=== PATIENT | female | born 1995 | race Caucasian/White ===

== ENCOUNTER 2023-05-22 22:28 | Inpatient (IN) | payer OTHER, SELFPAY ==
[2023-05-22 16:13] VITALS: BP 139/98
[2023-05-22] MEDS: DILAUDID 0.5 MG IV ×2 (20:08→21:58)
[2023-05-22] MEDS: NSS 1000 IV (20:08)
[2023-05-22 20:09] LABS: % Basophils 0.5 % (0-2); % Eosinophils 0.7 % (0-6); % Immature Granulocytes 0.2 % (0-0.5); % Lymphocytes 21.2 % (20.5-51.1); % Monocytes 9.7 % (1.7-9.3); % Neutrophils 67.7 % (42.2-75.2); Absolute Lymphocytes 0.9 10^3/uL (1.2-3.4); Absolute Monocytes 0.4 10^3/uL (0.1-0.6); Hematocrit 30.2 % (37.0-47.0); Hemoglobin 10.6 g/dL (12.0-16.0); Mean Corp Hgb Conc. 35.1 g/dL (33.0-37.0); Mean Corpuscular Hgb 31.1 pg (27.0-31.0); Mean Corpuscular Volume 88.6 fL (81.0-99.0); Mean Platelet Volume 12.6 fL (7.4-10.4); Nucleated Red Blood Cells % 0 %; Platelet Count 176 10^3/uL (130-400); Red Blood Cell Count 3.41 10^6/uL (4.20-5.40); Red Cell Dist. Width 13.4 % (11.5-14.5); White Blood Cell Count 4.4 10^3/uL (4.8-10.8)
[2023-05-22] MEDS: ZOFRAN 4 MG IV (20:09)
[2023-05-22 20:18] VITALS: BMI 33.8
[2023-05-22 20:31] LABS: ALT (SGPT) 47 U/L (0-35); AST (SGOT) 41 U/L (14-36); Albumin 3.9 g/dl (3.5-5.0); Alkaline Phosphatase 89 U/L (38-126); Blood Urea Nitrogen 24 mg/dl (7-17); Calcium 9.2 mg/dl (8.4-10.2); Carbon Dioxide 23 mmol/L (22-30); Chloride 103 mmol/L (98-107); Estimated Creatinine Clearance 59 ml/min; Glucose 106 mg/dl (70-99); Potassium 4.8 mmol/L (3.5-5.1); Sodium 135 mmol/L (135-145); Total Bilirubin 0.4 mg/dl (0.2-1.3); Total Protein 6.4 g/dl (6.3-8.2); eGFR 47.78
--- NOTE | 2023-05-22 20:36 | ED.GENMED ---
History of Present Illness
General
Chief Complaint: Abdominal Pain
Source: patient
Time Seen by Provider: 05/22/23 19:28
Travel History
Have you had any contact with someone who has COVID-19?: No
Comment: self
Do you have any symptoms of coronavirus? Fever > 100 degrees, chills, cough, shortness of breath, sore throat, loss of taste or smell, muscle aches, or headache?: Yes
Symptoms:: fever and chills
History of Present Illness
History of Present Illness:
28-year-old female renal transplant patient typically follows at [facility] presents with significant abdominal pain worsening over the past 2 days with associated loose stool. She was recently admitted at hospital
[place] for treatment of COVID. She received remdesivir as well as ceftriaxone. Upon discharge, 2 days ago she developed abdominal pain diarrhea similar to prior bouts of C. difficile. She denies a fever. She is nauseous without vomiting.
She notes significant diffuse abdominal pain. No other complaints at this time
Past History
Past History
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
ED Past Surgical History: Other (Kidney transplant 2015, Hernia repair)
Social History
Tobacco: Non-smoker
Alcohol: None
Drug: None
Personal: Single
Living: with family
Employment: Employed
Family History
Family History: Other (Grandmother with ovarian cancer mother with retinitis pigmentosa, father with high blood pressure)
Phy Exam
Physical Exam
Physical Exam:
General: Uncomfortable appearing female no acute respiratory distress
HEENT: Normocephalic atraumatic mucosa dry neck is supple
Heart: Regular rate and rhythm no murmurs
Lungs: Clear bilaterally no wheezing
Abdomen: Soft diffusely tender no guarding or rebound normal bowel sounds
Course
Orders/Labs/Results
Orders:
Orders
05/22/23 16:27
C difficile Antigen & Toxins Urgent
ITZ Source: Feces/Stool
Specimen Description:
Date Specimen was Collected: 05/22/23
Time Specimen was Collected: 16:25
Stool Culture Urgent
ITZ Source: Feces/Stool
Specimen Description:
Date Specimen was Collected: 05/22/23
Time Specimen was Collected: 16:25
05/22/23 19:35
0.9% Sodium Chloride 1000 ml [Nss] 1,000 ml IV BOLUS
HYDROmorphone [Dilaudid] 0.5 mg IV NOW STA
Ondansetron Injectable [Zofran] 4 mg IV NOW STA
05/22/23 20:03
Complete Blood Count/With Diff Urgent
Comprehensive Metabolic Panel Urgent
Lipase Urgent
05/22/23 20:07
Diphenhydramine [Benadryl] 25 mg IV NOW STA
05/22/23 21:00
Fidaxomicin [Dificid] 200 mg PO BID
Abnormal Lab Results
05/22/23
20:03
WBC 4.4 L 10^3/uL
(4.8-10.8)
RBC 3.41 L 10^6/uL
(4.20-5.40)
Hgb 10.6 L g/dL
(12.0-16.0)
Hct 30.2 L %
(37.0-47.0)
MCH 31.1 H pg
(27.0-31.0)
MPV 12.6 H fL
(7.4-10.4)
Absolute Lymphs (auto) 0.9 L 10^3/uL
(1.2-3.4)
Monocytes % 9.7 H %
(1.7-9.3)
BUN 24 H mg/dl
(7-17)
Creatinine 1.5 H mg/dL
(0.6-1.0)
Glucose 106 H mg/dl
(70-99)
AST 41 H U/L
(14-36)
ALT 47 H U/L
(0-35)
05/22/23 20:03
05/22/23 20:03
Vital Signs
Initial and Last Documented VS:
Initial Vital Signs
Temp Pulse Resp BP Pulse Ox
98.3 F 84 16 139/98 98
05/22/23 16:13 05/22/23 16:13 05/22/23 16:13 05/22/23 16:13 05/22/23 16:13
Last Documented Vital Signs
Temp Pulse Resp BP Pulse Ox
98.3 F 84 16 139/98 98
05/22/23 16:13 05/22/23 16:13 05/22/23 16:13 05/22/23 16:13 05/22/23 16:13
MDM/Problems Addressed
Differential Diagnosis Includes:
Abdominal pain and diarrhea recent hospitalization immunosuppressed patient. Consider recurrent C. difficile. Diffuse tenderness on exam. At this point we will not order any imaging. Stool studies pending but likely will not get C. difficile
until the morning. Check labs hydrate treat symptoms. Discussed with ID
*Critical Care Note
Total Time (30-74mins, 75-104mins- exclusive of procedures): Not Applicable
Update Note
Update Note:
Patient reevaluated multiple times and is moving her bowels frequently with persistent abdominal pain. Suspect possible recurrent C. difficile. Will start on for Doxy mycin 200 mg twice a day admit to hospital for IV hydration pain control and
treatment of likely recurrent C. difficile.
ED Attending Note
-
Portions of this chart may have been created with voice recognition software.� Occasional wrong word or��sound alike� substitutions may have occurred due to the inherent limitations of voice recognition software.
Discharge Plan
Departure
Patient Disposition: Admit
Date of Disposition: 05/22/23
Time of Disposition: 20:37
Admit to: Med/Surg
Presentation/result/management discussed w/ accepting MD/DO: Hospitalist
Discharge Problem:
Abdominal pain
Prescriptions:
No Action
prednisone 5 MG tablet
5 mg PO DAILY
clonidine HCl 0.1 MG tablet
0.2 mg PO TID
alprazolam 1 MG tablet
1 mg PO DAILY PRN (Reason: panic)
Patient Comments:
10/20/2022: last filled 09/27/22, 10 tabs for 30 days from [facility]
azathioprine [Azasan] 100 MG tablet
100 mg PO DAILY
omeprazole 20 MG tablet,delayed release (DR/EC)
20 mg PO DAILY
carvedilol 25 mg Tablet
25 mg PO BID
spironolactone 25 mg tablet
25 mg PO DAILY
lisinopril 10 mg tablet
10 mg PO DAILY
montelukast 10 mg tablet
10 mg PO HS
pravastatin 20 mg tablet
20 mg PO HS
mirtazapine 15 mg tablet
30 mg PO HS
zolpidem 10 mg tablet
10 mg PO HS PRN (Reason: insomnia)
Patient Comments:
10/20/2022: last filled 09/27/22, 15 tabs for 30 days from [facility]
albuterol sulfate 90 mcg/actuation HFA aerosol inhaler
2 puff INHALATION R Q4 PRN (Reason: sob)
ondansetron 4 mg tablet,disintegrating
4 mg PO Q8H PRN (Reason: nausea/vomiting)
buspirone 15 mg tablet
15 mg PO BID
Linzess 145 mcg capsule
145 mcg PO DAILY PRN (Reason: constipation)
Eliquis 2.5 mg tablet
2.5 mg PO BID
acetaminophen 500 mg Powder In Packet
1,000 mg PO Q6H PRN (Reason: mild pain/fever)
Trulicity 0.75 mg/0.5 mL Pen Injector
0.75 mg SC QWEEK
Patient Comments:
THURSDAYS
multivitamin Tablet
1 tab PO DAILY
hyoscyamine sulfate 0.125 mg Tablet
0.125 mg PO Q6H PRN (Reason: IRRITABLE BOWEL, CRAMPING)
belatacept 250 mg Recon Soln
250 mg IV .Q4WK
sulfamethoxazole-trimethoprim [Bactrim DS] 800-160 mg tablet
1 tab PO BID 7 Days Qty: 14 0RF
Referrals:
Leoncio Zheng MD [Family Provider] -
Interventions
Interventions:
*Risk Screen - Suicide Last Done: 05/22/23 16:13
*General Assessment Last Done: 05/22/23 19:55
*Neglect/Abuse Screening Last Done: 05/22/23 16:13
*ED COVID-19 Vaccine History Last Done: 05/22/23 16:13
HS-Jcdhei-Udlqlvvjih Assessment Last Done: 05/22/23 19:55
[2023-05-22 20:41] LABS: Lipase 261 U/L (23-300)
[2023-05-22] MEDS: BENADRYL 25 MG IV (20:59)
--- NOTE | 2023-05-22 21:59 | HPS.HSE ---
Addendum entered and electronically signed by Robby Carr DO 05/22/23 22:19:
A/P:
Anemia of Chronic Disease
- Stable. Hgb is at / near known baseline.
- No noted blood loss / bloody stool / etc.
- Follow for any changes.
Original Note:
Family Physician
-
Family Physician: Leoncio Zheng MD
Chief Complaint
-
Abdominal Pain / Diarrhea
History of Present Illness
Patient is a 28y F with PMH significant for renal transplant and immunocompromised status who presents to ED complaining of abdominal pain and diarrhea x 4 days. Patient states that she started with crampy abdominal pain and loose, watery
stools on evening. Her symptoms have worsened since that time. Today her pain is quite severe and diffuse. She has had > 10 BM per day for the past 2 days. Patient notes that symptoms are similar to CDiff colitis that she had in
March 2023.
Patient is on chronic immunosuppressant medications for her renal transplant.
She was diagnosed with CDiff 04/21/23 and was treated with oral Vancomycin at that time (she apparently tolerates this as long as taken with Benadryl). Her symptoms did completely resolve.
On 05/13/23, patient was seen in this ED with a red, inflamed skin lesion on the posterior neck. She was prescribed Bactrim at that time.
On 05/16/23, patient developed cough and chills. She was seen at [facility] the following morning and found to be COVID-19 positive. She was admitted and treated with 3 doses of Remdesivir. She states that she also received 3 doses of ceftriaxone as she
was complaining of urinary symptoms.
Patient was discharged to home on and her current symptoms of abdominal pain and diarrhea started soon after.
In the ED, patient is in moderate distress due to combination of abdominal discomfort and anxiety.
Medical History
Past Medical History
Past Medical History: Reports Other
Additional Past Medical History:
FSGS s/p Renal Transplant
Major Depression / Bipolar Depression
Factor V Leiden Mutation with Prior DVT and PE
Obesity
Hypertension
Asthma
History of CDiff Colitis
History of CMV Colitis
Past Surgical History: Reports Other
Additional Past Surgical History:
Renal Transplant (2014)
Sinus Surgery
Septoplasty x 2
T&A
Cholecystectomy
Right Hand Surgery
Social History
Tobacco: Non-smoker
Alcohol: None
Drug: None
Family History
Family History: Other (Anxiety / Depression)
Allergies / Home Medications
Allergies reflects when Allergies were last updated in [employer].
Home Medications with original date entered in [employer]
Allergy/Medication List:
Allergies
Allergy/AdvReac Type Severity Reaction Status Date / Time
amoxicillin Allergy Rash Verified 05/22/23 16:21
cephalexin [From Keflex] Allergy Itching; Verified 05/22/23 16:21
tolerated
cepfodoxime
07/28/22
acetaminophen [From Vicodin] AdvReac Nausea / Verified 05/22/23 16:21
Vomiting
hydrocodone [From Vicodin] AdvReac Nausea / Verified 05/22/23 16:21
Vomiting
vancomycin AdvReac vanco Verified 05/22/23 16:21
flushing
syndrome;
tolerates
with
diphenhdyramine
Home Medications
prednisone 5 mg tablet 5 mg PO DAILY inflammation 08/02/16
alprazolam 1 mg tablet 1 mg PO DAILY PRN panic 01/24/21
azathioprine 100 mg tablet (Azasan) 100 mg PO DAILY Transplant 01/24/21
omeprazole 20 mg tablet,delayed release 20 mg PO BID Gastrointestinal Issue 01/24/21
apixaban 2.5 mg tablet (Eliquis) 2.5 mg PO BID Blood Clot Prevention/Tx 10/20/22
buspirone 15 mg tablet 15 mg PO TID Mental Health/Anxiety 10/20/22
carvedilol 25 mg tablet 25 mg PO BID Blood Pressure 10/20/22
lisinopril 10 mg tablet 10 mg PO HS Blood Pressure 10/20/22
montelukast 10 mg tablet 10 mg PO HS Allergies 10/20/22
pravastatin 20 mg tablet 20 mg PO HS High Cholesterol 10/20/22
spironolactone 25 mg tablet 25 mg PO DAILY Blood Pressure 10/20/22
zolpidem 10 mg tablet 10 mg PO HS PRN insomnia 10/20/22
belatacept 250 mg intravenous solution 250 mg IV .Q4WK 01/27/23
clonidine HCl 0.2 mg tablet 0.2 mg PO TID 05/22/23
metoclopramide HCl 10 mg tablet 10 mg PO Q6H PRN N/V 05/22/23
mirtazapine 30 mg tablet 30 mg PO HS 05/22/23
Review of Systems
-
History Source: Patient
A 12 point ROS was completed and negative except as noted: Yes
Constitutional: Reports Fatigue and Chills; Denies Fever
EENT: Denies Sore Throat
Respiratory: Denies Cough or Trouble Breathing
Cardiac: Denies Chest Pain or Palpitations
Abdomen/GI: Reports Abdominal Pain and Diarrhea; Denies Nausea, Vomiting, Bloody Stools or Black Stools
: Reports Dysuria and Frequency; Denies Incontinence or Difficulty Voiding
Musculoskeletal: Denies Joint Pain or Edema
Neurological: Denies Dizzy or Headache
Psych: Reports Depression and Anxiety
Physical Exam
Vital Signs
Vital Signs
Temp Pulse Resp BP Pulse Ox
98.3 F 84 16 139/98 98
05/22/23 16:13 05/22/23 16:13 05/22/23 16:13 05/22/23 16:13 05/22/23 16:13
Physical Exam
General: Other (28y F in moderate distress due to discomfort abd anxiety)
HEENT: Moist mucous membranes, PERRLA and Other (Cushinoid / rounded facies)
Respiratory: Clear; No Wheezes, Rales or Rhonchi
Cardiac: S1/S2 and Regular Rhythm; No Murmur
GI: Soft, Non Distended, Normal Bowel Sounds and Other (Pos diffuse tenderness with voluntary guarding.)
Musculoskeletal: No Clubbing and No Edema
Neuro: AO x 3
Psych: Anxious
Laboratory Results
-
05/22/23 20:03
05/22/23 20:03
Laboratory Results
Total Bilirubin 0.4 mg/dl (0.2-1.3) 05/22/23 20:03
AST 41 U/L (14-36) H 05/22/23 20:03
ALT 47 U/L (0-35) H 05/22/23 20:03
Alkaline Phosphatase 89 U/L (38-126) 05/22/23 20:03
Lipase 261 U/L (23-300) 05/22/23 20:03
Impression/Plan
-
A/P: Patient is a 28y F with PMH significant for renal transplant and immunocompromised state who presents to ED complaining of abdominal pain and diarrhea.
Abdominal Pain / Diarrhea
- Admit for further evaluation and treatment.
- Symptoms seem most c/w colitis with possibilities including CDiff or CMV given immunocompromised state and prior history.
- Treat with PO Vanco for CDiff in March 2023.
- Recent abx use including Bactrim (beginning 05/13) and ceftriaxone (beginning 05/16).
- Follow-up stool studies.
- Dificid for now.
- Supportive care including IVFs / volume replacement / pain control / etc.
- ID evaluation for additional recommendations.
- Follow for clinical improvement.
Renal Transplant Status
CKD III
- Stable. SCr is at / near known baseline.
- Continue current antirejection medications including daily prednisone.
- Follow for changes in renal function.
Anxiety / Major Depression / Bipolar
- Poorly controlled at present.
- Continue usual outpatient medication regimen for now.
- PRN lorazepam for breakthrough anxiety.
- Follow for improvement.
Multidrug Resistant Hypertension
- Stable at present. Continue current outpatient med regimen with holding parameters.
- Adjust regimen as needed for adequate BP control.
GERD
- Would discontinue PPI given CDiff recently and possibly recurrently.
- Begin H2-blockade and monitor for adequate control of reflux symptoms.
Obesity due to excess calories and med effects
- Affects all aspects of care.
- Encourage healthy diet and increased exercise with goal of weight loss.
Thrombophilia / Factor V Leiden Mutation
DVT Prophylaxis
- Continue Eliquis.
Code Status: Full
[2023-05-22 22:06] VITALS: BP 133/88
[2023-05-22] MEDS: DIFICID 200 MG PO (23:08)
[2023-05-23] MEDS: NSS 1000 IV ×3 (01:05→20:11)
[2023-05-23] MEDS: DILAUDID 0.5 MG IV ×7 (01:06→23:01)
[2023-05-23] MEDS: ZESTRIL 10 MG PO ×2 (01:17→23:01)
[2023-05-23] MEDS: SINGULAIR 10 MG PO ×2 (01:18→23:01)
[2023-05-23] MEDS: PRAVACHOL 20 MG PO ×2 (01:21→23:01)
[2023-05-23] MEDS: REMERON 30 MG PO ×2 (01:21→23:01)
[2023-05-23] MEDS: CATAPRES PO (01:27)
[2023-05-23] MEDS: CATAPRES 0.200000000000000011 MG PO ×4 (01:27→23:01)
[2023-05-23] MEDS: TYLENOL 650 MG PO (02:37)
[2023-05-23 02:41] VITALS: BP 186/119
[2023-05-23] MEDS: COREG 25 MG PO ×3 (03:14→20:06)
[2023-05-23] MEDS: ATIVAN 0.5 MG PO ×2 (05:06→11:12)
[2023-05-23 05:30] LABS: Hematocrit 27.2 % (37.0-47.0); Hemoglobin 9.4 g/dL (12.0-16.0); Mean Corp Hgb Conc. 34.6 g/dL (33.0-37.0); Mean Corpuscular Hgb 31.1 pg (27.0-31.0); Mean Corpuscular Volume 90.1 fL (81.0-99.0); Mean Platelet Volume 12.6 fL (7.4-10.4); Platelet Count 146 10^3/uL (130-400); Red Blood Cell Count 3.02 10^6/uL (4.20-5.40); Red Cell Dist. Width 13.4 % (11.5-14.5); White Blood Cell Count 4.2 10^3/uL (4.8-10.8)
[2023-05-23] MEDS: ZOFRAN 4 MG IV ×3 (05:47→23:02)
[2023-05-23 05:59] LABS: Blood Urea Nitrogen 18 mg/dl (7-17); Calcium 8.3 mg/dl (8.4-10.2); Carbon Dioxide 23 mmol/L (22-30); Chloride 106 mmol/L (98-107); Estimated Creatinine Clearance 64 ml/min; Glucose 88 mg/dl (70-99); Magnesium 1.6 mg/dl (1.6-2.3); Phosphorus 4.2 mg/dl (2.5-4.5); Potassium 4.2 mmol/L (3.5-5.1); Sodium 135 mmol/L (135-145)
[2023-05-23 06:00] VITALS: BP 168/119
[2023-05-23 08:00] VITALS: BP 175/120
[2023-05-23] MEDS: ALDACTONE 25 MG PO (08:04)
[2023-05-23] MEDS: ELIQUIS 2.5 MG PO ×2 (08:04→20:06)
[2023-05-23] MEDS: PEPCID 20 MG PO ×2 (08:04→20:06)
[2023-05-23] MEDS: DELTASONE 5 MG PO (09:04)
[2023-05-23] MEDS: IMURAN 100 MG PO (09:05)
[2023-05-23] MEDS: DIFICID 200 MG PO (09:05)
--- NOTE | 2023-05-23 09:09 | W.PN.HOSP.TC ---
Today's Communication/Plan
-
Continue monitoring BMP and CBC -- especially renal function given history of renal transplant
Monitor vital signs
Appreciate ID and GI recommendations
Assessment / Plan
Assessment / Plan
Physical Exam
General: Not in acute distress
HEENT: Moist mucous membranes and Other (Cushinoid / rounded facies)
Respiratory: Clear to Auscultation Bilaterally
Cardiac: S1/S2 and Regular Rhythm
GI: Soft, Non Distended, Normal Bowel Sounds and Other (Pos diffuse tenderness with voluntary guarding.)
Musculoskeletal: No Edema
Neuro: AAO x 3
Psych: Anxious

A/P: Patient is a 28y F with PMH significant for renal transplant and immunocompromised state who presents to ED complaining of abdominal pain and diarrhea.
Abdominal Pain / Diarrhea in the Setting of Immunocompromised Status
Colitis?
Recent C. Diff (03/2023)
History of CMV colitis due to immunosuppression.
- Admit for further evaluation and treatment.
- Symptoms seem most c/w colitis with possibilities including CMV given immunocompromised state and prior history.
- Treated with PO Vanco for CDiff in March 2023.
- Recent abx use including Bactrim (beginning 05/13) and ceftriaxone (beginning 05/16).
- Follow-up stool studies.
- Dificid for now.
- Supportive care including IVFs / volume replacement / pain control / etc.
- ID evaluation for additional recommendations.
- Consulted gastroenterology, recommendations appreciated
Renal Transplant Status
Immunocompromised Status
CKD III
- Stable. SCr is at / near known baseline (creatinine of 1.4 to 1.5 and eGFR of 40)
- Continue current antirejection medications including daily prednisone.
- Follow for changes in renal function.
Recent COVID Hospitalization at [facility] in [place]
- Patient was hospitalized with COVID (with no pulmonary symptoms) recently in [facility] in [place]
- She got Remdesivir and Ceftriaxone at the time
Anemia of Chronic Disease
- Stable. Hgb is at / near known baseline.
- No noted blood loss / bloody stool / etc.
- Follow for any changes.
Anxiety / Major Depression / Bipolar
- Poorly controlled at present.
- Continue usual outpatient medication regimen for now.
- PRN lorazepam for breakthrough anxiety.
- Follow for improvement.
Multidrug Resistant Hypertension
- Stable at present. Continue current outpatient med regimen with holding parameters.
- Adjust regimen as needed for adequate BP control.
GERD
- Would discontinue PPI given CDiff recently and possibly recurrently.
- Begin H2-blockade and monitor for adequate control of reflux symptoms.
Obesity due to excess calories and med effects
- Affects all aspects of care.
- Encourage healthy diet and increased exercise with goal of weight loss.
Thrombophilia / Factor V Leiden Mutation
DVT Prophylaxis
- Continue Eliquis.
Code Status: Full
Anticipated Discharge: 24 - 48 hours
Subjective/Interval History
-
Date of Service: May 23, 2023
Patient was seen and examined. She reported that she has been having diarrhea for the past couple of days. She is doing okay this morning but would like a regular diet.
Objective Data
-
Labs:
Laboratory Results
05/23/23
05:12
WBC 4.2 L
Hgb 9.4 L
Hct 27.2 L
Plt Count 146
Sodium 135
Potassium 4.2
Chloride 106
Carbon Dioxide 23
BUN 18 H
Creatinine 1.4 H
Glucose 88
Calcium 8.3 L
Vital Signs:
Vital Signs
Temp Pulse Resp BP Pulse Ox
98.2 F 70 16 175/120 96
05/23/23 08:00 05/23/23 08:00 05/23/23 08:00 05/23/23 08:00 05/23/23 08:21
I&O
05/22/23 05/23/23 05/24/23
06:59 06:59 06:59
Intake Total 1280 / 1280
Balance 1280 / 1280
--- NOTE | 2023-05-23 11:20 | PHANOTE ---
05/23/2023, [employer], spoke to pt. to obtain their medication history; pt. states that her Trulicity 3 mg/0.5 ml pen that she uses on Saturdays is currently on hold and she has not used it in awhile.
[2023-05-23 15:43] VITALS: BP 168/108
[2023-05-23 15:44] VITALS: BMI 32.9
--- NOTE | 2023-05-23 16:38 | CON.ID ---
Consultation
-
Date/Time Consultation Requested: 05/23/23 00:49
Date/Time Consultation Performed: 05/23/23 16:39
Requesting Provider: Dr Carr
Performing Provider: Dr Lange
Reason for Consultation: Colitis- Suspected CDiff
Chief Complaint / Past History
Chief Complaint
abdominal pain, diarrhea
History of Present Illness
Ms Montero is a 28 year old female with history of FSGS s/p RT 2014 (azathioprine 100 mg PO qday, betalacept, pred 5 mg) and C diff (last 04/16), also CMV colitis who presented here late last night for abdominal pain and diarrhea x4 days; pain began
as crampy, loose, watery stools on and have progressed. Reporting >10 BM/day x2 days. Reports that her c difficile symptoms did fully resolve. Of note with 3 days of ceftriaxone of dysuira 1 week ago and a 3 day course of remdesivir for
covid.
Also has a history of an abdominal wall abscess 10/20/22 s/p I&D.
Since arrival here she has been afebrile, bp hypertensive, wbc 4.2, hgb 9.4, plt 146, a L shift is noted, cr 1.4 which appears to be her baseline, C diff testing has resulted negative, a routine stool culture is in progress,
Past History
Additional Past Medical History:
FSGS s/p Renal Transplant
Major Depression / Bipolar Depression
Factor V Leiden Mutation with Prior DVT and PE
Obesity
Hypertension
Asthma
History of CDiff Colitis
History of CMV Colitis
Additional Past Surgical History:
Renal Transplant (2014)
Sinus Surgery
Septoplasty x 2
T&A
Cholecystectomy
Right Hand Surgery
Allergy History:
amoxicillin Allergy (Verified 05/22/23 16:21)
Rash
cephalexin [From Keflex] Allergy (Verified 05/22/23 16:21)
Itching; tolerated cepfodoxime 07/28/22
acetaminophen [From Vicodin] Adverse Reaction (Verified 05/22/23 16:21)
Nausea / Vomiting
hydrocodone [From Vicodin] Adverse Reaction (Verified 05/22/23 16:21)
Nausea / Vomiting
vancomycin Adverse Reaction (Verified 05/22/23 16:21)
vanco flushing syndrome; tolerates with diphenhdyramine
Medications Reviewed: Yes
Social History
Tobacco: Non-Smoker
Alcohol: None
Drug: None
Family History
Family History: Not Pertinent
Review of Systems
Review of Systems
General: Fever
All systems: All other systems were reviewed and were negative
Vital Signs
Temp Pulse Resp BP Pulse Ox
98.0 F 71 17 168/108 98
05/23/23 15:43 05/23/23 15:43 05/23/23 15:43 05/23/23 15:43 05/23/23 15:43
Physical Exam
Physical Exam
Constitutional: No Acute Distress
Cardiovascular: Regular Rate and S1/S2; Negative Murmur or Rub
Pulmonary: Clear and Symmetric; Negative Wheezes, Rales or Rhonchi
Gastrointestinal: Soft, Non Tender, Non Distended and Normal Bowel Sounds
Skin: Warm and Dry; Negative Rash or Jaundice
Lab / Diagnostic Study Results
05/23/23 05:12
05/23/23 05:12
Abs Immat Gran (auto) 0.0 10^3/uL (0-0.05) 05/22/23 20:03
Absolute Neuts (auto) 3.0 10^3/uL (1.4-6.5) 05/22/23 20:03
Absolute Lymphs (auto) 0.9 10^3/uL (1.2-3.4) L 05/22/23 20:03
Absolute Monos (auto) 0.4 10^3/uL (0.1-0.6) 05/22/23 20:03
Absolute Basos (auto) 0.0 10^3/uL (0-0.2) 05/22/23 20:03
Immature Gran % 0.2 % (0-0.5) 05/22/23 20:03
Neutrophils % 67.7 % (42.2-75.2) 05/22/23 20:03
Lymphocytes % 21.2 % (20.5-51.1) 05/22/23 20:03
Monocytes % 9.7 % (1.7-9.3) H 05/22/23 20:03
Eosinophils % 0.7 % (0-6) 05/22/23 20:03
Basophils % 0.5 % (0-2) 05/22/23 20:03
Microbiology Results
Micro:
05/22/23 16:27 C. difficile GDH Antigen & Toxins - Final
Feces/Stool Negative for toxigenic C.difficile
05/22/23 16:27 Salmonella/Shigella Culture - Pending
Feces/Stool Campylobacter Culture - Pending
Shiga Toxin Test - Pending
Assessment / Plan
Possible antibiotics associated diarrhea, colitis including CMV colitis, diverticulitis (known diverticulosis), giardia/crypto
CKD s/p RT
Immunosuppression
- C diff ag/toxin both negative
- routine culture in progress but relatively low yield
- giardia/crypto ags though less likely - no clear exposure history
- ordered CT a/p without contrast (vomiting, cannot tolerate oral, jolene)
- if not improving with supportive care and no other source found eventual consideration for colonoscopy and assessment for CMV
- stop fidaxomicin- not c diff
- hold antibiotics given recent C diff pending imaging
- oral vancomycin is not absorbed systemically and could likely be tolerated even if patient has red man with systemic vancomcyin
- follow clinically
[2023-05-23 19:00] VITALS: BP 165/107
[2023-05-23] MEDS: PROTONIX 40 MG PO (20:06)
[2023-05-23] MEDS: XANAX 2 MG PO (20:17)
[2023-05-23 23:00] VITALS: BP 140/92
[2023-05-24 05:11] LABS: % Basophils 0.2 % (0-2); % Eosinophils 1.8 % (0-6); % Immature Granulocytes 0.2 % (0-0.5); % Lymphocytes 27.3 % (20.5-51.1); % Monocytes 14.1 % (1.7-9.3); % Neutrophils 56.4 % (42.2-75.2); Absolute Eosinophils 0.1 10^3/uL (0-0.7); Absolute Lymphocytes 1.2 10^3/uL (1.2-3.4); Absolute Monocytes 0.6 10^3/uL (0.1-0.6); Absolute Neutrophils 2.4 10^3/uL (1.4-6.5); Hematocrit 29.2 % (37.0-47.0); Hemoglobin 9.9 g/dL (12.0-16.0); Mean Corp Hgb Conc. 33.9 g/dL (33.0-37.0); Mean Corpuscular Hgb 31.2 pg (27.0-31.0); Mean Corpuscular Volume 92.1 fL (81.0-99.0); Mean Platelet Volume 12.7 fL (7.4-10.4); Nucleated Red Blood Cells % 0 %; Platelet Count 142 10^3/uL (130-400); Red Blood Cell Count 3.17 10^6/uL (4.20-5.40); White Blood Cell Count 4.3 10^3/uL (4.8-10.8)
[2023-05-24 05:38] LABS: ALT (SGPT) 32 U/L (0-35); AST (SGOT) 22 U/L (14-36); Albumin 3.1 g/dl (3.5-5.0); Alkaline Phosphatase 70 U/L (38-126); Blood Urea Nitrogen 15 mg/dl (7-17); Calcium 8.7 mg/dl (8.4-10.2); Carbon Dioxide 24 mmol/L (22-30); Chloride 105 mmol/L (98-107); Estimated Creatinine Clearance 63 ml/min; Glucose 94 mg/dl (70-99); Magnesium 1.6 mg/dl (1.6-2.3); Phosphorus 3.7 mg/dl (2.5-4.5); Sodium 137 mmol/L (135-145); Total Bilirubin 0.6 mg/dl (0.2-1.3); Total Protein 5.5 g/dl (6.3-8.2)
--- NOTE | 2023-05-24 06:56 | CON.GI ---
Addendum entered and electronically signed by Noelle Watts MD 05/24/23 21:01:
I saw and examined the patient.
The WICKER WORKER or PA's note was reviewed and I agree with the note.
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 difficile colitis status post 2
weeks of oral vancomycin presenting with abdominal pain and diarrhea with about 10 bowel movements a day. This is going on for the past 1 month, was admitted at [facility] and had upper endoscopy and flexible sigmoidoscopy which was
after the C. difficile treatment, as per patient upper endoscopy showed gastritis and duodenitis no evidence of CMV noted on colonoscopy. we do not have records to review regarding medication she was started on prior to discharge from [facility]. Subsequently she got COVID and started on remdesivir, she also was given ceftriaxone and post antibiotics diarrhea got worse and she came into the emergency room here.
C. difficile antigen and toxin negative, Cryptosporidium and Giardia negative, stool cultures pending and WBC pending.
-Diarrhea which seems to be chronic at this time, previous history of C. difficile but negative on this admission.
Noncontrast CT scan unremarkable
Will get records from [facility] and also pathology results from the upper endoscopy and colonoscopy.
Await other stool testing.
Low residue lactose low lactose diet for now.
Monitor electrolytes and replete.
Will follow-up on the records from [facility].
Hold off on antibiotics and antidiarrheal's for now.
History of IBS in the past, no improvement with Bentyl.
Will continue to follow
Original Note:
Consultation
-
Date/Time Consultation Requested: 05/23/23 1640
Date/Time Consultation Performed: 05/24/23 0930
Requesting Provider: Alvin Malone MD
Performing Provider: TREV Espinoza, Noelle Watts MD
Reason for Consultation: diarrhea, rectal pain
Medical History
Chief Complaint / HPI
Chief Complaint: diarrhea
History of Present Illness:
Pt is a 28yo with multiple medical issues with prior renal transplant on chronic immunosuppression, depression/bipolar, factor V with prior DVT/PE on Eliquis, , CMV and C-diff colitis (march 2023 with vanco course). she present for abdominal
pain and diarrhea with 10 + BM for several days. She had recent abx course for UTI and remdesivir for covid. She was also noted with rectal pain on admission that is getting better with local therapy. Pt admits to some nausea, diffuse abdominal
pain and continued diarrhea but denies dysphagia, GERD, constipation, black or bloody stools. Pt admits she recently completed EGD and colon at [facility] in March. Did not recall significant findings.
Past Medical History
Past Medical History: Asthma, HTN, Psychiatric (depression/bipolar disorder) and Other (FSGS s/p renal transplant, factor V leiden mutation with prior PE/DVT on chronic Eliquis, obesity, c-diff colitis, CMV colitis, covid, UTI, abdominal wall
abscess)
Past Surgical History: Cholecystectomy and Other (renal transplant, sinus surgery, septoplasty, T+A, hand sugery)
Social History
Tobacco: Non-Smoker
Alcohol: None
Drug: None
Personal:
Living: With Family
Family History
Family History: Reviewed & Not Pertinent
Allergies / Home Medications
Allergy/AdvReac Type Severity Reaction Status Date / Time
amoxicillin Allergy Rash Verified 05/22/23 16:21
cephalexin [From Keflex] Allergy Itching; Verified 05/22/23 16:21
tolerated
cepfodoxime
07/28/22
acetaminophen [From Vicodin] AdvReac Nausea / Verified 05/22/23 16:21
Vomiting
hydrocodone [From Vicodin] AdvReac Nausea / Verified 05/22/23 16:21
Vomiting
vancomycin AdvReac vanco Verified 05/22/23 16:21
flushing
syndrome;
tolerates
with
diphenhdyramine
Medication Instructions Recorded
prednisone 5 mg tablet 5 mg PO DAILY inflammation 08/02/16
alprazolam 1 mg tablet 1 mg PO DAILY PRN mild anxiety 01/24/21
azathioprine 100 mg tablet (Azasan) 100 mg PO DAILY Transplant 01/24/21
apixaban 2.5 mg tablet (Eliquis) 2.5 mg PO Q12H Blood Clot 10/20/22
Prevention/Tx
buspirone 15 mg tablet 15 mg PO TID Mental Health/Anxiety 10/20/22
carvedilol 25 mg tablet 25 mg PO BID Blood Pressure 10/20/22
lisinopril 10 mg tablet 10 mg PO HS Blood Pressure 10/20/22
montelukast 10 mg tablet 10 mg PO HS Allergies 10/20/22
pravastatin 20 mg tablet 20 mg PO HS High Cholesterol 10/20/22
spironolactone 25 mg tablet 25 mg PO DAILY Blood Pressure 10/20/22
zolpidem 10 mg tablet 10 mg PO HS PRN insomnia 10/20/22
mirtazapine 30 mg tablet 30 mg PO HS Mental health/sleep 05/22/23
acetaminophen 500 mg/15 mL oral 1,000 mg PO Q4HPRN PRN mild pain 05/23/23
liquid
alprazolam 1 mg tablet 2 mg PO DAILY PRN severe anxiety 05/23/23
belatacept 250 mg intravenous 250 mg IV Q28D Transplant 05/23/23
solution
clonidine HCl 0.1 mg tablet 0.2 mg PO TID Blood Pressure 05/23/23
lidocaine 4 % topical cream 1 applic topical DIRECTED Pain 05/23/23
linaclotide 145 mcg capsule 145 mcg PO DAILY PRN IBS 05/23/23
(Linzess)
omeprazole 20 mg capsule,delayed 20 mg PO BID Gastrointestinal Issue 05/23/23
release
ondansetron 8 mg disintegrating 8 mg PO Q8H PRN nausea/vomiting 05/23/23
tablet
Review of Systems
-
History Source: Patient
Constitutional: Reports Weight Loss (few lbs )
EENT: Reports No Symptoms
Respiratory: Reports No Symptoms
Cardiac: Reports No Symptoms
Abdomen/GI: Reports Abdominal Pain and Nausea
: Reports Dysuria (mild)
Musculoskeletal: Reports No Symptoms
Skin: Reports No Symptoms
Neurological: Reports Weakness
Endocrine: Reports No Symptoms
Hematologic/Lymphatic: Reports No Symptoms
Vital Signs
Temp Pulse Resp BP Pulse Ox
97.4 F 89 14 140/92 96
05/23/23 23:00 05/23/23 23:00 05/23/23 23:00 05/23/23 23:00 05/23/23 23:00
Physical Exam
Exam
General: Well Developed, Well Nourished and No Apparent Distress
HEENT: Normocephalic and Anicteric
Respiratory: Clear
Cardiac: Regular Rhythm
GI: Soft, Non Distended and Distended
Rectal: Other ( pt consented to rectal exam no redness, no impaction, very minimal tenderness no pain with exam)
Musculoskeletal: No Clubbing and No Cyanosis
Skin: Warm
Neuro: Awake, Alert and AO x 3
Psych: Calm
Results
WBC 4.3 10^3/uL (4.8-10.8) L 05/24/23 04:58
Hgb 9.9 g/dL (12.0-16.0) L 05/24/23 04:58
Hct 29.2 % (37.0-47.0) L 05/24/23 04:58
MCV 92.1 fL (81.0-99.0) 05/24/23 04:58
Plt Count 142 10^3/uL (130-400) 05/24/23 04:58
Absolute Neuts (auto) 2.4 10^3/uL (1.4-6.5) 05/24/23 04:58
Sodium 137 mmol/L (135-145) 05/24/23 04:57
Potassium 4.0 mmol/L (3.5-5.1) 05/24/23 04:57
Chloride 105 mmol/L (98-107) 05/24/23 04:57
Carbon Dioxide 24 mmol/L (22-30) 05/24/23 04:57
BUN 15 mg/dl (7-17) 05/24/23 04:57
Creatinine 1.4 mg/dL (0.6-1.0) H 05/24/23 04:57
Calcium 8.7 mg/dl (8.4-10.2) 05/24/23 04:57
Total Bilirubin 0.6 mg/dl (0.2-1.3) 05/24/23 04:57
AST 22 U/L (14-36) 05/24/23 04:57
ALT 32 U/L (0-35) 05/24/23 04:57
Alkaline Phosphatase 70 U/L (38-126) 05/24/23 04:57
Lipase 261 U/L (23-300) 05/22/23 20:03
Diagnostic Image Results:
10/21/23 CT Abd/pel Without Iv Or Oral
1. � 1.3 cm SUBCUTANEOUS ABSCESS in the anterior pelvic wall located 1.6 cm deep to the skin surface surrounded by SEVERE CELLULITIS.
2. � Right lower quadrant renal transplant in place with mild collecting system dilatation which has increased since 01/24/2021.
3. � Severe bilateral atrophy of the [place] kidneys.
4. � Mild diverticulosis in the sigmoid colon.
5. � Moderate amount of fecal material throughout the proximal colon.
6. � Mild hepatosplenomegaly.
7. � Previous cholecystectomy.
8. � Minimal peritoneal fluid in the pelvis.
Prior GI Procedures:
EGD: recent at [facility] did not recall abnormal findings
Colonoscopy: recent [facility] did not recall any abnormal findings
Assessment / Plan
-
Pt is a 28yo with multiple medical issues with prior renal transplant on chronic immunosuppression, depression/bipolar, factor V with prior DVT/PE on Eliquis, CMV and C-diff (march with vanco course)colitis. she present for abdominal pain and
diarrhea with 10 + BM for several days. She had recent abx course for UTI and remdesivir for covid. Recent EGD and colonoscopy at [address]. Did not recall any abnormal findings.
-diarrhea
-abdominal pain
-rectal pain
-hx c-diff colitis 03/2023
-hx CMV colitis 2016 post transplant
-recent UTI with abx
-recent covid with remdesivir course
-chronic immunosuppression with renal transplant
-factor V/DVT/PE on chronic Eliquis
-depression/bipolar
PLAN:
etiology of abdominal pain with diarrhea related to colitis vs other
repeat c-diff , giardia and crypto neg on admission await further cultures
agree with CT for today with continued abdominal pain
pain control per hospitalist
will hold abd film for now with plan for CT
cont to trend diarrhea-- record all stools
will request recent EGD/colon with bx completed at [address]
appreciate ID recommendations abx held for now
rectal pain likely local process already improved with local care
if not improved consider flex to eval for CMV
remains on Eliquis
currently on PPI and Pepcid BID-- will change pepcid to HS -- consider stopping if improving
-
-
Thank you for consultation and allowing me to participate in the patient's care. Please call the stock preparation operator GI physician during the after hours with any questions or concerns.
[2023-05-24 07:22] VITALS: BP 153/96
[2023-05-24] MEDS: PEPCID 20 MG PO ×2 (07:37→22:17)
[2023-05-24] MEDS: DELTASONE 5 MG PO (07:37)
[2023-05-24] MEDS: PROTONIX 40 MG PO ×2 (07:38→20:16)
[2023-05-24] MEDS: ELIQUIS 2.5 MG PO ×2 (07:38→20:16)
[2023-05-24] MEDS: IMURAN 100 MG PO (07:38)
[2023-05-24] MEDS: CATAPRES 0.200000000000000011 MG PO ×3 (07:39→22:16)
[2023-05-24] MEDS: COREG 25 MG PO ×2 (07:41→20:16)
[2023-05-24] MEDS: ALDACTONE 25 MG PO (07:42)
[2023-05-24] MEDS: DILAUDID 0.5 MG IV ×6 (07:44→23:54)
[2023-05-24] MEDS: NSS 1000 IV (07:44)
[2023-05-24 09:36] LABS: HCG, Urine Qualitative Screen Negative
--- NOTE | 2023-05-24 10:26 | W.PN.ID1 ---
Date of Service
Date of Service: May 24, 2023
Today's Communication
- no need for antibiotics
- oral vancomycin is not absorbed systemically and could likely be tolerated even if patient has red man with systemic vancomycin
- follow clinically
Assessment / Plan
Possible antibiotics associated diarrhea, colitis including CMV colitis, diverticulitis (known diverticulosis), giardia/crypto
CKD s/p RT
Immunosuppression
- C diff ag/toxin both negative - giardia/crypto ags negative
- routine culture in progress but relatively low yield
- CT a/p read - nonrevealing
- if not improving with supportive care and no other source found eventual consideration for colonoscopy and assessment for CMV
- no indication for systemic antibiotics at this time in my opinion, note risk of c diff as well
- oral vancomycin is not absorbed systemically and could likely be tolerated even if patient has red man with systemic vancomycin
- follow clinically
Chief Complaint
-: Other (diarrhea, immunosuppression)
Subjective / Review of Systems
afebrile
bp stable
mild leukopenia ongoing
no L shift
cr stable
giardia/crypto neg
awaiting formal read of CT
05/13/23: 2 abscesses about 1 cm each on the posterior neck - MSSA sensitive to bactrim which she received
recent egd/colon completed at [place]
Vital Signs / Physical Exam
Vital Signs
Vital Signs
Temp Pulse Resp BP Pulse Ox
98.2 F 84 17 153/96 97
05/24/23 07:22 05/24/23 07:42 05/24/23 07:22 05/24/23 07:42 05/24/23 07:22
Physical Exam
Constitutional: No Acute Distress
Cardiovascular: Regular Rate and S1/S2; Negative Murmur or Rub
Pulmonary: Clear and Symmetric; Negative Wheezes or Rales
Gastrointestinal: Soft, Non Tender, Non Distended and Normal Bowel Sounds
Skin: Warm and Dry; Negative Rash or Jaundice
Objective Data
Lab Data
Lab Results
05/24/23 04:58
05/24/23 04:57
Estimated Creat Clear 63 ml/min 05/24/23 04:57
Total Bilirubin 0.6 mg/dl (0.2-1.3) 05/24/23 04:57
AST 22 U/L (14-36) 05/24/23 04:57
ALT 32 U/L (0-35) 05/24/23 04:57
Alkaline Phosphatase 70 U/L (38-126) 05/24/23 04:57
Most recent labs reviewed.
Micro Results:
05/22/23 16:27 Cryptosporidium/Giardia - Final
Feces/Stool Negative for Cryptosporidium and/or Giardia [place]
antigens.
C. difficile GDH Antigen & Toxins - Final
Negative for toxigenic C.difficile
05/22/23 16:27 Salmonella/Shigella Culture - Pending
Feces/Stool Campylobacter Culture - Pending
Shiga Toxin Test - Pending
--- NOTE | 2023-05-24 10:56 | CM ---
CM spoke with pt ext [phone]
Pt resides with [facility] in a 2SH with 2 TANK
Full flight to 2nd floor
Pt is independent with her ADLs
Only DME is nebulizer
Pt has hx with [facility] post transplant- denies SNF hx
PCP- Leoncio Zheng
Rx- [facility] [address]
[facility] is primary contact
Discharge Disposition- home, no needs anticipated
[2023-05-24 15:54] VITALS: BP 162/105
[2023-05-24] MEDS: ZOFRAN 4 MG IV ×2 (16:03→22:09)
--- NOTE | 2023-05-24 17:29 | W.PN.HOSP.TC ---
Today's Communication/Plan
-
Continue to monitor diarrhea
CT A/P was unremarkable
Assessment / Plan
Assessment / Plan
Physical Exam
General: Not in acute distress
HEENT: Moist mucous membranes and Other (Cushinoid / rounded facies)
Respiratory: Clear to Auscultation Bilaterally
Cardiac: S1/S2 and Regular Rhythm
GI: Soft, Non Distended, Normal Bowel Sounds and Other (Pos diffuse tenderness with voluntary guarding.)
Musculoskeletal: No Edema
Neuro: AAO x 3
Psych: Anxious

A/P: Patient is a 28y F with PMH significant for renal transplant and immunocompromised state who presents to ED complaining of abdominal pain and diarrhea.
Abdominal Pain / Diarrhea in the Setting of Immunocompromised Status
Colitis?
Recent C. Diff (03/2023)
History of CMV colitis due to immunosuppression.
- Symptoms seem most c/w colitis with possibilities including CMV given immunocompromised state and prior history.
- Was treated with PO Vanco for CDiff in March 2023.
- Recent abx use including Bactrim (beginning 05/13) and ceftriaxone (beginning 05/16).
- Follow-up stool studies. Negative for C. diff.
- Supportive care including IVFs / volume replacement / pain control / etc.
- CT Abdomen/Pelvis this admission was unremarkable
- ID evaluation for additional recommendations.
- Consulted gastroenterology, recommendations appreciated
- May need sigmoidoscopy/colonoscopy to evaluate for CMV colitis if symptoms do not improved
Renal Transplant Status
Immunocompromised Status
CKD III
- Stable. SCr is at / near known baseline (creatinine of 1.4 to 1.5 and eGFR of 40)
- Continue current antirejection medications including daily prednisone.
- Follow for changes in renal function.
- Patient is supposed to get her infusion on 05/27/23
Recent COVID Hospitalization at [facility] [place]
- Patient was hospitalized with COVID (with no pulmonary symptoms) recently in [facility] [place]
- She got Remdesivir and Ceftriaxone at the time
Anemia of Chronic Disease
- Stable. Hgb is at / near known baseline.
- No noted blood loss / bloody stool / etc.
- Follow for any changes.
Anxiety / Major Depression / Bipolar
- Poorly controlled at present.
- Continue usual outpatient medication regimen for now.
- PRN lorazepam for breakthrough anxiety.
- Follow for improvement.
Multidrug Resistant Hypertension
- Stable at present. Continue current outpatient med regimen with holding parameters.
- Adjust regimen as needed for adequate BP control.
GERD
- Would discontinue PPI given CDiff recently and possibly recurrently.
- Begin H2-blockade and monitor for adequate control of reflux symptoms.
Obesity due to excess calories and med effects
- Affects all aspects of care.
- Encourage healthy diet and increased exercise with goal of weight loss.
Thrombophilia / Factor V Leiden Mutation
DVT Prophylaxis
- Continue Eliquis.
Code Status: Full
Anticipated Discharge: 24 - 48 hours
Subjective/Interval History
-
Date of Service: May 24, 2023
Patient was seen and examined. She denied any significant new symptoms, but is still having abdominal tenderness.
Objective Data
-
Labs:
Laboratory Results
05/24/23
04:57
Sodium 137
Potassium 4.0
Chloride 105
Carbon Dioxide 24
BUN 15
Creatinine 1.4 H
Glucose 94
Calcium 8.7
Total Bilirubin 0.6
AST 22
ALT 32
Alkaline Phosphatase 70
Vital Signs:
Vital Signs
Temp Pulse Resp BP Pulse Ox
98.2 F 80 16 162/105 96
05/24/23 15:54 05/24/23 15:59 05/24/23 15:54 05/24/23 15:59 05/24/23 15:54
I&O
05/23/23 05/24/23 05/25/23
06:59 06:59 06:59
Intake Total 1280 / 1280 440 / 440
Balance 1280 / 1280 440 / 440
[2023-05-24] MEDS: FLUSH (NSS) 2 FLUSH IV ×2 (20:51→23:55)
[2023-05-24] MEDS: ZESTRIL 10 MG PO (22:15)
[2023-05-24] MEDS: SINGULAIR 10 MG PO (22:16)
[2023-05-24] MEDS: PRAVACHOL 20 MG PO (22:16)
[2023-05-24] MEDS: REMERON 30 MG PO (22:16)
[2023-05-24] MEDS: XANAX 2 MG PO (22:21)
[2023-05-24 23:10] VITALS: BP 134/92
[2023-05-25] MEDS: DILAUDID 0.5 MG IV ×3 (05:05→14:13)
[2023-05-25] MEDS: FLUSH (NSS) 2 FLUSH IV (05:05)
[2023-05-25 05:44] LABS: % Basophils 0.2 % (0-2); % Eosinophils 2.1 % (0-6); % Lymphocytes 30.6 % (20.5-51.1); % Monocytes 15.6 % (1.7-9.3); % Neutrophils 51.5 % (42.2-75.2); Absolute Eosinophils 0.1 10^3/uL (0-0.7); Absolute Lymphocytes 1.3 10^3/uL (1.2-3.4); Absolute Monocytes 0.7 10^3/uL (0.1-0.6); Absolute Neutrophils 2.2 10^3/uL (1.4-6.5); Hemoglobin 9.8 g/dL (12.0-16.0); Mean Corp Hgb Conc. 33.8 g/dL (33.0-37.0); Mean Corpuscular Hgb 30.9 pg (27.0-31.0); Mean Corpuscular Volume 91.5 fL (81.0-99.0); Mean Platelet Volume 13.1 fL (7.4-10.4); Nucleated Red Blood Cells % 0 %; Platelet Count 162 10^3/uL (130-400); Red Blood Cell Count 3.17 10^6/uL (4.20-5.40); Red Cell Dist. Width 13.4 % (11.5-14.5); White Blood Cell Count 4.2 10^3/uL (4.8-10.8)
[2023-05-25 06:29] LABS: ALT (SGPT) 27 U/L (0-35); AST (SGOT) 23 U/L (14-36); Albumin 3.4 g/dl (3.5-5.0); Alkaline Phosphatase 66 U/L (38-126); Blood Urea Nitrogen 16 mg/dl (7-17); Carbon Dioxide 26 mmol/L (22-30); Chloride 103 mmol/L (98-107); Estimated Creatinine Clearance 58 ml/min; Glucose 101 mg/dl (70-99); Magnesium 1.7 mg/dl (1.6-2.3); Phosphorus 3.8 mg/dl (2.5-4.5); Potassium 3.7 mmol/L (3.5-5.1); Sodium 137 mmol/L (135-145); Total Bilirubin 0.4 mg/dl (0.2-1.3); Total Protein 5.8 g/dl (6.3-8.2); eGFR 47.78
[2023-05-25 07:00] VITALS: BP 135/78
[2023-05-25] MEDS: COREG 25 MG PO (08:12)
[2023-05-25] MEDS: IMURAN 100 MG PO (08:13)
[2023-05-25] MEDS: ELIQUIS 2.5 MG PO (08:13)
[2023-05-25] MEDS: DELTASONE 5 MG PO (08:13)
[2023-05-25] MEDS: PROTONIX 40 MG PO (08:13)
[2023-05-25] MEDS: CATAPRES 0.200000000000000011 MG PO ×2 (08:13→15:59)
[2023-05-25] MEDS: ALDACTONE 25 MG PO (08:13)
--- NOTE | 2023-05-25 11:38 | W.PN.GI.CBS2 ---
Addendum entered and electronically signed by TREV Castaneda 05/25/23 13:54:
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
Addendum entered and electronically signed by TREV Castaneda 05/25/23 13:10:
I reviewed recent EGD and flex pathology but no report on pt phone with her consent. Note neg SB biopsy, neg H pylori, colonic mucosa no pathologic change with r/o CMV on pathology request. Pt feeling slightly better and concerned for care of son
with disability. She is requesting discharge. I reviewed via tiger text with Dr. Watts and Dr. Malone. Pt states she if followed at [place] with Dr. Zheng advised to call with questions.
Original Note:
Today's Communication / Plan
-
etiology of abdominal pain with diarrhea related to colitis vs other
repeat c-diff , Giardia and crypto neg on admission further cx pending
about 7 stools since yesterday-- reviewed with nursing some forms to stool not all water cont to trend
CT completed but no oral contrast with vomiting so limited but neg for acute findings
pain control per hospitalist
will request again recent EGD/colon with bx completed at [place]
rectal pain likely local process no abnormality of rectal exam 05/24
if not improved consider flex to eval for CMV but will check if recently completed at [place]
remains on Eliquis will need to hold if flex needed
currently on PPI and Pepcid HS-
updated nursing
Assessment / Plan
-
Pt is a 28yo with multiple medical issues with prior renal transplant on chronic immunosuppression, depression/bipolar, factor V with prior DVT/PE on Eliquis, CMV and C-diff (March with vanco course)colitis. she present for abdominal pain and
diarrhea with 10 + BM for several days. She had recent abx course for UTI and remdesivir for covid. Recent EGD and colonoscopy at [place]. Did not recall any abnormal findings.
05/24/23 CT A/p non contrast
No acute pathology
Normal-appearing transplant kidney in the right pelvis
Severe cortical atrophy of the [place] kidneys bilaterally
-diarrhea
-abdominal pain
-rectal pain
-hx c-diff colitis 03/2023
-hx CMV colitis 2016 post transplant
-recent UTI with abx
-recent covid with remdesivir course
-chronic immunosuppression with renal transplant with mild creat increased
-factor V/DVT/PE on chronic Eliquis
-depression/bipolar
PLAN:
etiology of abdominal pain with diarrhea related to colitis vs other
repeat c-diff , Giardia and crypto neg on admission further cx pending
about 7 stools since yesterday-- reviewed with nursing some forms to stool not all water cont to trend
CT completed but no oral contrast with vomiting so limited but neg for acute findings
pain control per hospitalist
will request again recent EGD/colon with bx completed at [place]
rectal pain likely local process no abnormality of rectal exam 05/24
if not improved consider flex to eval for CMV but will check if recently completed at [place]
remains on Eliquis will need to hold if flex needed
currently on PPI and Pepcid HS-
updated nursing
Subjective
Subjective
Date of Service: May 25, 2023
still with diarrhea and abdominal pain per staff not eating well
Objective
Data Reviewed
Laboratory Data:
Laboratory Results
05/25/23 05:01
05/25/23 05:01
Laboratory Results
Phosphorus 3.8 mg/dl (2.5-4.5) 05/25/23 05:01
Magnesium 1.7 mg/dl (1.6-2.3) 05/25/23 05:01
Total Bilirubin 0.4 mg/dl (0.2-1.3) 05/25/23 05:01
AST 23 U/L (14-36) 05/25/23 05:01
ALT 27 U/L (0-35) 05/25/23 05:01
Alkaline Phosphatase 66 U/L (38-126) 05/25/23 05:01
Lipase 261 U/L (23-300) 05/22/23 20:03
Vital Signs and I&O:
Vital Signs
Temp Pulse Resp BP Pulse Ox
97.8 F 78 17 135/78 96
05/25/23 07:00 05/25/23 08:13 05/25/23 07:00 05/25/23 08:13 05/25/23 07:00
I&O
05/24/23 05/25/23 05/26/23
06:59 06:59 06:59
Intake Total 440 / 440 1660 / 1660
Balance 440 / 440 1660 / 1660
Physical Exam
Physical Exam
HEENT: Anicteric and Moist mucous membranes
Cardiology: Normal Sinus Rhythm
Pulmonary: Clear
GI: Soft, Non Distended and Tender (diffuse )
Extremities: No Edema
Neuro: Non Focal
--- NOTE | 2023-05-25 13:11 | W.PN.HOSP.TC ---
Today's Communication/Plan
-
Discharge today
Assessment / Plan
Assessment / Plan
Physical Exam
General: Not in acute distress
HEENT: Moist mucous membranes and Other (Cushinoid / rounded facies)
Respiratory: Clear to Auscultation Bilaterally
Cardiac: S1/S2 and Regular Rhythm
GI: Soft, Non Distended, Normal Bowel Sounds and Other (diffuse tenderness)
Musculoskeletal: No Edema
Neuro: AAO x 3
Psych: Anxious

A/P: Patient is a 28y F with PMH significant for renal transplant and immunocompromised state who presents to ED complaining of abdominal pain and diarrhea.
Abdominal Pain / Diarrhea in the Setting of Immunocompromised Status
Abdominal Pain
Rectal Pain
Recent C. Diff (03/2023)
History of Cytomegalovisu colitis due to immunosuppression.
- Symptoms seem most c/w colitis with possibilities including CMV given immunocompromised state and prior history.
- Was treated with PO Vanco for CDiff in March 2023.
- Recent abx use including Bactrim (beginning 05/13) and ceftriaxone (beginning 05/16).
- Follow-up stool studies. Negative for C. diff, Giardia and Crypto
- CT Abdomen/Pelvis this admission was unremarkable
- ID evaluation for additional recommendations.
- Consulted gastroenterology, recommendations appreciated
- May need sigmoidoscopy/colonoscopy to evaluate for CMV colitis if symptoms do not improved
- Follow-up with gastroenterology at [facility]
- Recheck CBC, BMP and Magnesium by the end of this week (latest by 05/27/23)
Renal Transplant Status
Immunocompromised Status
Chronic Kidney Disease Stage III
- Stable. SCr is at / near known baseline (creatinine of 1.4 to 1.5 and eGFR of 40)
- Continue current antirejection medications including daily prednisone.
- Follow for changes in renal function.
- Patient is supposed to get her infusion on 05/27/23
Recent COVID Hospitalization at [facility] in [place]
Recent Urinary Tract Infection
- Patient was hospitalized with COVID (with no pulmonary symptoms) recently in [facility] in [place]
- She got Remdesivir and Ceftriaxone at the time
Anemia of Chronic Disease
- Stable. Hgb is at / near known baseline.
- No noted blood loss / bloody stool / etc.
- Follow for any changes.
Anxiety / Major Depression / Bipolar
- Poorly controlled at present.
- Continue usual outpatient medication regimen for now.
- PRN lorazepam for breakthrough anxiety.
- Follow for improvement.
Multidrug Resistant Hypertension
- Stable at present. Continue current outpatient med regimen with holding parameters.
- Adjust regimen as needed for adequate BP control.
Gastroesophageal Reflux Disease
- Would discontinue PPI given CDiff recently and possibly recurrently.
- Begin H2-blockade and monitor for adequate control of reflux symptoms.
Obesity due to excess calories and med effects
- Affects all aspects of care.
- Encourage healthy diet and increased exercise with goal of weight loss.
Thrombophilia / Factor V Leiden Mutation
DVT Prophylaxis
- Continue Eliquis.
Code Status: Full
More than 30 minutes spent in discharge including
Final examination of the patient
Summarizing hospital stay
Instructions for continuing care to all relevant caregivers
Preparation of discharge records, prescriptions, and referral forms
Total time spent (in minutes): 41
Anticipated Discharge: Today
Subjective/Interval History
-
Date of Service: May 25, 2023
Patient was seen and examined. Earlier in the morning she stated that she still has abdominal tenderness and diarrhea, but later in the day she mentioned she felt better, she was concerned for care of her son with disability, and requested to be
discharged.
Objective Data
-
Labs:
Laboratory Results
05/25/23
05:01
WBC 4.2 L
Hgb 9.8 L
Hct 29.0 L
Plt Count 162
Sodium 137
Potassium 3.7
Chloride 103
Carbon Dioxide 26
BUN 16
Creatinine 1.5 H
Glucose 101 H
Calcium 9.0
Total Bilirubin 0.4
AST 23
ALT 27
Alkaline Phosphatase 66
Vital Signs:
Vital Signs
Temp Pulse Resp BP Pulse Ox
97.8 F 78 17 135/78 96
05/25/23 07:00 05/25/23 08:13 05/25/23 07:00 05/25/23 08:13 05/25/23 07:00
I&O
05/24/23 05/25/23 05/26/23
06:59 06:59 06:59
Intake Total 440 / 440 1660 / 1660
Balance 440 / 440 1660 / 1660
--- NOTE | 2023-05-25 13:48 | W.PN.ID1 ---
Date of Service
Date of Service: May 25, 2023
Today's Communication
- follow up with patients GI at [facility] is planned, no need for ID follow up
Assessment / Plan
Possible antibiotics associated diarrhea, colitis including CMV colitis, diverticulitis (known diverticulosis), giardia/crypto
CKD s/p RT
Immunosuppression
- no infectious etiology of diarrhea ID'd and requesting dc
- note report of colonoscopy 05/06/23 at [facility] without pathological changes
- if symptoms not resolving then would reconsider repeat colonoscopy
- follow up with patients GI at [facility] is planned, no need for ID follow up
Chief Complaint
-: Other (diarrhea, immunosuppression)
Subjective / Review of Systems
afebrile
bp stable
mild leukopenia no L shift
cr stable
GI reviewed negative flex sign from 05/06/23 - negative
abd still quite tender
Vital Signs / Physical Exam
Vital Signs
Vital Signs
Temp Pulse Resp BP Pulse Ox
97.8 F 78 17 135/78 96
05/25/23 07:00 05/25/23 08:13 05/25/23 07:00 05/25/23 08:13 05/25/23 07:00
Physical Exam
Constitutional: No Acute Distress
Cardiovascular: Regular Rate and S1/S2; Negative Murmur or Rub
Pulmonary: Clear and Symmetric; Negative Wheezes or Rales
Gastrointestinal: Soft, Tender, Non Distended and Normal Bowel Sounds
Skin: Warm and Dry; Negative Rash or Jaundice
Objective Data
Lab Data
Lab Results
05/25/23 05:01
05/25/23 05:01
Estimated Creat Clear 58 ml/min 05/25/23 05:01
Total Bilirubin 0.4 mg/dl (0.2-1.3) 05/25/23 05:01
AST 23 U/L (14-36) 05/25/23 05:01
ALT 27 U/L (0-35) 05/25/23 05:01
Alkaline Phosphatase 66 U/L (38-126) 05/25/23 05:01
Most recent labs reviewed.
Micro Results:
05/22/23 16:27 Salmonella/Shigella Culture - Final
Feces/Stool No Salmonella, Shigella, Aeromonas or Plesiomonas species
isolated.
Campylobacter Culture - Final
No Campylobacter species isolated.
Shiga Toxin Test - Pending
05/22/23 16:27 Cryptosporidium/Giardia - Final
Feces/Stool Negative for Cryptosporidium and/or Giardia Lamblia
antigens.
C. difficile GDH Antigen & Toxins - Final
Negative for toxigenic C.difficile
Care Review
Plan reviewed with: Physician (Dr Malone - giovannyo)
[2023-05-25 15:00] VITALS: BP 152/96
--- NOTE | 2023-05-25 15:43 | W.DS.TRANS ---
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
-
Discharge Instructions:
Discharge Diagnosis/Procedures Abdominal Pain / Diarrhea in the Setting of
Immunocompromised Status
Abdominal Pain
Rectal Pain
Recent C. Diff (03/2023)
History of Cytomegalovirus colitis due to
immunosuppression
Renal Transplant Status
Immunocompromised Status
Chronic Kidney Disease Stage III
Recent COVID Hospitalization at [facility] in
[place]
Recent Urinary Tract Infection
Anemia of Chronic Disease
Anxiety / Major Depression / Bipolar
Multidrug Resistant Hypertension
Gastroesophageal Reflux Disease
Obesity due to excess calories and med effects
Thrombophilia / Factor V Leiden Mutation
Diet As tolerated,BRAT
Activity As tolerated
Driving Restrictions Not until seen by your Dr
Specialty Instructions Weigh Daily
Instructions:
Stand-Alone Forms:
Changes to Home Medications: Yes
Discharge Medications:
DC Medications w/original date entered in [employer]
prednisone 5 mg tablet 5 mg PO DAILY inflammation 08/02/16
alprazolam 1 mg tablet 1 mg PO DAILY PRN mild anxiety 01/24/21
azathioprine 100 mg tablet (Azasan) 100 mg PO DAILY Transplant 01/24/21
apixaban 2.5 mg tablet (Eliquis) 2.5 mg PO Q12H Blood Clot Prevention/Tx 10/20/22
buspirone 15 mg tablet 15 mg PO TID Mental Health/Anxiety 10/20/22
carvedilol 25 mg tablet 25 mg PO BID Blood Pressure 10/20/22
lisinopril 10 mg tablet 10 mg PO HS Blood Pressure 10/20/22
montelukast 10 mg tablet 10 mg PO HS Allergies 10/20/22
pravastatin 20 mg tablet 20 mg PO HS High Cholesterol 10/20/22
spironolactone 25 mg tablet 25 mg PO DAILY Blood Pressure 10/20/22
zolpidem 10 mg tablet 10 mg PO HS PRN insomnia 10/20/22
mirtazapine 30 mg tablet 30 mg PO HS Mental health/sleep 05/22/23
alprazolam 1 mg tablet 2 mg PO DAILY PRN severe anxiety 05/23/23
belatacept 250 mg intravenous solution 250 mg IV Q28D Transplant 05/23/23
clonidine HCl 0.1 mg tablet 0.2 mg PO TID Blood Pressure 05/23/23
lidocaine 4 % topical cream 1 applic topical DIRECTED Pain 05/23/23
linaclotide 145 mcg capsule (Linzess) 145 mcg PO DAILY PRN IBS 05/23/23
omeprazole 20 mg capsule,delayed release 20 mg PO BID Gastrointestinal Issue 05/23/23
acetaminophen 500 mg/15 mL oral liquid 1,000 mg (30 mL) PO Q6HPRN PRN mild pain #0 mL 05/25/23
ondansetron 8 mg disintegrating tablet 8 mg PO DAILYPRN PRN nausea/vomiting #0 tabs 05/25/23
Home Medication Changes
Tylenol and Zofran doses reduced in frequency
Pending Results: No
Total time spent discharging patient (in min): 41
[2023-05-25] MEDS: ZOFRAN 4 MG IV (16:00)
--- NOTE | 2023-05-25 16:00 | CM ---
Chart reviewed
CM will follow for d/c needs
Anticipate home- no needs
--- NOTE | 2023-05-28 08:20 | W.DCSUMMARY ---
Discharge Summary
Discharge Data
Date of Admission: 05/22/23
Date of Discharge: 05/25/23
Total time spent discharging patient (in min): 41
-
Pending Results: No
Hospital Course
28 y/o female with past medical history significant for recent COVID hospitalization at [facility] in [facility], renal transplant and immunocompromised status, and C. diff, who presented to the [facility] emergency department
complaining of abdominal pain and diarrhea x 4 days. Gastroenterology and Infectious Disease were consulted. C. diff testing came back negative. CT Abdomen pelvis (with no oral contrast given nausea and vomiting) was unremarkable (but see official
CT Abdomen Pelvis official radiology report for details). Giardia and Cryptococcus studies were negative. Patient had persistent abdominal pain and episodes of loose bowel movements/diarrhea, patient reported she was feeling better and requested
discharge home, and that she would follow-up closely with her outpatient frame fixer. She was also due for her infusion for her renal transplant on 05/27/23.
Discharge Plan
-
Patient Disposition: Home (Routine Discharge)
Discharge Diagnosis/Procedures: Abdominal Pain / Diarrhea in the Setting of Immunocompromised Status
Abdominal Pain
Rectal Pain
Recent C. Diff (03/2023)
History of Cytomegalovirus colitis due to immunosuppression
Renal Transplant Status
Immunocompromised Status
Chronic Kidney Disease Stage III
Recent COVID Hospitalization at [facility] in [place]
Recent Urinary Tract Infection
Anemia of Chronic Disease
Anxiety / Major Depression / Bipolar
Multidrug Resistant Hypertension
Gastroesophageal Reflux Disease
Obesity due to excess calories and med effects
Thrombophilia / Factor V Leiden Mutation
Condition: Fair
Diet: As tolerated and BRAT
Activity: As tolerated
Driving Restrictions: Not until seen by your Dr
Specialty Instructions: Weigh Daily- Call MD for wt gain/loss 3 lbs overnight/5 lbs in 1 week
Referrals:
Leoncio Zheng MD [Family Provider] - in less than 1 week
Prescriptions:
Continued
prednisone 5 MG tablet
5 mg PO DAILY
alprazolam 1 MG tablet
1 mg PO DAILY PRN (Reason: mild anxiety)
Patient Comments:
05/23/2023, pt. filled this med. on 04/21/2023 for 30 tablets according to PDM.
azathioprine [Azasan] 100 MG tablet
100 mg PO DAILY
carvedilol 25 mg Tablet
25 mg PO BID
spironolactone 25 mg tablet
25 mg PO DAILY
lisinopril 10 mg tablet
10 mg PO HS
montelukast 10 mg tablet
10 mg PO HS
pravastatin 20 mg tablet
20 mg PO HS
zolpidem 10 mg tablet
10 mg PO HS PRN (Reason: insomnia)
Patient Comments:
05/23/2023, pt. filled this med. on 04/21/2023 for 24 tablets according to PDM.
buspirone 15 mg tablet
15 mg PO TID
Eliquis 2.5 mg tablet
2.5 mg PO Q12H
mirtazapine 30 mg Tablet
30 mg PO HS
clonidine HCl 0.1 mg Tablet
0.2 mg PO TID
alprazolam 1 mg Tablet
2 mg PO DAILY PRN (Reason: severe anxiety)
Patient Comments:
05/23/2023, pt. filled this med. on 04/21/2023 for 30 tablets according to PDM.
lidocaine 4 % Cream
1 applic TOPICAL DIRECTED
Patient Comments:
05/23/2023, pt. uses this med. whenever her port needs to be accessed which she states is roughly once a month.
omeprazole 20 mg Capsule,Delayed Release(Dr/Ec)
20 mg PO BID
belatacept 250 mg Recon Soln
250 mg IV Q28D
Linzess 145 mcg Capsule
145 mcg PO DAILY PRN (Reason: IBS)
Changed
ondansetron 8 mg Tablet,Disintegrating
8 mg PO DAILYPRN PRN (Reason: nausea/vomiting) Qty: 0 0RF
acetaminophen 500 mg/15 mL Liquid
1,000 mg PO Q6HPRN PRN (Reason: mild pain) Qty: 0 0RF
Discharge Orders:
Discharge Patient (As Directed); Ordered 05/25/23
Ordered By: Alvin Malone
Discharge Date and Time
Discharge Date/Time: 05/25/23 16:48
== END 2023-05-25 16:48 | disposition home or self-care (01) | DRG 394 ==
LOC: 3 WEST ACU 22:28
PROVIDERS: Physician Assistant; ADMITTING PHYSICIAN Hospitalist; ATTENDING PHYSICIAN Hospitalist; EMERGENCY PHYSICIAN Emergency Medicine; FAMILY PHYSICIAN Internal Medicine; OTHER PHYSICIAN Internal Medicine Gastroenterology; OTHER PHYSICIAN Student in an Organized Health Care Education/Training Program
DX: K52.1 Toxic gastroenteritis and colitis (principal); D68.51 Activated protein C resistance; D84.821 Immunodeficiency due to drugs; F31.30 Bipolar disorder, current episode depressed, mild or moderate severity, unspecified; Z94.0 Kidney transplant status; D63.8 Anemia in other chronic diseases classified elsewhere; N18.30 Chronic kidney disease, stage 3 unspecified; I12.9 Hypertensive chronic kidney disease with stage 1 through stage 4 chronic kidney disease, or unspecified chronic kidney disease; F41.9 Anxiety disorder, unspecified; I1A.0 Resistant hypertension; K21.9 Gastro-esophageal reflux disease without esophagitis; E66.09 Other obesity due to excess calories; Z79.01 Long term (current) use of anticoagulants; Z68.32 Body mass index [BMI] 32.0-32.9, adult
CPT/HCPCS: 74176; 80048; 80053; 81025; 83690; 83735; 84100; 85025; 85027; 87045; 87046; 87324; 87328; 87329; 87427; 87449; 96361; 96374; 96375; 99285; J7500

== ENCOUNTER 2023-08-06 18:33 | Emergency (ER) | payer OTHER, SELFPAY ==
[2023-08-06 18:39] VITALS: BP 115/83
--- NOTE | 2023-08-06 19:13 | ED.GENMED ---
History of Present Illness
<Lluvia Heller GAUGE OPERATOR - Last Filed: 08/07/23 20:44>
General
Chief Complaint: Medication Reaction
Source: patient
Exam Limitations: none
Time Seen by Provider: 08/06/23 19:04
Nursing documentation reviewed up to this point in time: agreed with
Travel History
Have you had any contact with someone who has COVID-19?: No
Do you have any symptoms of coronavirus? Fever > 100 degrees, chills, cough, shortness of breath, sore throat, loss of taste or smell, muscle aches, or headache?: No
History of Present Illness
History of Present Illness:
28-year-old female w significant multiple PMHX Dx including of FSGS (Focal Segmented glomeruli sclerosis) and hx kidney transplant 2014, receives chemotherapy q 28 days as antirejection medication, states she was discharged from [facility] yesterday
after being admitted last week for gastroparesis, states she was C. difficile positive but toxin negative. During that admission she was put on a new medication olanzapine 2.5 mg to take 'up to 3 times a day.' for anxiety. She had 2.5 mg TID 3 and
2 days ago and had 2.5 mg twice yesterday. Due to her symptoms, she stopped it and had none today
She is here for pain in both legs and tingling and weakness in her arms. She is able to ambulate but with pain.
She had Serotonin syndrome in the past and is concerned for that and also concerned for Guillain Valders
Past History
<Lluvia Heller, GAUGE OPERATOR - Last Filed: 08/07/23 20:44>
Past History
ED Past Medical History: Asthma, GERD, HTN, Renal failure (Kidney transplant 2014 because of FSGS), Psychiatric (Anxiety) and Other (Sinusitis, allergic rhinitis)
ED Past Surgical History: Other (Kidney transplant 2015, Hernia repair)
Social History
Tobacco: Non-smoker
Alcohol: None
Drug: None
Personal: Single
Living: with family
Employment: Employed
Family History
Family History: Other (Grandmother with ovarian cancer mother with retinitis pigmentosa, father with high blood pressure)
Review of Systems
<Lluvia Heller GAUGE OPERATOR - Last Filed: 08/07/23 20:44>
Review of Systems
Allergies reviewed?: Yes
All Other Systems: ROS reviewed and negative except as documented in HPI and ROS
Constitutional: Denies fever
EENT: Denies sore throat
Respiratory: Denies trouble breathing
Cardiac: Denies chest pain
ABD/GI: Denies abdominal pain, nausea, vomiting or diarrhea
: Denies dysuria, frequency or difficulty voiding
Musculoskeletal: Reports other (pain in legs); Denies muscle stiffness or neck pain
Skin: Reports no symptoms
Neurological: Reports other (arms feel tingly and weak)
Phy Exam
<Lluvia Heller, GAUGE OPERATOR - Last Filed: 08/07/23 20:44>
Physical Exam
Physical Exam:
GENERAL: No acute distress. A&Ox3.
CONSTITUTIONAL: Afebrile.
EYES: PERRL, conjunctivae normal
Neck: Supple
ENMT: moist mucus membranes, Pharynx nl
RESPIRATORY: Regular respirations, nonlabored, lungs clear.
CARDIOVASCULAR: Regular rate and rhythm, no murmurs, no rubs.
GI: Soft, nontender, normal BS
MUSCULOSKELETAL: Moves her arms all around, full ROM, as she describes weakness and tingling in her arms. Legs tender to palpation of all areas. No swelling or rigidity. Well perfused.
SKIN: Warm, dry, pale
PSYCH: Depressed mood and affect. Well kept, interactive and appropriate
NEUROLOGIC: Awake, alert and oriented. No focal neurological deficits. Strength equal throughout, normal brachial reflexes, hyper reflexive patellar reflexes.
Course
<Lluvia Heller, GAUGE OPERATOR - Last Filed: 08/07/23 20:44>
Orders/Labs/Results
Orders:
Orders
08/06/23 20:19
Lorazepam [Ativan] 1 mg IV NOW STA
08/06/23 20:26
CPK Isoenzyme Urgent
Complete Blood Count/With Diff Urgent
Comprehensive Metabolic Panel Urgent
08/06/23 21:35
HYDROmorphone [Dilaudid] 1 mg IV NOW STA
08/06/23 21:38
Heparin Pf [Heparin Lock Flush] 500 unit .ROUTE .STK-MED ONE
08/06/23 21:43
Heparin Pf [Heparin Lock Flush] 500 unit IV NOW ONE
Abnormal Lab Results
08/06/23
20:26
RBC 3.36 L 10^6/uL
(4.20-5.40)
Hgb 10.4 L g/dL
(12.0-16.0)
Hct 30.4 L %
(37.0-47.0)
MPV 12.7 H fL
(7.4-10.4)
Creatinine 2.0 H mg/dL
(0.6-1.0)
Glucose 107 H mg/dl
(70-99)
Total Protein 6.2 L g/dl
(6.3-8.2)
08/06/23 20:26
08/06/23 20:26
Vital Signs
Initial and Last Documented VS:
Initial Vital Signs
Temp Pulse Resp Pulse Ox
97.9 F 104 18 98
08/06/23 18:35 08/06/23 18:35 08/06/23 18:35 08/06/23 18:35
Last Documented Vital Signs
Temp Pulse Resp BP Pulse Ox
97.9 F 104 18 115/83 98
08/06/23 18:35 08/06/23 18:35 08/06/23 18:35 08/06/23 18:39 08/06/23 18:35
<George Meyers, DO - Last Filed: 08/06/23 21:55>
Orders/Labs/Results
Orders:
Orders
08/06/23 20:19
Lorazepam [Ativan] 1 mg IV NOW STA
08/06/23 20:26
CPK Isoenzyme Urgent
Complete Blood Count/With Diff Urgent
Comprehensive Metabolic Panel Urgent
08/06/23 21:35
HYDROmorphone [Dilaudid] 1 mg IV NOW STA
08/06/23 21:38
Heparin Pf [Heparin Lock Flush] 500 unit .ROUTE .STK-MED ONE
08/06/23 21:43
Heparin Pf [Heparin Lock Flush] 500 unit IV NOW ONE
Abnormal Lab Results
08/06/23
20:26
RBC 3.36 L 10^6/uL
(4.20-5.40)
Hgb 10.4 L g/dL
(12.0-16.0)
Hct 30.4 L %
(37.0-47.0)
MPV 12.7 H fL
(7.4-10.4)
Creatinine 2.0 H mg/dL
(0.6-1.0)
Glucose 107 H mg/dl
(70-99)
Total Protein 6.2 L g/dl
(6.3-8.2)
08/06/23 20:26
08/06/23 20:26
Vital Signs
Initial and Last Documented VS:
Initial Vital Signs
Temp Pulse Resp Pulse Ox
97.9 F 104 18 98
08/06/23 18:35 08/06/23 18:35 08/06/23 18:35 08/06/23 18:35
Last Documented Vital Signs
Temp Pulse Resp BP Pulse Ox
97.9 F 104 18 115/83 98
08/06/23 18:35 08/06/23 18:35 08/06/23 18:35 08/06/23 18:39 08/06/23 18:35
<Lluvia Heller GAUGE OPERATOR - Last Filed: 08/07/23 20:44>
MDM/Problems Addressed
Differential Diagnosis Includes:
Serotonin syndrome, medication side effect
MDM/Problems Addressed:
28-year-old female w significant multiple PMHX Dx including of FSGS (Focal Segmented glomeruli sclerosis) and hx kidney transplant 2014, receives chemotherapy q 28 days as antirejection medication, states she was discharged from [facility] yesterday
after being admitted last week for gastroparesis, states she was C. difficile positive but toxin negative. During that admission she was put on a new medication olanzapine 2.5 mg to take 'up to 3 times a day.' for anxiety. She had 2.5 mg TID 3 and
2 days ago and had 2.5 mg twice yesterday. Last night, an hour after she took the Zyprexa 'my head felt like I was on a drug trip,' 'My arms and legs felt like they were floating' My arms were tingling' Due to her symptoms, she stopped it and had
none today
She is here for pain in both legs and tingling and weakness in her arms. She is able to ambulate but with pain.
She had Serotonin syndrome in the past and is concerned for that and also concerned for Guillain Valders
Pt is asking for Ativan, wants her port accessed as she does not want it po. She is also asking for Dilaudid IV and Tylenol as that 'is what they gave me at [place].'
Pt's is moving arms well, no rigidity
Sitting up in bed with both knees flexed, no edema, normal color, no rigidity, no redness, swelling, pain with mild palpation all areas of both legs, no sign of DVT
No sign of serotonin syndrome
With Olanzapine side effect includes limb pain (5-6%), muscle rigidity (adolescents 2%) at age 28, very low risk, and pt has only been on it for 3 days, she has stopped it so symptoms should resolve if this is the offending medication
CBC no clinically significant abnormality
CMP: Creatinine 2.0, patient states it was 1.9 on discharge from the hospital yesterday
Consulted Dr. Meyers who examined patient, agrees with assessment and recommends one dose of Dilaudid and f/u with PCP Tuesday.
Prior to getting the Dilaudid, this examiner witnessed pt get OOB and ambulate independently slowly but steadily and expressing pain in the legs
Her boyfriend will pick her up.
She is stable for discharge
She will contact her PCP Tuesday a.m.
She will follow up with her Pit Laborer as scheduled.
<Lluvia Heller GAUGE OPERATOR - Last Filed: 08/07/23 20:44>
*Critical Care Note
Total Time (30-74mins, 75-104mins- exclusive of procedures): Not Applicable
ED Attending Note
<Lluvia Heller, GAUGE OPERATOR - Last Filed: 08/07/23 20:44>
-
Portions of this chart may have been created with voice recognition software.� Occasional wrong word or��sound alike� substitutions may have occurred due to the inherent limitations of voice recognition software.
<George Meyers, DO - Last Filed: 08/06/23 21:55>
ED Attending Note
Patient seen and examined by attending physician: Yes
I performed the substantive portion of visit, reviewed & personally made and approve the management plan that is documented in note by myself or ALLYN.: Yes
ED Attending Note:
I have seen and evaluated the patient with a [id number] encounter. I have spoken to the advance practicer provider and involved in the medical history, the physical exam, medical decision making.
Evaluation and management service: agree unless noted differently below.
Results interpretation: agree unless noted differently below.
Focused HPI: 28-year-old female presenting with multiple complaints. She complains of nausea, generalized muscle stiffness, generalized weakness, generalized numbness. Patient has a history of kidney transplant and was recently discharged from
[facility] yesterday. They started her on olanzapine for anxiety. Patient stopped the medicine yesterday because she is now thinking that it could be a medication reaction
Physical exam: Sitting in bed comfortably. No muscle rigidity noted. Patient communicating with no acute distress. She is using her hands and arms with emphasis that she speaks
Medical Decision Making: Patellar reflexes +2. No muscle rigidity. We discussed low risk for serotonin syndrome. There is no clinical evidence of Guillain-Duncan�. We discussed cessation of medicine as this could be an adverse side effect and
discussed talking to her doctors about alternative treatments
Discharge Plan
Departure
Patient Disposition: Home (Routine Discharge)
Date of Disposition: 08/06/23
Time of Disposition: 21:55
Patient with high blood pressure during this ER visit?: No
Condition: Fair
Discharge Problem:
Acute leg pain, Adverse drug effect
Instructions: Side effects from medicines, Adverse Drug Reactions, Adult ED, Musculoskeletal Pain
Prescriptions:
No Action
prednisone 5 MG tablet
5 mg PO DAILY
alprazolam 1 MG tablet
1 mg PO DAILY PRN (Reason: mild anxiety)
Patient Comments:
05/23/2023, pt. filled this med. on 04/21/2023 for 30 tablets according to PDMP.
azathioprine [Azasan] 100 MG tablet
100 mg PO DAILY
carvedilol 25 mg Tablet
25 mg PO BID
spironolactone 25 mg tablet
25 mg PO DAILY
lisinopril 10 mg tablet
10 mg PO HS
montelukast 10 mg tablet
10 mg PO HS
pravastatin 20 mg tablet
20 mg PO HS
zolpidem 10 mg tablet
10 mg PO HS PRN (Reason: insomnia)
Patient Comments:
05/23/2023, pt. filled this med. on 04/21/2023 for 24 tablets according to PDMP.
buspirone 15 mg tablet
15 mg PO TID
Eliquis 2.5 mg tablet
2.5 mg PO Q12H
mirtazapine 30 mg Tablet
30 mg PO HS
clonidine HCl 0.1 mg Tablet
0.2 mg PO TID
alprazolam 1 mg Tablet
2 mg PO DAILY PRN (Reason: severe anxiety)
Patient Comments:
05/23/2023, pt. filled this med. on 04/21/2023 for 30 tablets according to PDMP.
lidocaine 4 % Cream
1 applic TOPICAL DIRECTED
Patient Comments:
05/23/2023, pt. uses this med. whenever her port needs to be accessed which she states is roughly once a month.
omeprazole 20 mg Capsule,Delayed Release(Dr/Ec)
20 mg PO BID
belatacept 250 mg Recon Soln
250 mg IV Q28D
Linzess 145 mcg Capsule
145 mcg PO DAILY PRN (Reason: IBS)
ondansetron 8 mg Tablet,Disintegrating
8 mg PO DAILYPRN PRN (Reason: nausea/vomiting) Qty: 0 0RF
acetaminophen 500 mg/15 mL Liquid
1,000 mg PO Q6HPRN PRN (Reason: mild pain) Qty: 0 0RF
Referrals:
Leoncio Zheng MD [Family Provider] - Follow up in 2-3 days
Activity Restrictions/Additional Instructions:
As we discussed, this MAY be a side effect from the Zyprexa, do not take again unless you first discuss it with your doctor.
When you see your doctor please discuss pain management
Interventions
Interventions:
*Risk Screen - Suicide Last Done: 08/06/23 19:46
*General Assessment Last Done: 08/06/23 19:45
*Neglect/Abuse Screening Last Done: 08/06/23 19:46
ED- Fall Risk Assessment Last Done: 08/06/23 19:45
*ED COVID-19 Vaccine History Last Done: 08/06/23 18:40
*Nursing Disposition Last Done: 08/06/23 22:33
ED-Skin Assessment Last Done: 08/06/23 19:48
ED- Pulmonary Assessment Last Done: 08/06/23 19:48
ED-EENT Assessment Last Done: 08/06/23 19:50
Discharge Date and Time
Discharge Date/Time: 08/06/23 22:34
Print Language: SAO TOMEAN
[2023-08-06 19:44] VITALS: BMI 33.5
[2023-08-06] MEDS: ATIVAN 1 MG IV (20:36)
[2023-08-06 20:38] LABS: % Basophils 0.5 % (0-2); % Eosinophils 1.8 % (0-6); % Immature Granulocytes 0.4 % (0-0.5); % Lymphocytes 33.9 % (20.5-51.1); % Monocytes 8.6 % (1.7-9.3); % Neutrophils 54.8 % (42.2-75.2); Absolute Eosinophils 0.1 10^3/uL (0-0.7); Absolute Lymphocytes 1.9 10^3/uL (1.2-3.4); Absolute Monocytes 0.5 10^3/uL (0.1-0.6); Absolute Neutrophils 3.1 10^3/uL (1.4-6.5); Hematocrit 30.4 % (37.0-47.0); Hemoglobin 10.4 g/dL (12.0-16.0); Mean Corp Hgb Conc. 34.2 g/dL (33.0-37.0); Mean Corpuscular Volume 90.5 fL (81.0-99.0); Mean Platelet Volume 12.7 fL (7.4-10.4); Nucleated Red Blood Cells % 0 %; Platelet Count 175 10^3/uL (130-400); Red Blood Cell Count 3.36 10^6/uL (4.20-5.40); Red Cell Dist. Width 14.3 % (11.5-14.5); White Blood Cell Count 5.7 10^3/uL (4.8-10.8)
[2023-08-06 21:01] LABS: ALT (SGPT) 11 U/L (0-35); AST (SGOT) 16 U/L (14-36); Albumin 3.8 g/dl (3.5-5.0); Alkaline Phosphatase 64 U/L (38-126); Blood Urea Nitrogen 13 mg/dl (7-17); Calcium 9.1 mg/dl (8.4-10.2); Carbon Dioxide 26 mmol/L (22-30); Chloride 104 mmol/L (98-107); Estimated Creatinine Clearance 44 ml/min; Glucose 107 mg/dl (70-99); Potassium 3.8 mmol/L (3.5-5.1); Sodium 135 mmol/L (135-145); Total Bilirubin 0.2 mg/dl (0.2-1.3); Total CK 36 U/L (30-135); Total Protein 6.2 g/dl (6.3-8.2); eGFR 33.83
[2023-08-06] MEDS: DILAUDID 1 MG IV (21:41)
== END 2023-08-06 22:34 | disposition home or self-care (01) ==
LOC: EMR 18:33
PROVIDERS: Registered Nurse; EMERGENCY PHYSICIAN Student in an Organized Health Care Education/Training Program; FAMILY PHYSICIAN Internal Medicine
DX: M79.605 Pain in left leg (principal); M79.604 Pain in right leg; T43.595A Adverse effect of other antipsychotics and neuroleptics, initial encounter; F41.9 Anxiety disorder, unspecified; Z94.0 Kidney transplant status
CPT/HCPCS: 99284; 96374; 96375 ×2; 80053; 82550; 85025

== ENCOUNTER 2023-09-20 18:17 | Emergency (ER) | payer OTHER, SELFPAY ==
[2023-09-20 18:21] VITALS: BP 152/104
[2023-09-20 20:26] VITALS: BP 134/101
[2023-09-20 20:27] VITALS: BMI 33.6
[2023-09-20 20:39] LABS: % Basophils 0.6 % (0-2); % Eosinophils 0.7 % (0-6); % Immature Granulocytes 0.3 % (0-0.5); % Lymphocytes 26.9 % (20.5-51.1); % Monocytes 8.8 % (1.7-9.3); % Neutrophils 62.7 % (42.2-75.2); Absolute Eosinophils 0.1 10^3/uL (0-0.7); Absolute Lymphocytes 1.9 10^3/uL (1.2-3.4); Absolute Monocytes 0.6 10^3/uL (0.1-0.6); Absolute Neutrophils 4.5 10^3/uL (1.4-6.5); Hematocrit 30.5 % (37.0-47.0); Hemoglobin 10.8 g/dL (12.0-16.0); Mean Corp Hgb Conc. 35.4 g/dL (33.0-37.0); Mean Corpuscular Hgb 30.9 pg (27.0-31.0); Mean Corpuscular Volume 87.4 fL (81.0-99.0); Mean Platelet Volume 12.8 fL (7.4-10.4); Nucleated Red Blood Cells % 0 %; Platelet Count 203 10^3/uL (130-400); Red Blood Cell Count 3.49 10^6/uL (4.20-5.40); Red Cell Dist. Width 13.9 % (11.5-14.5); White Blood Cell Count 7.2 10^3/uL (4.8-10.8)
[2023-09-20 20:42] LABS: Urine Albumin Negative (Neg - Trace); Urine Bilirubin Negative (Negative); Urine Character Clear (Clear); Urine Color Yellow; Urine Glucose Negative (Negative); Urine Ketone Negative (Negative); Urine Leukocyte Trace (Negative); Urine Nitrite Negative (Negative); Urine Occult Blood Negative (Negative); Urine Urobilinogen Negative (Neg - 1+); Urine pH 6.5 (5.0-9.0)
[2023-09-20 20:54] LABS: Urine Squamous Cell 16-20 /LPF (Few)
[2023-09-20 20:55] LABS: ALT (SGPT) 15 U/L (0-35); AST (SGOT) 23 U/L (14-36); Albumin 4.5 g/dl (3.5-5.0); Alkaline Phosphatase 65 U/L (38-126); Blood Urea Nitrogen 25 mg/dl (7-17); Carbon Dioxide 21 mmol/L (22-30); Chloride 104 mmol/L (98-107); Estimated Creatinine Clearance 52 ml/min; Glucose 94 mg/dl (70-99); Potassium 4.3 mmol/L (3.5-5.1); Sodium 136 mmol/L (135-145); Total Bilirubin 0.5 mg/dl (0.2-1.3); Total Protein 7.2 g/dl (6.3-8.2); Urine Bacteria Few (Negative); Urine Red Blood Cell 0-2 /HPF (0-2); eGFR 41.12
[2023-09-20 21:00] VITALS: BP 131/104
[2023-09-20 22:00] VITALS: BP 140/89
--- NOTE | 2023-09-20 22:18 | ED.GENMED ---
History of Present Illness
<NARCISO Carr - Last Filed: 09/21/23 06:13>
General
Chief Complaint: Abdominal Pain
Source: patient
Exam Limitations: none
Time Seen by Provider: 09/20/23 22:02
Travel History
Have you had any contact with someone who has COVID-19?: No
Do you have any symptoms of coronavirus? Fever > 100 degrees, chills, cough, shortness of breath, sore throat, loss of taste or smell, muscle aches, or headache?: No
History of Present Illness
History of Present Illness:
This is a 28 YO F with a PMH of asthma, PE, DVT, kidney transplant 2014 on Nulojix, C section, IBS, cholecystectomy, and Factor V Leiden here for abdominal pain x 2 days. Pt complains of constant abdominal pain, which started in the LUQ, migrated to
the epigastric area and RUQ, and now RLQ. She reports nausea. She also complains of decreased food intake. She reports some chest discomfort as well, possibly due to anxiety. Pt also complains of urinary discomfort. Pt states she has had abdominal
pain before due to her IBS, but not as severe as it is now. Pt states she took Tylenol yesterday.
Denies SOB, V, and diarrhea.
Past History
<NARCISO Carr - Last Filed: 09/21/23 06:13>
Past History
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
ED Past Surgical History: Other (Kidney transplant 2015, Hernia repair)
Social History
Tobacco: Non-smoker
Alcohol: None
Drug: None
Personal: Single
Living: with family
Employment: Employed
Family History
Family History: Other (Grandmother with ovarian cancer mother with retinitis pigmentosa, father with high blood pressure)
Review of Systems
<ST BrunoWV - Last Filed: 09/21/23 06:13>
Review of Systems
Constitutional: Reports no symptoms
EENT: Reports no symptoms
Respiratory: Reports no symptoms
Cardiac: Reports no symptoms
ABD/GI: Reports abdominal pain, nausea and pain
: Reports dysuria
Musculoskeletal: Reports no symptoms
Skin: Reports no symptoms
Neurological: Reports no symptoms
Endocrine: Reports no symptoms
Hematologic/Lymphatic: Reports other (Hx of Factor V Leiden on Eliquis)
Psychiatric: Reports anxiety
Phy Exam
<Jailene Sweeney EMRE - Last Filed: 09/21/23 06:13>
Physical Exam
Physical Exam:
+Significant tenderness in the LUQ, epigastric area, and RLQ, diminished bowel sounds in all four quadrants
+CVA tenderness, B/L
Regular S1 and S2, breath sounds are equal B/L
General Physical Exam
General Presentation: mild distress
General age: appears stated age
General Skin: warm and dry
General Habitus: normal
General Mental: alert
Cardiovascular Exam
Cardiovascular Exam: regular rate/rhythm
Pulmonary Exam
Pulmonary Exam: lungs clear and no respiratory distress
Cough: no cough
Gastrointestinal Exam
Gastrointestinal Exam: soft, no pulsatile mass, abnormal bowel sounds (Diminished), guarding and tender
Course
<Jailene Sweeney [facility] - Last Filed: 09/21/23 06:13>
Orders/Labs/Results
Orders:
Orders
09/20/23 18:25
Electrocardiogram (*1) Urgent
Reason for Study: Chest Pain
EKG- Treatment ONCE
09/20/23 20:28
Complete Blood Count/With Diff Urgent
Comprehensive Metabolic Panel Urgent
HCG, Serum Qualitative Screen Urgent
Comment: ADD ON
Urinalysis Reflex To Culture Urgent
Date Specimen was Collected: 09/20/23
Time Specimen was Collected: 18:25
Urine Microscopic Reflex Cult Urgent
09/20/23 22:57
Add On- LAB Urgent
Tests Added?: serum hcg
09/20/23 23:01
Lorazepam [Ativan] 0.5 mg IV NOW STA
09/20/23 23:05
0.9% Sodium Chloride 1000 ml [Nss] 1,000 ml IV BOLUS
09/21/23 00:00
CT Abd/pelvis Wo Iv Cont Urgent
Reason For Exam: Abdominal pain x 48 hours with associated nausea
09/21/23 00:27
Morphine Sulfate 4 mg IV NOW STA
Ondansetron Injectable [Zofran] 4 mg IV NOW STA
09/21/23 00:33
HYDROmorphone [Dilaudid] 0.5 mg IV NOW STA
09/21/23 02:21
Sucralfate Suspension [Carafate Suspension] 1 gm PO NOW STA
Abnormal Lab Results
09/20/23
20:28
RBC 3.49 L 10^6/uL
(4.20-5.40)
Hgb 10.8 L g/dL
(12.0-16.0)
Hct 30.5 L %
(37.0-47.0)
MPV 12.8 H fL
(7.4-10.4)
Carbon Dioxide 21 L mmol/L
(22-30)
BUN 25 H mg/dl
(7-17)
Creatinine 1.7 H mg/dL
(0.6-1.0)
Leukocyte Esterase Rfl Trace A
(Negative)
Urine Bacteria (Reflex) Few A
(Negative)
09/20/23 20:28
09/20/23 20:28
Vital Signs
Initial and Last Documented VS:
Initial Vital Signs
Temp Pulse Resp BP Pulse Ox
98.7 F 88 20 152/104 100
09/20/23 18:21 09/20/23 18:21 09/20/23 18:21 09/20/23 18:21 09/20/23 18:21
Last Documented Vital Signs
Temp Pulse Resp BP Pulse Ox
98.7 F 88 20 137/101 97
09/20/23 18:21 09/20/23 18:21 09/20/23 18:21 09/21/23 03:00 09/21/23 03:15
<Jimi Batista, DO - Last Filed: 09/21/23 02:59>
Orders/Labs/Results
Orders:
Orders
09/20/23 18:25
Electrocardiogram (*1) Urgent
Reason for Study: Chest Pain
EKG- Treatment ONCE
09/20/23 20:28
Complete Blood Count/With Diff Urgent
Comprehensive Metabolic Panel Urgent
HCG, Serum Qualitative Screen Urgent
Comment: ADD ON
Urinalysis Reflex To Culture Urgent
Date Specimen was Collected: 09/20/23
Time Specimen was Collected: 18:25
Urine Microscopic Reflex Cult Urgent
09/20/23 22:57
Add On- LAB Urgent
Tests Added?: serum hcg
09/20/23 23:01
Lorazepam [Ativan] 0.5 mg IV NOW STA
09/20/23 23:05
0.9% Sodium Chloride 1000 ml [Nss] 1,000 ml IV BOLUS
09/21/23 00:00
CT Abd/pelvis Wo Iv Cont Urgent
Reason For Exam: Abdominal pain x 48 hours with associated nausea
09/21/23 00:27
Morphine Sulfate 4 mg IV NOW STA
Ondansetron Injectable [Zofran] 4 mg IV NOW STA
09/21/23 00:33
HYDROmorphone [Dilaudid] 0.5 mg IV NOW STA
09/21/23 02:21
Sucralfate Suspension [Carafate Suspension] 1 gm PO NOW STA
Abnormal Lab Results
09/20/23
20:28
RBC 3.49 L 10^6/uL
(4.20-5.40)
Hgb 10.8 L g/dL
(12.0-16.0)
Hct 30.5 L %
(37.0-47.0)
MPV 12.8 H fL
(7.4-10.4)
Carbon Dioxide 21 L mmol/L
(22-30)
BUN 25 H mg/dl
(7-17)
Creatinine 1.7 H mg/dL
(0.6-1.0)
Leukocyte Esterase Rfl Trace A
(Negative)
Urine Bacteria (Reflex) Few A
(Negative)
09/20/23 20:28
09/20/23 20:28
Vital Signs
Initial and Last Documented VS:
Initial Vital Signs
Temp Pulse Resp BP Pulse Ox
98.7 F 88 20 152/104 100
09/20/23 18:21 09/20/23 18:21 09/20/23 18:21 09/20/23 18:21 09/20/23 18:21
Last Documented Vital Signs
Temp Pulse Resp BP Pulse Ox
98.7 F 88 20 137/101 97
09/20/23 18:21 09/20/23 18:21 09/20/23 18:21 09/21/23 03:00 09/21/23 03:15
Lyndalt;NARCISO Carr - Last Filed: 09/21/23 06:13>
MDM/Problems Addressed
Differential Diagnosis Includes:
Nephrolithiasis, Appendicitis, Diverticulitis, Pancreatitis, SBO, LBO, Volvulus
MDM/Problems Addressed:
Abdominal pain x 48 hours
Chronic conditions affecting care: HTN and Immunosuppressed
<NARCISO Carr - Last Filed: 09/21/23 06:13>
*Critical Care Note
Total Time (30-74mins, 75-104mins- exclusive of procedures): Not Applicable
<NARCISO Carr - Last Filed: 09/21/23 06:13>
Update Note
Update Note:
Dad states that the patient is still complaining of anxiety. He wants to know if we can do anything else.
Reports mild improvement in abdominal pain.
Pt still complains of abdominal pain, 8/10, and would like some more pain medication. She states she has some urinary discomfort. 1:[address] A/P
IMPRESSION:
Noninflamed appendix. No evidence of bowel obstruction.
Right lower quadrant transplanted kidney without hydronephrosis. Negative bilateral atrophic kidneys.
No free air.
Unchanged 2.6 cm amorphous sclerotic lesion in the intertrochanteric region of the right femur; differential considerations include fibrous dysplasia, nonossifying fibroma, and liposclerosing myxofibrous tumor.
Post cholecystectomy.
<Jimi Batista DO - Last Filed: 09/21/23 02:59>
Update Note
Update Note:
Dad states that the patient is still complaining of anxiety. He wants to know if we can do anything else.
Reports mild improvement in abdominal pain.
Pt still complains of abdominal pain, 8/10, and would like some more pain medication. She states she has some urinary discomfort. 1:[address]/P
IMPRESSION:
Noninflamed appendix. No evidence of bowel obstruction.
Right lower quadrant transplanted kidney without hydronephrosis. Negative bilateral atrophic kidneys.
No free air.
Unchanged 2.6 cm amorphous sclerotic lesion in the intertrochanteric region of the right femur; differential considerations include fibrous dysplasia, nonossifying fibroma, and liposclerosing myxofibrous tumor.
Post cholecystectomy.
Patient has follow-up with her major sales associate scheduled for 2 weeks. She will call the office today to see if she can see them sooner. She does have Zofran at home. She will get a dose of Dilaudid and be discharged home with nonspecific
abdominal pain
ED Attending Note
<NARCISO Carr - Last Filed: 09/21/23 06:13>
-
Portions of this chart may have been created with voice recognition software.� Occasional wrong word or��sound alike� substitutions may have occurred due to the inherent limitations of voice recognition software.
<Jimi Batista DO - Last Filed: 09/21/23 02:59>
ED Attending Note
Patient seen and examined by attending physician: Yes
I performed the substantive portion of visit, reviewed & personally made and approve the management plan that is documented in note by myself or ALLYN.: Yes
ED Attending Note:
Pleasant 28-year-old female presents with abdominal pain that has been present for the last 2 days. She states that it is constant and starts in the left upper quadrant radiates to the right upper quadrant and down to the right middle abdomen. She
states that she has some nausea without vomiting. She has not been eating normally. Patient was seen in conjunction with the PA student. I have reviewed and agree with the history and treatment plan presented. On my independent physical exam,
patient is awake, alert, and oriented x3, in the midst of a panic attack. She states that she is out of her Xanax.
Vital signs are stable. Patient not hypoxic
Nursing note reviewed. I agree with nursing documentation up to this point in time.
Home Meds and allergies reviewed.
NUMBER AND COMPLEXITY OF PROBLEMS ADDRESSED AT THE ENCOUNTER
� Chronic conditions affecting care: Neuropathy, colitis, irritable bowel syndrome, gastroparesis, referred
� Acute Exacerbation and/or Progression of Chronic Illness:
� Differential Diagnosis includes: Constipation, gastroparesis, biliary colic, IBS
AMOUNT AND/OR COMPLEXITY OF DATA TO BE REVIEWED AND ANALYZED
I performed an independent evaluation of the following and my interpretation is:
EKG:
CT:
X-rays:
Ultrasound:
Laboratory Studies:
Other:
Review of other/old records:
Clinical information was obtained by an independent historian:
Prescriptions/Medications Considered but not given:
Further testing considered but not performed:
RISK OF COMPLICATIONS AND/OR MORBIDITY OR MORTALITY OF PATIENT MANAGEMENT
Social determinants of health affecting care: Good Social Support
Discussion with other providers:
Escalation of care including admission/observation vs risk of discharge considered:
CRITICAL CARE NOTE:
Total Time (exclusive of procedures):
Update:
Discharge Plan
Departure
Patient Disposition: Home (Routine Discharge)
Date of Disposition: 09/21/23
Time of Disposition: 02:56
Patient with high blood pressure during this ER visit?: Yes
Discharge Problem:
Anxiety, Abdominal pain
Instructions: Abdominal Pain, BLOOD PRESSURE
Prescriptions:
No Action
prednisone 5 MG tablet
5 mg PO DAILY
alprazolam 1 MG tablet
1 mg PO DAILY PRN (Reason: mild anxiety)
Patient Comments:
05/23/2023, pt. filled this med. on 04/21/2023 for 30 tablets according to PDMP.
azathioprine [Azasan] 100 MG tablet
100 mg PO DAILY
carvedilol 25 mg Tablet
25 mg PO BID
spironolactone 25 mg tablet
25 mg PO DAILY
lisinopril 10 mg tablet
10 mg PO HS
montelukast 10 mg tablet
10 mg PO HS
pravastatin 20 mg tablet
20 mg PO HS
zolpidem 10 mg tablet
10 mg PO HS PRN (Reason: insomnia)
Patient Comments:
05/23/2023, pt. filled this med. on 04/21/2023 for 24 tablets according to PDMP.
buspirone 15 mg tablet
15 mg PO TID
Eliquis 2.5 mg tablet
2.5 mg PO Q12H
mirtazapine 30 mg Tablet
30 mg PO HS
clonidine HCl 0.1 mg Tablet
0.2 mg PO TID
alprazolam 1 mg Tablet
2 mg PO DAILY PRN (Reason: severe anxiety)
Patient Comments:
05/23/2023, pt. filled this med. on 04/21/2023 for 30 tablets according to PDMP.
lidocaine 4 % Cream
1 applic TOPICAL DIRECTED
Patient Comments:
05/23/2023, pt. uses this med. whenever her port needs to be accessed which she states is roughly once a month.
omeprazole 20 mg Capsule,Delayed Release(Dr/Ec)
20 mg PO BID
belatacept 250 mg Recon Soln
250 mg IV Q28D
Linzess 145 mcg Capsule
145 mcg PO DAILY PRN (Reason: IBS)
ondansetron 8 mg Tablet,Disintegrating
8 mg PO DAILYPRN PRN (Reason: nausea/vomiting) Qty: 0 0RF
acetaminophen 500 mg/15 mL Liquid
1,000 mg PO Q6HPRN PRN (Reason: mild pain) Qty: 0 0RF
Referrals:
Leoncio Zheng MD [Family Provider] -
Activity Restrictions/Additional Instructions:
Please follow-up with your major sales associate as discussed.
It was a pleasure meeting you and taking part in your care. We hope for your continued healing and wellness.
Please read discharge instructions in their entirety. However, they are for general education and may not describe your exact diagnosis at discharge. Information on your ER visit and medical conditions were discussed with you along with appropriate
follow up information...
If indicated, please take your medications as instructed and indicated on discharge paperwork.
Please schedule a follow up appointment as directed. Call to schedule an appointment
Please return to the emergency department with ANY change in, persisting, or worsening of symptoms. If any of your symptoms do not improve, or persist, or become more severe within 6-12 hours, please return to the emergency department for further
care.
Please return to the emergency department if you develop a headache, neck pain/stiffness, fever greater than 100.4F, chest pain, shortness of breath, persistent nausea, vomiting, slurred speech, difficulty walking, numbness/tingling, weakness, signs
of infection or any other symptoms that are worrisome to you.
If you have any questions or concerns please do not hesitate to call the Hospital at
Interventions
Interventions:
*Risk Screen - Suicide Last Done: 09/20/23 20:27
*General Assessment Last Done: 09/20/23 20:27
*Neglect/Abuse Screening Last Done: 09/20/23 20:27
ED- Fall Risk Assessment Last Done: 09/20/23 20:27
*ED COVID-19 Vaccine History Last Done: 09/20/23 20:27
*Nursing Disposition Last Done: 09/21/23 03:39
IL-Xnhitx-Zpugmedovd Assessment Last Done: 09/20/23 20:27
Discharge Date and Time
Discharge Date/Time: 09/21/23 03:39
Print Language: AUSTRALIAN
--- NOTE | 2023-09-20 22:32 | VATNOTE ---
pt states port dsg. comes off all the time due to lidocream. pt stated 'they just keep changing dsg. until it doesn't come off anymore.'
[2023-09-20 23:00] VITALS: BP 160/120
[2023-09-20] MEDS: NSS 1000 IV (23:15)
[2023-09-20] MEDS: ATIVAN 0.5 MG IV (23:15)
[2023-09-20 23:24] LABS: HCG, Serum Qualitative Screen Negative
[2023-09-21] VITALS: BP 158/104
[2023-09-21] MEDS: DILAUDID 0.5 MG IV ×2 (00:39→03:21)
[2023-09-21 01:00] VITALS: BP 138/107
[2023-09-21 02:00] VITALS: BP 145/117
[2023-09-21] MEDS: CARAFATE SUSPENSION 1 GM PO (02:27)
[2023-09-21 03:00] VITALS: BP 137/101
== END 2023-09-21 03:39 | disposition home or self-care (01) ==
LOC: EMR 18:17
PROVIDERS: Emergency Medicine; EMERGENCY PHYSICIAN Student in an Organized Health Care Education/Training Program; FAMILY PHYSICIAN Internal Medicine
DX: F41.9 Anxiety disorder, unspecified (principal); R10.13 Epigastric pain; J45.909 Unspecified asthma, uncomplicated; D68.51 Activated protein C resistance; D84.81 Immunodeficiency due to conditions classified elsewhere; F41.0 Panic disorder [episodic paroxysmal anxiety]; G62.9 Polyneuropathy, unspecified; I10 Essential (primary) hypertension; K21.9 Gastro-esophageal reflux disease without esophagitis; K31.84 Gastroparesis; K52.9 Noninfective gastroenteritis and colitis, unspecified; Z90.49 Acquired absence of other specified parts of digestive tract; Z94.0 Kidney transplant status
CPT/HCPCS: 99284; 96374; 96375; 96376; 96361; 74176; 80053; 81003; 81015; 84703; 85025; 93005

== ENCOUNTER 2023-11-20 19:12 | Emergency (ER) | payer OTHER, SELFPAY ==
[2023-11-20 19:13] VITALS: BP 134/99; BMI 33.5
--- NOTE | 2023-11-20 21:10 | ED.GENMED ---
History of Present Illness
General
Chief Complaint: Skin Problem
Source: patient
Exam Limitations: none
Time Seen by Provider: 11/20/23 20:25
Nursing documentation reviewed up to this point in time: agreed with
History of Present Illness
History of Present Illness:
Patient is a 28-year-old female past medical history of renal transplant in 2014 factor V Leiden on Eliquis twice daily focal segmental glomerulosclerosis of kidney receives infusion every 20 hours for antirejection presents to the ER for evaluation
of scalp pain. Patient has alopecia from infusion and was wearing awake last night at a wedding and noticed drainage to the area. Today she has area of redness and complains of a lot of burning and pain. She is requesting IV Dilaudid for pain.
She tells me she took 5000 mg of Tylenol prior to arrival and cannot take any oral narcotics because they make her sick. She states that when [facility] normally manages her care and when she goes to the ER she normally gets IV Dilaudid.
Past History
Past History
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
ED Past Surgical History: Other (Kidney transplant 2015, Hernia repair)
Social History
Tobacco: Non-smoker
Alcohol: None
Drug: None
Personal: Single
Living: with family
Employment: Employed
Family History
Family History: Other (Grandmother with ovarian cancer mother with retinitis pigmentosa, father with high blood pressure)
Review of Systems
Review of Systems
Allergies reviewed?: Yes
All Other Systems: ROS reviewed and negative except as documented in HPI and ROS
Constitutional: Reports no symptoms; Denies fever, fatigue or chills
Respiratory: Reports no symptoms
Cardiac: Reports no symptoms
ABD/GI: Reports no symptoms
Musculoskeletal: Reports no symptoms
Skin: Reports other (pain /burning to anterior scalp )
Neurological: Reports no symptoms
Psychiatric: Reports no symptoms
Phy Exam
General Physical Exam
General Presentation: no apparent distress
General age: appears stated age
General Skin: warm and dry
General Habitus: normal
General Mental: alert
General Hydration: appears well hydrated
Neurological Exam
Neurological Exam: alert and oriented x3
Musculoskeletal Exam
Musculoskeletal Exam: full ROM
Skin Exam
Skin Exam: normal color, warm/dry and other (+ erythema to anterior scalp )
Psychiatric Exam
Psychiatric Exam: normal mood/affect
Course
Orders/Labs/Results
Orders:
Orders
11/20/23 21:10
Doxycycline [Vibramycin] 100 mg PO NOW STA
Vital Signs
Initial and Last Documented VS:
Initial Vital Signs
Temp Pulse Resp BP Pulse Ox
98.2 F 83 16 134/99 97
11/20/23 19:13 11/20/23 19:13 11/20/23 19:13 11/20/23 19:13 11/20/23 19:13
Last Documented Vital Signs
Temp Pulse Resp BP Pulse Ox
98.2 F 83 16 134/99 97
11/20/23 19:13 11/20/23 19:13 11/20/23 19:13 11/20/23 19:13 11/20/23 19:13
Napping Machine Operator consulted with Physician
Napping Machine Operator consulted with physician?: Yes
Name of Physician Consulted: DR Saldivar
MDM/Problems Addressed
Differential Diagnosis Includes:
not limited to: contact dermatitis chemical burn
MDM/Problems Addressed:
Patient is a 28-year-old female with above medical history as documented presents to the ER complaining of scalp pain. Patient has obvious local area of redness across the anterior scalp from the adhesive of a week that she wore last night. She
has alopecia from getting infusions for antirejection medication. This looks like a contact dermatitis versus possible chemical burn. Patient requested IV Dilaudid for this. I did review with patient that this is not proper treatment and that IV
narcotics are not first-line.
I have offered patient topical lidocaine she refuses. I did offer patient a dose of oral Toradol she refuses. She is asking for IV Dilaudid and tells me that' the [facility] always gives me IV Dilautid.' I would give patient
doxycycline as this area appears irritated and red though she denies any fever she is immune suppressed we will treat for 7 days to prevent infection of this is likely more of a contact dermatitis or chemical burn. I discussed using cool
compresses. Case d/c w/ ED physician.
*Pulse Oximetry
Patient hypoxic: no
*Critical Care Note
Total Time (30-74mins, 75-104mins- exclusive of procedures): Not Applicable
ED Attending Note
-
Portions of this chart may have been created with voice recognition software.� Occasional wrong word or��sound alike� substitutions may have occurred due to the inherent limitations of voice recognition software.
Discharge Plan
Departure
Patient Disposition: Home (Routine Discharge)
Date of Disposition: 11/20/23
Time of Disposition: 21:47
Patient with high blood pressure during this ER visit?: Yes
Covid-19: Not Applicable
Discharge Problem:
Contact dermatitis
Instructions: Contact dermatitis, BLOOD PRESSURE
Prescriptions:
New
doxycycline hyclate 100 mg capsule
100 mg PO BID Qty: 14 0RF
No Action
prednisone 5 MG tablet
5 mg PO DAILY
alprazolam 1 MG tablet
1 mg PO DAILY PRN (Reason: mild anxiety)
Patient Comments:
05/23/2023, pt. filled this med. on 04/21/2023 for 30 tablets according to PDMP.
azathioprine [Azasan] 100 MG tablet
100 mg PO DAILY
carvedilol 25 mg Tablet
25 mg PO BID
spironolactone 25 mg tablet
25 mg PO DAILY
lisinopril 10 mg tablet
10 mg PO HS
montelukast 10 mg tablet
10 mg PO HS
pravastatin 20 mg tablet
20 mg PO HS
zolpidem 10 mg tablet
10 mg PO HS PRN (Reason: insomnia)
Patient Comments:
05/23/2023, pt. filled this med. on 04/21/2023 for 24 tablets according to PDMP.
buspirone 15 mg tablet
15 mg PO TID
Eliquis 2.5 mg tablet
2.5 mg PO Q12H
mirtazapine 30 mg Tablet
30 mg PO HS
clonidine HCl 0.1 mg Tablet
0.2 mg PO TID
alprazolam 1 mg Tablet
2 mg PO DAILY PRN (Reason: severe anxiety)
Patient Comments:
05/23/2023, pt. filled this med. on 04/21/2023 for 30 tablets according to PDMP.
lidocaine 4 % Cream
1 applic TOPICAL DIRECTED
Patient Comments:
05/23/2023, pt. uses this med. whenever her port needs to be accessed which she states is roughly once a month.
omeprazole 20 mg Capsule,Delayed Release(Dr/Ec)
20 mg PO BID
belatacept 250 mg Recon Soln
250 mg IV Q28D
Linzess 145 mcg Capsule
145 mcg PO DAILY PRN (Reason: IBS)
ondansetron 8 mg Tablet,Disintegrating
8 mg PO DAILYPRN PRN (Reason: nausea/vomiting) Qty: 0 0RF
acetaminophen 500 mg/15 mL Liquid
1,000 mg PO Q6HPRN PRN (Reason: mild pain) Qty: 0 0RF
Referrals:
Leoncio Zheng MD [Family Provider] -
Activity Restrictions/Additional Instructions:
As discussed a prescription for doxycycline 100 mg twice a day for 1 week was sent to your pharmacy. take as directed.
cool compresses to the area .
continue Tylenol every 4-6 hours follow-up with your specialist/family doctor in the next several days please call tomorrow to make an appointment return if any worsening of symptoms.
Interventions
Interventions:
*Risk Screen - Suicide Last Done: 11/20/23 19:13
*General Assessment Last Done: 11/20/23 20:57
*Neglect/Abuse Screening Last Done: 11/20/23 19:13
ED- Fall Risk Assessment Last Done: 11/20/23 20:57
*ED COVID-19 Vaccine History Last Done: 11/20/23 20:57
Discharge Date and Time
Print Language: LITHUANIAN
[2023-11-20] MEDS: VIBRAMYCIN 100 MG PO (21:52)
== END 2023-11-20 22:00 | disposition home or self-care (01) ==
LOC: EMR 19:12
PROVIDERS: EMERGENCY PHYSICIAN Emergency Medicine; FAMILY PHYSICIAN Internal Medicine
DX: L25.9 Unspecified contact dermatitis, unspecified cause (principal); L65.9 Nonscarring hair loss, unspecified; J45.909 Unspecified asthma, uncomplicated; K21.9 Gastro-esophageal reflux disease without esophagitis; I10 Essential (primary) hypertension; F41.9 Anxiety disorder, unspecified; D68.51 Activated protein C resistance; Z79.01 Long term (current) use of anticoagulants; Z94.0 Kidney transplant status
CPT/HCPCS: 99282

== ENCOUNTER 2023-12-05 21:13 | Emergency (ER) | payer OTHER, SELFPAY ==
[2023-12-05 21:23] VITALS: BP 164/116
[2023-12-05 22:21] VITALS: BP 144/100
[2023-12-05 22:30] VITALS: BP 141/101
[2023-12-05 22:41] LABS: % Basophils 0.5 % (0-2); % Eosinophils 1.1 % (0-6); % Immature Granulocytes 0.4 % (0-0.5); % Lymphocytes 22.7 % (20.5-51.1); % Monocytes 8.2 % (1.7-9.3); % Neutrophils 67.1 % (42.2-75.2); Absolute Eosinophils 0.1 10^3/uL (0-0.7); Absolute Lymphocytes 1.8 10^3/uL (1.2-3.4); Absolute Monocytes 0.7 10^3/uL (0.1-0.6); Absolute Neutrophils 5.4 10^3/uL (1.4-6.5); Hematocrit 29.1 % (37.0-47.0); Hemoglobin 10.1 g/dL (12.0-16.0); Mean Corp Hgb Conc. 34.7 g/dL (33.0-37.0); Mean Corpuscular Hgb 30.9 pg (27.0-31.0); Mean Platelet Volume 12.7 fL (7.4-10.4); Nucleated Red Blood Cells % 0 %; Platelet Count 202 10^3/uL (130-400); Red Blood Cell Count 3.27 10^6/uL (4.20-5.40); Red Cell Dist. Width 14.3 % (11.5-14.5); White Blood Cell Count 8.1 10^3/uL (4.8-10.8)
[2023-12-05 22:46] LABS: Urine Albumin Negative (Neg - Trace); Urine Bilirubin Negative (Negative); Urine Character Clear (Clear); Urine Color Yellow; Urine Glucose Negative (Negative); Urine Ketone Negative (Negative); Urine Leukocyte Negative (Negative); Urine Nitrite Negative (Negative); Urine Occult Blood 2+ (Negative); Urine Specific Gravity 1.005 (<1.030); Urine Urobilinogen Negative (Neg - 1+)
[2023-12-05 22:57] LABS: ALT (SGPT) 22 U/L (0-35); AST (SGOT) 28 U/L (14-36); Albumin 2.8 g/dl (3.5-5.0); Alkaline Phosphatase 63 U/L (38-126); Blood Urea Nitrogen 22 mg/dl (7-17); Calcium 9.6 mg/dl (8.4-10.2); Carbon Dioxide 26 mmol/L (22-30); Chloride 101 mmol/L (98-107); Glucose 95 mg/dl (70-99); Sodium 132 mmol/L (135-145); Total Bilirubin 0.2 mg/dl (0.2-1.3); Total Protein 6.5 g/dl (6.3-8.2); eGFR 44.22
[2023-12-05 22:58] LABS: Urine Squamous Cell 16-20 /LPF (Few); Urine White Cell 0-2 /HPF (0-5)
[2023-12-05 23:00] VITALS: BP 130/91
--- NOTE | 2023-12-05 23:03 | ED.GENMED ---
History of Present Illness
<Seferino Sandoval Janna, DO - Last Filed: 12/06/23 01:57>
General
Chief Complaint: Blood Pressure Problem
Time Seen by Provider: 12/05/23 22:17
History of Present Illness
History of Present Illness:
HPI: Patient has history of renal transplant in 2015. The patient presents with low BP 2d ago at 100/70 and PMD switch Clonidine 0.2mg from tid to bid (on Lisinopril, Carvedilol, Spironolactone, and Clonidine) then BP elevated this am. Since
yesterday, BRBPR w/ epigastic pain / bloated and poor po intake. Assoc'd w/ dizzy and tired. Tylenol has not helped headache.
EXAM:
GENERAL: Well appearing in mild/mod distress
HEENT: Moist oral mucosa
CARDIOVASCULAR: No murmurs, normal heart rate, regular rhythm, No chest wall tenderness, port noted to the anterior chest wall
PULMONARY: No respiratory distress, breath sounds are clear and equal
ABDOMEN: Soft with no peritoneal signs, epigastric / R sided abd tenderness
NEUROLOGIC: Excellent strength all extremities, no coordination deficits
PSYCHIATRIC: Appropriate mental status, normal insight and judgement
EXTREMITIES: Nontender, no edema, moves all extremities equally
SKIN: No rash, no lesions
TIME OF INITIAL ENCOUNTER: 11pm
NUMBER AND COMPLEXITY OF PROBLEMS ADDRESSED AT THE ENCOUNTER
� Chronic conditions affecting care: Kidney transplant, has had DVT/PE with history of factor V Leiden on Eliquis, high blood pressure, has had malignant hypertension, CKD
� Acute Exacerbation and/or Progression of Chronic Illness: This is an acute problem but has had abdominal pain in the past
� Differential Diagnosis includes: Transplant rejection, CATHIE, pyelonephritis, intracranial hemorrhage
AMOUNT AND/OR COMPLEXITY OF DATA TO BE REVIEWED AND ANALYZED
� I performed an independent evaluation of and my interpretation is:
EKG:
CT: The CAT scan of the brain shows no acute abnormality. The CAT scan of the abdomen and pelvis noncontrast shows the transplanted kidney in the right lower quadrant and there is some mild hydronephrosis with faint peripelvic
stranding.
X-rays:
Laboratory Studies: White count normal 8.1, hemoglobin 10.1 which is near baseline, creatinine 1.6 which is near baseline, urinalysis shows 2+ blood with no clear evidence of infection
Other:
� Review of other/old records: I reviewed old lab values
� Clinical information was obtained by an independent historian: Spoke to family member at bedside
� Prescriptions/Medications Considered but not given:
� Further testing considered but not performed:
RISK OF COMPLICATIONS AND/OR MORBIDITY OR MORTALITY OF PATIENT MANAGEMENT
� Social determinants of health affecting care: Lives at home
� Discussion with other providers:
� Escalation of care including admission/observation vs risk of discharge considered: The patient appears somewhat uncomfortable and reports rather significant headache along with abdominal pain. Will obtain noncontrast CTs of
the head as well as abdomen and chest. She was given Dilaudid for pain. Although there was some concern for hydronephrosis and faint peripelvic stranding on CT imaging, there is no evidence for urinary tract infection based on urinalysis. Her
white count is normal. On reassessment at 1:50 AM, she reports some improvement but states that the pain does persist. There is no clear evidence for pyelonephritis at this time.
Past History
<Seferino Saldivar, DO - Last Filed: 12/06/23 01:57>
Past History
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
ED Past Surgical History: Other (Kidney transplant 2015, Hernia repair)
Social History
Tobacco: Non-smoker
Alcohol: None
Drug: None
Personal: Single
Living: with family
Employment: Employed
Family History
Family History: Other (Grandmother with ovarian cancer mother with retinitis pigmentosa, father with high blood pressure)
Phy Exam
<Joss Simpson MD, Resident - Last Filed: 12/09/23 22:42>
Physical Exam
Physical Exam:
see HPI
Course
<Seferino Saldivar, DO - Last Filed: 12/06/23 01:57>
Orders/Labs/Results
Orders:
Orders
12/05/23 22:18
Electrocardiogram (*1) Urgent
Reason for Study: Hypertension, Benign
EKG- Treatment ONCE
12/05/23 22:35
Complete Blood Count/With Diff Urgent
Comprehensive Metabolic Panel Urgent
HCG, Serum Qualitative Screen Urgent
Comment: ADDED
Microalbumin, Random Urine Urgent
Date Specimen was Collected: 12/05/23
Time Specimen was Collected: 22:33
Urinalysis Urgent
Date Specimen was Collected: 12/05/23
Time Specimen was Collected: 22:33
Urine Microscopic Urgent
Date Specimen was Collected: 12/05/23
Time Specimen was Collected: 22:33
12/05/23 23:16
HYDROmorphone [Dilaudid] 1 mg IV NOW STA
Ondansetron Injectable [Zofran] 4 mg IV NOW STA
12/05/23 23:18
0.9% Sodium Chloride 500 ml [Nss] 500 ml IV BOLUS
12/05/23 23:21
Add On- LAB Urgent
Tests Added?: hcg
12/06/23 00:15
CT Abd/pel Without Iv Or Oral Urgent
Reason For Exam: severe abd pain; h/o renal transplant
CT Head W/o Iv Contrast Urgent
Reason For Exam: severe BRAN
Abnormal Lab Results
12/05/23
22:35
RBC 3.27 L 10^6/uL
(4.20-5.40)
Hgb 10.1 L g/dL
(12.0-16.0)
Hct 29.1 L %
(37.0-47.0)
MPV 12.7 H fL
(7.4-10.4)
Absolute Monos (auto) 0.7 H 10^3/uL
(0.1-0.6)
Sodium 132 L mmol/L
(135-145)
BUN 22 H mg/dl
(7-17)
Creatinine 1.6 H mg/dL
(0.6-1.0)
Albumin 2.8 L g/dl
(3.5-5.0)
Urine Occult Blood 2+ A
(Negative)
Urine RBC 7-10 A /HPF
(0-2)
Ur Random Microalbumin 2.1 H mg/dl
(0.6-1.7)
12/05/23 22:35
12/05/23 22:35
Vital Signs
Initial and Last Documented VS:
Initial Vital Signs
Temp Pulse Resp BP Pulse Ox
98 F 84 26 164/116 96
12/05/23 21:23 12/05/23 21:23 12/05/23 21:23 12/05/23 21:23 12/05/23 21:23
Last Documented Vital Signs
Temp Pulse Resp BP Pulse Ox
98 F 80 19 131/89 98
12/05/23 21:23 12/06/23 02:37 12/06/23 02:37 12/06/23 02:30 12/06/23 01:30
<Joss Simpson MD, Resident - Last Filed: 12/09/23 22:42>
Orders/Labs/Results
Orders:
Orders
12/05/23 22:18
Electrocardiogram (*1) Urgent
Reason for Study: Hypertension, Benign
EKG- Treatment ONCE
12/05/23 22:35
Complete Blood Count/With Diff Urgent
Comprehensive Metabolic Panel Urgent
HCG, Serum Qualitative Screen Urgent
Comment: ADDED
Microalbumin, Random Urine Urgent
Date Specimen was Collected: 12/05/23
Time Specimen was Collected: 22:33
Urinalysis Urgent
Date Specimen was Collected: 12/05/23
Time Specimen was Collected: 22:33
Urine Microscopic Urgent
Date Specimen was Collected: 12/05/23
Time Specimen was Collected: 22:33
12/05/23 23:16
HYDROmorphone [Dilaudid] 1 mg IV NOW STA
Ondansetron Injectable [Zofran] 4 mg IV NOW STA
12/05/23 23:18
0.9% Sodium Chloride 500 ml [Nss] 500 ml IV BOLUS
12/05/23 23:21
Add On- LAB Urgent
Tests Added?: hcg
12/06/23 00:15
CT Abd/pel Without Iv Or Oral Urgent
Reason For Exam: severe abd pain; h/o renal transplant
CT Head W/o Iv Contrast Urgent
Reason For Exam: severe BRAN
Abnormal Lab Results
12/05/23
22:35
RBC 3.27 L 10^6/uL
(4.20-5.40)
Hgb 10.1 L g/dL
(12.0-16.0)
Hct 29.1 L %
(37.0-47.0)
MPV 12.7 H fL
(7.4-10.4)
Absolute Monos (auto) 0.7 H 10^3/uL
(0.1-0.6)
Sodium 132 L mmol/L
(135-145)
BUN 22 H mg/dl
(7-17)
Creatinine 1.6 H mg/dL
(0.6-1.0)
Albumin 2.8 L g/dl
(3.5-5.0)
Urine Occult Blood 2+ A
(Negative)
Urine RBC 7-10 A /HPF
(0-2)
Ur Random Microalbumin 2.1 H mg/dl
(0.6-1.7)
12/05/23 22:35
12/05/23 22:35
Vital Signs
Initial and Last Documented VS:
Initial Vital Signs
Temp Pulse Resp BP Pulse Ox
98 F 84 26 164/116 96
12/05/23 21:23 12/05/23 21:23 12/05/23 21:23 12/05/23 21:23 12/05/23 21:23
Last Documented Vital Signs
Temp Pulse Resp BP Pulse Ox
98 F 80 19 131/89 98
12/05/23 21:23 12/06/23 02:37 12/06/23 02:37 12/06/23 02:30 12/06/23 01:30
<Joss Simpson MD, Resident - Last Filed: 12/09/23 22:42>
MDM/Problems Addressed
Differential Diagnosis Includes:
Hypertensive emergency versus IBS versus GE
MDM/Problems Addressed:
Patient is hypertensive at presentation 164/116. Symptomatic with headache, nausea and abdominal pain.
Hemoccult negative.
Lab work�anemia, hemoglobin at 10.1, mild hyponatremia sodium at 132, BUN�22, creatinine 1.6
Urinalysis�microalbuminuria�2.1, microscopic hematuria.
Patient started on IV fluids
Symptomatic management with Dilaudid and Zofran.
Plan for CT abdomen/pelvis without contrast
Plan for CT head without contrast.
<Joss Simpson MD, Resident - Last Filed: 12/09/23 22:42>
*Critical Care Note
Total Time (30-74mins, 75-104mins- exclusive of procedures): Not Applicable
ED Attending Note
<Seferino Saldivar, DO - Last Filed: 12/06/23 01:57>
-
Portions of this chart may have been created with voice recognition software.� Occasional wrong word or��sound alike� substitutions may have occurred due to the inherent limitations of voice recognition software.
Discharge Plan
Departure
Patient Disposition: Home (Routine Discharge)
Date of Disposition: 12/06/23
Time of Disposition: 01:57
Patient with high blood pressure during this ER visit?: Yes
Discharge Problem:
Abdominal pain
Instructions: Abdominal Pain
Prescriptions:
No Action
prednisone 5 MG tablet
5 mg PO DAILY
alprazolam 1 MG tablet
1 mg PO DAILY PRN (Reason: mild anxiety)
Patient Comments:
05/23/2023, pt. filled this med. on 04/21/2023 for 30 tablets according to PDMP.
azathioprine [Azasan] 100 MG tablet
100 mg PO DAILY
carvedilol 25 mg Tablet
25 mg PO BID
spironolactone 25 mg tablet
25 mg PO DAILY
lisinopril 10 mg tablet
10 mg PO HS
montelukast 10 mg tablet
10 mg PO HS
pravastatin 20 mg tablet
20 mg PO HS
zolpidem 10 mg tablet
10 mg PO HS PRN (Reason: insomnia)
Patient Comments:
05/23/2023, pt. filled this med. on 04/21/2023 for 24 tablets according to PDMP.
buspirone 15 mg tablet
15 mg PO TID
Eliquis 2.5 mg tablet
2.5 mg PO Q12H
mirtazapine 30 mg Tablet
30 mg PO HS
clonidine HCl 0.1 mg Tablet
0.2 mg PO TID
alprazolam 1 mg Tablet
2 mg PO DAILY PRN (Reason: severe anxiety)
Patient Comments:
05/23/2023, pt. filled this med. on 04/21/2023 for 30 tablets according to PDMP.
lidocaine 4 % Cream
1 applic TOPICAL DIRECTED
Patient Comments:
05/23/2023, pt. uses this med. whenever her port needs to be accessed which she states is roughly once a month.
omeprazole 20 mg Capsule,Delayed Release(Dr/Ec)
20 mg PO BID
belatacept 250 mg Recon Soln
250 mg IV Q28D
Linzess 145 mcg Capsule
145 mcg PO DAILY PRN (Reason: IBS)
ondansetron 8 mg Tablet,Disintegrating
8 mg PO DAILYPRN PRN (Reason: nausea/vomiting) Qty: 0 0RF
acetaminophen 500 mg/15 mL Liquid
1,000 mg PO Q6HPRN PRN (Reason: mild pain) Qty: 0 0RF
doxycycline hyclate 100 mg capsule
100 mg PO BID Qty: 14 0RF
Referrals:
Leoncio Zheng MD [Family Provider] -
Activity Restrictions/Additional Instructions:
The cause of your symptoms is unclear. I recommend you follow-up with your doctors. Your white blood cell count is normal. Your creatinine is near baseline at 1.6. testing is negative. The urinalysis shows 0-2 white cells per
high-power field (normal). The CAT scan of the brain showed no abnormality. The CAT scan of the abdomen pelvis showed the transplanted kidney in the right lower quadrant and there is some mild hydronephrosis with faint peripelvic stranding however
based on urinalysis, there is no clear evidence for kidney infection. There is no obstructing kidney stone.
Interventions
Interventions:
*Risk Screen - Suicide Last Done: 12/05/23 21:23
*General Assessment Last Done: 12/05/23 22:37
*Neglect/Abuse Screening Last Done: 12/05/23 21:23
ED- Fall Risk Assessment Last Done: 12/05/23 22:37
*ED COVID-19 Vaccine History Last Done: 12/05/23 22:37
*Nursing Disposition Last Done: 12/06/23 03:24
QX-Gzqiuc-Iofzanwddc Assessment Last Done: 12/05/23 22:37
ED- Cardiac Assessment Last Done: 12/05/23 22:37
ED- Neurological Assessment Last Done: 12/05/23 22:37
ED- Pulmonary Assessment Last Done: 12/05/23 22:37
Discharge Date and Time
Discharge Date/Time: 12/06/23 03:24
Print Language: [place]
[2023-12-05 23:14] LABS: Microalbumin, Random Urine 2.1 mg/dl (0.6-1.7)
[2023-12-05 23:30] VITALS: BP 131/93
[2023-12-05] MEDS: DILAUDID 1 MG IV (23:47)
[2023-12-05] MEDS: ZOFRAN 4 MG IV (23:47)
[2023-12-05] MEDS: NSS 500 IV (23:48)
[2023-12-06] VITALS: BP 157/110
[2023-12-06 00:07] LABS: HCG, Serum Qualitative Screen Negative
[2023-12-06 00:30] VITALS: BP 149/108
[2023-12-06 01:30] VITALS: BP 142/98
[2023-12-06 02:00] VITALS: BP 139/96
[2023-12-06 02:30] VITALS: BP 131/89
== END 2023-12-06 03:24 | disposition home or self-care (01) ==
LOC: EMR 21:13
PROVIDERS: Student in an Organized Health Care Education/Training Program; EMERGENCY PHYSICIAN Emergency Medicine; FAMILY PHYSICIAN Internal Medicine
DX: R10.9 Unspecified abdominal pain (principal); E87.1 Hypo-osmolality and hyponatremia; D68.51 Activated protein C resistance; I12.9 Hypertensive chronic kidney disease with stage 1 through stage 4 chronic kidney disease, or unspecified chronic kidney disease; N18.9 Chronic kidney disease, unspecified; Z94.0 Kidney transplant status; F41.9 Anxiety disorder, unspecified; I10 Essential (primary) hypertension; J45.909 Unspecified asthma, uncomplicated; K21.9 Gastro-esophageal reflux disease without esophagitis
CPT/HCPCS: 99284; 96374; 96375; 70450; 74176; 80053; 81003; 81015; 82043; 84703; 85025; 93005

== ENCOUNTER 2023-12-25 12:11 | Inpatient (IN) | payer OTHER, SELFPAY ==
[2023-12-25] VITALS (31 sets, daily range): BP systolic 104–215; BP diastolic 74–160; BMI 35.7; BMI 35.4
--- NOTE | 2023-12-25 06:51 | ED.GENMED ---
History of Present Illness
General
Chief Complaint: Abdominal Pain
Time Seen by Provider: 12/25/23 06:51
History of Present Illness
History of Present Illness:
HPI: Last night, she was hypotensive 94/60 as about to take her meds. Called her transplant team who advised her to take Clonidine and drink water - later was normotensive. No pain at that time. Around 2:30am today, she developed abd pain.
Initially felt like IBS, but then lasted much longer and has been worsening. Then had diarrhea then had some dark red blood. Vomited here.
EXAM:
GENERAL: Appears rather uncomfortable
HEENT: Moist oral mucosa
CARDIOVASCULAR: No murmurs, normal heart rate, regular rhythm, No chest wall tenderness
PULMONARY: No respiratory distress, breath sounds are clear and equal
ABDOMEN: Diffuse abdominal tenderness
NEUROLOGIC: Excellent strength all extremities, no coordination deficits
PSYCHIATRIC: Appropriate mental status, normal insight and judgement
EXTREMITIES: Nontender, no edema, moves all extremities equally
SKIN: No rash, no lesions
TIME OF INITIAL ENCOUNTER: 7 AM
NUMBER AND COMPLEXITY OF PROBLEMS ADDRESSED AT THE ENCOUNTER
� Chronic conditions affecting care: Seizure disorder, has had PE/DVT, high blood pressure, IBS, colitis, gastroparesis, CKD no longer on HD, has had kidney transplant
� Acute Exacerbation and/or Progression of Chronic Illness: This is an acute problem
� Differential Diagnosis includes: Exacerbation of IBS, worsening hydroureteronephrosis
AMOUNT AND/OR COMPLEXITY OF DATA TO BE REVIEWED AND ANALYZED
� I performed an independent evaluation of and my interpretation is:
EKG:
CT: CT imaging personally reviewed and I agree with radiologist interpretation.
X-rays:
Laboratory Studies: White count is 14.4 which is much higher than prior, hemoglobin 11.7 which is near baseline
Other:
� Review of other/old records: I reviewed the CT report from earlier this month that showed mild hydroureteronephrosis of transplanted kidney in the right lower quadrant
� Clinical information was obtained by an independent historian: I spoke to father at bedside
� Prescriptions/Medications Considered but not given:
� Further testing considered but not performed:
RISK OF COMPLICATIONS AND/OR MORBIDITY OR MORTALITY OF PATIENT MANAGEMENT
� Social determinants of health affecting care: Lives at home
� Discussion with other providers: Hospitalist, Dr. Osei, for admission at 9:16 AM
� Escalation of care including admission/observation vs risk of discharge considered: The patient has a new leukocytosis. She also was found to have colitis on CT imaging. She has had poor p.o. intake and had been vomiting.
She could not take her blood pressure medication this morning. At 1 point she was markedly hypertensive here with a systolic blood pressure of 215. She is normotensive after 5 mg of IV hydralazine was given. She was given 2 doses of Dilaudid 1 mg
but pain persists. She states she has tolerated Rocephin in the past and it is documented that she tolerated cefpodoxime in the past.
Past History
Past History
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
ED Past Surgical History: Other (Kidney transplant 2015, Hernia repair)
Social History
Tobacco: Non-smoker
Alcohol: None
Drug: None
Personal: Single
Living: with family
Employment: Employed
Family History
Family History: Other (Grandmother with ovarian cancer mother with retinitis pigmentosa, father with high blood pressure)
Phy Exam
Physical Exam
Physical Exam:
See HPI
Course
Orders/Labs/Results
Orders:
Orders
12/25/23 07:02
Test Result ONCE
12/25/23 07:03
Urinalysis Reflex To Culture Urgent
Date Specimen was Collected: 12/25/23
Time Specimen was Collected: 07:24
Urine Microscopic Reflex Cult Urgent
12/25/23 07:05
HYDROmorphone [Dilaudid] 1 mg IV NOW STA
12/25/23 07:06
Ondansetron Injectable [Zofran] 4 mg IV NOW STA
12/25/23 07:15
CT Abd/pel Without Iv Or Oral Urgent
Comment:
Reason For Exam: severe abd pain; has transplanted kidney; can't po
12/25/23 07:16
0.9% Sodium Chloride 500 ml [Nss] 500 ml IV BOLUS
HydrALAZINE [Apresoline] 10 mg IV NOW STA
12/25/23 07:29
Complete Blood Count/With Diff Urgent
Comprehensive Metabolic Panel Urgent
HCG, Serum Qualitative Screen Urgent
Lipase Urgent
12/25/23 08:47
HYDROmorphone [Dilaudid] 1 mg IV NOW STA
12/25/23 09:16
CefTRIAXone [Rocephin] 1,000 mg IV NOW STA
Abnormal Lab Results
12/25/23 12/25/23
07:03 07:29
WBC 14.4 H 10^3/uL
(4.8-10.8)
RBC 3.99 L 10^6/uL
(4.20-5.40)
Hgb 11.7 L g/dL
(12.0-16.0)
Hct 33.9 L %
(37.0-47.0)
MPV 13.5 H fL
(7.4-10.4)
Abs Immat Gran (auto) 0.1 H 10^3/uL
(0-0.05)
Absolute Neuts (auto) 10.7 H 10^3/uL
(1.4-6.5)
Absolute Monos (auto) 1.2 H 10^3/uL
(0.1-0.6)
Lymphocytes % 16.2 L %
(20.5-51.1)
BUN 22 H mg/dl
(7-17)
Creatinine 1.6 H mg/dL
(0.6-1.0)
Leukocyte Esterase Rfl Trace A
(Negative)
12/25/23 07:29
12/25/23 07:29
Vital Signs
Blood pressure: 215/160
Initial and Last Documented VS:
Initial Vital Signs
Temp Pulse Resp BP Pulse Ox
97.7 F 89 18 104/88 100
12/25/23 06:23 12/25/23 06:23 12/25/23 06:23 12/25/23 06:23 12/25/23 06:23
Last Documented Vital Signs
Temp Pulse Resp BP Pulse Ox
97.7 F 89 19 113/76 99
12/25/23 06:23 12/25/23 08:55 12/25/23 08:55 12/25/23 08:08 12/25/23 08:55
*Critical Care Note
Total Time (30-74mins, 75-104mins- exclusive of procedures): Not Applicable
ED Attending Note
-
Portions of this chart may have been created with voice recognition software.� Occasional wrong word or��sound alike� substitutions may have occurred due to the inherent limitations of voice recognition software.
Discharge Plan
Departure
Patient Disposition: Admit
Date of Disposition: 12/25/23
Time of Disposition: 09:16
Presentation/result/management discussed w/ accepting MD/DO: Hospitalist
Discharge Problem:
Colitis
Prescriptions:
No Action
prednisone 5 MG tablet
5 mg PO DAILY
alprazolam 1 MG tablet
1 mg PO DAILY PRN (Reason: mild anxiety)
Patient Comments:
05/23/2023, pt. filled this med. on 04/21/2023 for 30 tablets according to PDMP.
azathioprine [Azasan] 100 MG tablet
100 mg PO DAILY
carvedilol 25 mg Tablet
25 mg PO BID
spironolactone 25 mg tablet
25 mg PO DAILY
lisinopril 10 mg tablet
10 mg PO HS
montelukast 10 mg tablet
10 mg PO HS
pravastatin 20 mg tablet
20 mg PO HS
zolpidem 10 mg tablet
10 mg PO HS PRN (Reason: insomnia)
Patient Comments:
05/23/2023, pt. filled this med. on 04/21/2023 for 24 tablets according to PDMP.
buspirone 15 mg tablet
15 mg PO TID
Eliquis 2.5 mg tablet
2.5 mg PO Q12H
mirtazapine 30 mg Tablet
30 mg PO HS
clonidine HCl 0.1 mg Tablet
0.2 mg PO TID
alprazolam 1 mg Tablet
2 mg PO DAILY PRN (Reason: severe anxiety)
Patient Comments:
05/23/2023, pt. filled this med. on 04/21/2023 for 30 tablets according to PDMP.
lidocaine 4 % Cream
1 applic TOPICAL DIRECTED
Patient Comments:
05/23/2023, pt. uses this med. whenever her port needs to be accessed which she states is roughly once a month.
omeprazole 20 mg Capsule,Delayed Release(Dr/Ec)
20 mg PO BID
belatacept 250 mg Recon Soln
250 mg IV Q28D
Linzess 145 mcg Capsule
145 mcg PO DAILY PRN (Reason: IBS)
ondansetron 8 mg Tablet,Disintegrating
8 mg PO DAILYPRN PRN (Reason: nausea/vomiting) Qty: 0 0RF
acetaminophen 500 mg/15 mL Liquid
1,000 mg PO Q6HPRN PRN (Reason: mild pain) Qty: 0 0RF
doxycycline hyclate 100 mg capsule
100 mg PO BID Qty: 14 0RF
Referrals:
Leoncio Zheng MD [Family Provider] -
Interventions
Interventions:
*Risk Screen - Suicide Last Done: 12/25/23 06:42
*General Assessment Last Done: 12/25/23 06:42
*Neglect/Abuse Screening Last Done: 12/25/23 06:42
ED- Fall Risk Assessment Last Done: 12/25/23 06:42
*ED COVID-19 Vaccine History Last Done: 12/25/23 06:42
II-[place]-Tgnflobpsl Assessment Last Done: 12/25/23 06:42
Discharge Date and Time
Print Language: TURKMEN
[2023-12-25] MEDS: DILAUDID 1 MG IV ×5 (07:33→21:37)
[2023-12-25] MEDS: ZOFRAN 4 MG IV ×2 (07:33→23:14)
[2023-12-25] MEDS: NSS 500 IV ×2 (07:43→09:38)
[2023-12-25] MEDS: APRESOLINE IV (07:44)
[2023-12-25] MEDS: APRESOLINE 5 MG IV (07:53)
[2023-12-25 08:00] LABS: HCG, Serum Qualitative Screen Negative
[2023-12-25 08:09] LABS: ALT (SGPT) 15 U/L (0-35); AST (SGOT) 24 U/L (14-36); Albumin 4.3 g/dl (3.5-5.0); Alkaline Phosphatase 72 U/L (38-126); Blood Urea Nitrogen 22 mg/dl (7-17); Calcium 9.5 mg/dl (8.4-10.2); Carbon Dioxide 23 mmol/L (22-30); Chloride 103 mmol/L (98-107); Estimated Creatinine Clearance 57 ml/min; Glucose 93 mg/dl (70-99); Potassium 3.7 mmol/L (3.5-5.1); Sodium 138 mmol/L (135-145); Total Bilirubin 0.5 mg/dl (0.2-1.3); Total Protein 6.5 g/dl (6.3-8.2); eGFR 44.22
[2023-12-25 08:19] LABS: Lipase 140 U/L (23-300)
[2023-12-25 08:59] LABS: % Basophils 0.3 % (0-2); % Eosinophils 0.8 % (0-6); % Immature Granulocytes 0.5 % (0-0.5); % Lymphocytes 16.2 % (20.5-51.1); % Monocytes 8.2 % (1.7-9.3); Absolute Basophils 0.1 10^3/uL (0-0.2); Absolute Eosinophils 0.1 10^3/uL (0-0.7); Absolute Immature Granulocytes 0.1 10^3/uL (0-0.05); Absolute Lymphocytes 2.3 10^3/uL (1.2-3.4); Absolute Monocytes 1.2 10^3/uL (0.1-0.6); Absolute Neutrophils 10.7 10^3/uL (1.4-6.5); Hematocrit 33.9 % (37.0-47.0); Hemoglobin 11.7 g/dL (12.0-16.0); Mean Corp Hgb Conc. 34.5 g/dL (33.0-37.0); Mean Corpuscular Hgb 29.3 pg (27.0-31.0); Mean Platelet Volume 13.5 fL (7.4-10.4); Nucleated Red Blood Cells % 0 %; Platelet Count 183 10^3/uL (130-400); Red Blood Cell Count 3.99 10^6/uL (4.20-5.40); Red Cell Dist. Width 14.4 % (11.5-14.5); White Blood Cell Count 14.4 10^3/uL (4.8-10.8)
[2023-12-25] MEDS: ROCEPHIN 1000 MG IV (09:19)
[2023-12-25 09:20] LABS: Urine Albumin Negative (Neg - Trace); Urine Bilirubin Negative (Negative); Urine Character Clear (Clear); Urine Color Yellow; Urine Glucose Negative (Negative); Urine Ketone Negative (Negative); Urine Leukocyte Trace (Negative); Urine Nitrite Negative (Negative); Urine Occult Blood Negative (Negative); Urine Urobilinogen Negative (Neg - 1+)
[2023-12-25 10:26] LABS: Urine Amorphous Seen; Urine Squamous Cell >30 /LPF (Few)
[2023-12-25 10:27] LABS: Urine Red Blood Cell 0-2 /HPF (0-2)
--- NOTE | 2023-12-25 10:29 | HPS.HSE ---
Addendum entered and electronically signed by Alvin Malone MD 12/25/23 14:19:
Lisinopril and Spironolactone are also both on hold -- monitor renal function and resume if okay with nephrology.
Original Note:
Family Physician
-
Family Physician: Leoncio Zheng MD
Chief Complaint
-
Severe abdominal pain
History of Present Illness
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
anticoagulation with Eliquis, Asthma, GERD, Hypertension, Anxiety, History of UTI, History of urine retention, History of bilateral retinal detachment and ADHD presented with severe abdominal pain starting around 2 am this morning. Patient then went
to the bathroom and reported that she passed green-colored stools and bloody clots per rectum, during which time her abdominal pain became worse. During this episode of pain and bloody bowel movements, she was also sweating a lot.
Medical History
Past Medical History
Past Medical History: Reports Other (As per HPI above)
Past Surgical History: Reports Cholecystectomy
Additional Past Surgical History:
Hernia Repair. Kidney Transplant.
Social History
Tobacco: Non-smoker
Alcohol: None
Drug: None
Family History
Family History: Not pertinent
Allergies / Home Medications
Allergies reflects when Allergies were last updated in [facility].
Home Medications with original date entered in [facility]
Allergy/Medication List:
Allergies
Allergy/AdvReac Type Severity Reaction Status Date / Time
amoxicillin Allergy Rash Verified 12/25/23 06:23
cephalexin [From Keflex] Allergy Itching; Verified 12/25/23 06:23
tolerated
cepfodoxime
07/28/22
acetaminophen [From Vicodin] AdvReac Nausea / Verified 12/25/23 06:23
Vomiting
hydrocodone [From Vicodin] AdvReac Nausea / Verified 12/25/23 06:23
Vomiting
vancomycin AdvReac vanco Verified 12/25/23 06:23
flushing
syndrome;
tolerates
with
diphenhdyramine
Home Medications
prednisone 5 mg tablet 5 mg PO DAILY inflammation 08/02/16
alprazolam 1 mg tablet 1 mg PO BID 01/24/21
azathioprine 100 mg tablet (Azasan) 100 mg PO DAILY Transplant 01/24/21
apixaban 2.5 mg tablet (Eliquis) 2.5 mg PO Q12H Blood Clot Prevention/Tx 10/20/22
carvedilol 25 mg tablet 25 mg PO BID Blood Pressure 10/20/22
lisinopril 10 mg tablet 10 mg PO HS Blood Pressure 10/20/22
montelukast 10 mg tablet 10 mg PO HS Allergies 10/20/22
pravastatin 20 mg tablet 20 mg PO HS High Cholesterol 10/20/22
spironolactone 25 mg tablet 25 mg PO DAILY Blood Pressure 10/20/22
zolpidem 10 mg tablet 10 mg PO HS PRN insomnia 10/20/22
belatacept 250 mg intravenous solution 250 mg IV Q28D Transplant 05/23/23
clonidine HCl 0.1 mg tablet 0.2 mg PO TID Blood Pressure 05/23/23
lidocaine 4 % topical cream 1 applic topical DIRECTED Pain 05/23/23
linaclotide 145 mcg capsule (Linzess) 145 mcg PO DAILY PRN IBS 05/23/23
omeprazole 20 mg capsule,delayed release 20 mg PO BID Gastrointestinal Issue 05/23/23
acetaminophen 500 mg/15 mL oral liquid 1,000 mg (30 mL) PO Q6HPRN PRN mild pain #0 mL 05/25/23
ondansetron 8 mg disintegrating tablet 8 mg PO DAILYPRN PRN nausea/vomiting #0 tabs 05/25/23
Review of Systems
-
A 12 point ROS was completed and negative except as noted: Yes
Physical Exam
Vital Signs
Vital Signs
Temp Pulse Resp BP Pulse Ox
97.7 F 96 25 122/75 100
12/25/23 06:23 12/25/23 09:30 12/25/23 09:30 12/25/23 09:00 12/25/23 09:30
Physical Exam
General: No Apparent Distress
HEENT: NormoCephalic and Moist mucous membranes
Respiratory: Clear
Cardiac: S1/S2 and Regular Rhythm
GI: Soft, Tender and Other (Positive bowel sounds)
Musculoskeletal: No Cyanosis and No Edema
Skin: Warm and Dry
Neuro: Awake, Alert, AO x 3 and Nonfocal/grossly intact
Psych: Calm and Intact Judgment/Insight
Laboratory Results
-
12/25/23 07:29
12/25/23 07:29
Laboratory Results
Total Bilirubin 0.5 mg/dl (0.2-1.3) 12/25/23 07:29
AST 24 U/L (14-36) 12/25/23 07:29
ALT 15 U/L (0-35) 12/25/23 07:29
Alkaline Phosphatase 72 U/L (38-126) 12/25/23 07:29
Lipase 140 U/L (23-300) 12/25/23 07:29
Impression/Plan
-
CT Abdomen Pelvis without IV or Oral Contrast
'IMPRESSION:
1. MILD ACUTE COLITIS involving the ascending, transverse, and descending colon.
2. Right lower quadrant renal transplant in place without complication.
3. Severe atrophy of the hoopa kidneys.
4. Previous cholecystectomy.'
Assessment/Plan
Severe Abdominal Pain
Green-Colored and Bloody Clots Bowel Movement around 2 am on 12/25/23
Immunocompromised State on Chronic Prednisone, Azathioprine and Belatacept
-CT Abdomen Pelvis results as above with colitis
-Clear liquids diet, along with most PO meds
-Normal Saline IV fluids @ 100 cc/hr
-IV Dilaudid 1 mg Q4H as per patient's request
-Consulted colorectal surgery, appreciate evaluation and recommendations
-Consulted gastroenterology, appreciate evaluation and recommendations
-Consulted ID, appreciate evaluation and recommendations
-Continue antibiotics as per ID
Leukocytosis
Hypotension
Hypertension on multiple medications
Labile Blood Pressure
-In the ER, SBP as high as 215 mmHg in the ER, but as low as 104 mmHg
-Continue to monitor SBP
-Continue PO home meds with parameters
-If patient cannot tolerate PO then may need to consider transdermal Clonidine
Normocytic Anemia
-Continue to monitor CBC
-Patient's transplant physician is Caryn Millan MD at [facility], phone number [phone]
-If patient needs any blood transfusion, will likely need CMV Negative, Irradiated and Leukoreduced PRBCs (but please let on-call hematology and patient's transplant physician know if patient needs PRBCs)
Concern for CKD Stage 3a to 3b
Kidney transplant 2015 at [facility] (due to FSGS)
Immunocompromised State on Chronic Prednisone, Azathioprine and Belatacept
-Consulted nephrology, appreciate evaluation and recommendations
-IV Hydrocortisone in the place of PO Prednisone in case patient cannot tolerate PO
-Continue patient's home PO Azathioprine
-Patient said she last got her Belatacept infusion about 1 to 2 weeks ago
-Patient's transplant physician is Caryn Millan MD at [facility], phone number [phone]
-If patient needs any blood transfusion, will likely need CMV Negative, Irradiated and Leukoreduced PRBCs (but please let on-call hematology and patient's transplant physician know if patient needs PRBCs)
History of CMV colitis
History of rising EBV titers
Recurrent DVT, PE with Factor V Leiden mutation on permanent anticoagulation with Eliquis
-Holding Eliquis for now, due to bleeding per rectum
-Hematology consulted, appreciate evaluation and recommendations
Asthma
GERD
Anxiety
History of UTI
History of urine retention
History of bilateral retinal detachment
ADHD
DVT PPx: SCDs
Diet: CLD
Code Status: Full Code
Labile blood pressure with bloody clots per rectum, along with needing to hold anticoagulation with history of DVT/PE/Factor V Leiden, along with history of kidney transplant, is a high-risk encounter.
--- NOTE | 2023-12-25 11:27 | W.CON.NEPH ---
Consultation
-
Date/Time Consultation Requested: 12/25/2023 1115 a.m.
Date/Time Consultation Performed: 12/25/2023 11:30 AM
Requesting Provider: Dr. Minor
Performing Provider: Dr. Colunga
Reason for Consultation: Renal transplant
Medical History
-
Chief Complaint: Renal transplant/hypertension
History of Present Illness:
The patient is a 28-year-old female with a past medical history of renal transplant at the [facility] in 2014 for FSGS. She is maintained on low-dose prednisone Imuran and monthly IV belatacept for her immunosuppression. Her blood
pressure has been controlled on the combination of clonidine, carvedilol,alactone and lisinopril. She does have a history of chronic kidney disease following her renal transplant but maintains a creatinine of 1.6. She is chronically anticoagulated
with Eliquis for her history of factor V Leiden deficiency with previously associated DVT (on calcineurin inhibitor therapy). She presented to the hospital with sudden onset last evening of epigastric abdominal pain with associated dark blood in
her stools. We were consulted in regards to her hypertension and renal transplant status.
Past Medical History
1. History of hypertension, multiple medications.
2. Living-related kidney transplant 2014 at [facility].(due to FSGS)
3. History of CMV colitis.
4. Recent history of rising EBV titers.
5. Recurrent DVT, PE with Factor V Leiden mutation on permanent
anticoagulation with Eliquis.
6. Asthma.
7. GERD.
8. Hypertension.
9. Anxiety.
10.History of UTI.
11.History of urine retention.
12.History of bilateral retinal detachment.
13.ADHD.
CKD with baseline creatinine of 1.6
Past Surgical History: Cholecystectomy
Social History
No tobacco or alcohol
Family History
No chronic kidney disease
Allergies / Home Medications
Allergy/AdvReac Type Severity Reaction Status Date / Time
amoxicillin Allergy Rash Verified 12/25/23 06:23
cephalexin [From Keflex] Allergy Itching; Verified 12/25/23 06:23
tolerated
cepfodoxime
07/28/22
acetaminophen [From Vicodin] AdvReac Nausea / Verified 12/25/23 06:23
Vomiting
hydrocodone [From Vicodin] AdvReac Nausea / Verified 12/25/23 06:23
Vomiting
vancomycin AdvReac vanco Verified 12/25/23 06:23
flushing
syndrome;
tolerates
with
diphenhdyramine
�Medication �Instructions �Recorded �Confirmed �Type
prednisone 5 mg tablet 5 mg PO DAILY inflammation 08/02/16 12/25/23 History
alprazolam 1 mg tablet 1 mg PO BID 01/24/21 12/25/23 History
azathioprine 100 mg tablet (Azasan) 100 mg PO DAILY Transplant 01/24/21 12/25/23 History
apixaban 2.5 mg tablet (Eliquis) 2.5 mg PO Q12H Blood Clot 10/20/22 12/25/23 History
Prevention/Tx
carvedilol 25 mg tablet 25 mg PO BID Blood Pressure 10/20/22 12/25/23 History
lisinopril 10 mg tablet 10 mg PO HS Blood Pressure 10/20/22 12/25/23 History
montelukast 10 mg tablet 10 mg PO HS Allergies 10/20/22 12/25/23 History
pravastatin 20 mg tablet 20 mg PO HS High Cholesterol 10/20/22 12/25/23 History
spironolactone 25 mg tablet 25 mg PO DAILY Blood Pressure 10/20/22 12/25/23 History
zolpidem 10 mg tablet 10 mg PO HS PRN insomnia 10/20/22 12/25/23 History
belatacept 250 mg intravenous 250 mg IV Q28D Transplant 05/23/23 12/25/23 History
solution
clonidine HCl 0.1 mg tablet 0.2 mg PO TID Blood Pressure 05/23/23 12/25/23 History
lidocaine 4 % topical cream 1 applic topical DIRECTED Pain 05/23/23 12/25/23 History
linaclotide 145 mcg capsule 145 mcg PO DAILY PRN IBS 05/23/23 12/25/23 History
(Linzess)
omeprazole 20 mg capsule,delayed 20 mg PO BID Gastrointestinal Issue 05/23/23 12/25/23 History
release
acetaminophen 500 mg/15 mL oral 1,000 mg (30 mL) PO Q6HPRN PRN 05/25/23 12/25/23 Rx
liquid mild pain #0 mL
ondansetron 8 mg disintegrating 8 mg PO DAILYPRN PRN 05/25/23 12/25/23 Rx
tablet nausea/vomiting #0 tabs
Review of Systems
-
History Source: Patient
All other systems: Negative unless noted
Abdomen/GI: Abdominal Pain and Bloody Stools
Physical Exam
Vital Signs
Vital Signs
Temp Pulse Resp BP Pulse Ox
97.7 F 96 25 122/75 100
12/25/23 06:23 12/25/23 09:30 12/25/23 09:30 12/25/23 09:00 12/25/23 09:30
Lab Results
WBC 14.4 10^3/uL (4.8-10.8) H 12/25/23 07:29
RBC 3.99 10^6/uL (4.20-5.40) L 12/25/23 07:29
Hgb 11.7 g/dL (12.0-16.0) L 12/25/23 07:29
Hct 33.9 % (37.0-47.0) L 12/25/23 07:29
Plt Count 183 10^3/uL (130-400) 12/25/23 07:29
Sodium 138 mmol/L (135-145) 12/25/23 07:29
Potassium 3.7 mmol/L (3.5-5.1) 12/25/23 07:
Chloride 103 mmol/L (98-107) 12/25/23 07:29
Carbon Dioxide 23 mmol/L (22-30) 12/25/23 07:29
BUN 22 mg/dl (7-17) H 12/25/23 07:
Creatinine 1.6 mg/dL (0.6-1.0) H 12/25/23 07:
eGFR 44.22 12/25/23 07:
Glucose 93 mg/dl (70-99) 12/25/23 07:
Calcium 9.5 mg/dl (8.4-10.2) 12/25/23 07:
Albumin 4.3 g/dl (3.5-5.0) 12/25/23 07:29
Physical Exam
General: AOx3, Nontoxic , NAD
HEENT: PERRL, EOMI, Anicteric, Conjunctivae Clear, Ear/Nose Intact, Hearing Normal, Oropharynx Clear/Moist, Dentition Intact, Facial Symmetry, Neck Supple, Neck: Trachea Midline, No JVD and No Thyromegaly, no Bruits
Respiratory: Clear to auscultation bilaterally with normal lung exersion
Cardiac: S1/S2 and Regular Rate/Rhythm
Breast: Deferred by me
Abdomen: Soft, epigastric tenderness with light palpation, Nondistended, Normal Bowel Sounds and No Hepatosplenomegaly
Rectal: Deferred by Provider
Genito-urinary: No Costovertebral Tenderness, right lower kidney graft no bruit or tenderness
Extremities: No Clubbing, No Cyanosis and No Edema
Skin: No Rash or open lesions
Neuro: Nonfocal/Grossly Intact, CN II-XII (Intact) and Strength (Musculoskeletal exam 5 out of 5 both upper and lower extremities)
Hematologic/Lymphatic: No Cervical Lymphadenopathy, No Submandibular Lymphadenopathy and No Supraclavicular Lymphadenopathy
Psych: Mood/afflect pleasant, Insight/judgement good and Appropriate
Vascular: plus 2 pedal and radial pulses
Data Reviewed
-
Labs: Labs Reviewed by me (BMP CBC)
Old Records: Reviewed (Reviewed previous consultation from 10/22/2022 nephrology consult for renal transplant)
Assessment/Plan
-
Impression:
Abdominal pain with possible underlying colitis
Renal transplant 2014 secondary to FSGS: Prednisone azathioprine monthly belatacept
History of multidrug-resistant
History of CMV colitis
Chronic kidney disease stage IIIb with baseline creatinine of 1.6
History of EBV
History of anxiety
History of asthma
Thrombophilia with history of factor V Leiden mutation: on chronic eliquis
Plan:
Renal Transplant:
-Creatinine is at baseline 1.6
-Avoid all nephrotoxins such as IV contrast aminoglycosides and NSAIDs
-provide hydrocortisone 50 mg IV Q8 as patient n.p.o. and is not taking prednisone and Imuran
HTN:
-Would provide clonidine patch 0.1 mg while patient is n.p.o.
-Provide labetalol 5 mg IV every 6 hours for systolic blood pressure greater than 160
Abdominal pain with dark bloody stools
-Eliquis held
-Colorectal consult
-Would provide isotonic IV fluids at 100 cc per
-
[2023-12-25] MEDS: DILAUDID 0.5 MG IV (11:56)
--- NOTE | 2023-12-25 12:32 | CON.ID ---
Consultation
-
Date/Time Consultation Requested: December 25, 2023 1148
Date/Time Consultation Performed: December 25, 2023 1230
Requesting Provider: Dr. Alvin Malone
Performing Provider: Dr. Ellen Garrido
Reason for Consultation: Renal transplant with colitis
Chief Complaint / Past History
Chief Complaint
Bloody stool.
History of Present Illness
28-year-old female with history of renal transplant in 2014 currently on Imuran, low-dose prednisone, monthly belatacept, factor V Leyden mutation on Eliquis, CKD 3, hypertension, who presented to the hospital today due to bloody diarrhea. Patient
reports last night her blood pressure was low. She took clonidine and drink fluid as per instruction by her transplant team. Few hours later she developed acute onset of abdominal pain. She then had diarrhea with small pieces of stool. At first
she thought condition was IBS. The diarrhea turned bloody and dark brown. + emesis. No fevers or chills. Denies eating out. No recent deli meats. No one else sick. No recent abx use. Hx C. diff colonization. Complains of lower abdominal pain.
BP 215/[address] shows ascending, transverse, and descending colitis.
Past History
Additional Past Medical History:
FSGS, History of renal transplant 2014 on Imuran, prednisone, monthly belatacept
hx CMV colitis 2015
DVT/PE, factor V Leiden mutation on Eliquis
Hypertension
Asthma
CKD3
Anxiety
ADHD
Bipolar d/o
IBS
Hemorrhoids
bilateral retinal detachment
Cholecystectomy
Hernia repair
Allergy History:
amoxicillin Allergy (Verified 12/25/23 06:23)
Rash
cephalexin [From Keflex] Allergy (Verified 12/25/23 06:23)
Itching; tolerated cepfodoxime 07/28/22
acetaminophen [From Vicodin] Adverse Reaction (Verified 12/25/23 06:23)
Nausea / Vomiting
hydrocodone [From Vicodin] Adverse Reaction (Verified 12/25/23 06:23)
Nausea / Vomiting
vancomycin Adverse Reaction (Verified 12/25/23 06:23)
vanco flushing syndrome; tolerates with diphenhdyramine
Medications Reviewed: Yes
Current Antibiotics:
Cefepime
Metronidazole
Social History
Tobacco: Non-Smoker
Alcohol: None
Drug: None
Personal: Single
Family History
Family History: Not Pertinent
Review of Systems
Review of Systems
General: Change in Appetite; Negative Fever or Chills
HEENT: Negative Sinus Problems, Headache or Pharyngitis
Cardiovascular: Negative Chest Pain or Dyspnea
Respiratory: Negative Dyspnea or Cough
Gasteroenterology: Nausea and Vomiting
Genital / Urological: Negative Dysuria
Endocrine: Weakness
Skin / Hair / Nails: Negative Rash
All systems: All other systems were reviewed and were negative
Vital Signs
Temp Pulse Resp BP Pulse Ox
97.7 F 83 11 125/78 96
12/25/23 06:23 12/25/23 12:15 12/25/23 12:15 12/25/23 12:00 12/25/23 12:15
Physical Exam
Physical Exam
Constitutional: Other (Crying and scared. )
Eyes: No Conjunctival Hemorrhage and Sclera Anicteric
Cardiovascular: Regular Rate and S1/S2
Pulmonary: Clear; Negative Wheezes
Gastrointestinal: Soft, Tender (diffuse, more so lower abd) and Decreased Bowel Sounds
Genito-Urinary: Negative Montano
Extremities: Negative Edema
Musculoskeletal: Negative Spinal Tenderness
Skin: Negative Rash
Neurological: AO x 3
Lab / Diagnostic Study Results
12/25/23 07:29
12/25/23 07:29
Abs Immat Gran (auto) 0.1 10^3/uL (0-0.05) H 12/25/23 07:29
Absolute Neuts (auto) 10.7 10^3/uL (1.4-6.5) H 12/25/23 07:29
Absolute Lymphs (auto) 2.3 10^3/uL (1.2-3.4) 12/25/23 07:29
Absolute Monos (auto) 1.2 10^3/uL (0.1-0.6) H 12/25/23 07:29
Absolute Basos (auto) 0.1 10^3/uL (0-0.2) 12/25/23 07:29
Immature Gran % 0.5 % (0-0.5) 12/25/23 07:29
Neutrophils % 74.0 % (42.2-75.2) 12/25/23 07:29
Lymphocytes % 16.2 % (20.5-51.1) L 12/25/23 07:29
Monocytes % 8.2 % (1.7-9.3) 12/25/23 07:29
Eosinophils % 0.8 % (0-6) 12/25/23 07:29
Basophils % 0.3 % (0-2) 12/25/23 07:29
Ur Squamous Epith Cells >30 /LPF (Few) 12/25/23 07:03
Microbiology Results
12/25/23 CT a/p: MILD ACUTE COLITIS involving the ascending, transverse, and descending colon. Right lower quadrant renal transplant in place without complication.
Assessment / Plan
# Colitis with bloody diarrhea
# Acute leukocytosis
- Check stool for wbc, C. diff, cx.
-Unlikely CMV colitis; renal txp was nine yrs ago.
- Start empiric po Vancomycin pending stool C. diff. Per pt, she is colonized with C. diff.
- Empiric cefepime 1g IV q8h.
-DC metronidazole.
- Follow stool output.
-Trend wbc.
# Factor V Leiden mutation
- Anticoagulation held
# Immunosuppressed host.
hx renal txp 2014 on Imuran, prednisone, Belatacept.
# Conditions [employer]
FSGS, History of renal transplant 2014 on Imuran, prednisone, monthly belatacept
hx CMV colitis 2016
DVT/PE, factor V Leiden mutation on Eliquis
Hypertension
Asthma
CKD3
Anxiety
ADHD
Bipolar d/o
IBS
Hemorrhoids
bilateral retinal detachment
Cholecystectomy
Hernia repair
Care Review
Plan reviewed with: Physician (Dr. Guerra)
[2023-12-25] MEDS: SOLU-CORTEF 50 MG IV ×3 (13:11→23:05)
[2023-12-25] MEDS: STERILE WATER FOR INJECTION 10 ML IV ×2 (13:12→21:38)
[2023-12-25] MEDS: COREG 25 MG PO (13:12)
[2023-12-25] MEDS: XANAX 1 MG PO ×2 (13:12→19:35)
[2023-12-25] MEDS: PROTONIX 40 MG PO (13:12)
[2023-12-25] MEDS: MAXIPIME 2000 MG IV (13:12)
--- NOTE | 2023-12-25 13:26 | CON.GS ---
Consultation
-
Requesting Provider: crystal
Performing Provider: marlo
Reason for Consultation: colitis
Medical History
-
Chief Complaint: abd pain, bloody stools
History of Present Illness:
28F with acute onset abd pain and bloody stools that began last night. Earlier she recorded a BP at home with SBP in the 90s, which is lower than normal for her. (She has remained normotensive here). Diffuse abd pain began overnight and was
progressive and severe. This am she noted dark blood in her stool which was loose and came in for evaluation. She denies f/c/n/v. She has a hx of renal tranplant, DVT/PE and factor V
Past Medical History
Past Medical History: Other (Asthma, GERD, HTN, Renal failure (Kidney transplant 2014 because of FSGS), Psychiatric (Anxiety) and Other (Sinusitis, allergic rhinitis))
Past Surgical History: Other (Kidney transplant 2015 @ [facility], Hernia repair)
Social History
Tobacco: Non-Smoker
Alcohol: None
Drug: None
Personal: Single
Living: With Family
Employment: Employed
Family History
Family History: Reviewed & Noncontributory
Allergies / Home Medications
Allergy/AdvReac Type Severity Reaction Status Date / Time
amoxicillin Allergy Rash Verified 12/25/23 06:23
cephalexin [From Keflex] Allergy Itching; Verified 12/25/23 06:23
tolerated
cepfodoxime
07/28/22
acetaminophen [From Vicodin] AdvReac Nausea / Verified 12/25/23 06:23
Vomiting
hydrocodone [From Vicodin] AdvReac Nausea / Verified 12/25/23 06:23
Vomiting
vancomycin AdvReac vanco Verified 12/25/23 06:23
flushing
syndrome;
tolerates
with
diphenhdyramine
�Medication �Instructions �Recorded �Confirmed �Type
prednisone 5 mg tablet 5 mg PO DAILY inflammation 08/02/16 12/25/23 History
alprazolam 1 mg tablet 1 mg PO BID 01/24/21 12/25/23 History
azathioprine 100 mg tablet (Azasan) 100 mg PO DAILY Transplant 01/24/21 12/25/23 History
apixaban 2.5 mg tablet (Eliquis) 2.5 mg PO Q12H Blood Clot 10/20/22 12/25/23 History
Prevention/Tx
carvedilol 25 mg tablet 25 mg PO BID Blood Pressure 10/20/22 12/25/23 History
lisinopril 10 mg tablet 10 mg PO HS Blood Pressure 10/20/22 12/25/23 History
montelukast 10 mg tablet 10 mg PO HS Allergies 10/20/22 12/25/23 History
pravastatin 20 mg tablet 20 mg PO HS High Cholesterol 10/20/22 12/25/23 History
spironolactone 25 mg tablet 25 mg PO DAILY Blood Pressure 10/20/22 12/25/23 History
zolpidem 10 mg tablet 10 mg PO HS PRN insomnia 10/20/22 12/25/23 History
belatacept 250 mg intravenous 250 mg IV Q28D Transplant 05/23/23 12/25/23 History
solution
clonidine HCl 0.1 mg tablet 0.2 mg PO TID Blood Pressure 05/23/23 12/25/23 History
lidocaine 4 % topical cream 1 applic topical DIRECTED Pain 05/23/23 12/25/23 History
linaclotide 145 mcg capsule 145 mcg PO DAILY PRN IBS 05/23/23 12/25/23 History
(Linzess)
omeprazole 20 mg capsule,delayed 20 mg PO BID Gastrointestinal Issue 05/23/23 12/25/23 History
release
acetaminophen 500 mg/15 mL oral 1,000 mg (30 mL) PO Q6HPRN PRN 05/25/23 12/25/23 Rx
liquid mild pain #0 mL
ondansetron 8 mg disintegrating 8 mg PO DAILYPRN PRN 05/25/23 12/25/23 Rx
tablet nausea/vomiting #0 tabs
Review of Systems
-
A 10 point review of systems was completed, and was negative except as per HPI.
Physical Exam
Vital Signs
Temp Pulse Resp BP Pulse Ox
97.7 F 83 11 125/78 96
12/25/23 06:23 12/25/23 12:15 12/25/23 12:15 12/25/23 12:00 12/25/23 12:15
12/24/23 12/25/23 12/26/23
06:59 06:59 06:59
Actual Weight 94.2 kg
Body Mass Index (BMI) 35.7
Lab Results
12/25/23 07:29
12/25/23 07:29
WBC 14.4 10^3/uL (4.8-10.8) H 12/25/23 07:29
Hgb 11.7 g/dL (12.0-16.0) L 12/25/23 07:29
Hct 33.9 % (37.0-47.0) L 12/25/23 07:29
Plt Count 183 10^3/uL (130-400) 12/25/23 07:29
Abs Immat Gran (auto) 0.1 10^3/uL (0-0.05) H 12/25/23 07:29
Neutrophils % 74.0 % (42.2-75.2) 12/25/23 07:29
Physical Exam
General: Other (tearful)
HEENT: Normocephalic
GI: Soft, Non Distended and Tender (mild ttp to RLQ, no peritonitis, limited exam due to crying)
Skin: Warm and Dry
Neuro: AO x 3
Data Reviewed
-
CT Scan: Image Personally Visualized and interpreted, Report Reviewed by me, Discussed with Physician, Discussed with Nurse, Discussed with Patient and Discussed with Family
Labs: Labs Reviewed by me, Discussed with Patient and Discussed with Family
Old Records: Reviewed
Assessment / Plan
-
28F with colitis in setting of renal transplant and xarelto
AFVSS, mildly tender on exam
Leukocytosis noted, Cr appears baseline
CT with mild acute pancolitis with wall edema, no free air, no PV gas, no pneumatosis
Plan:
Hold xarelto
Trend labs
Abx per ID
Serial abd exams
OK for CLD
May benefit from colonoscopy, would defer to GI on this
Will follow
[2023-12-25] MEDS: NSS 1000 IV ×2 (13:33→23:06)
--- NOTE | 2023-12-25 14:41 | CON.GI ---
Consultation
-
Date/Time Consultation Requested: 12/25/2023
Date/Time Consultation Performed: 12/25/2023
Performing Provider: Jose hZeng
Reason for Consultation: abdominal pain, colitis on CT
Medical History
Chief Complaint / HPI
Chief Complaint: abdominal pain, colitis on CT
History of Present Illness:
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 Her pain is located epigastric
periumbilical region. She vomited after arriving to ED. Her pain was associated with loose/watery BM which contain maroon color blood/clots. She only had 1 BM since onset of pain last night. She felt in her usual state of health yesterday.
Denies NSAID use. No recent travels.
Past Medical History
Past Medical History: Asthma, GERD, HTN and Other
Past Surgical History: Other
Social History
Tobacco: Non-Smoker
Alcohol: None
Drug: None
Allergies / Home Medications
Allergy/AdvReac Type Severity Reaction Status Date / Time
amoxicillin Allergy Rash Verified 12/25/23 06:23
cephalexin [From Keflex] Allergy Itching; Verified 12/25/23 06:23
tolerated
cepfodoxime
07/28/22
acetaminophen [From Vicodin] AdvReac Nausea / Verified 12/25/23 06:23
Vomiting
hydrocodone [From Vicodin] AdvReac Nausea / Verified 12/25/23 06:23
Vomiting
vancomycin AdvReac vanco Verified 12/25/23 06:23
flushing
syndrome;
tolerates
with
diphenhdyramine
�Medication �Instructions �Recorded
prednisone 5 mg tablet 5 mg PO DAILY inflammation 08/02/16
alprazolam 1 mg tablet 1 mg PO BID 01/24/21
azathioprine 100 mg tablet (Azasan) 100 mg PO DAILY Transplant 01/24/21
apixaban 2.5 mg tablet (Eliquis) 2.5 mg PO Q12H Blood Clot 10/20/22
Prevention/Tx
carvedilol 25 mg tablet 25 mg PO BID Blood Pressure 10/20/22
lisinopril 10 mg tablet 10 mg PO HS Blood Pressure 10/20/22
montelukast 10 mg tablet 10 mg PO HS Allergies 10/20/22
pravastatin 20 mg tablet 20 mg PO HS High Cholesterol 10/20/22
spironolactone 25 mg tablet 25 mg PO DAILY Blood Pressure 10/20/22
zolpidem 10 mg tablet 10 mg PO HS PRN insomnia 10/20/22
belatacept 250 mg intravenous 250 mg IV Q28D Transplant 05/23/23
solution
clonidine HCl 0.1 mg tablet 0.2 mg PO TID Blood Pressure 05/23/23
lidocaine 4 % topical cream 1 applic topical DIRECTED Pain 05/23/23
linaclotide 145 mcg capsule 145 mcg PO DAILY PRN IBS 05/23/23
(Linzess)
omeprazole 20 mg capsule,delayed 20 mg PO BID Gastrointestinal Issue 05/23/23
release
acetaminophen 500 mg/15 mL oral 1,000 mg (30 mL) PO Q6HPRN PRN 05/25/23
liquid mild pain #0 mL
ondansetron 8 mg disintegrating 8 mg PO DAILYPRN PRN 05/25/23
tablet nausea/vomiting #0 tabs
Review of Systems
Vital Signs
Temp Pulse Resp BP Pulse Ox
97.7 F 73 10 107/81 99
12/25/23 06:23 12/25/23 14:30 12/25/23 14:30 12/25/23 14:00 12/25/23 12:45
Physical Exam
Exam
General: Well Developed and Well Nourished
HEENT: Normocephalic and Anicteric
Respiratory: Clear
Cardiac: S1/S2
GI: Soft, Non Distended and Tender (diffuse tenderness on palpation)
Results
WBC 14.4 10^3/uL (4.8-10.8) H 12/25/23 07:
Hgb 11.7 g/dL (12.0-16.0) L 12/25/23:
Hct 33.9 % (37.0-47.0) L 12/25/23 07:
MCV 85.0 fL (81.0-99.0) 12/25/23 07:
Plt Count 183 10^3/uL (130-400) 12/25/23:
Absolute Neuts (auto) 10.7 10^3/uL (1.4-6.5) H 12/25/23 07:
Sodium 138 mmol/L (135-145) 12/25/23:
Potassium 3.7 mmol/L (3.5-5.1) 12/25/23 07:
Chloride 103 mmol/L (98-107) 12/25/23 07:
Carbon Dioxide 23 mmol/L (22-30) 12/25/23 07:
BUN 22 mg/dl (7-17) H 12/25/23:
Creatinine 1.6 mg/dL (0.6-1.0) H 12/25/23:
Calcium 9.5 mg/dl (8.4-10.2) 12/25/23 07:
Total Bilirubin 0.5 mg/dl (0.2-1.3) 12/25/23:
AST 24 U/L (14-36) 12/25/23:
ALT 15 U/L (0-35) 12/25/23:
Alkaline Phosphatase 72 U/L (38-126) 12/25/23:
Lipase 140 U/L (23-300) 12/25/23:
Diagnostic Image Results:
Prior GI Procedures:
EGD:
Colonoscopy:
Assessment / Plan
-
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 Her pain is located epigastric periumbilical
region.
Impression / Rec:
1. Abdominal pain, colitis on CT - admitted with acute onset of severe abdominal pain. Her pain was associated with loose/watery BM which contain maroon color blood/clots. Abdominal CT showed mild acute pancolitis. Denies diarrhea so far.
Afebrile, mild leukocytosis (14k). She is being immunosuppressed with azathioprine, prednisone 5 mg, and belatacept injection q28 days. Will need to rule out C. difficile colitis. Although her kidney transplant was 9 years ago, she is at risk of
CMV colitis given her immunosuppression. Agree with starting empirical treatment of C. difficile only after stool specimen has been obtained. If C. difficile and other stool studies are negative, will consider colonoscopy for mucosal biopsies
when clinically appropriate.
Total Time Spent with Patient (in minutes): 55
-
-
Thank you for consultation and allowing me to participate in the patient's care. Please call the customer relations assistant GI physician during the after hours with any questions or concerns.
[2023-12-25] MEDS: IMURAN 100 MG PO (15:02)
--- NOTE | 2023-12-25 15:16 | PTCARENOTE ---
Pt arrived to unit from ED via stretcher. Ambulated to unit bed with minimal assistance. Tachypneic, tearful. Stated, 'I am having a panic attack.' Emotional support provided. PCT rubbed lotion on patients back and warm blankets provided. Scheduled
Xanax administered. Pt stating 10/10 pain after after ED Dilaudid administration. Dr. Malone, notified. PRN Dilaudid increased to 1mg IV. Lungs clear to auscultation. SaO2 96% on room air. Sinus tach on panel monitor. Wound on right upper
gluteal cleft, pt states she had a mole removed by a electromechanical engineer. Pt assisted to BSC. Small red mucoidal stool. Unable to send sample as urine also in tray. NSS @ 100ml/hr. through (R) SubQ port.
[2023-12-25] MEDS: CATAPRES 0.2 MG PO ×2 (16:36→21:39)
[2023-12-25] MEDS: FIRVANQ 125 MG PO ×2 (17:47→23:15)
[2023-12-25] MEDS: NSS (PRESERVATIVE FREE) 10 ML IV (19:35)
[2023-12-25] MEDS: PROTONIX IV 40 MG IV (19:35)
--- NOTE | 2023-12-25 20:31 | CON.ONC ---
Impression
Impression
Hx DVT/PE
Chronic clot risk factors of FVL
Acute clot risk factor of hospitalization in the ICU
Plan
Plan
Vitals, Hgb not suggestive of active bleeding since admission.
Suggest resuming prophylaxis dose anticoagulation.
Will use Lovenox 40 mg SQ daily until Hgb stable.
Case d/w other providers with no objection to low-dose Lovenox.
Thank you for consult, will follow along with you.
Patient History
History of Present Illness
28 y/o female with past medical history of hypertension on multiple medications, kidney transplant 2014 at [place] (due to FSGS), history of CMV colitis, history of rising EBV titers, recurrent DVT, PE with Factor V Leiden mutation on long-term
secondary prophylaxis with Eliquis 2.5 mg PO BID. She presented with severe abdominal pain followed by green-colored stools and bloody clots per rectum, during which time her abdominal pain became worse. During this episode of pain and bloody bowel
movements, she was also sweating a lot. Hgb upon presentation this morning was 11.7 versus her usual baseline of between 10 and 11. Blood pressure has been somewhat labile, HR 60's - 80's with caveat that she is on a beta-jason. When seen this
afternoon, pt indicated that she has passed blood-tinged mucus but no shaina blood. CT A/P mild acute colitis.
Past-Medical/Surgical History
Past Medical History:
1. History of hypertension, multiple medications.
2. Living-related kidney transplant 2014 at [place].(due to FSGS)
3. History of CMV colitis.
4. Recent history of rising EBV titers.
5. Recurrent DVT, PE with Factor V Leiden mutation on permanent
anticoagulation with Eliquis.
6. Asthma.
7. GERD.
8. Hypertension.
9. Anxiety.
10.History of UTI.
11.History of urine retention.
12.History of bilateral retinal detachment.
13.ADHD.
14. CKD with baseline creatinine of 1.6
Past Surgical History:
Cholecystectomy
Kidney transplant
Social History:
No tobacco or alcohol
Family History:
Non-contributory
Patient Medication
�Medication �Instructions �Recorded �Confirmed �Last Taken �Type
prednisone 5 mg tablet 5 mg PO DAILY inflammation 08/02/16 12/25/23 12/24/23 08:00 History
alprazolam 1 mg tablet 1 mg PO BID 01/24/21 12/25/23 12/24/23 15:00 History
azathioprine 100 mg tablet (Azasan) 100 mg PO DAILY Transplant 01/24/21 12/25/23 12/24/23 08:00 History
apixaban 2.5 mg tablet (Eliquis) 2.5 mg PO Q12H Blood Clot 10/20/22 12/25/23 12/24/23 20:00 History
Prevention/Tx
carvedilol 25 mg tablet 25 mg PO BID Blood Pressure 10/20/22 12/25/23 12/24/23 08:00 History
lisinopril 10 mg tablet 10 mg PO HS Blood Pressure 10/20/22 12/25/23 12/24/23 20:00 History
montelukast 10 mg tablet 10 mg PO HS Allergies 10/20/22 12/25/23 12/24/23 20:00 History
pravastatin 20 mg tablet 20 mg PO HS High Cholesterol 10/20/22 12/25/23 12/24/23 20:00 History
spironolactone 25 mg tablet 25 mg PO DAILY Blood Pressure 10/20/22 12/25/23 12/24/23 08:00 History
zolpidem 10 mg tablet 10 mg PO HS PRN insomnia 10/20/22 12/25/23 2 Weeks Ago History
~05/09/23
belatacept 250 mg intravenous 250 mg IV Q28D Transplant 05/23/23 12/25/23 12/13/23 History
solution
clonidine HCl 0.1 mg tablet 0.2 mg PO TID Blood Pressure 05/23/23 12/25/23 12/24/23 20:00 History
lidocaine 4 % topical cream 1 applic topical DIRECTED Pain 05/23/23 12/25/23 05/22/23 History
linaclotide 145 mcg capsule 145 mcg PO DAILY PRN IBS 05/23/23 12/25/23 2 Weeks Ago History
(Linzess) ~05/09/23
omeprazole 20 mg capsule,delayed 20 mg PO BID Gastrointestinal Issue 05/23/23 12/25/23 12/24/23 20:00 History
release
acetaminophen 500 mg/15 mL oral 1,000 mg (30 mL) PO Q6HPRN PRN 05/25/23 12/25/23 05/22/23 Rx
liquid mild pain #0 mL
ondansetron 8 mg disintegrating 8 mg PO DAILYPRN PRN 05/25/23 12/25/23 05/22/23 Rx
tablet nausea/vomiting #0 tabs
Active Medications
Generic Name Dose Route Start Last Admin
Trade Name Freq PRN Reason Stop Dose Admin
Acetaminophen 1,000 mg 12/25/23 13:08
Acetaminophen (Oral Solution) 650 Mg/20.3 Ml Cup PO 01/22/24 13:07
Q6HPRN PRN
mild pain
Alprazolam 1 mg 12/25/23 12:49 12/25/23 19:35
Alprazolam 1 Mg Tablet PO 01/22/24 12:48 1 mg
BID CARLIE Administration
Azathioprine 100 mg 12/25/23 14:00 12/25/23 15:02
Azathioprine 50 Mg Tablet PO 01/22/24 13:59 100 mg
DAILY CARLIE Administration
Carvedilol 25 mg 12/25/23 12:49 12/25/23 13:12
Carvedilol 25 Mg Tablet PO 01/22/24 12:48 25 mg
BID CARLIE Administration
Cefepime HCl 1,000 mg 12/25/23 22:00
Cefepime Hcl 1,000 Mg/11.3 Ml Vial IV
Q8H CARLIE
Clonidine HCl 0.2 mg 12/25/23 16:00 12/25/23 16:36
Clonidine 0.1 Mg Tablet PO 01/22/24 15:59 0.2 mg
TID CARLIE Administration
Enoxaparin Sodium 40 mg 12/25/23 21:00
Enoxaparin Sodium 40 Mg/0.4 Ml Syringe SC 01/22/24 20:59
QPM CARLIE
Hydrocortisone Sodium Succinate 50 mg 12/25/23 12:05 12/25/23 16:34
Hydrocortisone Sodium Succinate 100 Mg/2 Ml Vial IV 01/22/24 12:04 50 mg
Q8 CARLIE Administration
Hydromorphone HCl 1 mg 12/25/23 13:12 12/25/23 17:46
Hydromorphone 1 Mg/Ml Carpuject IV 01/08/24 13:11 1 mg
Q4HPRN PRN Administration
severe pain
Sodium Chloride 1,000 mls @ 100 mls/hr 12/25/23 12:49 12/25/23 13:33
Nss IV 1,000 mls
.Q10H CARLIE Administration
Labetalol HCl 5 mg 12/25/23 13:13
Labetalol Hcl 5 Mg/1 Ml (20 Mg/4 Ml) Injection IV 01/22/24 13:12
Q6HPRN PRN
SBP>160 mmhg
Lidocaine 1 applic 12/25/23 12:49
Lidocaine 4% Cream/Tegaderm Dressing 5 Gram Tube TOPICAL 01/22/24 12:48
DIRECTED CARLIE
Montelukast Sodium 10 mg 12/25/23 22:00
Montelukast Sodium 10 Mg Tablet PO 01/22/24 21:59
HS CARLIE
Pt's Own (Belatacept 250 mg 01/13/24 12:00
250 Mg Recon Soln) IV 02/10/24 11:59
Q28D CARLIE
Pantoprazole Sodium 40 mg 12/25/23 20:00 12/25/23 19:35
Pantoprazole Sodium 40 Mg/10 Ml Vial IV 01/22/24 19:59 40 mg
BID CARLIE Administration
Pravastatin Sodium 20 mg 12/25/23 22:00
Pravastatin 20 Mg Tablet PO 01/22/24 21:59
HS CARLIE
Sodium Chloride 0 flush 12/25/23 13:00
Sodium Chloride 0.9% (Flush) Syringe IV 01/22/24 12:59
PER PROTOCOL CARLIE
Sodium Chloride 10 ml 12/25/23 20:00 12/25/23 19:35
Sodium Chloride 0.9% (Preservative Free) 10 Ml Vial IV 01/22/24 19:59 10 ml
BID CARLIE Administration
Sterile Water 10 ml 12/25/23 22:00
Sterile Water For Injection 10 Ml Vial IV 01/22/24 21:59
Q8H CARLIE
Vancomycin HCl 125 mg 12/25/23 18:00 12/25/23 17:47
Vancomycin Oral Solution 50 Mg/Ml In Oral Syringe PO 125 mg
Q6 CARLIE Administration
Zolpidem Tartrate 10 mg 12/25/23 22:00
Zolpidem Tartrate 10 Mg Tablet PO 01/22/24 21:59
HSPRN PRN
insomnia
Review of Systems
-
History Source: Patient and Records
All Other Systems: Reviewed and Negative
Respiratory: Denies Trouble Breathing or Pleurisy
Cardiac: Denies Chest Pain or Palpitations
Musculoskeletal: Denies Edema
Physical Exam
-
General: Well Developed and Well Nourished
HEENT: Moist Mucous Membranes; Negative Jaundice
Cardiology: Normal Sinus Rhythm, S1 and S2
Pulmonary: Clear; Negative Wheezes
GI: Soft and Normal Bowel Sounds
Musculoskeletal: No Clubbing, No Cyanosis and No Edema
Extremities: Negative Phlebitic Signs
Neurology: Non Focal
Skin: Warm and Dry
Hematologic / Lymphatic: No Petechiae
Psych: Calm and Intact Judgement/Insight
Labs
Lab Results
WBC 14.4 10^3/uL (4.8-10.8) H 12/25/23 07:
RBC 3.99 10^6/uL (4.20-5.40) L 12/25/23:
Hgb 11.7 g/dL (12.0-16.0) L 12/25/23:
Hct 33.9 % (37.0-47.0) L 12/25/23:
MCV 85.0 fL (81.0-99.0) 12/25/23:
MCH 29.3 pg (27.0-31.0) 12/25/23:
MCHC 34.5 g/dL (33.0-37.0) 12/25/23:
RDW 14.4 % (11.5-14.5) 12/25/23:
Plt Count 183 10^3/uL (130-400) 12/25/23 07:
MPV 13.5 fL (7.4-10.4) H 12/25/23:
Abs Immat Gran (auto) 0.1 10^3/uL (0-0.05) H 12/25/23:
Absolute Neuts (auto) 10.7 10^3/uL (1.4-6.5) H 12/25/23:
Absolute Lymphs (auto) 2.3 10^3/uL (1.2-3.4) 12/25/23:
Absolute Monos (auto) 1.2 10^3/uL (0.1-0.6) H 12/25/23:
Absolute Eos (auto) 0.1 10^3/uL (0-0.7) 12/25/23:
Absolute Basos (auto) 0.1 10^3/uL (0-0.2) 12/25/23:
Immature Gran % 0.5 % (0-0.5) 12/25/23 07:
Neutrophils % 74.0 % (42.2-75.2) 12/25/23:
Lymphocytes % 16.2 % (20.5-51.1) L 12/25/23:
Monocytes % 8.2 % (1.7-9.3) 12/25/23:
Eosinophils % 0.8 % (0-6) 12/25/23:
Basophils % 0.3 % (0-2) 12/25/23:
Creatinine 1.6 mg/dL (0.6-1.0) H 12/25/23:
Vital Signs
Vital Signs
Temp Pulse Resp BP Pulse Ox
98.1 F 85 19 127/77 96
12/25/23 15:00 12/25/23 18:15 12/25/23 18:15 12/25/23 18:00 12/25/23 14:55
[2023-12-25] MEDS: LOVENOX 40 MG SC (21:36)
[2023-12-25] MEDS: MAXIPIME 1000 MG IV (21:37)
[2023-12-25] MEDS: SINGULAIR 10 MG PO (21:40)
[2023-12-25] MEDS: PRAVACHOL 20 MG PO (21:40)
[2023-12-25] MEDS: ATIVAN 0.5 MG IV (23:14)
[2023-12-26] VITALS (18 sets, daily range): BP systolic 118–179; BP diastolic 78–134; BMI 33.5; BMI 35.4
[2023-12-26] MEDS: DILAUDID 1 MG IV ×6 (01:35→21:41)
[2023-12-26] MEDS: FIRVANQ 125 MG PO (05:30)
[2023-12-26] MEDS: STERILE WATER FOR INJECTION 10 ML IV ×3 (05:31→21:32)
[2023-12-26] MEDS: MAXIPIME 1000 MG IV ×3 (05:31→21:31)
[2023-12-26 05:59] LABS: % Basophils 0.3 % (0-2); % Eosinophils 0.1 % (0-6); % Immature Granulocytes 0.4 % (0-0.5); % Lymphocytes 3.7 % (20.5-51.1); % Monocytes 2.7 % (1.7-9.3); % Neutrophils 92.8 % (42.2-75.2); Absolute Immature Granulocytes 0.1 10^3/uL (0-0.05); Absolute Lymphocytes 0.4 10^3/uL (1.2-3.4); Absolute Monocytes 0.3 10^3/uL (0.1-0.6); Absolute Neutrophils 10.6 10^3/uL (1.4-6.5); Hematocrit 28.7 % (37.0-47.0); Hemoglobin 9.9 g/dL (12.0-16.0); Mean Corp Hgb Conc. 34.5 g/dL (33.0-37.0); Mean Corpuscular Hgb 29.8 pg (27.0-31.0); Mean Corpuscular Volume 86.4 fL (81.0-99.0); Mean Platelet Volume 13.9 fL (7.4-10.4); Nucleated Red Blood Cells % 0 %; Platelet Count 132 10^3/uL (130-400); Red Blood Cell Count 3.32 10^6/uL (4.20-5.40); Red Cell Dist. Width 14.5 % (11.5-14.5); White Blood Cell Count 11.5 10^3/uL (4.8-10.8)
[2023-12-26 06:12] LABS: Blood Urea Nitrogen 17 mg/dl (7-17); Carbon Dioxide 23 mmol/L (22-30); Chloride 105 mmol/L (98-107); Estimated Creatinine Clearance 55 ml/min; Glucose 112 mg/dl (70-99); Magnesium 1.5 mg/dl (1.6-2.3); Potassium 4.4 mmol/L (3.5-5.1); Sodium 138 mmol/L (135-145); eGFR 44.22
--- NOTE | 2023-12-26 07:34 | W.PN.HOSP.TC ---
Today's Communication/Plan
-
see A/P
Assessment / Plan
Assessment / Plan
HPI: 28 y/o female with past medical history of hypertension on multiple medications, kidney transplant 2014 at [place] (due to FSGS), history of CMV colitis, history of rising EBV titers, recurrent DVT/PE with Factor V Leiden mutation on permanent
anticoagulation with Eliquis, Asthma, GERD, Hypertension, Anxiety, History of UTI, History of urine retention, History of bilateral retinal detachment and ADHD; presented with severe abdominal pain. Patient then went to the bathroom and reported
that she passed green-colored stools and bloody clots per rectum, during which time her abdominal pain became worse.
CT AP:
1. MILD ACUTE COLITIS involving the ascending, transverse, and descending colon.
2. Right lower quadrant renal transplant in place without complication.
3. Severe atrophy of the tribe kidneys.
4. Previous cholecystectomy.'
A/P:
# Severe Abdominal Pain with BRBPR
# Immunocompromised State on Chronic Prednisone, Azathioprine and Belatacept
CT AP results as above with colitis
Check C. diff, Norovirus, stool culture
Cont empiric po Vancomycin pending stool C. diff. Per pt, she is colonized with C. diff.
Cont empiric cefepime 1g IV q8h.
Cont NPO with IVF, ADAT if able
IV Dilaudid 1 mg Q4H as per patient's request
GI on board
ID on board
# Concern for drug seeking behavior
Check UDS
Pt requests to keep current IV Dilaudid 1 mg Q4H
Pt asks for IV Ativan in place of [employer] ADMINISTRATOR PO Xanax which I declined
# Hypertension on multiple medications
Labile Blood Pressure
M[employer]OR ADMINISTRATOR Lisinopril, Spironolactone on hold
Resume [employer]MINISTR[employer] Coreg at reduced dose
Continue to monitor SBP
# Normocytic Anemia
Continue to monitor CBC
Patient's transplant physician is Caryn Millan MD at [facility], phone number [phone]
If patient needs any blood transfusion, will likely need CMV Negative, Irradiated and Leukoreduced PRBCs (but please let on-call hematology and patient's transplant physician know if patient needs PRBCs)
# CKD Stage 3
# Kidney transplant 2015 at [place] (due to FSGS)
# Immunocompromised State on Chronic Prednisone, Azathioprine and Belatacept
IV Hydrocortisone in the place of PO Prednisone in case patient cannot tolerate PO
Continue patient's home PO Azathioprine
Patient said she last got her Belatacept infusion about 1 to 2 weeks [employer] ADMINISTR[employer]OR ADMINISTRATOR Lisinopril, Spironolactone on hold
Resume [employer] ADMINISTRATOR Coreg at reduced dose
Renal on board
Patient's transplant physician is Caryn Millan MD at [facility], phone number [phone]
If patient needs any blood transfusion, will likely need CMV Negative, Irradiated and Leukoreduced PRBCs (but please let on-call hematology and patient's transplant physician know if patient needs PRBCs)
# Hypomagnesemia
replete IV Mag
# History of CMV colitis
# History of rising EBV titers
# Recurrent DVT, PE with Factor V Leiden mutation on permanent anticoagulation with Eliquis
M[employer]ON[employer]OR ADMINISTRATOR Eliquis on hold due to bleeding per rectum
use Lovenox 40 mg SQ daily until Hgb stable.
Hematology on board
# Asthma
# GERD
# Anxiety
# History of UTI
# History of urine retention
# History of bilateral retinal detachment
# ADHD
DVT PPx: Lovenox SQ
Code Status: Full Code
DW RN
total time spent 51 min
Anticipated Discharge: > 48 hours
Subjective/Interval History
-
Date of Service: December 26, 2023
Objective Data
-
Labs:
Laboratory Results
12/26/23
05:22
WBC 11.5 H
Hgb 9.9 L
Hct 28.7 L
Plt Count 132 D
Sodium 138
Potassium 4.4
Chloride 105
Carbon Dioxide 23
BUN 17
Creatinine 1.6 H
Glucose 112 H
Calcium 9.0
Vital Signs:
Vital Signs
Temp Pulse Resp BP Pulse Ox
37.1 C 117 24 126/103 98
12/26/23 03:59 12/26/23 06:00 12/26/23 06:00 12/26/23 06:00 12/25/23 22:51
I&O
12/25/23 12/26/23 12/27/23
06:59 06:59 06:59
Intake Total 1320 / 1320
Output Total 400 / 400
Balance 920 / 920
Review of Systems
-
Abdomen/GI: Reports Abdominal Pain, Nausea and Vomiting
Physical Exam
-
General: Well Developed, Well Nourished, Comfortable and Conversant
HEENT: Moist Mucous Membranes and Oxygen (1L NC)
Respiratory: Clear to Auscultation and Non Labored Respirations; Negative Accessory Resp Muscle Use
Cardiac: Regular Rhythm, S1/S2 and Tachycardic (mild in low 100s)
GI: Soft, Nondistended, Normal Bowel Sounds and Tender (according to pt)
Neuro: Awake and Alert
Psych: Calm and Intact Judgement/Insight
Data Reviewed
-
CT Scan: Report Reviewed by me
Labs: Labs Reviewed by me
--- NOTE | 2023-12-26 09:00 | W.PN.NEPH.PH ---
Today's Communication / Plan
-
Maintain IV fluid
Patient with continued nausea/vomiting
Follow BMP
Remains on IV hydrocortisone while off azathioprine and oral prednisone due to nausea and vomiting
Assessment/Plan
-
Impression:
Abdominal pain with possible underlying colitis
Renal transplant 2014 secondary to FSGS: Prednisone azathioprine monthly belatacept
History of multidrug-resistant
History of CMV colitis
Chronic kidney disease stage IIIb with baseline creatinine of 1.6
History of EBV
History of anxiety
History of asthma
Thrombophilia with history of factor V Leiden mutation: on chronic eliquis
Anemia
Plan:
Renal Transplant:
-Creatinine is at baseline 1.6
-Avoid all nephrotoxins such as IV contrast aminoglycosides and NSAIDs
-provide hydrocortisone 50 mg IV Q8 as patient n.p.o. and is not taking prednisone and Imuran
HTN:
-Would provide clonidine patch 0.1 mg while patient if patient becomes n.p.o.
-Provide labetalol 5 mg IV every 6 hours for systolic blood pressure greater than 160
-attempting oral anti-htns
Abdominal pain with dark bloody stools
-Eliquis held
-Colorectal consult
-maintain isotonic IV fluids at 100 cc per hr
Anemia:
-in setting of GI bleeding
-C. difficile pending
-Likely for colonoscopy later this week
-
-
Date of Service: December 26, 2023
CC / HPI / ROS
-
Chief Complaint:
Renal transplant
History of Present Illness:
Creatinine remained stable 1.6
Hemodynamically labile with pain
Remains on IV hydrocortisone 50 mg IV every 8 for immunosuppression
Review of Systems:
Nausea vomiting abdominal pain
No fevers
Nonoliguric
Labs
-
Labs:
WBC 11.5 10^3/uL (4.8-10.8) H 12/26/23 05:22
RBC 3.32 10^6/uL (4.20-5.40) L 12/26/23 05:22
Hgb 9.9 g/dL (12.0-16.0) L 12/26/23 05:22
Hct 28.7 % (37.0-47.0) L 12/26/23 05:22
Plt Count 132 10^3/uL (130-400) D 12/26/23 05:22
Sodium 138 mmol/L (135-145) 12/26/23 05:22
Potassium 4.4 mmol/L (3.5-5.1) 12/26/23 05:22
Chloride 105 mmol/L (98-107) 12/26/23 05:22
Carbon Dioxide 23 mmol/L (22-30) 12/26/23 05:22
BUN 17 mg/dl (7-17) 12/26/23 05:22
Creatinine 1.6 mg/dL (0.6-1.0) H 12/26/23 05:22
eGFR 44.22 12/26/23 05:22
Glucose 112 mg/dl (70-99) H 12/26/23 05:22
Calcium 9.0 mg/dl (8.4-10.2) 12/26/23 05:22
Albumin 4.3 g/dl (3.5-5.0) 12/25/23 07:29
Physical Exam
-
Vital Signs:
Vital Signs
Temp Pulse Resp BP Pulse Ox
98.5 F 117 24 126/103 98
12/26/23 07:35 12/26/23 06:00 12/26/23 06:00 12/26/23 06:00 12/25/23 22:51
Cardiovascular:: Regular rate and rhythm (Tachycardic)
Respiratory:: Bilateral: CTA
Lung Excursion:: Normal
Abdomen:: Nontender
Bowel Sounds:: Decreased
Extremity Edema:: None: Bilateral:
Montano Catheter: No
[2023-12-26] MEDS: MAGNESIUM SULFATE 50 IV (09:16)
[2023-12-26] MEDS: SOLU-CORTEF 50 MG IV ×3 (09:17→23:13)
--- NOTE | 2023-12-26 09:18 | W.PN.ID1 ---
Date of Service
Date of Service: December 26, 2023
Today's Communication
DC po Vanco. Continue cefepime.
Assessment / Plan
Immunosuppressed host hx renal txp 2015 on Imuran, prednisone, Belatacept.
# Colitis with bloody diarrhea - resolving
# Acute leukocytosis
- Check stool for wbc, C. diff, cx.
-Unlikely CMV colitis; renal txp was nine yrs ago.
-Unlikely C. diff as sxs quickly resolved. No stool to send for testin.
DC empiric po vancomycin.
- Continue empiric cefepime 1g IV q8h (d2) for now
- ?possible ischemic colitis - pt reports hypotension x 1.5 weeks
-Agree with colonoscopy
-Trend wbc.
# Factor V Leiden mutation on anticoagulation
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
FSGS, History of renal transplant 2015 on Imuran, prednisone, monthly belatacept
hx CMV colitis 2016
DVT/PE, factor V Leiden mutation on Eliquis
Hypertension
Asthma
CKD3
Anxiety
ADHD
Bipolar d/o
IBS
Hemorrhoids
bilateral retinal detachment
Cholecystectomy
Hernia repair
Chief Complaint
-: Other (blood in stool)
Subjective / Review of Systems
No BM since yesterday.
Abd pain persists.
Vomiting.
Vital Signs / Physical Exam
Vital Signs
Vital Signs
Temp Pulse Resp BP Pulse Ox
98.5 F 117 24 126/103 98
12/26/23 07:35 12/26/23 06:00 12/26/23 06:00 12/26/23 06:00 12/25/23 22:51
Physical Exam
Constitutional: No Acute Distress
Gastrointestinal: Soft and Tender (lower abd )
Extremities: Negative Edema
Neurological: AO x 3
Objective Data
Lab Data
Lab Results
12/26/23 05:22
12/26/23 05:22
Estimated Creat Clear 55 ml/min 12/26/23 05:22
Total Bilirubin 0.5 mg/dl (0.2-1.3) 12/25/23 07:29
AST 24 U/L (14-36) 12/25/23 07:29
ALT 15 U/L (0-35) 12/25/23 07:29
Alkaline Phosphatase 72 U/L (38-126) 12/25/23 07:29
Most recent labs reviewed.
12/25/23 CT a/p: MILD ACUTE COLITIS involving the ascending, transverse, and descending colon. Right lower quadrant renal transplant in place without complication.
[2023-12-26] MEDS: NSS 1000 IV ×2 (09:20→20:44)
[2023-12-26] MEDS: COREG 6.25 MG PO (09:21)
[2023-12-26] MEDS: IMURAN 100 MG PO (09:21)
[2023-12-26] MEDS: XANAX 1 MG PO ×2 (09:21→19:40)
[2023-12-26] MEDS: CATAPRES 0.2 MG PO ×3 (09:25→21:42)
[2023-12-26] MEDS: NSS (PRESERVATIVE FREE) 10 ML IV ×2 (09:26→19:41)
[2023-12-26] MEDS: PROTONIX IV 40 MG IV ×2 (09:26→19:40)
[2023-12-26 10:12] LABS: Amphetamines Negative (Negative); Barbiturates Negative (Negative); Benzodiazepines Positive (Negative); Buprenorphine Negative (Negative); Cocaine Negative (Negative); Marijuana Negative (Negative); Methadone Negative (Negative); Methamphetamines Negative (Negative); Opiates Positive (Negative); Phencyclidine Negative (Negative); Tricyclic Antidepressants Negative (Negative)
[2023-12-26 10:39] LABS: Fentanyl, Urine Negative (Negative)
[2023-12-26] MEDS: APRESOLINE 10 MG IV ×2 (10:55→20:38)
[2023-12-26] MEDS: ZOFRAN 4 MG IV ×3 (11:27→23:13)
--- NOTE | 2023-12-26 11:39 | PTCARENOTE ---
Pt was rec'd from night RN, anxious and with multiple questions and requests, all answered to best of RN ability. PRN Dilaudid administered for 10/10 abd pain to RLQ, relieved to 8/10, pt asking for 'Breakthrough' dose, not ordered, pt verbalized
understanding. Attending Dr. Knapp keeping pain meds ordered the same. Urine and stools sent per orders. BPs labile, Coreg restarted per DR. Knapp with holding parameters, pt given PRN Hydralazine and Zofran, see MAR for times. Pt written for tele,
anxious and wondering why she is being moved, education provided. Pt repeatedly asking for BP to be retaken, informed to give the medications a chance to work. Pt apologetic states, 'I'm getting agitated.' Dad at bedside visiting. Pt had also asked
her father to bring in her 3 yo baby to visit, informed pt that there are no children allowed in hospital under age 14 for safety. Pt tearful but acknowledged this information. Will call report to 4th floor and transfer pt.
--- NOTE | 2023-12-26 11:50 | PTCARENOTE ---
Attempt to call report x1, RN at lunch. Left message to call back.
--- NOTE | 2023-12-26 12:33 | PTCARENOTE ---
Report given to 4th floor RN, will transfer pt up to new room 431.
--- NOTE | 2023-12-26 14:48 | W.PN.GI.CBS2 ---
Today's Communication / Plan
-
CLD
Assessment / Plan
-
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 Her pain is located epigastric periumbilical
region.
Impression / Rec:
1. Abdominal pain, colitis on CT - admitted with acute onset of severe abdominal pain. Her pain was associated with loose/watery BM which contain maroon color blood/clots. Abdominal CT showed mild acute pancolitis. Denies diarrhea so far.
Afebrile, mild leukocytosis (14k). She is being immunosuppressed with azathioprine, prednisone 5 mg, and belatacept injection q28 days. Will need to rule out C. difficile colitis. Although her kidney transplant was 9 years ago, she is at risk of
CMV colitis given her immunosuppression.
Stool tests showed negative C. difficile. She continues to have pain which seems to be out of proportion with CT finding (mild acute colitis) and there is a concern that she may be pain med seeking. Will start CLD. Will reevaluate tomorrow to
determine the timing of colonoscopy.
Total Time Spent with Patient (in minutes): 35
Subjective
Subjective
Date of Service: December 26, 2023
Continues to have pain. Had 2 BMs o/n, watery with minimal blood.
Objective
Data Reviewed
Laboratory Data:
Laboratory Results
12/26/23 05:22
12/26/23 05:22
Laboratory Results
Magnesium 1.5 mg/dl (1.6-2.3) L 12/26/23 05:22
Total Bilirubin 0.5 mg/dl (0.2-1.3) 12/25/23 07:29
AST 24 U/L (14-36) 12/25/23 07:29
ALT 15 U/L (0-35) 12/25/23 07:29
Alkaline Phosphatase 72 U/L (38-126) 12/25/23 07:29
Lipase 140 U/L (23-300) 12/25/23 07:29
Vital Signs and I&O:
Vital Signs
Temp Pulse Resp BP Pulse Ox
100.8 F H 112 20 179/120 99
12/26/23 13:38 12/26/23 13:38 12/26/23 13:38 12/26/23 13:38 12/26/23 13:38
I&O
12/25/23 12/26/23 12/27/23
06:59 06:59 06:59
Intake Total 1320 / 1320 650 / 650
Output Total 400 / 400 1100 / 1100
Balance 920 / 920 -450 / -450
[2023-12-26] MEDS: LOVENOX 40 MG SC (16:13)
[2023-12-26] MEDS: COREG 25 MG PO (19:40)
--- NOTE | 2023-12-26 20:10 | W.PN.UPDATE ---
Update Note
Progress Note Update
pt vomited after taking evening xanax, Pt very anxious. Will give 0.5 iv ativan
--- NOTE | 2023-12-26 20:16 | PTCARENOTE ---
When giving pt her Xanax and Coreg pt informed me that last night in IMU she vomited up her xanax. she was then ordered a second dose and vomited that as well. A one time dose of IV Ativan 0.5mg was ordered by the [facility] covering. about 5 minutes after
taking her medications she vomited 350cc of green bile. No pills were visible but pt informed RN she chewed the pills. She then asked if RN could get an order for one time dose of IV ativan. Melvi KARIMI was made aware of events. One time
dose of IV ativan 0.5mg was placed. Pt aware that only one dose would be ordered. Prn hydralazine also given as pt's blood pressure fell in the parameters.
[2023-12-26] MEDS: NSS (PRESERVATIVE FREE) 0.25 ML IV (20:38)
[2023-12-26] MEDS: ATIVAN 0.5 MG IV (20:38)
[2023-12-26] MEDS: PRAVACHOL PO (23:19)
[2023-12-26] MEDS: SINGULAIR PO (23:24)
[2023-12-27] VITALS (8 sets, daily range): BP systolic 126–178; BP diastolic 84–123
[2023-12-27] MEDS: DILAUDID 1 MG IV ×6 (01:41→22:52)
[2023-12-27] MEDS: APRESOLINE 10 MG IV (03:12)
--- NOTE | 2023-12-27 03:53 | PTCARENOTE ---
Addendum entered by Mavis Maier RN 12/27/23 04:29:
manual blood pressure taken one hour after hydralazine and was 152/84. bedside commode placed at bedside as pt feels she gets nauseous when walking too far
Original Note:
pt with complaint of feeling itchy. she feels it is due to her blood pressure. she had rec'd prn hydralazine at 312. she states she has taken benadryl in the past in a small dose. She is also extremely anxious at this time. Melvi KARIMI made
aware. Would not order Benadryl at this time due to pt's bp. Did order another one time dose of Ativan 0.5mg IV. pt updated and is agreeable to this order. emotional support provided.
[2023-12-27] MEDS: ATIVAN 0.5 MG IV ×3 (04:02→21:01)
[2023-12-27] MEDS: NSS (PRESERVATIVE FREE) 0.25 ML IV ×3 (04:03→21:05)
[2023-12-27] MEDS: STERILE WATER FOR INJECTION 10 ML IV ×3 (05:27→21:06)
[2023-12-27] MEDS: MAXIPIME 1000 MG IV ×3 (05:27→21:05)
[2023-12-27] MEDS: ZOFRAN 4 MG IV (05:27)
[2023-12-27] MEDS: NSS 1000 IV ×2 (06:19→16:23)
[2023-12-27 06:44] LABS: Blood Urea Nitrogen 13 mg/dl (7-17); Calcium 9.6 mg/dl (8.4-10.2); Carbon Dioxide 21 mmol/L (22-30); Chloride 100 mmol/L (98-107); Estimated Creatinine Clearance 65 ml/min; Glucose 114 mg/dl (70-99); Magnesium 1.6 mg/dl (1.6-2.3); Potassium 3.4 mmol/L (3.5-5.1); Sodium 135 mmol/L (135-145)
[2023-12-27] MEDS: CATAPRES PO (09:09)
--- NOTE | 2023-12-27 09:09 | W.PN.HOSP.TC ---
Today's Communication/Plan
-
see A/P
Assessment / Plan
Assessment / Plan
HPI: 28 y/o female with past medical history of hypertension on multiple medications, kidney transplant 2014 at [facility] (due to FSGS), history of CMV colitis, history of rising EBV titers, recurrent DVT/PE with Factor V Leiden mutation on permanent
anticoagulation with Eliquis, Asthma, GERD, Hypertension, Anxiety, History of UTI, History of urine retention, History of bilateral retinal detachment and ADHD; presented with severe abdominal pain. Patient then went to the bathroom and reported
that she passed green-colored stools and bloody clots per rectum, during which time her abdominal pain became worse.
CT AP:
1. MILD ACUTE COLITIS involving the ascending, transverse, and descending colon.
2. Right lower quadrant renal transplant in place without complication.
3. Severe atrophy of the [place] kidneys.
4. Previous cholecystectomy.'
A/P:
# Severe Abdominal Pain with BRBPR
# Immunocompromised State on Chronic Prednisone, Azathioprine and Belatacept
CT AP results as above with colitis
C. diff/Norovirus neg, stool ova and parasite negative, pending stool culture
Cont empiric cefepime 1g IV q8h. Off PO Vancomycin
for C scope per GI, timing TBD
Cont current IV Dilaudid 1 mg Q4H for pain control per pt request
GI on board / ID on board
# Hypokalemia
# hypomagnesemia
replete lytes
# Hypertension on multiple medications
Labile Blood Pressure
Cont FREIGHT REPRESENTATIVE Clonidine, Lisinopril, Spironolactone with holding parameter
FREIGHT REPRESENTATIVE Coreg on hold, IV labetalol PRN for BP control
Continue to monitor BP
# CKD Stage 3
# Kidney transplant 2014 at [facility] (due to FSGS)
# Immunocompromised State on Chronic Prednisone, Azathioprine and Belatacept
# Normocytic Anemia
IV Hydrocortisone in the place of PO Prednisone given patient cannot tolerate PO
Continue patient's home PO Azathioprine
Patient said she last got her Belatacept infusion about 1 to 2 weeks FREIGHT REPRESENTATIVE
Renal on board
Patient's transplant physician is Caryn Millan MD at [facility], phone number [phone]
If patient needs any blood transfusion, will likely need CMV Negative, Irradiated and Leukoreduced PRBCs (but please let on-call hematology and patient's transplant physician know if patient needs PRBCs)
# History of CMV colitis
# History of rising EBV titers
# Recurrent DVT, PE with Factor V Leiden mutation on permanent anticoagulation with Eliquis
FREIGHT REPRESENTATIVE Eliquis on hold due to bleeding per rectum
use Lovenox 40 mg SQ daily until Hgb stable.
Hematology on board
# Asthma
# GERD
# Anxiety
IV Ativan in place of FREIGHT REPRESENTATIVE PO Xanax
# History of UTI
# History of urine retention
# History of bilateral retinal detachment
# ADHD
DVT PPx: Lovenox SQ
Code Status: Full Code
DW RN
total time spent 51 min
Anticipated Discharge: > 48 hours
Subjective/Interval History
-
Date of Service: December 27, 2023
Objective Data
-
Labs:
Laboratory Results
12/27/23
06:00
WBC Pending
Hgb Pending
Hct Pending
Plt Count Pending
Sodium 135
Potassium 3.4 L
Chloride 100
Carbon Dioxide 21 L
BUN 13
Creatinine 1.4 H
Glucose 114 H
Calcium 9.6
Vital Signs:
Vital Signs
Temp Pulse Resp BP Pulse Ox
36.7 C 131 22 170/108 98
12/27/23 08:33 12/27/23 08:33 12/27/23 08:33 12/27/23 08:33 12/27/23 08:33
I&O
12/26/23 12/27/23 12/28/23
06:59 06:59 06:59
Intake Total 1320 / 1320 2089
Output Total 400 / 400 165 / 165
Balance 920 / 920 440 / 440
Review of Systems
-
Abdomen/GI: Reports Abdominal Pain, Nausea and Vomiting
Physical Exam
-
General: Well Developed, Well Nourished and Conversant
HEENT: Oxygen (1L NC)
Respiratory: Clear to Auscultation and Non Labored Respirations; Negative Accessory Resp Muscle Use
Cardiac: Regular Rhythm, S1/S2 and Tachycardic (mild in low 100s)
GI: Soft, Nondistended and Tender (diffuse)
Neuro: Awake and Alert
Psych: Calm and Intact Judgement/Insight
Data Reviewed
-
CT Scan: Report Reviewed by me
Labs: Labs Reviewed by me
[2023-12-27] MEDS: SOLU-CORTEF 50 MG IV ×2 (09:10→16:10)
[2023-12-27] MEDS: PROTONIX IV 40 MG IV ×2 (09:10→21:00)
[2023-12-27] MEDS: NSS (PRESERVATIVE FREE) 10 ML IV ×2 (09:10→21:00)
[2023-12-27] MEDS: COREG PO ×2 (09:10→09:54)
[2023-12-27] MEDS: IMURAN PO (09:10)
[2023-12-27] MEDS: XANAX PO ×2 (09:11→09:54)
[2023-12-27] MEDS: KCL 270 MEQ IV (09:40)
[2023-12-27] MEDS: CATAPRES 0.2 MG PO ×3 (10:08→21:03)
[2023-12-27] MEDS: IMURAN 100 MG PO (10:08)
[2023-12-27] MEDS: ALDACTONE 25 MG PO (10:08)
--- NOTE | 2023-12-27 10:38 | W.PN.ONC ---
Today's Communication / Plan
-
Continue Lovenox 40mg SQ daily for ppx
Resume Eliquis 2.5mg BID when able (stable hgb, tolerating po)
Outpatient heme f/u with Dr. Mascorro at [place]
Will sign off, please call w/ questions
Impression
Impression
Hx DVT/PE
Chronic clot risk factors of FVL
Acute clot risk factor of hospitalization in the ICU
Plan
Plan
Continue Lovenox 40mg SQ daily for ppx
Resume Eliquis 2.5mg BID when able (stable hgb, tolerating po)
Outpatient heme f/u with Dr. Mascorro at [place]
Will sign off, please call w/ questions
Subjective/Objective
Subjective/Objective
c/o abd pain, nausea, headache, BP issues
some dark BMs, no obvious GI bleeding
Vital Signs:
Vital Signs
Temp Pulse Resp BP Pulse Ox
98.1 F 131 22 170/108 98
12/27/23 08:33 12/27/23 08:33 12/27/23 08:33 12/27/23 08:33 12/27/23 08:33
Lab Results:
Laboratory Data
WBC 11.5 10^3/uL (4.8-10.8) H 12/26/23 05:22
Hgb 9.9 g/dL (12.0-16.0) L 12/26/23 05:22
Plt Count 132 10^3/uL (130-400) D 12/26/23 05:22
eGFR 51.90 12/27/23 06:00
[2023-12-27] MEDS: TRANDATE 5 MG IV ×2 (11:38→16:23)
[2023-12-27] MEDS: FLAGYL 500 MG 100 IV (11:39)
--- NOTE | 2023-12-27 11:55 | CM ---
nurse case manager reviewed patient's chart and met with patient and patient states she lives with her spouse in a 2 story home, patient is independent with adl's and ambulation, no dme, patient drives.
Pharmacy: [facility] [place]
PCP: Dr. Leoncio Zheng
Plan; Home with family when stable.
--- NOTE | 2023-12-27 13:34 | W.PN.ID1 ---
Date of Service
Date of Service: December 27, 2023
Today's Communication
Await colonoscopy.
Assessment / Plan
Immunosuppressed host hx renal txp 2014 on Imuran, prednisone, Belatacept.
# Colitis with bloody stool
# Acute leukocytosis improving
# Fever x1 yesterday, resolved
- Stool no wbc, C. diff neg, O+P neg, norovirus neg
-Unlikely CMV colitis; renal txp was nine yrs ago.
- ?possible ischemic colitis - pt reports hypotension x 1.5 weeks with reperfusion injury (now hypertensive).
-Agree with colonoscopy/biopsy
-Continue empiric cefepime 1g IV q8h (d3) for now.
No need for anaerobic coverage.
# Factor V Leiden mutation on anticoagulation
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
FSGS, History of renal transplant 2014 on Imuran, prednisone, monthly belatacept
hx CMV colitis 2016
DVT/PE, factor V Leiden mutation on Eliquis
Hypertension
Asthma
CKD3
Anxiety
ADHD
Bipolar d/o
IBS
Hemorrhoids
bilateral retinal detachment
Cholecystectomy
Hernia repair
Chief Complaint
-: Other (blood in stool)
Subjective / Review of Systems
Abd pain better controlled with dilaudid.
+ emesis last night.
+ loose stools with streaks of blood
Vital Signs / Physical Exam
Vital Signs
Vital Signs
Temp Pulse Resp BP Pulse Ox
98 F 106 17 162/100 98
12/27/23 12:23 12/27/23 12:23 12/27/23 12:23 12/27/23 12:45 12/27/23 12:23
Physical Exam
Cardiovascular: Regular Rate and S1/S2
Pulmonary: Clear
Gastrointestinal: Soft and Tender
Extremities: Negative Edema
Objective Data
Lab Data
Lab Results
12/27/23 06:00
Estimated Creat Clear 65 ml/min 12/27/23 06:00
Total Bilirubin 0.5 mg/dl (0.2-1.3) 12/25/23 07:29
AST 24 U/L (14-36) 12/25/23 07:29
ALT 15 U/L (0-35) 12/25/23 07:29
Alkaline Phosphatase 72 U/L (38-126) 12/25/23 07:29
Most recent labs reviewed.
Micro Results:
12/26/23 11:34 Salmonella/Shigella Culture - Preliminary
Feces/Stool Culture in Progress
Campylobacter Culture - Preliminary
Culture in Progress
Shiga Toxin Test - Pending
Stool Leukocytes - Final
12/26/23 11:34 Cryptosporidium/Giardia - Final
Feces/Stool Negative for Cryptosporidium and/or Giardia Lamblia
antigens.
C. difficile GDH Antigen & Toxins - Final
Negative for toxigenic C.difficile
- Final
Negative for Norovirus GI and GII.
12/25/23 CT a/p: MILD ACUTE COLITIS involving the ascending, transverse, and descending colon. Right lower quadrant renal transplant in place without complication.
Care Review
Plan reviewed with: Physician (Dr. Knapp)
[2023-12-27] MEDS: MAGNESIUM SULFATE 50 IV (13:56)
--- NOTE | 2023-12-27 15:10 | W.PN.NEPH.PH ---
Addendum entered and electronically signed by Andreina Simon MD 12/27/23 15:50:
spoke with Dr Amor on phone and updated
she would like to have update if BP meds changes so she is aware, reportedly she tried multiple meds with out much help
decrease hydrocortisone to BID
Original Note:
Today's Communication / Plan
-
resume home BP meds
follow labs
replace k
check UA, s/o dysuria
Assessment/Plan
-
Impression:
Abdominal pain with possible underlying colitis
Renal transplant 2014 secondary to FSGS: Prednisone azathioprine monthly belatacept
History of multidrug-resistant
History of CMV colitis
Chronic kidney disease stage IIIb with baseline creatinine of 1.6
History of EBV
History of anxiety
History of asthma
Thrombophilia with history of factor V Leiden mutation: on chronic eliquis
Anemia
Plan:
Renal Transplant:
-Creatinine is at baseline 1.4
-Avoid all nephrotoxins such as IV contrast aminoglycosides and NSAIDs
-cont hydrocortisone 50 mg IV Q8 as patient n.p.o. and is not taking prednisone and Imuran
reaplce k, mg repleted
HTN: Bp remains high
only clonidine she is able to tolerate
back on Losartan and Aldactone today
likely resume coreg too once able to take po
-Provide labetalol 10 mg IV every 6 hours for systolic blood pressure greater than 160
Abdominal pain with dark bloody stools
-Eliquis held,
-maintain isotonic IV fluids while NPO-decrease rate
Anemia: hb decreasing follow h/h pending
-in setting of GI bleeding
Likely for colonoscopy TTD
left message with her jv baseball coach Caryn Cartagena at [place]
labs in am
-
-
Date of Service: December 27, 2023
CC / HPI / ROS
-
Chief Complaint:
Renal transplant
History of Present Illness:
Creatinine remained stable 1.4
Hemodynamically stable, high BPs this am
Remains on IV hydrocortisone 50 mg IV every 8 for immunosuppression
Review of Systems:
Nausea vomiting abdominal pain still, no vomiting though
No fevers
Nonoliguric
c/o dysuria
Labs
-
Labs:
Sodium 135 mmol/L (135-145) 12/27/23 06:00
Potassium 3.4 mmol/L (3.5-5.1) L 12/27/23 06:00
Chloride 100 mmol/L (98-107) 12/27/23 06:00
Carbon Dioxide 21 mmol/L (22-30) L 12/27/23 06:00
BUN 13 mg/dl (7-17) 12/27/23 06:00
Creatinine 1.4 mg/dL (0.6-1.0) H 12/27/23 06:00
eGFR 51.90 12/27/23 06:00
Glucose 114 mg/dl (70-99) H 12/27/23 06:00
Calcium 9.6 mg/dl (8.4-10.2) 12/27/23 06:00
Albumin 4.3 g/dl (3.5-5.0) 12/25/23 07:29
Physical Exam
-
Vital Signs:
Vital Signs
Temp Pulse Resp BP Pulse Ox
98 F 106 17 162/100 98
12/27/23 12:23 12/27/23 12:23 12/27/23 12:23 12/27/23 12:45 12/27/23 12:23
Cardiovascular:: Regular rate and rhythm
Respiratory:: Bilateral: CTA
Abdomen:: Soft and Tender (gen)
Extremity Edema:: None: Bilateral:
Montano Catheter: No
[2023-12-27 15:28] LABS: % Basophils 0.3 % (0-2); % Eosinophils 0.1 % (0-6); % Immature Granulocytes 0.4 % (0-0.5); % Lymphocytes 10.6 % (20.5-51.1); % Monocytes 6.4 % (1.7-9.3); % Neutrophils 82.2 % (42.2-75.2); Absolute Monocytes 0.6 10^3/uL (0.1-0.6); Absolute Neutrophils 8.1 10^3/uL (1.4-6.5); Hematocrit 32.6 % (37.0-47.0); Hemoglobin 11.1 g/dL (12.0-16.0); Mean Corpuscular Hgb 29.8 pg (27.0-31.0); Mean Corpuscular Volume 87.4 fL (81.0-99.0); Mean Platelet Volume 13.6 fL (7.4-10.4); Nucleated Red Blood Cells % 0 %; Platelet Count 158 10^3/uL (130-400); Red Blood Cell Count 3.73 10^6/uL (4.20-5.40); Red Cell Dist. Width 14.6 % (11.5-14.5); White Blood Cell Count 9.8 10^3/uL (4.8-10.8)
[2023-12-27] MEDS: COMPAZINE 10 MG IV (16:10)
[2023-12-27 16:12] LABS: Urine Albumin 2+ (Neg - Trace); Urine Bilirubin Negative (Negative); Urine Character Clear (Clear); Urine Color Yellow; Urine Glucose Negative (Negative); Urine Ketone 1+ (Negative); Urine Leukocyte Negative (Negative); Urine Nitrite Negative (Negative); Urine Occult Blood 1+ (Negative); Urine Specific Gravity 1.015 (<1.030); Urine Urobilinogen Negative (Neg - 1+)
[2023-12-27 16:26] LABS: Urine Bacteria Few (Negative); Urine White Cell 0-2 /HPF (0-5)
--- NOTE | 2023-12-27 16:33 | W.PN.GI.CBS2 ---
Today's Communication / Plan
-
As outlined below. Still with poor p.o intake and ongoing nausea/vomiting thus unable to tolerate prep along with persistent abdominal pain and tenderness on exam. Conservative measures as outlined below. Will consider colonoscopy versus flex-sig
later this week.
Assessment / Plan
-
Preeti is a 28-year-old female with h/o HTN, FSGS s/p renal transplant in 2014, history of CMV colitis in 2015, recurrent DVT/PE with factor V Leiden mutation on Eliquis who presents with severe abdominal pain and bloody stools.
#Acute Pancolitis
#Leukocytosis- Improving
#Fevers- Resolved
#Hx of CMV colitis (in 2015)
#Hx of Renal Txp (2014)
#Chronic Immunosuppression (on AZA, Belatacept, and Prednisone)
#Factor V Leiden Mutation (on chronic a/c)
Impression: Patient presenting with acute onset of severe abdominal pain with loose watery bowel movements with blood clots and maroon colored stools. CT on admission revealed mild acute colitis involving the ascending, transverse and descending
colon. Prior hx of CMV colitis in 2015 (one year after kidney transplant for FSGS) which was diagnosed via CMV PCR and has not had recurrence. However, she is still chronically immunosuppressed with her regimen including AZA, chronic prednisone and
belatacept. Infectious stool studies thus far negative including C Diff along with O&P and Norovirus. Although she is almost 10 years out from her kidney transplant, still at risk for CMV colitis given her chronic immunosuppression. Possible
infectious and superimposed ischemic colitis could also explain her presentation as well. Doubt IBD at this time. Would benefit from an endoscopic evaluation, however given her ongoing abdominal pain (which seems to be out of proportion) and
tenderness on exam would defer plans on a colonscopy.
Recommendations:
- Favor continuing CLD, defer advancing diet
- Continue aggressive electrolyte repletion, K > 4.0 and Mg > 2.0
- Check serum CMV PCR for completion
- Trend Hgb with serial CBC, transfuse for goal Hgb > 7.0
- IV antibiotics as per ID
- Empiric IV PPI 40 mg BiD to further help mitigate nausea if superimposed esophagitis contributing to symptoms given multiple episodes of nausea/vomiting
- Patient unable to tolerate a prep at this time. If no symptom improvement over next 24 hrs, will consider flex-sig later this week but ideally would like to pursue a full, complete colonoscopy if able to tolerate a prep
- Low threshold to repeat CT Abd/pelvis if ongoing / worsening abdominal pain or other concern for clinical decompensation
- Eliquis on hold for possible procedures and bloody stools
- Continue IVF as needed to maintain euvolemia, avoid periods of hypotension, maintain MAPs > 65
- Anti-emetics PRN for nausea
- Favor limiting narcotics / opioids as much as possible as may worsen / rebound abdominal pain and concern for pain-seeking behavior
- Recommend standing acetaminophen 1000 mg q 6 hrs for baseline pain control
- Strict avoidance of all NSAIDs
- Rest of care per primary team
Discussed with internal medicine team this afternoon.
Jeovany Mccarty, DO
Subjective
Subjective
Date of Service: December 27, 2023
Episode of vomiting overnight, otherwise no acute events overnight.
Still with persistent non-bloody, mucoid diarrhea with nausea and NBNB emesis. Still with some bilateral lower abdominal discomfort but denies any worsening symptoms. No fevers, chills or other constitutional symptoms. Does note a prior hx of CMV
colitis in 2016 (one year out after her kidney transplant) which was diagnosed via CMV PCR. Has had prior EGD and Colonoscopies in the past several years ago (unable to view records) which were unrevealing. Does note a personal history of IBS.
Objective
Data Reviewed
Laboratory Data:
Laboratory Results
12/27/23 06:00
12/27/23 06:00
Laboratory Results
Magnesium 1.6 mg/dl (1.6-2.3) 12/27/23 06:00
Total Bilirubin 0.5 mg/dl (0.2-1.3) 12/25/23 07:29
AST 24 U/L (14-36) 12/25/23 07:29
ALT 15 U/L (0-35) 12/25/23 07:29
Alkaline Phosphatase 72 U/L (38-126) 12/25/23 07:29
Lipase 140 U/L (23-300) 12/25/23 07:29
Vital Signs and I&O:
Vital Signs
Temp Pulse Resp BP Pulse Ox
98 F 110 17 178/121 98
12/27/23 12:23 12/27/23 16:23 12/27/23 12:23 12/27/23 16:23 12/27/23 12:23
I&O
12/26/23 12/27/23 12/28/23
06:59 06:59 06:59
Intake Total 1320 / 1320 2089 / 2089
Output Total 400 / 400 1650 / 1650
Balance 920 / 920 440 / 440
Physical Exam
Physical Exam
HEENT: Anicteric and Moist mucous membranes
Cardiology: Normal Sinus Rhythm
Pulmonary: Clear
GI: Non Distended, Flat, Tender and Other (Bilateral lower quadrant and epigastric tenderness without rebound or involuntary guarding)
Extremities: Warm
Neuro: Non Focal
[2023-12-27] MEDS: LOVENOX 40 MG SC (18:35)
[2023-12-27] MEDS: ZESTRIL 10 MG PO (21:01)
[2023-12-27] MEDS: SINGULAIR 10 MG PO (21:01)
[2023-12-27] MEDS: PRAVACHOL 20 MG PO (21:06)
[2023-12-28] MEDS: DILAUDID 1 MG IV ×5 (03:44→20:04)
[2023-12-28 04:12] VITALS: BP 128/75
[2023-12-28] MEDS: STERILE WATER FOR INJECTION 10 ML IV ×3 (05:07→21:05)
[2023-12-28] MEDS: MAXIPIME 1000 MG IV ×3 (05:07→21:04)
[2023-12-28] MEDS: NSS 1000 IV ×2 (05:09→19:30)
[2023-12-28 05:55] LABS: % Basophils 0.5 % (0-2); % Eosinophils 1.5 % (0-6); % Immature Granulocytes 0.3 % (0-0.5); % Lymphocytes 24.1 % (20.5-51.1); % Monocytes 10.5 % (1.7-9.3); % Neutrophils 63.1 % (42.2-75.2); Absolute Eosinophils 0.1 10^3/uL (0-0.7); Absolute Lymphocytes 1.5 10^3/uL (1.2-3.4); Absolute Monocytes 0.6 10^3/uL (0.1-0.6); Absolute Neutrophils 3.9 10^3/uL (1.4-6.5); Hematocrit 28.7 % (37.0-47.0); Hemoglobin 9.8 g/dL (12.0-16.0); Mean Corp Hgb Conc. 34.1 g/dL (33.0-37.0); Mean Corpuscular Hgb 29.1 pg (27.0-31.0); Mean Corpuscular Volume 85.2 fL (81.0-99.0); Nucleated Red Blood Cells % 0 %; Platelet Count 153 10^3/uL (130-400); Red Blood Cell Count 3.37 10^6/uL (4.20-5.40); Red Cell Dist. Width 14.4 % (11.5-14.5); White Blood Cell Count 6.1 10^3/uL (4.8-10.8)
--- NOTE | 2023-12-28 06:21 | PTCARENOTE ---
Patient had 30 beats VTACH at 0550. Heart rate went up to the 150`s. Patient stated she felt anxious. BP was 142/85 and HR returned to 83. Melvi INSPECTOR OPEN DIE made aware. Morning labs drawn. Awaiting new orders.
[2023-12-28] MEDS: NSS (PRESERVATIVE FREE) 0.25 ML IV ×3 (06:30→21:06)
[2023-12-28] MEDS: ATIVAN 0.5 MG IV ×3 (06:30→21:04)
[2023-12-28 06:44] LABS: Blood Urea Nitrogen 15 mg/dl (7-17); Carbon Dioxide 21 mmol/L (22-30); Chloride 105 mmol/L (98-107); Estimated Creatinine Clearance 61 ml/min; Glucose 107 mg/dl (70-99); Potassium 3.5 mmol/L (3.5-5.1); Sodium 134 mmol/L (135-145); eGFR 47.78
[2023-12-28 07:45] VITALS: BP 145/102
[2023-12-28] MEDS: PROTONIX IV 40 MG IV ×2 (08:26→20:05)
[2023-12-28] MEDS: CATAPRES 0.2 MG PO ×3 (08:26→21:05)
[2023-12-28] MEDS: NSS (PRESERVATIVE FREE) 10 ML IV ×2 (08:26→20:05)
[2023-12-28] MEDS: IMURAN 100 MG PO (08:26)
[2023-12-28] MEDS: ALDACTONE 25 MG PO (08:26)
[2023-12-28] MEDS: KCL 270 MEQ IV (08:27)
[2023-12-28] MEDS: SOLU-CORTEF 50 MG IV ×2 (08:27→15:36)
--- NOTE | 2023-12-28 09:08 | W.PN.HOSP.TC ---
Addendum entered and electronically signed by Joanie Knapp MD 12/28/23 12:22:
# Rectal bleed is related to/associated with/exacerbated by Eliquis.
Original Note:
Today's Communication/Plan
-
see A/P
Assessment / Plan
Assessment / Plan
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
anticoagulation with Eliquis, Asthma, GERD, Hypertension, Anxiety, History of UTI, History of urine retention, History of bilateral retinal detachment and ADHD; presented with severe abdominal pain. Patient then went to the bathroom and reported
that she passed green-colored stools and bloody clots per rectum, during which time her abdominal pain became worse.
CT AP:
1. MILD ACUTE COLITIS involving the ascending, transverse, and descending colon.
2. Right lower quadrant renal transplant in place without complication.
3. Severe atrophy of the [place] kidneys.
4. Previous cholecystectomy.'
A/P:
# Severe Abdominal Pain with BRBPR
# Immunocompromised State on Chronic Prednisone, Azathioprine and Belatacept
CT AP results as above with colitis
C. diff/Norovirus neg, stool ova and parasite negative, pending stool culture
Cont empiric cefepime 1g IV q8h. Off PO Vancomycin. No need for anaerobic coverage with Flagyl per ID.
Planning for C scope per GI, timing TBD (when N/V improved) vs Flex sigmoidoscopy
Cont current IV Dilaudid 1 mg Q4H for pain control per pt request
Adjusted Tylenol to 1g Q12H ATC with 650 mg PRN
GI on board / ID on board
d/w GI, recc to check CMV serology titer (although felt less likely)
# Hypokalemia
# hypomagnesemia
replete lytes
# Hypertension on multiple medications
Labile Blood Pressure
Cont DRAWER UPFITTER Clonidine, Lisinopril, Spironolactone with holding parameter
DRAWER UPFITTER Coreg on hold, IV labetalol PRN for BP control
Continue to monitor BP
# CKD Stage 3
# Kidney transplant 2015 at [place] (due to FSGS)
# Immunocompromised State on Chronic Prednisone, Azathioprine and Belatacept
# Normocytic Anemia
IV Hydrocortisone in the place of PO Prednisone given patient cannot tolerate PO
Continue patient's home PO Azathioprine
Patient said she last got her Belatacept infusion about 1 to 2 weeks DRAWER UPFITTER
Renal on board
Patient's transplant physician is Caryn Millan MD at [facility], phone number [phone]
If patient needs any blood transfusion, will likely need CMV Negative, Irradiated and Leukoreduced PRBCs (but please let on-call hematology and patient's transplant physician know if patient needs PRBCs)
# History of CMV colitis
# History of rising EBV titers
# Recurrent DVT, PE with Factor V Leiden mutation on permanent anticoagulation with Eliquis
DRAWER UPFITTER Eliquis on hold due to bleeding per rectum
use Lovenox 40 mg SQ daily until Hgb stable.
Hematology on board
# Asthma
# GERD
# Anxiety
IV Ativan in place of DRAWER UPFITTER PO Xanax
# History of UTI
# History of urine retention
# History of bilateral retinal detachment
# ADHD
DVT PPx: Lovenox SQ
Code Status: Full Code
Anticipated Discharge: > 48 hours
Subjective/Interval History
-
Date of Service: December 28, 2023
Objective Data
-
Labs:
Laboratory Results
12/28/23 12/28/23
05:38 05:39
WBC 6.1
Hgb 9.8 L
Hct 28.7 L
Plt Count 153
Sodium 134 L
Potassium 3.5
Chloride 105
Carbon Dioxide 21 L
BUN 15
Creatinine 1.5 H
Glucose 107 H
Calcium 9.0
Vital Signs:
Vital Signs
Temp Pulse Resp BP Pulse Ox
36.6 C 99 21 145/102 98
12/28/23 07:45 12/28/23 07:45 12/28/23 07:45 12/28/23 07:45 12/28/23 07:45
I&O
12/27/23 12/28/23 12/29/23
06:59 06:59 06:59
Intake Total 2089 / 2089 960 / 960
Output Total 0 / 0
Balance 440 / 440 960 / 960
Review of Systems
-
Abdomen/GI: Reports Abdominal Pain (improved), Nausea (improved) and Vomiting (improved)
Physical Exam
-
General: Well Developed, Well Nourished and Conversant
HEENT: Oxygen (1L NC during sleep)
Respiratory: Clear to Auscultation and Non Labored Respirations; Negative Accessory Resp Muscle Use
Cardiac: Regular Rhythm, S1/S2 and Tachycardic (mild in low 100s)
GI: Soft, Nondistended and Tender (diffuse but improved )
Neuro: Awake and Alert
Psych: Calm and Intact Judgement/Insight
Data Reviewed
-
CT Scan: Report Reviewed by me
Labs: Labs Reviewed by me
[2023-12-28] MEDS: TYLENOL 1000 MG PO ×2 (10:04→21:05)
--- NOTE | 2023-12-28 10:34 | CM ---
Plan is to home when stable, no needs.
Plan; Home no needs when stable.
[2023-12-28 11:10] VITALS: BP 128/87
--- NOTE | 2023-12-28 11:53 | PN.CDI ---
CDI
- -
CDI:
Physician Documentation Request
Admit Date: 12/25/23 12:11
Dear Doctor Ra,
Please review the following and provide your response in the progress notes.
Clinical Indicators:
Pt admitted with Sever abdominal pain with bright red blood per rectum and colitis.
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
Please clarify the relationship between these conditions:
Rectal bleed is related to/associated with/exacerbated by Eliquis.
Rectal bleed is not related to/associated with/exacerbated by Eliquis.
Other
Use of terms such as suspected, likely, concern for, or probable (associated with a specific diagnosis that is being evaluated, monitored, or treated as if it exists) are acceptable and can be coded in the inpatient setting, when documented at the
time of discharge.
Thank you,
Sabina Seay RN, BSN
CDI Specialist
Available via [facility] text
Please use your independent medical judgment in providing your response.
--- NOTE | 2023-12-28 12:21 | W.PN.NEPH.PH ---
Today's Communication / Plan
-
follow BMP
Assessment/Plan
-
Impression:
Abdominal pain with possible underlying colitis
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
History of multidrug-resistant
History of CMV colitis
Chronic kidney disease stage IIIb with baseline creatinine of 1.6
History of EBV
History of anxiety
History of asthma
Thrombophilia with history of factor V Leiden mutation: on chronic eliquis
Anemia
Plan:
continue HC 50mg BID today
BP ok today, holding coreg still
follow BMP
for colonoscopy
-
-
Date of Service: December 28, 2023
CC / HPI / ROS
-
Chief Complaint:
Renal transplant
History of Present Illness:
Creatinine remained stable 1.5
Hemodynamically stable
Remains on IV hydrocortisone 50 mg IV every 8 for immunosuppression
Hgb low 9.0
toelrating clears
Review of Systems:
abdominal pain still, no vomiting though
No fevers
Nonoliguric
c/o dysuria
Labs
-
Labs:
WBC 6.1 10^3/uL (4.8-10.8) 12/28/23 05:38
RBC 3.37 10^6/uL (4.20-5.40) L 12/28/23 05:38
Hgb 9.8 g/dL (12.0-16.0) L 12/28/23 05:38
Hct 28.7 % (37.0-47.0) L 12/28/23 05:38
Plt Count 153 10^3/uL (130-400) 12/28/23 05:38
Sodium 134 mmol/L (135-145) L 12/28/23 05:39
Potassium 3.5 mmol/L (3.5-5.1) 12/28/23 05:39
Chloride 105 mmol/L (98-107) 12/28/23 05:39
Carbon Dioxide 21 mmol/L (22-30) L 12/28/23 05:39
BUN 15 mg/dl (7-17) 12/28/23 05:39
Creatinine 1.5 mg/dL (0.6-1.0) H 12/28/23 05:39
eGFR 47.78 12/28/23 05:39
Glucose 107 mg/dl (70-99) H 12/28/23 05:39
Calcium 9.0 mg/dl (8.4-10.2) 12/28/23 05:39
Albumin 4.3 g/dl (3.5-5.0) 12/25/23 07:29
Physical Exam
-
Vital Signs:
Vital Signs
Temp Pulse Resp BP Pulse Ox
98.8 F 76 20 128/87 98
12/28/23 11:10 12/28/23 11:10 12/28/23 11:10 12/28/23 11:10 12/28/23 07:45
Cardiovascular:: Regular rate and rhythm
Respiratory:: Bilateral: Coarse
Lung Excursion:: Normal
Abdomen:: Nontender and Soft
Bowel Sounds:: Normal
Extremity Edema:: None: Bilateral:
--- NOTE | 2023-12-28 12:42 | W.PN.GI.CBS2 ---
Today's Communication / Plan
-
Plan for flex-sig tomorrow, 12/29/2023. See note as below for complete recommendations.
Assessment / Plan
-
Preeti is a 28-year-old female with h/o HTN, FSGS s/p renal transplant in 2014, history of CMV colitis in 2015, recurrent DVT/PE with factor V Leiden mutation on Eliquis who presents with severe abdominal pain and bloody stools.
#Acute Pancolitis
#Leukocytosis- Improving
#Fevers- Resolved
#Hx of CMV colitis (in 2015)
#Hx of Renal Txp (2014)
#Chronic Immunosuppression (on AZA, Belatacept, and Prednisone)
#Factor V Leiden Mutation (on chronic a/c)
Impression: Patient presenting with acute onset of severe abdominal pain with loose watery bowel movements with blood clots and maroon colored stools. CT on admission revealed mild acute colitis involving the ascending, transverse and descending
colon. Prior hx of CMV colitis in 2016 (one year after kidney transplant for FSGS) which was diagnosed via CMV PCR and has not had recurrence. However, she is still chronically immunosuppressed with her regimen including AZA, chronic prednisone and
belatacept. Infectious stool studies thus far negative including C Diff along with O&P and Norovirus. Although she is almost 10 years out from her kidney transplant, still at risk for CMV colitis given her chronic immunosuppression. Possible
infectious and superimposed ischemic colitis could also explain her presentation as well. Doubt IBD at this time but would still benefit from an endoscopic evaluation for further evaluation and r/o CMV colitis.
Recommendations:
- Continue CLD, keep NPO at MN
- Continue aggressive electrolyte repletion, K > 4.0 and Mg > 2.0
- Check serum CMV PCR for completion- pending
- Trend Hgb with serial CBC, transfuse for goal Hgb > 7.0
- IV antibiotics as per ID, favor continuing given improvement and downtrending leukocytosis
- Empiric IV PPI 40 mg BiD to further help mitigate nausea if superimposed esophagitis contributing to symptoms given multiple episodes of nausea/vomiting
- Given poor p.o intake and ongoing nausea, would be unable to tolerate a full prep
- Plan for flex-sig tomorrow, 12/29/2023, for further evaluation with biopsies to assess for potential CMV colitis. Will give two tap water enemas one-to-two hours prior to procedure
- Agree with holding eliquis prior to flex-sig
- Continue IVF as needed to maintain euvolemia, avoid periods of hypotension, maintain MAPs > 65
- Anti-emetics PRN for nausea
- Favor limiting narcotics / opioids as much as possible
- Recommend standing acetaminophen 1000 mg q 6 hrs for baseline pain control
- Strict avoidance of all NSAIDs
- Rest of care per primary team
Discussed with internal medicine team this morning.
Subjective
Subjective
Date of Service: December 28, 2023
No acute events overnight, remains afebrile and HD-stable
Reports feeling better this morning, less abdominal pain and without any further bloody or loose stools. Passing gas without any recent BM. Less distension with intermittent cramping but no pain. Otherwise, no fevers, chills or other constitutional
symptoms. Discussed risks and benefits this morning regarding plan to pursuing flex-sig tomorrow for further evaluation.
Objective
Data Reviewed
Laboratory Data:
Laboratory Results
12/28/23 05:38
12/28/23 05:39
Laboratory Results
Magnesium 2.0 mg/dl (1.6-2.3) 12/28/23 05:39
Total Bilirubin 0.5 mg/dl (0.2-1.3) 12/25/23 07:29
AST 24 U/L (14-36) 12/25/23 07:29
ALT 15 U/L (0-35) 12/25/23 07:29
Alkaline Phosphatase 72 U/L (38-126) 12/25/23 07:29
Lipase 140 U/L (23-300) 12/25/23 07:29
Vital Signs and I&O:
Vital Signs
Temp Pulse Resp BP Pulse Ox
98.8 F 76 20 128/87 98
12/28/23 11:10 12/28/23 11:10 12/28/23 11:10 12/28/23 11:10 12/28/23 07:45
I&O
12/27/23 12/28/23 12/29/23
06:59 06:59 06:59
Intake Total 2089 / 2089 960 / 960
Output Total 1650 / 1650
Balance 440 / 440 960 / 960
Physical Exam
Physical Exam
HEENT: Anicteric
Cardiology: Normal Sinus Rhythm
Pulmonary: Clear
GI: Soft, Non Distended and Non Tender
Extremities: No Edema
Neuro: Non Focal
--- NOTE | 2023-12-28 12:52 | W.PN.ID1 ---
Date of Service
Date of Service: December 28, 2023
Today's Communication
Continue cefepime for now.
Assessment / Plan
Immunosuppressed host hx renal txp 2014 on Imuran, prednisone, Belatacept.
# Colitis with bloody stool
# leukocytosis resolved
# Fever x1 resolved
- Stool no wbc, C. diff neg, O+P neg, norovirus neg, stool cx neg. Shigatoxin pending.
-Unlikely CMV colitis; renal txp was nine yrs ago. Need colon biopsy for diagnosis.
- ?possible ischemic colitis with reperfusion injury - pt reports hypotension x 1.5 weeks, now hypertensive
-For flex sig tomorrow.
-Continue empiric cefepime 1g IV q8h (d4) pending final stool cx/studies
# Factor V Leiden mutation on anticoagulation
# Conditions RESOLUTE PROFESSIONAL
FSGS, History of renal transplant 2015 on Imuran, prednisone, monthly belatacept
hx CMV colitis 2016
DVT/PE, factor V Leiden mutation on Eliquis
Hypertension
Asthma
CKD3
Anxiety
ADHD
Bipolar d/o
IBS
Hemorrhoids
bilateral retinal detachment
Cholecystectomy
Hernia repair
Chief Complaint
-: Other (blood in stool)
Subjective / Review of Systems
No further emesis.
+ diarrhea, no more bloody stool.
Abd pain improving with dilaudid.
Vital Signs / Physical Exam
Vital Signs
Vital Signs
Temp Pulse Resp BP Pulse Ox
98.8 F 76 20 128/87 98
12/28/23 11:10 12/28/23 11:10 12/28/23 11:10 12/28/23 11:10 12/28/23 07:45
Physical Exam
Constitutional: Comfortable
Cardiovascular: Regular Rate and S1/S2
Pulmonary: Clear
Gastrointestinal: Soft, Tender and Non Distended
Neurological: AO x 3
Objective Data
Lab Data
Lab Results
12/28/23 05:38
12/28/23 05:39
Estimated Creat Clear 61 ml/min 12/28/23 05:39
Total Bilirubin 0.5 mg/dl (0.2-1.3) 12/25/23 07:29
AST 24 U/L (14-36) 12/25/23 07:29
ALT 15 U/L (0-35) 12/25/23 07:29
Alkaline Phosphatase 72 U/L (38-126) 12/25/23 07:29
Most recent labs reviewed.
Micro Results:
12/26/23 11:34 Salmonella/Shigella Culture - Final
Feces/Stool No Salmonella, Shigella, Aeromonas or Plesiomonas species
isolated.
Campylobacter Culture - Final
No Campylobacter species isolated.
Shiga Toxin Test - Pending
Stool Leukocytes - Final
12/26/23 11:34 Cryptosporidium/Giardia - Final
Feces/Stool Negative for Cryptosporidium and/or Giardia Lamblia
antigens.
C. difficile GDH Antigen & Toxins - Final
Negative for toxigenic C.difficile
- Final
Negative for Norovirus GI and GII.
12/25/23 CT a/p: MILD ACUTE COLITIS involving the ascending, transverse, and descending colon. Right lower quadrant renal transplant in place without complication.
[2023-12-28 15:27] VITALS: BP 139/69
[2023-12-28] MEDS: LOVENOX 40 MG SC (17:44)
[2023-12-28 19:34] VITALS: BP 130/83
[2023-12-28 20:24] VITALS: BP 139/93
[2023-12-28] MEDS: ZESTRIL 10 MG PO (21:05)
[2023-12-28] MEDS: PRAVACHOL 20 MG PO (21:05)
[2023-12-28] MEDS: SINGULAIR 10 MG PO (21:05)
[2023-12-29] VITALS (14 sets, daily range): BP systolic 16–171; BP diastolic 84–108
[2023-12-29] MEDS: DILAUDID 1 MG IV ×6 (00:08→21:48)
[2023-12-29 05:02] LABS: % Basophils 0.4 % (0-2); % Eosinophils 1.5 % (0-6); % Immature Granulocytes 0.2 % (0-0.5); % Lymphocytes 27.3 % (20.5-51.1); % Monocytes 9.6 % (1.7-9.3); Absolute Eosinophils 0.1 10^3/uL (0-0.7); Absolute Lymphocytes 1.5 10^3/uL (1.2-3.4); Absolute Monocytes 0.5 10^3/uL (0.1-0.6); Absolute Neutrophils 3.3 10^3/uL (1.4-6.5); Hematocrit 28.5 % (37.0-47.0); Hemoglobin 9.6 g/dL (12.0-16.0); Mean Corp Hgb Conc. 33.7 g/dL (33.0-37.0); Mean Corpuscular Hgb 29.7 pg (27.0-31.0); Mean Corpuscular Volume 88.2 fL (81.0-99.0); Nucleated Red Blood Cells % 0 %; Platelet Count 143 10^3/uL (130-400); Red Blood Cell Count 3.23 10^6/uL (4.20-5.40); Red Cell Dist. Width 13.9 % (11.5-14.5); White Blood Cell Count 5.3 10^3/uL (4.8-10.8)
[2023-12-29 05:24] LABS: Blood Urea Nitrogen 12 mg/dl (7-17); Carbon Dioxide 19 mmol/L (22-30); Chloride 107 mmol/L (98-107); Estimated Creatinine Clearance 65 ml/min; Glucose 94 mg/dl (70-99); Magnesium 1.7 mg/dl (1.6-2.3); Potassium 3.8 mmol/L (3.5-5.1); Sodium 139 mmol/L (135-145)
[2023-12-29] MEDS: STERILE WATER FOR INJECTION 10 ML IV (06:08)
[2023-12-29] MEDS: MAXIPIME 1000 MG IV (06:08)
--- NOTE | 2023-12-29 08:29 | W.PN.HOSP.TC ---
Today's Communication/Plan
-
see A/P
Assessment / Plan
Assessment / Plan
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
anticoagulation with Eliquis, Asthma, GERD, Hypertension, Anxiety, History of UTI, History of urine retention, History of bilateral retinal detachment and ADHD; presented with severe abdominal pain. Patient then went to the bathroom and reported
that she passed green-colored stools and bloody clots per rectum, during which time her abdominal pain became worse.
CT AP:
1. MILD ACUTE COLITIS involving the ascending, transverse, and descending colon.
2. Right lower quadrant renal transplant in place without complication.
3. Severe atrophy of the [place] kidneys.
4. Previous cholecystectomy.'
A/P:
# Severe Abdominal Pain with BRBPR
# Immunocompromised State on Chronic Prednisone, Azathioprine and Belatacept
CT AP results as above with colitis
C. diff/Norovirus neg, stool ova and parasite negative, pending stool culture
Cont empiric cefepime 1g IV q8h. Off PO Vancomycin. No need for anaerobic coverage with Flagyl per ID.
For Flex sigmoidoscopy 12/28 (pt unlikely would be able to tolerate prep for C scope)
Cont current IV Dilaudid 1 mg Q4H for pain control per pt request
Adjusted Tylenol to 1g Q12H ATC with 650 mg PRN
GI on board / ID on board
checking CMV serology titer (although felt less likely)
# Hypokalemia
# hypomagnesemia
repleted lytes
# Hypertension on multiple medications
Labile Blood Pressure
Cont GROUND WATER CONTRACTOR Clonidine, Lisinopril, Spironolactone with holding parameter
GROUND WATER CONTRACTOR Coreg on hold, IV labetalol PRN for BP control
Continue to monitor BP
# CKD Stage 3
# Kidney transplant 2014 at [place] (due to FSGS)
# Immunocompromised State on Chronic Prednisone, Azathioprine and Belatacept
# Normocytic Anemia
IV Hydrocortisone in the place of PO Prednisone given patient cannot tolerate PO
Continue patient's home PO Azathioprine
Patient said she last got her Belatacept infusion about 1 to 2 weeks GROUND WATER CONTRACTOR
Renal on board
Patient's transplant physician is Caryn Millan MD at [facility], phone number [phone]
If patient needs any blood transfusion, will likely need CMV Negative, Irradiated and Leukoreduced PRBCs (but please let on-call hematology and patient's transplant physician know if patient needs PRBCs)
# History of CMV colitis
# History of rising EBV titers
# Recurrent DVT, PE with Factor V Leiden mutation on permanent anticoagulation with Eliquis
GROUND WATER CONTRACTOR Eliquis on hold due to bleeding per rectum
use Lovenox 40 mg SQ daily until Hgb stable.
Hematology on board
# Asthma
# GERD
# Anxiety
IV Ativan in place of GROUND WATER CONTRACTOR PO Xanax
# History of UTI
# History of urine retention
# History of bilateral retinal detachment
# ADHD
DVT PPx: Lovenox SQ
Code Status: Full Code
Anticipated Discharge: > 48 hours
Subjective/Interval History
-
Date of Service: December 29, 2023
Objective Data
-
Labs:
Laboratory Results
12/29/23
04:19
WBC 5.3
Hgb 9.6 L
Hct 28.5 L
Plt Count 143
Sodium 139
Potassium 3.8
Chloride 107
Carbon Dioxide 19 L
BUN 12
Creatinine 1.4 H
Glucose 94
Calcium 9.0
Vital Signs:
Vital Signs
Temp Pulse Resp BP Pulse Ox
36.9 C 91 21 171/102 100
12/29/23 07:50 12/29/23 07:50 12/29/23 07:50 12/29/23 07:50 12/29/23 07:50
I&O
12/28/23 12/29/23 12/30/23
06:59 06:59 06:59
Intake Total 2730 / 2730
Balance 2730 / 0
Review of Systems
-
Abdomen/GI: Reports Abdominal Pain (improved) and Nausea (improved); Denies Vomiting
Physical Exam
-
General: Well Developed, Well Nourished, No Apparent Distress and Conversant
Respiratory: Clear to Auscultation and Non Labored Respirations; Negative Accessory Resp Muscle Use
Cardiac: Regular Rhythm and S1/S2
GI: Soft, Nondistended and Tender (diffuse but improved )
Neuro: Awake and Alert
Psych: Calm and Intact Judgement/Insight
Data Reviewed
-
CT Scan: Report Reviewed by me
Labs: Labs Reviewed by me
[2023-12-29] MEDS: PROTONIX IV 40 MG IV ×2 (08:44→21:06)
[2023-12-29] MEDS: NSS (PRESERVATIVE FREE) 10 ML IV ×2 (08:45→21:05)
[2023-12-29] MEDS: SOLU-CORTEF 50 MG IV (08:54)
[2023-12-29] MEDS: NSS 1000 IV (09:03)
[2023-12-29] MEDS: ALDACTONE 25 MG PO (09:05)
[2023-12-29] MEDS: IMURAN 100 MG PO (09:05)
[2023-12-29] MEDS: CATAPRES 0.2 MG PO ×3 (09:05→21:07)
[2023-12-29] MEDS: NSS (PRESERVATIVE FREE) 0.25 ML IV ×2 (10:11→21:05)
[2023-12-29] MEDS: ATIVAN 0.5 MG IV ×2 (10:11→21:06)
--- NOTE | 2023-12-29 10:14 | W.PN.ID1 ---
Date of Service
Date of Service: December 29, 2023
Today's Communication
DC cefepime.
Assessment / Plan
Immunosuppressed host hx renal txp 2014 on Imuran, prednisone, Belatacept.
# Colitis with bloody stool
# leukocytosis resolved
# Fever x1 resolved
- ?possible ischemic colitis with reperfusion injury - pt reports hypotension x 1.5 weeks, now hypertensive
-Unlikely CMV colitis; renal txp was nine yrs ago. Need colon biopsy for diagnosis.
- Stool no wbc, C. diff neg, O+P neg, norovirus neg, stool cx neg. Shigatoxin neg.
-Discontinue cefepime 1g IV q8h (d5).
-For flex sig today.
# Factor V Leiden mutation on anticoagulation
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
FSGS, History of renal transplant 2014 on Imuran, prednisone, monthly belatacept
hx CMV colitis 2016
DVT/PE, factor V Leiden mutation on Eliquis
Hypertension
Asthma
CKD3
Anxiety
ADHD
Bipolar d/o
IBS
Hemorrhoids
bilateral retinal detachment
Cholecystectomy
Hernia repair
Chief Complaint
-: Other (blood in stool)
Subjective / Review of Systems
Anxious about flex sig today.
No further blood in stool.
Vital Signs / Physical Exam
Vital Signs
Vital Signs
Temp Pulse Resp BP Pulse Ox
98.5 F 91 21 171/102 100
12/29/23 07:50 12/29/23 07:50 12/29/23 07:50 12/29/23 07:50 12/29/23 07:50
Physical Exam
Constitutional: No Acute Distress and Comfortable
Cardiovascular: Regular Rate and S1/S2
Gastrointestinal: Soft and Tender (mild)
Extremities: Negative Edema
Neurological: AO x 3
Objective Data
Lab Data
Lab Results
12/29/23 04:19
12/29/23 04:19
Estimated Creat Clear 65 ml/min 12/29/23 04:19
Total Bilirubin 0.5 mg/dl (0.2-1.3) 12/25/23 07:29
AST 24 U/L (14-36) 12/25/23 07:29
ALT 15 U/L (0-35) 12/25/23 07:29
Alkaline Phosphatase 72 U/L (38-126) 12/25/23 07:29
Most recent labs reviewed.
Micro Results:
12/26/23 11:34 Salmonella/Shigella Culture - Final
Feces/Stool No Salmonella, Shigella, Aeromonas or Plesiomonas species
isolated.
Campylobacter Culture - Final
No Campylobacter species isolated.
Shiga Toxin Test - Final
No E. coli Shiga Toxin 1 or 2 detected.
Stool Leukocytes - Final
12/26/23 11:34 Cryptosporidium/Giardia - Final
Feces/Stool Negative for Cryptosporidium and/or Giardia Lamblia
antigens.
C. difficile GDH Antigen & Toxins - Final
Negative for toxigenic C.difficile
- Final
Negative for Norovirus GI and GII.
12/25/23 CT a/p: MILD ACUTE COLITIS involving the ascending, transverse, and descending colon. Right lower quadrant renal transplant in place without complication.
--- NOTE | 2023-12-29 10:46 | W.PN.NEPH.PH ---
Today's Communication / Plan
-
reduce HC
Assessment/Plan
-
Impression:
Abdominal pain with possible underlying colitis
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
History of multidrug-resistant
History of CMV colitis
Chronic kidney disease stage IIIb with baseline creatinine of 1.6
History of EBV
History of anxiety
History of asthma
Thrombophilia with history of factor V Leiden mutation: on chronic eliquis
Anemia
Plan:
plan for HC 50mg IV x 1 today, 25mg IV x 1 tomorrow, then back to pred 5mg po daily
holding coreg still
follow BMP
for colonoscopy or flex sig
-
-
Date of Service: December 29, 2023
CC / HPI / ROS
-
Chief Complaint:
Renal transplant
History of Present Illness:
Creatinine remained stable 1.54
Hemodynamically stable
Remains on IV hydrocortisone for immunosuppression
Hgb low 9.6 stable
Review of Systems:
abdominal pain still, no vomiting though
No fevers
Nonoliguric
anxious
Labs
-
Labs:
WBC 5.3 10^3/uL (4.8-10.8) 12/29/23 04:19
RBC 3.23 10^6/uL (4.20-5.40) L 12/29/23 04:19
Hgb 9.6 g/dL (12.0-16.0) L 12/29/23 04:19
Hct 28.5 % (37.0-47.0) L 12/29/23 04:19
Plt Count 143 10^3/uL (130-400) 12/29/23 04:19
Sodium 139 mmol/L (135-145) 12/29/23 04:19
Potassium 3.8 mmol/L (3.5-5.1) 12/29/23 04:19
Chloride 107 mmol/L (98-107) 12/29/23 04:19
Carbon Dioxide 19 mmol/L (22-30) L 12/29/23 04:19
BUN 12 mg/dl (7-17) 12/29/23 04:19
Creatinine 1.4 mg/dL (0.6-1.0) H 12/29/23 04:19
eGFR 51.90 12/29/23 04:19
Glucose 94 mg/dl (70-99) 12/29/23 04:19
Calcium 9.0 mg/dl (8.4-10.2) 12/29/23 04:19
Albumin 4.3 g/dl (3.5-5.0) 12/25/23 07:29
Physical Exam
-
Vital Signs:
Vital Signs
Temp Pulse Resp BP Pulse Ox
98.5 F 91 21 145/100 100
12/29/23 07:50 12/29/23 07:50 12/29/23 07:50 12/29/23 10:22 12/29/23 07:50
Cardiovascular:: Regular rate and rhythm
Respiratory:: Bilateral: Coarse
Lung Excursion:: Normal
Abdomen:: Nontender and Soft
Bowel Sounds:: Normal
Extremity Edema:: None: Bilateral:
[2023-12-29] MEDS: TYLENOL 1000 MG PO ×2 (10:47→21:06)
[2023-12-29] MEDS: TRANDATE 5 MG IV (11:16)
--- NOTE | 2023-12-29 14:24 | CM ---
cont iv cefepime,flex sig today,cont iv dilaudid/op tylenol for pain,monitor hgb.Plan:home with no needs.
[2023-12-29] MEDS: ATIVAN 1 MG IV (16:03)
[2023-12-29] MEDS: NSS (PRESERVATIVE FREE) 0.5 ML IV (16:04)
[2023-12-29] MEDS: LOVENOX 40 MG SC (17:47)
[2023-12-29] MEDS: SINGULAIR 10 MG PO (21:06)
[2023-12-29] MEDS: ZESTRIL 10 MG PO (21:06)
[2023-12-29] MEDS: PRAVACHOL 20 MG PO (21:07)
[2023-12-30] MEDS: NSS 1000 IV (01:05)
[2023-12-30] MEDS: DILAUDID 1 MG IV ×6 (02:03→23:22)
[2023-12-30 02:42] VITALS: BP 138/88
--- NOTE | 2023-12-30 04:51 | PTCARENOTE ---
Patient had two episodes of nonsustained tachycardia in the 150`s lasting a few seconds and retuning to 70`s-80`s. See chart for vital signs. When patient assessed, she said that she felt anxious. Patient offered support. ldr rn GRANULATOR TENDER made aware. No
new orders. Call simons within reach.
[2023-12-30 06:44] LABS: % Basophils 0.7 % (0-2); % Immature Granulocytes 0.2 % (0-0.5); % Lymphocytes 36.9 % (20.5-51.1); % Monocytes 9.1 % (1.7-9.3); % Neutrophils 50.1 % (42.2-75.2); Absolute Eosinophils 0.1 10^3/uL (0-0.7); Absolute Lymphocytes 1.5 10^3/uL (1.2-3.4); Absolute Monocytes 0.4 10^3/uL (0.1-0.6); Hematocrit 27.4 % (37.0-47.0); Hemoglobin 9.4 g/dL (12.0-16.0); Mean Corp Hgb Conc. 34.3 g/dL (33.0-37.0); Mean Corpuscular Hgb 30.3 pg (27.0-31.0); Mean Corpuscular Volume 88.4 fL (81.0-99.0); Mean Platelet Volume 12.9 fL (7.4-10.4); Nucleated Red Blood Cells % 0 %; Platelet Count 134 10^3/uL (130-400); Red Cell Dist. Width 14.4 % (11.5-14.5); White Blood Cell Count 4.1 10^3/uL (4.8-10.8)
[2023-12-30 07:05] LABS: Blood Urea Nitrogen 10 mg/dl (7-17); Calcium 9.2 mg/dl (8.4-10.2); Carbon Dioxide 22 mmol/L (22-30); Chloride 108 mmol/L (98-107); Estimated Creatinine Clearance 70 ml/min; Glucose 93 mg/dl (70-99); Magnesium 1.4 mg/dl (1.6-2.3); Potassium 3.6 mmol/L (3.5-5.1); Sodium 139 mmol/L (135-145); eGFR 56.73
[2023-12-30 07:45] VITALS: BP 174/109
--- NOTE | 2023-12-30 08:13 | W.PN.HOSP.TC ---
Today's Communication/Plan
-
see A/P
DC further IVF
Assessment / Plan
Assessment / Plan
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
anticoagulation with Eliquis, Asthma, GERD, Hypertension, Anxiety, History of UTI, History of urine retention, History of bilateral retinal detachment and ADHD; presented with severe abdominal pain. Patient then went to the bathroom and reported
that she passed green-colored stools and bloody clots per rectum, during which time her abdominal pain became worse.
CT AP:
1. MILD ACUTE COLITIS involving the ascending, transverse, and descending colon.
2. Right lower quadrant renal transplant in place without complication.
3. Severe atrophy of the [place] kidneys.
4. Previous cholecystectomy.'
A/P:
# Severe Abdominal Pain with BRBPR
# Immunocompromised State on Chronic Prednisone, Azathioprine and Belatacept
CT AP results as above with colitis
C. diff/Norovirus neg, stool ova and parasite negative, stool culture negative
s/p cefepime 1g IV q8h (received 5 days). Off PO Vancomycin. No need for anaerobic coverage with Flagyl per ID.
s/p Flex sigmoidoscopy 12/28, result was unrevealing, healthy appearing mucosa without any endoscopic signs of inflammation. Biopsies of the right and left colon were performed.
Follow path report outpt
Cont current IV Dilaudid 1 mg Q4H for pain control per pt request
Adjusted Tylenol to 1g Q12H ATC with 650 mg PRN
GI on board / ID on board
Follow CMV serology titer (although felt less likely)
# Hypokalemia
# hypomagnesemia
replete lytes
# Hypertension on multiple medications
Labile Blood Pressure
Cont DOCTOR OF DENTAL MEDICINE Clonidine, Lisinopril, Spironolactone with holding parameter
DOCTOR OF DENTAL MEDICINE Coreg on hold, IV labetalol PRN for BP control
Continue to monitor BP
# CKD Stage 3
# Kidney transplant 2015 at [place] (due to FSGS)
# Immunocompromised State on Chronic Prednisone, Azathioprine and Belatacept
# Normocytic Anemia
IV Hydrocortisone in the place of PO Prednisone given patient cannot tolerate PO
Continue patient's home PO Azathioprine
Patient said she last got her Belatacept infusion about 1 to 2 weeks DOCTOR OF DENTAL MEDICINE
Renal on board
Patient's transplant physician is Caryn Millan MD at [facility], phone number [phone]
If patient needs any blood transfusion, will likely need CMV Negative, Irradiated and Leukoreduced PRBCs (but please let on-call hematology and patient's transplant physician know if patient needs PRBCs)
# History of CMV colitis
# History of rising EBV titers
# Recurrent DVT, PE with Factor V Leiden mutation on permanent anticoagulation with Eliquis
DOCTOR OF DENTAL MEDICINE Eliquis on hold due to bleeding per rectum
use Lovenox 40 mg SQ daily until Hgb stable.
Hematology on board
# Asthma
# GERD
# Anxiety
IV Ativan in place of DOCTOR OF DENTAL MEDICINE PO Xanax
# History of UTI
# History of urine retention
# History of bilateral retinal detachment
# ADHD
DVT PPx: Lovenox SQ
Code Status: Full Code
DW RN
Anticipated Discharge: 24 - 48 hours
Subjective/Interval History
-
Date of Service: December 30, 2023
Objective Data
-
Labs:
Laboratory Results
12/30/23
06:28
WBC 4.1 L
Hgb 9.4 L
Hct 27.4 L
Plt Count 134
Sodium 139
Potassium 3.6
Chloride 108 H
Carbon Dioxide 22
BUN 10
Creatinine 1.3 H
Glucose 93
Calcium 9.2
Vital Signs:
Vital Signs
Temp Pulse Resp BP Pulse Ox
36.7 C 80 21 174/109 99
12/30/23 07:45 12/30/23 07:45 12/30/23 07:45 12/30/23 07:45 12/30/23 07:45
I&O
12/29/23 12/30/23 12/31/23
06:59 06:59 06:59
Intake Total 2730 / 2730 240 / 240
Balance 2730 / 2730 240 / 240
Review of Systems
-
Abdomen/GI: Reports Abdominal Pain (improved) and Nausea (improved); Denies Vomiting
Physical Exam
-
General: Well Developed, Well Nourished, No Apparent Distress and Conversant
Respiratory: Clear to Auscultation and Non Labored Respirations; Negative Accessory Resp Muscle Use
Cardiac: Regular Rhythm and S1/S2
GI: Soft, Nondistended and Tender (diffuse but improved )
Neuro: Awake and Alert
Psych: Calm and Intact Judgement/Insight
Data Reviewed
-
CT Scan: Report Reviewed by me
Labs: Labs Reviewed by me
[2023-12-30] MEDS: ZOFRAN 4 MG IV (08:19)
[2023-12-30] MEDS: IMURAN 100 MG PO (08:24)
[2023-12-30] MEDS: SOLU-CORTEF 25 MG IV (08:24)
[2023-12-30] MEDS: CATAPRES 0.2 MG PO ×3 (08:25→21:07)
[2023-12-30] MEDS: ALDACTONE 25 MG PO (08:25)
[2023-12-30] MEDS: PROTONIX IV 40 MG IV ×2 (08:26→20:15)
[2023-12-30] MEDS: MAGNESIUM SULFATE 50 IV (08:27)
[2023-12-30] MEDS: NSS (PRESERVATIVE FREE) 10 ML IV ×2 (08:27→20:15)
[2023-12-30] MEDS: ATIVAN 0.5 MG IV ×2 (09:12→21:00)
[2023-12-30] MEDS: NSS (PRESERVATIVE FREE) 0.25 ML IV ×2 (09:13→22:15)
--- NOTE | 2023-12-30 10:29 | W.PN.ID1 ---
Date of Service
Date of Service: December 30, 2023
Today's Communication
Observe off abx.
ID will sign off. Pls call as needed.
Assessment / Plan
Immunosuppressed host hx renal txp 2014 on Imuran, prednisone, Belatacept.
# Colitis with bloody stool
# leukocytosis resolved
# Fever x1 resolved
- Stool no wbc, C. diff neg, O+P neg, norovirus neg, stool cx neg. Shigatoxin neg.
-Doubt CMV colitis; renal txp was nine yrs ago.
-12/29/23 s/p flex sig - no inflammation seen. Biopsies pending.
-s/p 5d cefepime, dc'd 12/28.
-Observe off abx.
ID will sign off. Call prn.
# Factor V Leiden mutation on anticoagulation
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
FSGS, History of renal transplant 2015 on Imuran, prednisone, monthly belatacept
hx CMV colitis 2016
DVT/PE, factor V Leiden mutation on Eliquis
Hypertension
Asthma
CKD3
Anxiety
ADHD
Bipolar d/o
IBS
Hemorrhoids
bilateral retinal detachment
Cholecystectomy
Hernia repair
Chief Complaint
-: Other (blood in stool)
Subjective / Review of Systems
Abdominal pain better.
Vital Signs / Physical Exam
Vital Signs
Vital Signs
Temp Pulse Resp BP Pulse Ox
98.1 F 80 21 174/109 99
12/30/23 07:45 12/30/23 07:45 12/30/23 07:45 12/30/23 07:45 12/30/23 07:45
Physical Exam
Constitutional: No Acute Distress
Gastrointestinal: Soft and Tender (mild diffuse)
Genito-Urinary: Negative CVA Tenderness
Extremities: Negative Edema
Objective Data
Lab Data
Lab Results
12/30/23 06:28
12/30/23 06:28
Estimated Creat Clear 70 ml/min 12/30/23 06:28
Total Bilirubin 0.5 mg/dl (0.2-1.3) 12/25/23 07:29
AST 24 U/L (14-36) 12/25/23 07:29
ALT 15 U/L (0-35) 12/25/23 07:29
Alkaline Phosphatase 72 U/L (38-126) 12/25/23 07:29
Most recent labs reviewed.
Micro Results:
12/26/23 11:34 Salmonella/Shigella Culture - Final
Feces/Stool No Salmonella, Shigella, Aeromonas or Plesiomonas species
isolated.
Campylobacter Culture - Final
No Campylobacter species isolated.
Shiga Toxin Test - Final
No E. coli Shiga Toxin 1 or 2 detected.
Stool Leukocytes - Final
12/26/23 11:34 Cryptosporidium/Giardia - Final
Feces/Stool Negative for Cryptosporidium and/or Giardia Lamblia
antigens.
C. difficile GDH Antigen & Toxins - Final
Negative for toxigenic C.difficile
- Final
Negative for Norovirus GI and GII.
12/25/23 CT a/p: MILD ACUTE COLITIS involving the ascending, transverse, and descending colon. Right lower quadrant renal transplant in place without complication.
[2023-12-30] MEDS: TYLENOL PO ×2 (11:01→22:15)
[2023-12-30] MEDS: NSS 500 IV (11:15)
[2023-12-30 11:27] VITALS: BP 153/103
--- NOTE | 2023-12-30 12:10 | W.PN.NEPH.PH ---
Today's Communication / Plan
-
Add back carvedilol
Decreasing hydrocortisone
Assessment/Plan
-
Impression:
Abdominal pain with possible underlying colitis
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
History of multidrug-resistant
History of CMV colitis
Chronic kidney disease stage IIIb with baseline creatinine of 1.6
History of EBV
History of anxiety
History of asthma
Thrombophilia with history of factor V Leiden mutation: on chronic eliquis
Anemia
Plan:
plan for HC , 25mg IV x 1 today then back to pred 5mg po daily tomorrow
Will add back carvedilol
follow BMP
Status post colonoscopy:negative findings
Creatinine stable at 1.3
-
-
Date of Service: December 30, 2023
CC / HPI / ROS
-
Chief Complaint:
Renal transplant
History of Present Illness:
Creatinine remained stable 1.3
Hemodynamically stable
Remains on IV hydrocortisone for immunosuppression
Hgb low 9.4 stable
Review of Systems:
abdominal pain still, no vomiting though
No fevers
Nonoliguric
anxious
Labs
-
Labs:
WBC 4.1 10^3/uL (4.8-10.8) L 12/30/23 06:28
RBC 3.10 10^6/uL (4.20-5.40) L 12/30/23 06:28
Hgb 9.4 g/dL (12.0-16.0) L 12/30/23 06:28
Hct 27.4 % (37.0-47.0) L 12/30/23 06:28
Plt Count 134 10^3/uL (130-400) 12/30/23 06:28
Sodium 139 mmol/L (135-145) 12/30/23 06:28
Potassium 3.6 mmol/L (3.5-5.1) 12/30/23 06:28
Chloride 108 mmol/L (98-107) H 12/30/23 06:28
Carbon Dioxide 22 mmol/L (22-30) 12/30/23 06:28
BUN 10 mg/dl (7-17) 12/30/23 06:28
Creatinine 1.3 mg/dL (0.6-1.0) H 12/30/23 06:28
eGFR 56.73 12/30/23 06:28
Glucose 93 mg/dl (70-99) 12/30/23 06:28
Calcium 9.2 mg/dl (8.4-10.2) 12/30/23 06:28
Albumin 4.3 g/dl (3.5-5.0) 12/25/23 07:29
Physical Exam
-
Vital Signs:
Vital Signs
Temp Pulse Resp BP Pulse Ox
98.5 F 90 21 153/103 94
12/30/23 11:27 12/30/23 11:27 12/30/23 11:27 12/30/23 11:27 12/30/23 11:27
Cardiovascular:: Regular rate and rhythm
Respiratory:: Bilateral: Coarse
Lung Excursion:: Normal
Abdomen:: Nontender and Soft
Bowel Sounds:: Normal
Extremity Edema:: None: Bilateral:
[2023-12-30] MEDS: KCL 270 MEQ IV (14:19)
[2023-12-30] MEDS: TRANDATE 5 MG IV (15:27)
[2023-12-30 16:32] VITALS: BP 160/101
[2023-12-30] MEDS: ATIVAN 0.25 MG IV (17:02)
[2023-12-30] MEDS: NSS (PRESERVATIVE FREE) 0.125 ML IV (17:02)
[2023-12-30] MEDS: LOVENOX 40 MG SC (17:24)
[2023-12-30 20:06] VITALS: BP 149/93
[2023-12-30] MEDS: COREG 25 MG PO (20:15)
[2023-12-30] MEDS: ZESTRIL 10 MG PO (21:08)
[2023-12-30] MEDS: PRAVACHOL 20 MG PO (21:08)
[2023-12-30] MEDS: SINGULAIR 10 MG PO (21:08)
[2023-12-30 23:49] VITALS: BP 131/83
[2023-12-31 00:11] LABS: CMV Qnt NAAT Plasma Log IU/mL Not Detected log IU/mL; CMV Quant NAAT Plasma Interp Not Detected (Not Detected); CMV Quant by NAAT Plasma IU/mL Not Detected
[2023-12-31] MEDS: ZOFRAN 4 MG IV ×2 (02:05→13:42)
[2023-12-31] MEDS: DILAUDID 1 MG IV ×5 (03:25→20:51)
[2023-12-31 03:53] VITALS: BP 142/90
[2023-12-31 06:05] LABS: % Basophils 0.6 % (0-2); % Eosinophils 3.3 % (0-6); % Immature Granulocytes 0.2 % (0-0.5); % Lymphocytes 33.4 % (20.5-51.1); % Monocytes 8.9 % (1.7-9.3); % Neutrophils 53.6 % (42.2-75.2); Absolute Eosinophils 0.2 10^3/uL (0-0.7); Absolute Lymphocytes 1.6 10^3/uL (1.2-3.4); Absolute Monocytes 0.4 10^3/uL (0.1-0.6); Absolute Neutrophils 2.6 10^3/uL (1.4-6.5); Hemoglobin 9.4 g/dL (12.0-16.0); Mean Corp Hgb Conc. 34.8 g/dL (33.0-37.0); Mean Corpuscular Hgb 30.7 pg (27.0-31.0); Mean Corpuscular Volume 88.2 fL (81.0-99.0); Mean Platelet Volume 12.1 fL (7.4-10.4); Nucleated Red Blood Cells % 0 %; Platelet Count 144 10^3/uL (130-400); Red Blood Cell Count 3.06 10^6/uL (4.20-5.40); Red Cell Dist. Width 14.3 % (11.5-14.5); White Blood Cell Count 4.8 10^3/uL (4.8-10.8)
[2023-12-31 06:26] LABS: Blood Urea Nitrogen 9 mg/dl (7-17); Calcium 9.3 mg/dl (8.4-10.2); Carbon Dioxide 23 mmol/L (22-30); Chloride 105 mmol/L (98-107); Estimated Creatinine Clearance 70 ml/min; Glucose 100 mg/dl (70-99); Magnesium 1.6 mg/dl (1.6-2.3); Potassium 3.6 mmol/L (3.5-5.1); Sodium 139 mmol/L (135-145); eGFR 56.73
[2023-12-31 08:00] VITALS: BP 168/105
--- NOTE | 2023-12-31 08:05 | W.PN.HOSP.TC ---
Today's Communication/Plan
-
see A/P
Assessment / Plan
Assessment / Plan
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
anticoagulation with Eliquis, Asthma, GERD, Hypertension, Anxiety, History of UTI, History of urine retention, History of bilateral retinal detachment and ADHD; presented with severe abdominal pain. Patient then went to the bathroom and reported
that she passed green-colored stools and bloody clots per rectum, during which time her abdominal pain became worse.
CT AP:
1. MILD ACUTE COLITIS involving the ascending, transverse, and descending colon.
2. Right lower quadrant renal transplant in place without complication.
3. Severe atrophy of the [place] kidneys.
4. Previous cholecystectomy.'
A/P:
# Severe Abdominal Pain with BRBPR
# Immunocompromised State on Chronic Prednisone, Azathioprine and Belatacept
CT AP results as above with colitis
C. diff/Norovirus neg, stool ova and parasite negative, stool culture negative
s/p cefepime 1g IV q8h (received 4 days). Off PO Vancomycin. No need for anaerobic coverage with Flagyl per ID.
s/p Flex sigmoidoscopy 12/28, result was unrevealing: healthy appearing mucosa without any endoscopic signs of inflammation. Biopsies of the right and left colon were performed.
Follow path report outpt
Cont current IV Dilaudid 1 mg Q4H for pain control per pt request
Adjusted Tylenol to 1g Q12H ATC with 650 mg PRN
GI on board / ID on board
CMV serology titer negative
# Hypokalemia
# hypomagnesemia
replete lytes
# Hypertension on multiple medications
Labile Blood Pressure
Cont RESIDENTIAL ENERGY AUDITOR Clonidine, Lisinopril, Spironolactone, Coreg with holding parameter
IV labetalol PRN
Continue to monitor BP
# CKD Stage 3
# Kidney transplant 2015 at [place] (due to FSGS)
# Immunocompromised State on Chronic Prednisone, Azathioprine and Belatacept
# Normocytic Anemia
Off IV Hydrocortisone, resumed RESIDENTIAL ENERGY AUDITOR PO Prednisone
Continue patient's home PO Azathioprine
Patient said she last got her Belatacept infusion about 1 to 2 weeks RESIDENTIAL ENERGY AUDITOR
Renal on board
Patient's transplant physician is Caryn Millan MD at [facility], phone number [phone]
If patient needs any blood transfusion, will likely need CMV Negative, Irradiated and Leukoreduced PRBCs (but please let on-call hematology and patient's transplant physician know if patient needs PRBCs)
# History of CMV colitis
# History of rising EBV titers
CMV serology titer negative
# Recurrent DVT, PE with Factor V Leiden mutation on permanent anticoagulation with Eliquis
resume RESIDENTIAL ENERGY AUDITOR Eliquis,
DC further Lovenox 40 mg SQ
Hematology on board
# Asthma
# GERD
# Anxiety
resume RESIDENTIAL ENERGY AUDITOR PO Xanax
# History of UTI
# History of urine retention
# History of bilateral retinal detachment
# ADHD
DVT PPx: Lovenox SQ
Code Status: Full Code
DW RN
Anticipated Discharge: Within 24 hours
Subjective/Interval History
-
Date of Service: December 31, 2023
Objective Data
-
Labs:
Laboratory Results
12/31/23
05:39
WBC 4.8
Hgb 9.4 L
Hct 27.0 L
Plt Count 144
Sodium 139
Potassium 3.6
Chloride 105
Carbon Dioxide 23
BUN 9
Creatinine 1.3 H
Glucose 100 H
Calcium 9.3
Vital Signs:
Vital Signs
Temp Pulse Resp BP Pulse Ox
36.6 C 61 16 142/90 94
12/31/23 03:53 12/31/23 03:53 12/31/23 03:53 12/31/23 03:53 12/31/23 03:53
I&O
12/30/23 12/31/23 01/01/24
06:59 06:59 06:59
Intake Total 240 / 240 2245 / 2245
Output Total 1000 / 1000
Balance 240 / 240 1245 / 1245
[2023-12-31] MEDS: PROTONIX IV 40 MG IV ×2 (08:08→19:52)
[2023-12-31] MEDS: NSS (PRESERVATIVE FREE) 10 ML IV ×2 (08:09→19:52)
[2023-12-31] MEDS: IMURAN 100 MG PO (08:15)
[2023-12-31] MEDS: DELTASONE 5 MG PO (08:16)
[2023-12-31] MEDS: COREG 25 MG PO ×2 (08:17→19:52)
[2023-12-31] MEDS: ALDACTONE 25 MG PO (08:17)
[2023-12-31] MEDS: CATAPRES 0.2 MG PO ×3 (08:18→21:27)
[2023-12-31] MEDS: MAGNESIUM SULFATE 50 IV (09:23)
[2023-12-31] MEDS: KCL 270 MEQ IV (09:24)
[2023-12-31] MEDS: ELIQUIS 2.5 MG PO ×2 (09:26→19:51)
[2023-12-31] MEDS: TYLENOL PO ×2 (10:30→22:10)
[2023-12-31 11:30] VITALS: BP 150/103
[2023-12-31 15:35] VITALS: BP 162/105
[2023-12-31] MEDS: NSS 500 IV (16:07)
[2023-12-31] MEDS: XANAX 1 MG PO (17:37)
[2023-12-31 19:54] VITALS: BP 137/86
[2023-12-31] MEDS: ZESTRIL 10 MG PO (21:26)
[2023-12-31] MEDS: SINGULAIR 10 MG PO (21:26)
[2023-12-31] MEDS: PRAVACHOL 20 MG PO (21:27)
[2023-12-31 23:25] VITALS: BP 122/77
[2024-01-01] MEDS: DILAUDID 1 MG IV ×3 (01:23→10:06)
[2024-01-01 03:53] VITALS: BP 121/76
[2024-01-01 04:48] LABS: Blood Urea Nitrogen 11 mg/dl (7-17); Calcium 9.6 mg/dl (8.4-10.2); Carbon Dioxide 22 mmol/L (22-30); Chloride 104 mmol/L (98-107); Estimated Creatinine Clearance 65 ml/min; Glucose 106 mg/dl (70-99); Sodium 139 mmol/L (135-145)
[2024-01-01 04:53] LABS: % Basophils 0.7 % (0-2); % Eosinophils 2.7 % (0-6); % Immature Granulocytes 0.4 % (0-0.5); % Lymphocytes 31.9 % (20.5-51.1); % Monocytes 8.1 % (1.7-9.3); % Neutrophils 56.2 % (42.2-75.2); Absolute Eosinophils 0.2 10^3/uL (0-0.7); Absolute Lymphocytes 1.8 10^3/uL (1.2-3.4); Absolute Monocytes 0.5 10^3/uL (0.1-0.6); Absolute Neutrophils 3.1 10^3/uL (1.4-6.5); Hematocrit 28.2 % (37.0-47.0); Hemoglobin 9.7 g/dL (12.0-16.0); Mean Corp Hgb Conc. 34.4 g/dL (33.0-37.0); Mean Corpuscular Hgb 29.4 pg (27.0-31.0); Mean Corpuscular Volume 85.5 fL (81.0-99.0); Mean Platelet Volume 12.9 fL (7.4-10.4); Nucleated Red Blood Cells % 0 %; Platelet Count 187 10^3/uL (130-400); Red Cell Dist. Width 14.3 % (11.5-14.5); White Blood Cell Count 5.5 10^3/uL (4.8-10.8)
[2024-01-01] MEDS: ALDACTONE 25 MG PO (07:19)
[2024-01-01] MEDS: COREG 25 MG PO (07:19)
[2024-01-01] MEDS: CATAPRES 0.2 MG PO (07:19)
[2024-01-01] MEDS: PROTONIX IV 40 MG IV (07:20)
[2024-01-01] MEDS: IMURAN 100 MG PO (07:20)
[2024-01-01] MEDS: DELTASONE 5 MG PO (07:20)
[2024-01-01] MEDS: NSS (PRESERVATIVE FREE) 10 ML IV (07:20)
[2024-01-01] MEDS: ELIQUIS 2.5 MG PO (07:22)
[2024-01-01] MEDS: XANAX 1 MG PO (07:22)
[2024-01-01] MEDS: TYLENOL PO (07:35)
--- NOTE | 2024-01-01 08:47 | W.PN.HOSP.TC ---
Addendum entered and electronically signed by Joanie Knapp MD 01/01/24 13:14:
total DC time 40 min
Original Note:
Today's Communication/Plan
-
see A/P
Assessment / Plan
Assessment / Plan
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
anticoagulation with Eliquis, Asthma, GERD, Hypertension, Anxiety, History of UTI, History of urine retention, History of bilateral retinal detachment and ADHD; presented with severe abdominal pain. Patient then went to the bathroom and reported
that she passed green-colored stools and bloody clots per rectum, during which time her abdominal pain became worse.
CT AP:
1. MILD ACUTE COLITIS involving the ascending, transverse, and descending colon.
2. Right lower quadrant renal transplant in place without complication.
3. Severe atrophy of the [place] kidneys.
4. Previous cholecystectomy.'
A/P:
# Severe Abdominal Pain with BRBPR
# Immunocompromised State on Chronic Prednisone, Azathioprine and Belatacept
CT AP results as above with colitis
C. diff/Norovirus neg, stool ova and parasite negative, stool culture negative
s/p cefepime 1g IV q8h (received 4 days). Off PO Vancomycin. No need for anaerobic coverage with Flagyl per ID.
s/p Flex sigmoidoscopy 12/28, result was unrevealing: healthy appearing mucosa without any endoscopic signs of inflammation. Biopsies of the right and left colon were performed.
Follow path report outpt
Cont current IV Dilaudid 1 mg Q4H for pain control per pt request
Adjusted Tylenol to 1g Q12H ATC with 650 mg PRN
GI on board / ID on board
CMV serology titer negative
Psych CS for somatic disorder eval
# Hypokalemia
# hypomagnesemia
replete lytes
# Hypertension on multiple medications
Labile Blood Pressure
Cont ASSOCIATE PROFESSOR OF ART Clonidine, Lisinopril, Spironolactone, Coreg with holding parameter
IV labetalol PRN
Continue to monitor BP
# CKD Stage 3
# Kidney transplant 2015 at [place] (due to FSGS)
# Immunocompromised State on Chronic Prednisone, Azathioprine and Belatacept
# Normocytic Anemia
Off IV Hydrocortisone, resumed ASSOCIATE PROFESSOR OF ART PO Prednisone
Continue patient's home PO Azathioprine
Patient said she last got her Belatacept infusion about 1 to 2 weeks ASSOCIATE PROFESSOR OF ART
Renal on board
Patient's transplant physician is Caryn Millan MD at [facility], phone number [phone]
If patient needs any blood transfusion, will likely need CMV Negative, Irradiated and Leukoreduced PRBCs (but please let on-call hematology and patient's transplant physician know if patient needs PRBCs)
# History of CMV colitis
# History of rising EBV titers
CMV serology titer negative
# Recurrent DVT, PE with Factor V Leiden mutation on permanent anticoagulation with Eliquis
resumed ASSOCIATE PROFESSOR OF ART Eliquis,
Off Lovenox 40 mg SQ
Hematology on board
# Asthma
# GERD
# Anxiety
resumed ASSOCIATE PROFESSOR OF ART PO Xanax
Off IV Ativan
# History of UTI
# History of urine retention
# History of bilateral retinal detachment
# ADHD
DVT PPx: Lovenox SQ
Code Status: Full Code
DW RN
Anticipated Discharge: Within 24 hours
Subjective/Interval History
-
Date of Service: January 01, 2024
Objective Data
-
Labs:
Laboratory Results
01/01/24
04:05
WBC 5.5
Hgb 9.7 L
Hct 28.2 L
Plt Count 187 D
Sodium 139
Potassium 4.0
Chloride 104
Carbon Dioxide 22
BUN 11
Creatinine 1.4 H
Glucose 106 H
Calcium 9.6
Vital Signs:
Vital Signs
Temp Pulse Resp BP Pulse Ox
36.3 C 75 16 121/76 98
01/01/24 07:58 01/01/24 07:58 01/01/24 07:58 01/01/24 03:53 01/01/24 07:58
I&O
12/31/23 01/01/24 01/02/24
06:59 06:59 06:59
Intake Total 2245 / 2245 1200 / 1200
Output Total 1000 / 1000
Balance 1245 / 1245 1200 / 1200
Review of Systems
-
Abdomen/GI: Reports Abdominal Pain (improved) and Nausea (improved); Denies Vomiting
Physical Exam
-
General: Well Developed, Well Nourished, No Apparent Distress and Conversant
Respiratory: Clear to Auscultation and Non Labored Respirations; Negative Accessory Resp Muscle Use
Cardiac: Regular Rhythm and S1/S2
GI: Soft, Nondistended and Tender (diffuse but improved )
Neuro: Awake and Alert
Psych: Calm and Intact Judgement/Insight
Data Reviewed
-
CT Scan: Report Reviewed by me
Labs: Labs Reviewed by me
--- NOTE | 2024-01-01 10:56 | W.PN.UPDATE ---
Update Note
Progress Note Update
Psychiatric consultation dictated.
Patient reports anxiety which she agrees makes her physical symptoms worse. She sees Dr. Mohamud on OP basis ; he recency prescribed Viibryd but she has not started it yet. She also sees a therapist at [facility]. Previously was on numerous
antidepressant/antianxiety meds but did not respond or had side effects. Xanax that she takes now helps somewhat but of course tolerance can develop.
Denies significant depression, hopelessness or suicidal thoughts.
Discussed treatment options with her. I would continue the OP treatment.
Viibryd is not on formulary at but as she is being discharged she will start it at home and F/U with Dr. Mohamud and her therapist.
[2024-01-01] MEDS: NSS 500 IV (11:09)
[2024-01-01 11:26] VITALS: BP 120/74
--- NOTE | 2024-01-01 12:29 | W.PN.NEPH.PH ---
Today's Communication / Plan
-
Stable for discharge
Assessment/Plan
-
Impression:
Abdominal pain with possible underlying colitis
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
History of multidrug-resistant
History of CMV colitis
Chronic kidney disease stage IIIb with baseline creatinine of 1.6
History of EBV
History of anxiety
History of asthma
Thrombophilia with history of factor V Leiden mutation: on chronic eliquis
Anemia
Plan:
Now back on prednisone outpatient dose
Will add back carvedilol
Status post colonoscopy:negative findings
Creatinine stable at 1.4
For discharge today
-
-
Date of Service: January 01, 2024
CC / HPI / ROS
-
Chief Complaint:
Renal transplant
History of Present Illness:
Creatinine remained stable 1.4
Hemodynamically stable
Back on oral prednisone
Hgb low 9.7 stable
Review of Systems:
abdominal improving,
No fevers
Nonoliguric
Labs
-
Labs:
WBC 5.5 10^3/uL (4.8-10.8) 01/01/24 04:05
RBC 3.30 10^6/uL (4.20-5.40) L 01/01/24 04:05
Hgb 9.7 g/dL (12.0-16.0) L 01/01/24 04:05
Hct 28.2 % (37.0-47.0) L 01/01/24 04:05
Plt Count 187 10^3/uL (130-400) D 01/01/24 04:05
Sodium 139 mmol/L (135-145) 01/01/24 04:05
Potassium 4.0 mmol/L (3.5-5.1) 01/01/24 04:05
Chloride 104 mmol/L (98-107) 01/01/24 04:05
Carbon Dioxide 22 mmol/L (22-30) 01/01/24 04:05
BUN 11 mg/dl (7-17) 01/01/24 04:05
Creatinine 1.4 mg/dL (0.6-1.0) H 01/01/24 04:05
eGFR 51.90 01/01/24 04:05
Glucose 106 mg/dl (70-99) H 01/01/24 04:05
Calcium 9.6 mg/dl (8.4-10.2) 01/01/24 04:05
Albumin 4.3 g/dl (3.5-5.0) 12/25/23 07:29
Physical Exam
-
Vital Signs:
Vital Signs
Temp Pulse Resp BP Pulse Ox
98.3 F 73 20 120/74 97
01/01/24 11:26 01/01/24 11:26 01/01/24 11:26 01/01/24 11:26 01/01/24 11:26
Cardiovascular:: Regular rate and rhythm
Respiratory:: Bilateral: Coarse
Lung Excursion:: Normal
Abdomen:: Nontender and Soft
Bowel Sounds:: Normal
Extremity Edema:: None: Bilateral:
--- NOTE | 2024-01-01 13:04 | W.DCSUMMARY ---
Discharge Summary
Discharge Data
Date of Admission: 12/25/23
Date of Discharge: 01/01/24
-
Pending Results: No
Hospital Course
Principal Diagnosis:
Abdominal pain, nausea, vomiting, and bloody bowel movement, likely due acute gastroenteritis
Hypokalemia and hypomagnesemia due to diarrhea
Chronic Diagnoses:�
CKD Stage 3
Kidney transplant 2015 at [place] (due to FSGS)
Immunocompromised State on Chronic Prednisone, Azathioprine and Belatacept
Normocytic Anemia
History of CMV colitis
Recurrent DVT, PE with Factor V Leiden mutation on permanent anticoagulation with Eliquis
Asthma
GERD
Anxiety on oral Xanax
History of bilateral retinal detachment
ADHD
Hypertension on multiple medications (Clonidine, Lisinopril, Spironolactone, Coreg)
Consultations:�
Gastroenterology
infectious disease
Nephrology
Oncology
Psychiatry
Procedures:�
Flex sigmoidoscopy 12/28, result was unrevealing: healthy appearing mucosa without any endoscopic signs of inflammation. Biopsies of the right and left colon were performed.
Clinical course:�
This is a 28-year-old female, with past medical history as stated above, who presented with severe abdominal pain nausea, vomiting, and bloody bowel movement.
Problem 1:
Abdominal pain, nausea, vomiting, and bloody bowel movement, likely due acute gastroenteritis.
This was associated with hypokalemia and hypomagnesemia.
Her CT AP was largely unrevealing: showed MILD ACUTE COLITIS involving the ascending, transverse, and descending colon.
Her C. diff/Norovirus tests were negative, her stool ova and parasite were negative, her stool culture was negative.
She did receive short course empiric antibiotic cefepime and oral vancomycin initially while in the hospital.
Per ID, no further antibiotic was needed after the short course.
She underwent Flex sigmoidoscopy on 12/28, the result was unrevealing: GI noted healthy appearing mucosa without any endoscopic signs of inflammation. Biopsies of the right and left colon were performed.
She can follow-up the pathology report outpatient with GI.
Of note, her CMV serology titer was negative (was checked due to her immune compromised state).
As for the rest of her medical problems, they were stable during her hospital stay.
Discharge Plan
-
Patient Disposition: Home (Routine Discharge)
Discharge Diagnosis/Procedures: Abdominal Pain with bloody bowel movement, which is now felt likely due to acute gastroenteritis;
Kidney transplant 2015 at [place] (due to FSGS) with immunocompromised state on chronic prednisone, azathioprine and belatacept
Condition: Fair
Diet: As tolerated
Activity: As tolerated
Driving Restrictions: As prior to admission
Referrals:
Leoncio Zheng MD [Family Provider] - in less than 1 week
Prescriptions:
Continued
prednisone 5 MG tablet
5 mg PO DAILY
alprazolam 1 MG tablet
1 mg PO BID
Patient Comments:
05/23/2023, pt. filled this med. on 04/21/2023 for 30 tablets according to PDMP.
azathioprine [Azasan] 100 MG tablet
100 mg PO DAILY
carvedilol 25 mg Tablet
25 mg PO BID
spironolactone 25 mg tablet
25 mg PO DAILY
lisinopril 10 mg tablet
10 mg PO HS
montelukast 10 mg tablet
10 mg PO HS
pravastatin 20 mg tablet
20 mg PO HS
zolpidem 10 mg tablet
10 mg PO HS PRN (Reason: insomnia)
Patient Comments:
05/23/2023, pt. filled this med. on 04/21/2023 for 24 tablets according to PDMP.
Eliquis 2.5 mg tablet
2.5 mg PO Q12H
clonidine HCl 0.1 mg Tablet
0.2 mg PO TID
lidocaine 4 % Cream
1 applic TOPICAL DIRECTED
Patient Comments:
05/23/2023, pt. uses this med. whenever her port needs to be accessed which she states is roughly once a month.
omeprazole 20 mg Capsule,Delayed Release(Dr/Ec)
20 mg PO BID
belatacept 250 mg Recon Soln
250 mg IV Q28D
Linzess 145 mcg Capsule
145 mcg PO DAILY PRN (Reason: IBS)
ondansetron 8 mg Tablet,Disintegrating
8 mg PO DAILYPRN PRN (Reason: nausea/vomiting) Qty: 0 0RF
acetaminophen 500 mg/15 mL Liquid
1,000 mg PO Q6HPRN PRN (Reason: mild pain) Qty: 0 0RF
Discharge Orders:
Discharge Patient (As Directed); Ordered 01/01/24
Ordered By: Joanie Knapp
Discharge Date and Time
Print Language: IRANIAN
--- NOTE | 2024-01-01 13:14 | CM ---
Patient for d/c home
No home care needs.
Family will transport.
Plan: home no needs.
== END 2024-01-01 15:28 | disposition home or self-care (01) | DRG 378 ==
LOC: 4 WEST ACU 12:11
PROVIDERS: Internal Medicine; Student in an Organized Health Care Education/Training Program; ADMITTING PHYSICIAN Hospitalist; ATTENDING PHYSICIAN Internal Medicine; CONSULT PHYSICIAN Internal Medicine Gastroenterology; CONSULT PHYSICIAN Internal Medicine Infectious Disease; CONSULT PHYSICIAN Psychiatry & Neurology Psychiatry; CONSULT PHYSICIAN Specialist; CONSULT PHYSICIAN Surgery; EMERGENCY PHYSICIAN Emergency Medicine; FAMILY PHYSICIAN Internal Medicine; OTHER PHYSICIAN Internal Medicine Hematology & Oncology
PROC: 0DBM8ZX Excision of Descending Colon, Via Natural or Artificial Opening Endoscopic, Diagnostic (ICD-10-PCS; 2023-12-29)
PROC: 0DBK8ZX Excision of Ascending Colon, Via Natural or Artificial Opening Endoscopic, Diagnostic (ICD-10-PCS; 2023-12-29)
DX: K92.2 Gastrointestinal hemorrhage, unspecified (principal); D68.32 Hemorrhagic disorder due to extrinsic circulating anticoagulants; Z94.0 Kidney transplant status; D68.51 Activated protein C resistance; D84.821 Immunodeficiency due to drugs; K52.9 Noninfective gastroenteritis and colitis, unspecified; I95.9 Hypotension, unspecified; N18.32 Chronic kidney disease, stage 3b; R09.89 Other specified symptoms and signs involving the circulatory and respiratory systems; I12.9 Hypertensive chronic kidney disease with stage 1 through stage 4 chronic kidney disease, or unspecified chronic kidney disease; D64.9 Anemia, unspecified; F31.9 Bipolar disorder, unspecified; F90.9 Attention-deficit hyperactivity disorder, unspecified type; F41.1 Generalized anxiety disorder; K64.9 Unspecified hemorrhoids; E83.42 Hypomagnesemia; F43.10 Post-traumatic stress disorder, unspecified; K21.9 Gastro-esophageal reflux disease without esophagitis; E87.6 Hypokalemia; J45.998 Other asthma; Z86.718 Personal history of other venous thrombosis and embolism; Z86.711 Personal history of pulmonary embolism; Z80.41 Family history of malignant neoplasm of ovary; Z82.49 Family history of ischemic heart disease and other diseases of the circulatory system; Z79.52 Long term (current) use of systemic steroids; Z79.01 Long term (current) use of anticoagulants; Z87.440 Personal history of urinary (tract) infections; Z90.49 Acquired absence of other specified parts of digestive tract; Z88.0 Allergy status to penicillin; Z88.1 Allergy status to other antibiotic agents; Z79.624 Long term (current) use of inhibitors of nucleotide synthesis; Z86.19 Personal history of other infectious and parasitic diseases; Z62.810 Personal history of physical and sexual abuse in childhood; Z81.8 Family history of other mental and behavioral disorders; Z81.1 Family history of alcohol abuse and dependence; Z62.890 Parent-child estrangement NEC
CPT/HCPCS: 88305; 74176; 80048; 80053; 80306; 80307; 81003; 81015; 83690; 83735; 84703; 85025; 87045; 87046; 87324; 87328; 87329; 87427; 87449; 87497; 87798; 88342; 89055; 96361; 96374; 96375; 96376; 99284; J7500

== ENCOUNTER 2024-01-26 16:34 | Emergency (ER) | payer OTHER, SELFPAY ==
[2024-01-26] VITALS (7 sets, daily range): BP systolic 126–138; BP diastolic 73–99
--- NOTE | 2024-01-26 18:27 | ED.GENMED ---
History of Present Illness
General
Chief Complaint: Abdominal Pain
Source: patient and records
Time Seen by Provider: 01/26/24 18:04
History of Present Illness
History of Present Illness:
28-year-old female with extensive past medical history including DVT/PE, chronic colitis, hypertension, chronic kidney disease, status post renal transplant back in 2014 done at [facility] presenting to the emergency department for evaluation of 1 week
of generalized abdominal pain, nausea, dry heaves, decreased p.o. intake and diarrhea. Patient states that this is similar to when she required admission for colitis back around 1 month ago. Patient states she has been doing well following her
discharge. Believes symptoms may have been triggered after her son ended up at [facility] requiring emergency brain surgery as well as her son had C. difficile 2 weeks ago. Patient states she has not had any fevers but due to her immunosuppression does
not normally get fevers. Currently endorsing diffuse aching/cramping pain but worse within the lower part of the abdomen, 10 out of 10, no exacerbating or alleviating factors. Patient states the last couple of days she has had mucousy loose stool,
small flecks of blood, foul-smelling.
Past History
Past History
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
ED Past Surgical History: Cholecystectomy and Other (Kidney transplant 2015, Hernia repair)
Social History
Tobacco: Non-smoker
Alcohol: None
Drug: None
Personal: Single
Living: with family
Employment: Employed
Family History
Family History: Other (Grandmother with ovarian cancer mother with retinitis pigmentosa, father with high blood pressure)
Review of Systems
Review of Systems
All Other Systems: ROS reviewed and negative except as documented in HPI and ROS
Phy Exam
Physical Exam
Physical Exam:
GENERAL: Alert , appears uncomfortable, grimacing
EYE: clear conjunctiva b/l
HEAD: NCAT
ENT: o/p clr, mmm.
CARDIAC: Regular rate and rhythm .
LUNGS: Clear breath sounds bilaterally, no acute respiratory distress, no wheezes/rales/rhonchi
ABDOMEN: Soft, diffusely tender, grimacing to palpation , no r/g, no cvat
NEUROLOGICAL: Alert and oriented
SKIN: Warm and dry, skin intact.
MUSCULOSKELETAL: well perfused.
PSYCH: Normal and appropriate interaction.
Scores
Heart Failure Risk
Heart Failure Risk Score: Not Applicable
Heart Score for Chest Pain Patients
STEMI patient?: Not applicable
Withdrawal Assessment of Alcohol
Withdrawal Assessment Completed?: Not applicable
Course
Orders/Labs/Results
Orders:
Orders
01/26/24 18:17
0.9% Sodium Chloride 1000 ml [Nss] 1,000 ml IV BOLUS
HYDROmorphone [Dilaudid] 1 mg IV NOW STA
Ondansetron Injectable [Zofran] 4 mg IV NOW STA
Test Result ONCE
01/26/24 18:30
STOOL [C difficile Antigen & Toxins] Urgent
ITZ Source: Feces/Stool
Specimen Description:
Date Specimen was Collected: 01/26/24
Time Specimen was Collected: 18:20
Stool Culture Urgent
ITZ Source: Feces/Stool
Specimen Description:
Date Specimen was Collected: 01/26/24
Time Specimen was Collected: 18:20
01/26/24 19:04
Type+Screen Urgent
Complete Blood Count/With Diff Urgent
Comprehensive Metabolic Panel Urgent
HCG, Serum Qualitative Screen Urgent
Lipase Urgent
01/26/24 20:22
Alprazolam [Xanax] 1 mg PO NOW STA
Abnormal Lab Results
01/26/24
19:04
RBC 3.48 L 10^6/uL
(4.20-5.40)
Hgb 10.3 L g/dL
(12.0-16.0)
Hct 29.5 L %
(37.0-47.0)
RDW 14.7 H %
(11.5-14.5)
MPV 13.0 H fL
(7.4-10.4)
Lymphocytes % 19.9 L %
(20.5-51.1)
Carbon Dioxide 19 L mmol/L
(22-30)
Creatinine 1.4 H mg/dL
(0.6-1.0)
01/26/24 19:04
01/26/24 19:04
Vital Signs
Initial and Last Documented VS:
Initial Vital Signs
Temp Pulse Resp BP Pulse Ox
98.2 F 77 16 134/73 96
01/26/24 16:38 01/26/24 16:38 01/26/24 16:38 01/26/24 16:38 01/26/24 16:38
Last Documented Vital Signs
Temp Pulse Resp BP Pulse Ox
98.2 F 76 23 137/92 99
01/26/24 16:38 01/26/24 21:15 01/26/24 21:15 01/26/24 21:00 01/26/24 21:15
MDM/Problems Addressed
Differential Diagnosis Includes:
recurring colitis, infectious diarrhea, c.diff given known sick contact, appendicitis
MDM/Problems Addressed:
28-year-old female with extensive chronic past medical history presenting to the emergency department for evaluation of abdominal pain, diarrhea, decreased p.o. intake and vomiting. This been ongoing for last few days. Recent admission here for
similar. Patient had CT scan done at that time which showed inflammatory colitis of the ascending, transverse and descending colon. Had a flexible sigmoidoscopy which did not show any acute abnormalities. Stool testing was negative at that time
as well. Patient has had 4 CT scans done since April 2023 at this facility. Would like to try and avoid obtaining CT scan and patient is agreeable with this. Will check labs, stool studies and treat with Dilaudid, Zofran and fluids.
Reassessment following
*Pulse Oximetry
Patient hypoxic: no
*Critical Care Note
Total Time (30-74mins, 75-104mins- exclusive of procedures): Not Applicable
Data Reviewed
Review of Other/Old Records Reveals: Labs, Records, Radiology Studies and Discharge Summary
Source: patient and records
Comment
Comment:
On first reevaluation patient's pain was improved but she was feeling quite anxious. She states she is due for a dose of her Xanax which she did not take because she was here in the ER. Will dose her her usual 1 mg Xanax.
On second reevaluation patient does note improvement of symptoms. Unfortunately they are not running C. difficile panels for the remainder of the evening and this result will not come back until tomorrow morning. Patient feels comfortable being
discharged home and awaiting the results of this test. She will contact the emergency department tomorrow afternoon to get these results or patient was also notified that if anything were positive she would receive a phone call in the morning.
Patient will follow-up with her primary care provider. Aware of return precautions to the ER.
ED Attending Note
-
Portions of this chart may have been created with voice recognition software.� Occasional wrong word or��sound alike� substitutions may have occurred due to the inherent limitations of voice recognition software.
Discharge Plan
Departure
Patient Disposition: Home (Routine Discharge)
Date of Disposition: 01/26/24
Time of Disposition: 21:24
Patient with high blood pressure during this ER visit?: No
Discharge Problem:
Abdominal pain
Instructions: Abdominal Pain
Prescriptions:
No Action
prednisone 5 MG tablet
5 mg PO DAILY
alprazolam 1 MG tablet
1 mg PO BID
Patient Comments:
05/23/2023, pt. filled this med. on 04/21/2023 for 30 tablets according to PDMP.
azathioprine [Azasan] 100 MG tablet
100 mg PO DAILY
carvedilol 25 mg Tablet
25 mg PO BID
spironolactone 25 mg tablet
25 mg PO DAILY
lisinopril 10 mg tablet
10 mg PO HS
montelukast 10 mg tablet
10 mg PO HS
pravastatin 20 mg tablet
20 mg PO HS
zolpidem 10 mg tablet
10 mg PO HS PRN (Reason: insomnia)
Patient Comments:
05/23/2023, pt. filled this med. on 04/21/2023 for 24 tablets according to PDMP.
Eliquis 2.5 mg tablet
2.5 mg PO Q12H
clonidine HCl 0.1 mg Tablet
0.2 mg PO TID
lidocaine 4 % Cream
1 applic TOPICAL DIRECTED
Patient Comments:
05/23/2023, pt. uses this med. whenever her port needs to be accessed which she states is roughly once a month.
omeprazole 20 mg Capsule,Delayed Release(Dr/Ec)
20 mg PO BID
belatacept 250 mg Recon Soln
250 mg IV Q28D
Linzess 145 mcg Capsule
145 mcg PO DAILY PRN (Reason: IBS)
ondansetron 8 mg Tablet,Disintegrating
8 mg PO DAILYPRN PRN (Reason: nausea/vomiting) Qty: 0 0RF
acetaminophen 500 mg/15 mL Liquid
1,000 mg PO Q6HPRN PRN (Reason: mild pain) Qty: 0 0RF
Referrals:
Leoncio Zheng MD [Family Provider] -
Interventions
Interventions:
*Risk Screen - Suicide Last Done: 01/26/24 16:38
*General Assessment Last Done: 01/26/24 17:17
*Neglect/Abuse Screening Last Done: 01/26/24 16:38
ED- Fall Risk Assessment Last Done: 01/26/24 17:17
*Nursing Disposition Last Done: 01/26/24 21:26
[id number]-Qsiiga-[id number] Assessment Last Done: 01/26/24 17:17
Discharge Date and Time
Discharge Date/Time: 01/26/24 21:37
Print Language: TAJIK
--- NOTE | 2024-01-26 18:42 | EDRN ---
IV team paged.
[2024-01-26] MEDS: DILAUDID 1 MG IV (19:01)
[2024-01-26] MEDS: ZOFRAN 4 MG IV (19:01)
[2024-01-26] MEDS: NSS 1000 IV (19:02)
--- NOTE | 2024-01-26 19:14 | EDRN ---
Pt reports feeling a panic attack, yelling at her father on cellphone, yelling at her mother in ER room, pts mother requesting ativan. Pt AAOx4.
[2024-01-26 19:16] LABS: % Basophils 0.9 % (0-2); % Eosinophils 1.5 % (0-6); % Immature Granulocytes 0.3 % (0-0.5); % Lymphocytes 19.9 % (20.5-51.1); % Monocytes 8.2 % (1.7-9.3); % Neutrophils 69.2 % (42.2-75.2); Absolute Basophils 0.1 10^3/uL (0-0.2); Absolute Eosinophils 0.1 10^3/uL (0-0.7); Absolute Lymphocytes 1.2 10^3/uL (1.2-3.4); Absolute Monocytes 0.5 10^3/uL (0.1-0.6); Hematocrit 29.5 % (37.0-47.0); Hemoglobin 10.3 g/dL (12.0-16.0); Mean Corp Hgb Conc. 34.9 g/dL (33.0-37.0); Mean Corpuscular Hgb 29.6 pg (27.0-31.0); Mean Corpuscular Volume 84.8 fL (81.0-99.0); Nucleated Red Blood Cells % 0 %; Platelet Count 182 10^3/uL (130-400); Red Blood Cell Count 3.48 10^6/uL (4.20-5.40); Red Cell Dist. Width 14.7 % (11.5-14.5); White Blood Cell Count 5.8 10^3/uL (4.8-10.8)
[2024-01-26 19:34] LABS: HCG, Serum Qualitative Screen Negative
[2024-01-26 19:49] LABS: ALT (SGPT) 13 U/L (0-35); AST (SGOT) 19 U/L (14-36); Albumin 4.4 g/dl (3.5-5.0); Alkaline Phosphatase 47 U/L (38-126); Blood Urea Nitrogen 14 mg/dl (7-17); Calcium 9.8 mg/dl (8.4-10.2); Carbon Dioxide 19 mmol/L (22-30); Chloride 101 mmol/L (98-107); Glucose 95 mg/dl (70-99); Lipase 108 U/L (23-300); Potassium 4.3 mmol/L (3.5-5.1); Sodium 135 mmol/L (135-145); Total Bilirubin 0.6 mg/dl (0.2-1.3); Total Protein 6.5 g/dl (6.3-8.2)
[2024-01-26] MEDS: XANAX 1 MG PO (20:39)
== END 2024-01-26 21:37 | disposition home or self-care (01) ==
LOC: EMR 16:34
PROVIDERS: Physician Assistant Medical; EMERGENCY PHYSICIAN Emergency Medicine; FAMILY PHYSICIAN Internal Medicine
DX: R10.84 Generalized abdominal pain (principal); I12.9 Hypertensive chronic kidney disease with stage 1 through stage 4 chronic kidney disease, or unspecified chronic kidney disease; N18.9 Chronic kidney disease, unspecified; Z94.0 Kidney transplant status; J45.909 Unspecified asthma, uncomplicated; K21.9 Gastro-esophageal reflux disease without esophagitis; F41.9 Anxiety disorder, unspecified
CPT/HCPCS: 99283; 96374; 96375; 96361; 80053; 83690; 84703; 85025; 86850; 86900; 86901; 87045; 87046; 87324; 87427; 87449

== ENCOUNTER 2024-01-30 19:44 | Emergency (ER) | payer OTHER, SELFPAY ==
[2024-01-30 19:46] VITALS: BP 165/108
[2024-01-30 20:33] VITALS: BP 135/93
[2024-01-30 20:40] VITALS: BMI 33.5
--- NOTE | 2024-01-30 20:55 | ED.GENMED ---
History of Present Illness
<Primitivo Funk MD, Resident - Last Filed: 01/30/24 23:20>
General
Chief Complaint: Abdominal Pain
Source: patient and records
Time Seen by Provider: 01/30/24 20:31
Travel History
Have you traveled to any high risk areas for coronavirus over the past 14 days?: No
Have you had any contact with someone who has COVID-19?: No
Do you have any symptoms of coronavirus? Fever > 100 degrees, chills, cough, shortness of breath, sore throat, loss of taste or smell, muscle aches, or headache?: No
History of Present Illness
History of Present Illness:
Preeti Montero, 28-year-old female with homozygous factor V Leiden, focal segmental glomerulosclerosis status-post renal transplant 2014 on immunosuppression, gastroparesis and recent history of colitis, has been experiencing progressive abdominal
pain since last week. The pain is constant and intermittently worse; most prominent on the left side of the abdomen. Now has nausea and unable to tolerate food. Also complains of heaviness in chest. She noted her resting heart rate in the 40s at
home and got worried; no cardiovascular or neurological symptoms noted. She is also experiencing heavier than usual menses currently. She was recently seen in the emergency 4 days ago when her symptoms began, and was discharged home when she started
to feel better. Of note, she was hospitalized in early December and treated for colitis.
Past History
<Primitivo Funk MD, Resident - Last Filed: 01/30/24 23:20>
Past History
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
factor V Leiden)
ED Past Surgical History: Other (renal transplant 2015; hernia repair; sinus reconstruction; cholecystectomy; wisdom tooth extraction; tonsilectomy)
Social History
Tobacco: Non-smoker
Alcohol: None
Drug: None
Personal: Single
Living: with family
Employment: Employed
Family History
Family History: Other (Grandmother with ovarian cancer mother with retinitis pigmentosa, father with high blood pressure)
Review of Systems
<Primitivo Funk MD, Resident - Last Filed: 01/30/24 23:20>
Review of Systems
All Other Systems: Not applicable
Constitutional: Reports fatigue
EENT: Reports no symptoms
Respiratory: Reports no symptoms
Cardiac: Reports other (chest heaviness)
ABD/GI: Reports nausea, anorexia and pain
: Reports no symptoms
Musculoskeletal: Reports no symptoms
Skin: Reports no symptoms
Neurological: Reports no symptoms
Endocrine: Reports no symptoms
Hematologic/Lymphatic: Reports no symptoms
Psychiatric: Reports no symptoms
Phy Exam
<Primitivo Funk MD, Resident - Last Filed: 01/30/24 23:20>
General Physical Exam
General Presentation: well appearing and no apparent distress
General Skin: warm and dry
General Habitus: normal
General Mental: alert
General Hydration: appears well hydrated
ENT Exam
ENT Exam: EOMI, pharynx normal, neck supple and normocephalic
Eye Exam
Eye Exam: PERRL, cornea clear and conjunctiva normal
Cardiovascular Exam
Cardiovascular Exam: regular rate/rhythm, no edema, no murmur and normal peripheral pulses
Pulmonary Exam
Pulmonary Exam: lungs clear, no respiratory distress, no rales, no crackles, no rhonchi, no stridor, no wheezing and no cough
Gastrointestinal Exam
Gastrointestinal Exam: soft, no organomegaly, no pulsatile mass, non distended and tender (diffuse; more prominent on left and lower abdomen/pelvis)
Neurological Exam
Neurological Exam: alert, oriented x3, no motor deficits and speech normal
Musculoskeletal Exam
Musculoskeletal Exam: full ROM and no edema
Skin Exam
Skin Exam: normal color, warm/dry, no rash and no petechia
Psychiatric Exam
Psychiatric Exam: normal mood/affect
Course
<Primitivo Sanchez Funk MD, Resident - Last Filed: 01/30/24 23:20>
Orders/Labs/Results
Orders:
Orders
01/30/24 19:48
Electrocardiogram (*1) Urgent
Reason for Study: Chest Pain
EKG- Treatment ONCE
01/30/24 21:09
Complete Blood Count/With Diff Urgent
Comprehensive Metabolic Panel Urgent
Magnesium Urgent
Comment: ADD ON
Troponin I Urgent
01/30/24 21:14
Iohexol [Omnipaque] See Protocol PO NOW STA
01/30/24 21:15
0.9% Sodium Chloride 500 ml [Nss] 500 ml IV BOLUS
HYDROmorphone [Dilaudid] 0.5 mg IV NOW STA
Ondansetron Injectable [Zofran] 4 mg IV NOW STA
01/30/24 21:51
HYDROmorphone [Dilaudid] 0.5 mg IV NOW STA
01/30/24 21:54
CT Abd/pel Without Iv Or Oral Stat
Comment:
Reason For Exam: diffuse abdominal pain
01/30/24 22:51
Add On- LAB Urgent
Tests Added?: magnesium
01/30/24 23:14
HYDROmorphone [Dilaudid] 0.25 mg IV NOW STA
Abnormal Lab Results
01/30/24
21:09
WBC 4.6 L 10^3/uL
(4.8-10.8)
RBC 3.35 L 10^6/uL
(4.20-5.40)
Hgb 10.0 L g/dL
(12.0-16.0)
Hct 28.6 L %
(37.0-47.0)
RDW 15.1 H %
(11.5-14.5)
MPV 13.4 H fL
(7.4-10.4)
Monocytes % 9.8 H %
(1.7-9.3)
Carbon Dioxide 20 L mmol/L
(22-30)
Creatinine 1.5 H mg/dL
(0.6-1.0)
01/30/24 21:09
01/30/24 21:09
Vital Signs
Initial and Last Documented VS:
Initial Vital Signs
Temp Pulse Resp BP Pulse Ox
98.2 F 58 18 165/108 100
01/30/24 19:46 01/30/24 19:46 01/30/24 19:46 01/30/24 19:46 01/30/24 19:46
Last Documented Vital Signs
Temp Pulse Resp BP Pulse Ox
98.2 F 66 17 156/113 100
01/30/24 19:46 01/30/24 21:00 01/30/24 21:00 01/30/24 21:00 01/30/24 21:00
<George Meyers, DO - Last Filed: 01/30/24 21:58>
Orders/Labs/Results
Orders:
Orders
01/30/24 19:48
Electrocardiogram (*1) Urgent
Reason for Study: Chest Pain
EKG- Treatment ONCE
01/30/24 21:09
Complete Blood Count/With Diff Urgent
Comprehensive Metabolic Panel Urgent
Magnesium Urgent
Comment: ADD ON
Troponin I Urgent
01/30/24 21:14
Iohexol [Omnipaque] See Protocol PO NOW STA
01/30/24 21:15
0.9% Sodium Chloride 500 ml [Nss] 500 ml IV BOLUS
HYDROmorphone [Dilaudid] 0.5 mg IV NOW STA
Ondansetron Injectable [Zofran] 4 mg IV NOW STA
01/30/24 21:51
HYDROmorphone [Dilaudid] 0.5 mg IV NOW STA
01/30/24 21:54
CT Abd/pel Without Iv Or Oral Stat
Comment:
Reason For Exam: diffuse abdominal pain
01/30/24 22:51
Add On- LAB Urgent
Tests Added?: magnesium
01/30/24 23:14
HYDROmorphone [Dilaudid] 0.25 mg IV NOW STA
Abnormal Lab Results
01/30/24
21:09
WBC 4.6 L 10^3/uL
(4.8-10.8)
RBC 3.35 L 10^6/uL
(4.20-5.40)
Hgb 10.0 L g/dL
(12.0-16.0)
Hct 28.6 L %
(37.0-47.0)
RDW 15.1 H %
(11.5-14.5)
MPV 13.4 H fL
(7.4-10.4)
Monocytes % 9.8 H %
(1.7-9.3)
Carbon Dioxide 20 L mmol/L
(22-30)
Creatinine 1.5 H mg/dL
(0.6-1.0)
01/30/24 21:09
01/30/24 21:09
Vital Signs
Initial and Last Documented VS:
Initial Vital Signs
Temp Pulse Resp BP Pulse Ox
98.2 F 58 18 165/108 100
01/30/24 19:46 01/30/24 19:46 01/30/24 19:46 01/30/24 19:46 01/30/24 19:46
Last Documented Vital Signs
Temp Pulse Resp BP Pulse Ox
98.2 F 66 17 156/113 100
01/30/24 19:46 01/30/24 21:00 01/30/24 21:00 01/30/24 21:00 01/30/24 21:00
<Primitivo Funk MD, Resident - Last Filed: 01/30/24 23:20>
MDM/Problems Addressed
MDM/Problems Addressed:
CT AP unremarkable. Blood work and ECG within normal limits. Symptoms likely related to underlying anxiety, IBS and/or GERD. Doing much better now.
<Primitivo Funk MD, Resident - Last Filed: 01/30/24 23:20>
*Critical Care Note
Total Time (30-74mins, 75-104mins- exclusive of procedures): Not Applicable
ED Attending Note
<Primitivo Funk MD, Resident - Last Filed: 01/30/24 23:20>
-
Portions of this chart may have been created with voice recognition software.� Occasional wrong word or��sound alike� substitutions may have occurred due to the inherent limitations of voice recognition software.
<George Meyers, DO - Last Filed: 01/30/24 21:58>
ED Attending Note
Patient seen and examined by attending physician: Yes
I performed a history and physical exam of patient and discussed management with resident, I reviewed resident's note and agree with documented findings and plan of care.: Yes
ED Attending Note:
I have seen and evaluated the patient with a [id number] encounter. I have spoken to the resident and involved in the medical history, the physical exam, medical decision making.
Evaluation and management service: agree unless noted differently below.
Results interpretation: agree unless noted differently below.
Focused HPI: 28-year-old female presenting with upper abdominal pain. Patient had similar issues last month and diagnosed with colitis. She was admitted and colonoscopy was negative. Patient states symptoms have not yet resolved. She is
concerned worsening reflux or esophageal spasm or worsening hiatal hernia. She is compliant with PPI
Physical exam: Appears mildly uncomfortable. Mild epigastric discomfort. No rebound
Medical Decision Making: Given her ongoing symptoms, will obtain CT. If CT negative, will add Carafate to her regimen and have her follow-up with GI
Discharge Plan
Departure
Patient Disposition: Home (Routine Discharge)
Date of Disposition: 01/30/24
Time of Disposition: 23:16
Patient with high blood pressure during this ER visit?: Yes
Condition: Good
Discharge Problem:
Gastroesophageal reflux disease, Irritable bowel syndrome, Generalized anxiety disorder
Instructions: Acid Reflux and GERD in Adults (DC)
Prescriptions:
No Action
prednisone 5 MG tablet
5 mg PO DAILY
alprazolam 1 MG tablet
1 mg PO BID
Patient Comments:
05/23/2023, pt. filled this med. on 04/21/2023 for 30 tablets according to PDMP.
azathioprine [Azasan] 100 MG tablet
100 mg PO DAILY
carvedilol 25 mg Tablet
25 mg PO BID
spironolactone 25 mg tablet
25 mg PO DAILY
lisinopril 10 mg tablet
10 mg PO HS
montelukast 10 mg tablet
10 mg PO HS
pravastatin 20 mg tablet
20 mg PO HS
zolpidem 10 mg tablet
10 mg PO HS PRN (Reason: insomnia)
Patient Comments:
05/23/2023, pt. filled this med. on 04/21/2023 for 24 tablets according to PDMP.
Eliquis 2.5 mg tablet
2.5 mg PO Q12H
clonidine HCl 0.1 mg Tablet
0.2 mg PO TID
lidocaine 4 % Cream
1 applic TOPICAL DIRECTED
Patient Comments:
05/23/2023, pt. uses this med. whenever her port needs to be accessed which she states is roughly once a month.
omeprazole 20 mg Capsule,Delayed Release(Dr/Ec)
20 mg PO BID
belatacept 250 mg Recon Soln
250 mg IV Q28D
Linzess 145 mcg Capsule
145 mcg PO DAILY PRN (Reason: IBS)
ondansetron 8 mg Tablet,Disintegrating
8 mg PO DAILYPRN PRN (Reason: nausea/vomiting) Qty: 0 0RF
acetaminophen 500 mg/15 mL Liquid
1,000 mg PO Q6HPRN PRN (Reason: mild pain) Qty: 0 0RF
Referrals:
Leoncio Zheng MD [Family Provider] -
Activity Restrictions/Additional Instructions:
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 Consult with cardiology to discuss the decreased heart rate. Follow-up with your primary. Use sucralfate (Carafate) every day for the next 2-3 weeks.
Interventions
Interventions:
*Risk Screen - Suicide Last Done: 01/30/24 19:46
*General Assessment Last Done: 01/30/24 19:46
*Neglect/Abuse Screening Last Done: 01/30/24 19:46
ED- Fall Risk Assessment Last Done: 01/30/24 20:41
*ED COVID-19 Vaccine History Last Done: 01/30/24 19:46
RC-[id number]-[id number] Assessment Last Done: 01/30/24 20:41
Discharge Date and Time
Print Language: RUSSIAN
[2024-01-30 21:00] VITALS: BP 156/113
[2024-01-30 21:18] LABS: % Basophils 0.4 % (0-2); % Eosinophils 0.9 % (0-6); % Immature Granulocytes 0.2 % (0-0.5); % Monocytes 9.8 % (1.7-9.3); % Neutrophils 59.7 % (42.2-75.2); Absolute Lymphocytes 1.3 10^3/uL (1.2-3.4); Absolute Monocytes 0.5 10^3/uL (0.1-0.6); Absolute Neutrophils 2.7 10^3/uL (1.4-6.5); Hematocrit 28.6 % (37.0-47.0); Mean Corpuscular Hgb 29.9 pg (27.0-31.0); Mean Corpuscular Volume 85.4 fL (81.0-99.0); Mean Platelet Volume 13.4 fL (7.4-10.4); Nucleated Red Blood Cells % 0 %; Platelet Count 158 10^3/uL (130-400); Red Blood Cell Count 3.35 10^6/uL (4.20-5.40); Red Cell Dist. Width 15.1 % (11.5-14.5); White Blood Cell Count 4.6 10^3/uL (4.8-10.8)
[2024-01-30] MEDS: DILAUDID 0.5 MG IV ×2 (21:20→21:56)
[2024-01-30] MEDS: OMNIPAQUE 50 ML PO (21:21)
[2024-01-30] MEDS: ZOFRAN 4 MG IV (21:21)
[2024-01-30] MEDS: NSS 500 IV (21:27)
[2024-01-30 21:28] LABS: ALT (SGPT) 14 U/L (0-35); AST (SGOT) 18 U/L (14-36); Albumin 4.4 g/dl (3.5-5.0); Alkaline Phosphatase 49 U/L (38-126); Blood Urea Nitrogen 10 mg/dl (7-17); Calcium 9.2 mg/dl (8.4-10.2); Carbon Dioxide 20 mmol/L (22-30); Chloride 102 mmol/L (98-107); Estimated Creatinine Clearance 59 ml/min; Glucose 94 mg/dl (70-99); Potassium 3.9 mmol/L (3.5-5.1); Sodium 135 mmol/L (135-145); Total Bilirubin 0.5 mg/dl (0.2-1.3); Total Protein 6.6 g/dl (6.3-8.2); eGFR 47.78
[2024-01-30 21:39] LABS: Troponin I < 0.012 ng/ml
[2024-01-30] MEDS: DILAUDID 0.25 MG IV (23:26)
[2024-01-30 23:48] LABS: Magnesium 1.3 mg/dl (1.6-2.3)
== END 2024-01-30 23:54 | disposition home or self-care (01) ==
LOC: EMR 19:44
PROVIDERS: Student in an Organized Health Care Education/Training Program; EMERGENCY PHYSICIAN Student in an Organized Health Care Education/Training Program; FAMILY PHYSICIAN Internal Medicine
DX: K21.9 Gastro-esophageal reflux disease without esophagitis (principal); K58.9 Irritable bowel syndrome, unspecified; F41.1 Generalized anxiety disorder; R10.9 Unspecified abdominal pain; D68.51 Activated protein C resistance; D84.821 Immunodeficiency due to drugs; I10 Essential (primary) hypertension; J45.909 Unspecified asthma, uncomplicated; K31.84 Gastroparesis; Z79.60 Long term (current) use of unspecified immunomodulators and immunosuppressants; Z90.49 Acquired absence of other specified parts of digestive tract; Z94.0 Kidney transplant status
CPT/HCPCS: 99284; 96374; 96375; 96376; 96361; 74176; 80053; 83735; 84484; 85025; 93005

== ENCOUNTER 2024-02-02 22:11 | Emergency (ER) | payer OTHER, SELFPAY ==
[2024-02-02 22:24] VITALS: BP 139/72
[2024-02-03 01:14] VITALS: BP 139/92
--- NOTE | 2024-02-03 01:22 | ED.GENMED ---
History of Present Illness
<TREV Figueroa - Last Filed: 02/03/24 03:09>
General
Chief Complaint: Abdominal Pain
Source: patient
Exam Limitations: none
Time Seen by Provider: 02/03/24 00:26
History of Present Illness
History of Present Illness:
This is a 28 year old female that comes in with c/o upper abd discomfort. States that she was here on Tuesday and saw Dr. Meyers. State that she has this burning in her stomach that comes in and then goes down on the right side. States that she is
nauseated. States that she feels bloated. States that she takes omeprazole 20mg BID. States that today she coughed up a little blood. State that she called her Gi specialist and she was told to come to the ER for evaluation and that she will most
likely need a Endoscopy. States that she also has a headache. Denies any fever, chills, chest pain, SOB, vomiting, diarrhea, dizziness, urinary burning.
Past History
<TREV Figueroa - Last Filed: 02/03/24 03:09>
Past History
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
PTSD, ) and Other (Neuropathy, Numbness arms and legs. Seizure with , PE/DVT, Colitis, IBS, gastroparesis, Urinary retention, UTI, Anemia)
ED Past Surgical History: Cholecystectomy, Tonsilectomy (and adenoids) and Other (renal transplant 2015; hernia repair; sinus reconstruction; wisdom tooth extraction; )
Social History
Tobacco: Non-smoker
Alcohol: None
Drug: None
Personal: Single
Living: with family
Employment: Employed
Family History
Family History: Other (Grandmother with ovarian cancer mother with retinitis pigmentosa, father with high blood pressure)
Review of Systems
<TREV Figueroa - Last Filed: 02/03/24 03:09>
Review of Systems
All Other Systems: ROS reviewed and negative except as documented in HPI and ROS
Constitutional: Reports no symptoms; Denies fever or chills
EENT: Reports no symptoms
Respiratory: Reports no symptoms; Denies cough or trouble breathing
Cardiac: Reports no symptoms; Denies chest pain
ABD/GI: Reports abdominal pain and nausea; Denies vomiting or diarrhea
: Reports no symptoms; Denies dysuria, frequency or urgency
Musculoskeletal: Reports no symptoms
Skin: Reports no symptoms
Neurological: Reports headache; Denies dizzy
Psychiatric: Reports no symptoms
Phy Exam
<TREV Figueroa - Last Filed: 02/03/24 03:09>
General Physical Exam
General Presentation: no apparent distress
General age: appears stated age
General Skin: warm and dry
General Habitus: normal
General Mental: alert
General Hydration: appears well hydrated
ENT Exam
ENT Exam: TM's normal, pharynx normal and neck supple
Eye Exam
Eye Exam: EOMI
Cardiovascular Exam
Cardiovascular Exam: regular rate/rhythm, no edema, no murmur and normal peripheral pulses
Pulmonary Exam
Pulmonary Exam: lungs clear, no respiratory distress, no rales, chest non tender, no crackles, no rhonchi, no wheezing and no cough
Gastrointestinal Exam
Gastrointestinal Exam: normal bowel sounds, soft, no organomegaly, no pulsatile mass, non distended and tender (Epigastric and right sided tenderness with palpation)
Musculoskeletal Exam
Musculoskeletal Exam: full ROM and no edema
Skin Exam
Skin Exam: normal color, warm/dry, no rash and no petechia
Psychiatric Exam
Psychiatric Exam: normal mood/affect
Course
<TREV Figueroa - Last Filed: 02/03/24 03:09>
Orders/Labs/Results
Orders:
Orders
02/03/24 01:20
0.9% Sodium Chloride 1000 ml [Nss] 1,000 ml IV BOLUS
Acetaminophen 1000MG/100Ml [Ofirmev] 1,000 mg in 100 ml IV ONCE
Acetaminophen IV Indication:: ED Narcotic Naive Pt-ONCE
Metoclopramide [Reglan] 10 mg IV NOW STA
Pantoprazole [Protonix IV] 40 mg IV NOW STA
Sucralfate Suspension [Carafate Suspension] 1 gm PO NOW STA
02/03/24 01:42
Complete Blood Count/With Diff Urgent
Comprehensive Metabolic Panel Urgent
Lipase Urgent
Abnormal Lab Results
02/03/24
01:42
RBC 3.43 L 10^6/uL
(4.20-5.40)
Hgb 10.1 L g/dL
(12.0-16.0)
Hct 29.7 L %
(37.0-47.0)
RDW 15.2 H %
(11.5-14.5)
MPV 13.5 H fL
(7.4-10.4)
Creatinine 1.5 H mg/dL
(0.6-1.0)
Total Protein 6.2 L g/dl
(6.3-8.2)
02/03/24 01:42
02/03/24 01:42
H/H is low but consistent with prior labs. Cr slightly elevated but consistent with prior labs. Lipase normal at 124
Vital Signs
Initial and Last Documented VS:
Initial Vital Signs
Temp Pulse Resp BP Pulse Ox
99.1 F 90 20 139/72 98
02/02/24 22:24 02/02/24 22:24 02/02/24 22:24 02/02/24 22:24 02/02/24 22:24
Last Documented Vital Signs
Temp Pulse Resp BP Pulse Ox
99.1 F 67 24 139/92 98
02/02/24 22:24 02/03/24 01:14 02/02/24 22:24 02/03/24 01:14 02/02/24 22:24
<George Meyers, DO - Last Filed: 02/03/24 02:50>
Orders/Labs/Results
Orders:
Orders
02/03/24 01:20
0.9% Sodium Chloride 1000 ml [Nss] 1,000 ml IV BOLUS
Acetaminophen 1000MG/100Ml [Ofirmev] 1,000 mg in 100 ml IV ONCE
Acetaminophen IV Indication:: ED Narcotic Naive Pt-ONCE
Metoclopramide [Reglan] 10 mg IV NOW STA
Pantoprazole [Protonix IV] 40 mg IV NOW STA
Sucralfate Suspension [Carafate Suspension] 1 gm PO NOW STA
02/03/24 01:42
Complete Blood Count/With Diff Urgent
Comprehensive Metabolic Panel Urgent
Lipase Urgent
Abnormal Lab Results
02/03/24
01:42
RBC 3.43 L 10^6/uL
(4.20-5.40)
Hgb 10.1 L g/dL
(12.0-16.0)
Hct 29.7 L %
(37.0-47.0)
RDW 15.2 H %
(11.5-14.5)
MPV 13.5 H fL
(7.4-10.4)
Creatinine 1.5 H mg/dL
(0.6-1.0)
Total Protein 6.2 L g/dl
(6.3-8.2)
02/03/24 01:42
02/03/24 01:42
Vital Signs
Initial and Last Documented VS:
Initial Vital Signs
Temp Pulse Resp BP Pulse Ox
99.1 F 90 20 139/72 98
02/02/24 22:24 02/02/24 22:24 02/02/24 22:24 02/02/24 22:24 02/02/24 22:24
Last Documented Vital Signs
Temp Pulse Resp BP Pulse Ox
99.1 F 67 24 139/92 98
02/02/24 22:24 02/03/24 01:14 02/02/24 22:24 02/03/24 01:14 02/02/24 22:24
<TREV Figueroa - Last Filed: 02/03/24 03:09>
MDM/Problems Addressed
Differential Diagnosis Includes:
Gastritis, Potential for substance abuse
MDM/Problems Addressed:
This is a 28 year old female that comes in with c/o upper abd burning and bloating. Patient was seen here on Tuesday and the CT scan is normal.
Will check patient labs and given Protonix, IV fluids and Carafate.
Patient refused the Carafate and the Tylenol. Patient also refused the Reglan that was ordered as this works well with gastroparesis. Patient again refused Patient requested to see the Doctor. Dr. Meyers saw patient. Will discharge patient home.
Chronic conditions affecting care:
GERD
Acute Exacerbation and/or Progression of Chronic Illness:
GERD
<TREV Figueroa - Last Filed: 02/03/24 03:09>
*Pulse Oximetry
Patient hypoxic: no
*EKG
Interpreted by ED Provider?: NA
Rate: EKG- N/A
*Materials Tech Interpretation
Rate: Materials Tech- N/A
*Critical Care Note
Total Time (30-74mins, 75-104mins- exclusive of procedures): Not Applicable
ED Attending Note
<TREV Figueroa - Last Filed: 02/03/24 03:09>
-
Portions of this chart may have been created with voice recognition software.� Occasional wrong word or��sound alike� substitutions may have occurred due to the inherent limitations of voice recognition software.
<George Meyers, DO - Last Filed: 02/03/24 02:50>
ED Attending Note
Patient seen and examined by attending physician: Yes
I performed the substantive portion of visit, reviewed & personally made and approve the management plan that is documented in note by myself or ALLYN.: Yes
ED Attending Note:
I have seen and evaluated the patient with a [id number] encounter. I have spoken to the advance practicer provider and involved in the medical history, the physical exam, medical decision making.
Evaluation and management service: agree unless noted differently below.
Results interpretation: agree unless noted differently below.
Focused HPI: 28-year-old female presenting back to the emergency department abdominal pain. Patient has been seen in the emergency department several times for the same thing. When I evaluated her at the last ER visit, we gave her pain medicine
and checked a CT of her abdomen and pelvis. The CT was negative. We started her on Carafate and discussed the follow-up with GI. Patient is concerned because she does not think the symptoms are being treated
Physical exam: Sitting in bed comfortably. Mild right abdominal tenderness
Medical Decision Making: Given the negative CT recently, there is a low utility in repeating the CT. I discussed that her symptoms appear to be gastrointestinal related and she needs to follow-up with GI for either endoscopy or colonoscopy.
Without an obvious source of pain, we discussed no narcotics
Discharge Plan
Departure
Patient Disposition: Home (Routine Discharge)
Date of Disposition: 02/03/24
Time of Disposition: 03:05
Patient with high blood pressure during this ER visit?: Yes
Condition: Good
Covid-19: Not Applicable
Discharge Problem:
Upper abdominal pain, Gastritis
Instructions: Gastritis (DC), Abdominal Pain, BLOOD PRESSURE
Prescriptions:
No Action
prednisone 5 MG tablet
5 mg PO DAILY
alprazolam 1 MG tablet
1 mg PO BID
Patient Comments:
05/23/2023, pt. filled this med. on 04/21/2023 for 30 tablets according to PDMP.
azathioprine [Azasan] 100 MG tablet
100 mg PO DAILY
carvedilol 25 mg Tablet
25 mg PO BID
spironolactone 25 mg tablet
25 mg PO DAILY
lisinopril 10 mg tablet
10 mg PO HS
montelukast 10 mg tablet
10 mg PO HS
pravastatin 20 mg tablet
20 mg PO HS
zolpidem 10 mg tablet
10 mg PO HS PRN (Reason: insomnia)
Patient Comments:
05/23/2023, pt. filled this med. on 04/21/2023 for 24 tablets according to PDMP.
Eliquis 2.5 mg tablet
2.5 mg PO Q12H
clonidine HCl 0.1 mg Tablet
0.2 mg PO TID
lidocaine 4 % Cream
1 applic TOPICAL DIRECTED
Patient Comments:
05/23/2023, pt. uses this med. whenever her port needs to be accessed which she states is roughly once a month.
omeprazole 20 mg Capsule,Delayed Release(Dr/Ec)
20 mg PO BID
belatacept 250 mg Recon Soln
250 mg IV Q28D
Linzess 145 mcg Capsule
145 mcg PO DAILY PRN (Reason: IBS)
ondansetron 8 mg Tablet,Disintegrating
8 mg PO DAILYPRN PRN (Reason: nausea/vomiting) Qty: 0 0RF
acetaminophen 500 mg/15 mL Liquid
1,000 mg PO Q6HPRN PRN (Reason: mild pain) Qty: 0 0RF
sucralfate [Carafate] 100 mg/mL suspension
5 ml PO TID 30 Days Qty: 450 2RF
Referrals:
Leoncio Zheng MD [Family Provider] -
Activity Restrictions/Additional Instructions:
Your blood work shows that your Hgb is slightly low but this is consistent with prior labs. Your Lipase is lorene. You have refused most of the medication that have been ordered to help with your pain. Follow up with the GI specialist or your family
doctor. IF YOU HAVE ANY OTHER CONCERNS PLEASE RETURN TO THE EMERGENCY ROOM
Interventions
Interventions:
*Risk Screen - Suicide Last Done: 02/02/24 22:24
*General Assessment Last Done: 02/02/24 22:24
*Neglect/Abuse Screening Last Done: 02/02/24 22:24
ED- Fall Risk Assessment Last Done: 02/02/24 22:24
*ED COVID-19 Vaccine History Last Done: 02/02/24 22:24
[id number]-[id number] Assessment Last Done: 02/03/24 00:36
Discharge Date and Time
Print Language: LATVIAN
[2024-02-03] MEDS: NSS 1000 IV (01:45)
[2024-02-03 01:53] LABS: % Basophils 0.4 % (0-2); % Eosinophils 1.3 % (0-6); % Immature Granulocytes 0.2 % (0-0.5); % Lymphocytes 34.1 % (20.5-51.1); % Monocytes 7.4 % (1.7-9.3); % Neutrophils 56.6 % (42.2-75.2); Absolute Eosinophils 0.1 10^3/uL (0-0.7); Absolute Lymphocytes 1.8 10^3/uL (1.2-3.4); Absolute Monocytes 0.4 10^3/uL (0.1-0.6); Absolute Neutrophils 3.1 10^3/uL (1.4-6.5); Hematocrit 29.7 % (37.0-47.0); Hemoglobin 10.1 g/dL (12.0-16.0); Mean Corpuscular Hgb 29.4 pg (27.0-31.0); Mean Corpuscular Volume 86.6 fL (81.0-99.0); Mean Platelet Volume 13.5 fL (7.4-10.4); Nucleated Red Blood Cells % 0 %; Platelet Count 169 10^3/uL (130-400); Red Blood Cell Count 3.43 10^6/uL (4.20-5.40); Red Cell Dist. Width 15.2 % (11.5-14.5); White Blood Cell Count 5.4 10^3/uL (4.8-10.8)
[2024-02-03] MEDS: PROTONIX IV 40 MG IV (01:58)
[2024-02-03 02:19] LABS: ALT (SGPT) 13 U/L (0-35); AST (SGOT) 19 U/L (14-36); Albumin 4.1 g/dl (3.5-5.0); Alkaline Phosphatase 50 U/L (38-126); Blood Urea Nitrogen 11 mg/dl (7-17); Calcium 9.8 mg/dl (8.4-10.2); Carbon Dioxide 22 mmol/L (22-30); Chloride 105 mmol/L (98-107); Glucose 92 mg/dl (70-99); Lipase 124 U/L (23-300); Potassium 4.1 mmol/L (3.5-5.1); Sodium 139 mmol/L (135-145); Total Bilirubin 0.4 mg/dl (0.2-1.3); Total Protein 6.2 g/dl (6.3-8.2); eGFR 47.78
[2024-02-03 03:23] VITALS: BP 140/88
== END 2024-02-03 03:26 | disposition home or self-care (01) ==
LOC: EMR 22:11
PROVIDERS: Clinical Nurse Specialist Family Health; EMERGENCY PHYSICIAN Student in an Organized Health Care Education/Training Program; FAMILY PHYSICIAN Internal Medicine
DX: K29.70 Gastritis, unspecified, without bleeding (principal); R10.10 Upper abdominal pain, unspecified; I10 Essential (primary) hypertension
CPT/HCPCS: 99284; 96374; 96361; 80053; 83690; 85025

== ENCOUNTER 2024-02-16 23:13 | Emergency (ER) | payer OTHER, SELFPAY ==
--- NOTE | 2024-02-17 00:18 | ED.GENMED ---
History of Present Illness
General
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
Time Seen by Provider: 02/16/24 23:27
History of Present Illness
History of Present Illness:
28-year-old female with history of renal transplant on antirejection medications and factor V Leiden on Eliquis presenting for vaginal irritation. Patient reports for the past 3 days she has been having vaginal irritation and itching, with scant
amount of discharge. Notes pain with urination, secondary to the irritation of her outer vagina. Denies abdominal pain or fever. Denies vomiting. Denies concern for STD. She has not yet tried any medications for her symptoms. Reports history
of yeast infection, however several years ago. Denies additional acute medical complaint
Past History
Past History
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
PTSD, ) and Other (Neuropathy, Numbness arms and legs. Seizure with , PE/DVT, Colitis, IBS, gastroparesis, Urinary retention, UTI, Anemia)
ED Past Surgical History: Cholecystectomy, Tonsilectomy (and adenoids) and Other (renal transplant 2014; hernia repair; sinus reconstruction; wisdom tooth extraction; )
Social History
Tobacco: Non-smoker
Alcohol: None
Drug: None
Personal: Single
Living: with family
Employment: Employed
Family History
Family History: Other (Grandmother with ovarian cancer mother with retinitis pigmentosa, father with high blood pressure)
Phy Exam
Physical Exam
Physical Exam:
General: Well-appearing, no clinical signs of dehydration, nontoxic and in no acute distress
HEENT: protecting airway
Neck: appears supple
CV: Normal heart rate
Resp: No accessory muscle use, no increased work of breathing
Abd: No distention
Extremities: No deformities, no swelling
Neuro: alert, no focal neurologic deficit
: Candidal type rash to the inguinal folds with inflamed labia majora bilaterally. Scant white vaginal discharge.
Rectal: deferred
Psych: Normal affect
Skin: Intact
Course
Orders/Labs/Results
Orders:
Orders
02/17/24 00:03
Test Result ONCE
02/17/24 00:06
, Urine Qualitative Screen [HCG, Urine Qualitative Screen] Urgent
Date Specimen was Collected: 02/17/24
Time Specimen was Collected: 00:04
Urinalysis Reflex To Culture Urgent
Date Specimen was Collected: 02/17/24
Time Specimen was Collected: 00:04
Urine Microscopic Reflex Cult Urgent
Ingrid/Yeast Culture Urgent
ITZ Source: Vagina
Specimen Description:
Date Specimen was Collected: 02/17/24
Time Specimen was Collected: 00:04
Trichomonas - Wet Prep Urgent
ITZ Source: Vagina
Specimen Description:
Date Specimen was Collected: 02/17/24
Time Specimen was Collected: 00:04
Urine Culture Urgent
ITZ Source: U
Specimen Description:
Date Specimen was Collected: 02/17/24
Time Specimen was Collected: 00:04
02/17/24 00:15
Fluconazole [Diflucan] 150 mg PO NOW STA
Abnormal Lab Results
02/17/24
00:06
Leukocyte Esterase Rfl 2+ A
(Negative)
Vital Signs
Initial and Last Documented VS:
Initial Vital Signs
Temp Pulse Resp Pulse Ox
97.6 F 73 20 100
02/16/24 23:14 02/16/24 23:14 02/16/24 23:14 02/16/24 23:14
Last Documented Vital Signs
Temp Pulse Resp Pulse Ox
97.6 F 73 20 100
02/16/24 23:14 02/16/24 23:14 02/16/24 23:14 02/16/24 23:14
MDM/Problems Addressed
MDM/Problems Addressed:
28-year-old female presenting with vaginal irritation and burning. Vital signs are normal.
Patient in no acute distress, nontoxic. Vaginal exam and symptom presentation appears most consistent with acute vaginitis and possible yeast infection. Swab sent for yeast. Will send urinalysis and urine . Plan for treatment with
clotrimazole and treatment with Diflucan.
00:40 - Urine without sign of infection or . Feel stable for discharge with outpatient gynecologic follow-up. Prescriptions provided. Return precautions discussed and patient verbalized understanding
*Critical Care Note
Total Time (30-74mins, 75-104mins- exclusive of procedures): Not Applicable
ED Attending Note
-
Portions of this chart may have been created with voice recognition software.� Occasional wrong word or��sound alike� substitutions may have occurred due to the inherent limitations of voice recognition software.
Discharge Plan
Departure
Prescriptions:
No Action
prednisone 5 MG tablet
5 mg PO DAILY
alprazolam 1 MG tablet
1 mg PO BID
Patient Comments:
05/23/2023, pt. filled this med. on 04/21/2023 for 30 tablets according to PDMP.
azathioprine [Azasan] 100 MG tablet
100 mg PO DAILY
carvedilol 25 mg Tablet
25 mg PO BID
spironolactone 25 mg tablet
25 mg PO DAILY
lisinopril 10 mg tablet
10 mg PO HS
montelukast 10 mg tablet
10 mg PO HS
pravastatin 20 mg tablet
20 mg PO HS
zolpidem 10 mg tablet
10 mg PO HS PRN (Reason: insomnia)
Patient Comments:
05/23/2023, pt. filled this med. on 04/21/2023 for 24 tablets according to PDMP.
Eliquis 2.5 mg tablet
2.5 mg PO Q12H
clonidine HCl 0.1 mg Tablet
0.2 mg PO TID
lidocaine 4 % Cream
1 applic TOPICAL DIRECTED
Patient Comments:
05/23/2023, pt. uses this med. whenever her port needs to be accessed which she states is roughly once a month.
omeprazole 20 mg Capsule,Delayed Release(Dr/Ec)
20 mg PO BID
belatacept 250 mg Recon Soln
250 mg IV Q28D
Linzess 145 mcg Capsule
145 mcg PO DAILY PRN (Reason: IBS)
ondansetron 8 mg Tablet,Disintegrating
8 mg PO DAILYPRN PRN (Reason: nausea/vomiting) Qty: 0 0RF
acetaminophen 500 mg/15 mL Liquid
1,000 mg PO Q6HPRN PRN (Reason: mild pain) Qty: 0 0RF
sucralfate [Carafate] 100 mg/mL suspension
5 ml PO TID 30 Days Qty: 450 2RF
Referrals:
Leoncio Zheng MD [Family Provider] -
Interventions
Interventions:
*Risk Screen - Suicide Last Done: 02/16/24 23:14
*General Assessment Last Done: 02/16/24 23:14
*Neglect/Abuse Screening Last Done: 02/16/24 23:14
ED-Female Genitourinary Assessment Last Done: 02/17/24 00:14
Discharge Date and Time
Print Language: KYRGYZ
[2024-02-17 00:19] LABS: Urine Albumin Negative (Neg - Trace); Urine Bilirubin Negative (Negative); Urine Color Yellow; Urine Glucose Negative (Negative); Urine Ketone Negative (Negative); Urine Leukocyte 2+ (Negative); Urine Nitrite Negative (Negative); Urine Occult Blood Negative (Negative); Urine Urobilinogen Negative (Neg - 1+); Urine pH 6.5 (5.0-9.0)
[2024-02-17 00:20] LABS: HCG, Urine Qualitative Screen Negative; Urine Character Slightly Cloudy (Clear)
[2024-02-17 00:30] LABS: Urine Mucus Moderate; Urine Squamous Cell >30 /LPF (Few)
[2024-02-17 00:32] LABS: Urine Bacteria Many (Negative)
[2024-02-17 00:39] LABS: Urine White Cell >100 /HPF (0-5)
[2024-02-17] MEDS: DIFLUCAN 150 MG PO (00:57)
[2024-02-17 01:14] VITALS: BP 123/81
== END 2024-02-17 01:14 | disposition home or self-care (01) ==
LOC: EMR 23:13
PROVIDERS: EMERGENCY PHYSICIAN Student in an Organized Health Care Education/Training Program; FAMILY PHYSICIAN Internal Medicine
DX: N76.0 Acute vaginitis (principal); N39.0 Urinary tract infection, site not specified; D68.51 Activated protein C resistance; I10 Essential (primary) hypertension; J45.909 Unspecified asthma, uncomplicated; K21.9 Gastro-esophageal reflux disease without esophagitis; K58.9 Irritable bowel syndrome, unspecified; F32.A Depression, unspecified; F90.9 Attention-deficit hyperactivity disorder, unspecified type; Z79.01 Long term (current) use of anticoagulants; Z86.718 Personal history of other venous thrombosis and embolism; Z87.440 Personal history of urinary (tract) infections; Z90.49 Acquired absence of other specified parts of digestive tract; Z94.0 Kidney transplant status
CPT/HCPCS: 99283; 81003; 81015; 81025; 87077; 87086; 87102; 87106; 87210

== ENCOUNTER 2024-03-07 18:07 | Emergency (ER) | payer OTHER, SELFPAY ==
[2024-03-07 18:10] VITALS: BP 152/106
--- NOTE | 2024-03-07 19:31 | ED.GENMED ---
History of Present Illness
General
Chief Complaint: Weakness
Source: patient
Time Seen by Provider: 03/07/24 19:00
History of Present Illness
History of Present Illness:
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 Patient states
that symptoms began yesterday after receiving her infusion of belatacept which she receives as an antirejection medication for her renal transplant. Patient received the infusion at [place]. She states that she normally feels fatigued after the
infusion but she developed more significant right lower quadrant pain which radiates to her back. Patient states her creatinine yesterday was 1.3. She has been compliant with her medications including Eliquis. She denies any fever. Patient
endorses increased stress in her life due to her son recently being transferred to [facility] with severe croup. Patient denies any fever. She denies any significant cough, shortness of breath. She has had episodes of abdominal pain in the past.
Past History
Past History
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
PTSD, ) and Other (Neuropathy, Numbness arms and legs. Seizure with , PE/DVT, Colitis, IBS, gastroparesis, Urinary retention, UTI, Anemia)
ED Past Surgical History: Cholecystectomy, Tonsilectomy (and adenoids) and Other (renal transplant 2015; hernia repair; sinus reconstruction; wisdom tooth extraction; )
Social History
Tobacco: Non-smoker
Alcohol: None
Drug: None
Personal: Single
Living: with family
Employment: Employed
Family History
Family History: Other (Grandmother with ovarian cancer mother with retinitis pigmentosa, father with high blood pressure)
Phy Exam
Physical Exam
Physical Exam:
General: Awake, Alert, Oriented X3. No acute distress but appears uncomfortable
Vitals: unremarkable
Head: Atraumatic
Eyes: Pupils equal, EOMI
Throat: Airway intact, no exudates
Neck: Trachea midline
Lungs: Clear and equal b/l
Heart: Regular rate, no murmurs
Abd: Soft, tenderness right lower abdomen, No pulsatile mass
Neuro: Nonfocal
Skin: Warm, dry, no rash
Extremities: pulses equal b/l, no edema
Course
Orders/Labs/Results
Orders:
Orders
03/07/24 19:22
Test Result ONCE
03/07/24 19:27
US Pelvis Only (non-obstetric) Urgent
Comment:
Reason For Exam: severe r lower quad pain
US Renal Transplant Urgent
Comment:
Reason For Exam: severe r lower abd pain
03/07/24 19:28
0.9% Sodium Chloride 500 ml [Nss] 500 ml IV BOLUS
HYDROmorphone [Dilaudid] 1 mg IV NOW STA
03/07/24 19:31
Electrocardiogram (*1) Urgent
Reason for Study: Abdominal Pain
EKG- Treatment ONCE
03/07/24 19:35
Complete Blood Count/With Diff Urgent
Comprehensive Metabolic Panel Urgent
HCG, Serum Qualitative Screen Urgent
Lipase Urgent
Troponin I Urgent
Urinalysis Reflex To Culture Urgent
Date Specimen was Collected: 03/07/24
Time Specimen was Collected: 19:33
03/07/24 20:29
Apixaban [Eliquis] 5 mg PO NOW STA
03/07/24 21:29
Acetaminophen [Tylenol] 1,000 mg .ROUTE .STK-MED ONE
03/08/24 00:10
Clonidine [Catapres] 0.2 mg PO NOW STA
HYDROmorphone [Dilaudid] 1 mg IV NOW STA
Abnormal Lab Results
03/07/24
19:35
RBC 3.36 L 10^6/uL
(4.20-5.40)
Hgb 10.6 L g/dL
(12.0-16.0)
Hct 31.2 L %
(37.0-47.0)
MCH 31.5 H pg
(27.0-31.0)
RDW 16.6 H %
(11.5-14.5)
Lymphocytes % 19.4 L %
(20.5-51.1)
Carbon Dioxide 20 L mmol/L
(22-30)
Creatinine 1.4 H mg/dL
(0.6-1.0)
03/07/24 19:35
03/07/24 19:35
Vital Signs
Initial and Last Documented VS:
Initial Vital Signs
Temp Pulse Resp BP Pulse Ox
97.5 F 61 16 152/106 100
03/07/24 18:10 03/07/24 18:10 03/07/24 18:10 03/07/24 18:10 03/07/24 18:10
Last Documented Vital Signs
Temp Pulse Resp BP Pulse Ox
97.5 F 57 13 142/88 98
03/07/24 18:10 03/07/24 22:00 03/07/24 22:00 03/07/24 22:00 03/07/24 22:00
ED Attending Note
-
Portions of this chart may have been created with voice recognition software.� Occasional wrong word or��sound alike� substitutions may have occurred due to the inherent limitations of voice recognition software.
Discharge Plan
Departure
Patient Disposition: Home (Routine Discharge)
Date of Disposition: 03/08/24
Time of Disposition: 00:41
Patient with high blood pressure during this ER visit?: No
Condition: Good
Discharge Problem:
Abdominal pain
Instructions: Abdominal Pain
Prescriptions:
No Action
prednisone 5 MG tablet
5 mg PO DAILY
alprazolam 1 MG tablet
1 mg PO BID@0800,1500
Patient Comments:
05/23/2023, pt. filled this med. on 04/21/2023 for 30 tablets according to PDMP.
azathioprine [Azasan] 100 MG tablet
100 mg PO DAILY
carvedilol 25 mg Tablet
25 mg PO BIDPRN PRN (Reason: if BP > 140)
spironolactone 25 mg tablet
25 mg PO DAILY
lisinopril 10 mg tablet
10 mg PO HS
montelukast 10 mg tablet
10 mg PO HS
pravastatin 20 mg tablet
20 mg PO HS
zolpidem 10 mg tablet
10 mg PO HSPRN PRN (Reason: insomnia)
Patient Comments:
05/23/2023, pt. filled this med. on 04/21/2023 for 24 tablets according to PDMP.
Eliquis 2.5 mg tablet
2.5 mg PO BID
clonidine HCl 0.1 mg Tablet
0.2 mg PO TID
lidocaine 4 % Cream
1 applic TOPICAL DAILYPRN PRN (Reason: prior to port access)
omeprazole 20 mg Capsule,Delayed Release(Dr/Ec)
20 mg PO BID
belatacept 250 mg Recon Soln
250 mg IV Q28D
Linzess 145 mcg Capsule
145 mcg PO DAILYPRN PRN (Reason: IBS)
ondansetron 8 mg Tablet,Disintegrating
8 mg PO DAILYPRN PRN (Reason: nausea/vomiting) Qty: 0 0RF
acetaminophen 500 mg/15 mL Liquid
1,000 mg PO Q6HPRN PRN (Reason: mild pain) Qty: 0 0RF
alprazolam 1 mg tablet
0.5 mg PO DAILYPRN PRN (Reason: anxiety/insomnia)
albuterol sulfate 90 mcg/actuation Hfa Aerosol Inhaler
2 puff INHALATION R Q6HPRN PRN (Reason: sob/wheezing)
sucralfate [Carafate] 100 mg/mL suspension
5 ml PO TIDPRN PRN (Reason: Gastrointestinal issue)
metoclopramide HCl [Reglan] 10 mg Tablet
10 mg PO BIDPRN PRN (Reason: gerd)
Referrals:
Leoncio Zheng MD [Family Provider] -
Interventions
Interventions:
*Risk Screen - Suicide Last Done: 03/07/24 18:10
*General Assessment Last Done: 03/07/24 19:45
*Neglect/Abuse Screening Last Done: 03/07/24 18:10
ED- Fall Risk Assessment Last Done: 03/07/24 19:12
*ED COVID-19 Vaccine History Last Done: 03/07/24 19:45
ED- Cardiac Assessment Last Done: 03/07/24 19:12
ED- Neurological Assessment Last Done: 03/07/24 19:12
ED- Pulmonary Assessment Last Done: 03/07/24 19:12
Discharge Date and Time
Print Language: FIJIAN
[2024-03-07 19:32] VITALS: BP 138/94
[2024-03-07] MEDS: NSS 500 IV (19:37)
[2024-03-07] MEDS: DILAUDID 1 MG IV (19:37)
[2024-03-07 19:45] VITALS: BMI 31.1
[2024-03-07 19:56] LABS: Urine Albumin Negative (Neg - Trace); Urine Bilirubin Negative (Negative); Urine Character Clear (Clear); Urine Color Yellow; Urine Glucose Negative (Negative); Urine Ketone Negative (Negative); Urine Leukocyte Negative (Negative); Urine Nitrite Negative (Negative); Urine Occult Blood Negative (Negative); Urine Urobilinogen Negative (Neg - 1+)
[2024-03-07 20:00] VITALS: BP 144/94
[2024-03-07 20:04] LABS: % Basophils 0.3 % (0-2); % Eosinophils 0.4 % (0-6); % Immature Granulocytes 0.1 % (0-0.5); % Lymphocytes 19.4 % (20.5-51.1); % Neutrophils 73.8 % (42.2-75.2); Absolute Lymphocytes 1.4 10^3/uL (1.2-3.4); Absolute Monocytes 0.4 10^3/uL (0.1-0.6); Absolute Neutrophils 5.2 10^3/uL (1.4-6.5); Hematocrit 31.2 % (37.0-47.0); Hemoglobin 10.6 g/dL (12.0-16.0); Mean Corpuscular Hgb 31.5 pg (27.0-31.0); Mean Corpuscular Volume 92.9 fL (81.0-99.0); Nucleated Red Blood Cells % 0 %; Platelet Count 170 10^3/uL (130-400); Red Blood Cell Count 3.36 10^6/uL (4.20-5.40); Red Cell Dist. Width 16.6 % (11.5-14.5); White Blood Cell Count 7.1 10^3/uL (4.8-10.8)
[2024-03-07 20:14] LABS: HCG, Serum Qualitative Screen Negative
[2024-03-07 20:21] LABS: Troponin I < 0.012 ng/ml
[2024-03-07 20:39] LABS: AST (SGOT) 21 U/L (14-36); Albumin 4.3 g/dl (3.5-5.0); Alkaline Phosphatase 51 U/L (38-126); Blood Urea Nitrogen 8 mg/dl (7-17); Calcium 9.8 mg/dl (8.4-10.2); Chloride 101 mmol/L (98-107); Estimated Creatinine Clearance 60 ml/min; Glucose 93 mg/dl (70-99); Lipase 91 U/L (23-300); Potassium 4.1 mmol/L (3.5-5.1); Sodium 137 mmol/L (135-145); Total Bilirubin 0.8 mg/dl (0.2-1.3); Total Protein 6.5 g/dl (6.3-8.2); eGFR 51.58
[2024-03-07 20:40] LABS: ALT (SGPT) 14 U/L (0-35)
[2024-03-07 20:49] LABS: Carbon Dioxide 20 mmol/L (22-30)
[2024-03-07 21:00] VITALS: BP 125/92
[2024-03-07] MEDS: ELIQUIS 5 MG PO (21:04)
[2024-03-07 22:00] VITALS: BP 142/88
[2024-03-08] VITALS: BP 147/95
[2024-03-08] MEDS: CATAPRES 0.2 MG PO (00:57)
[2024-03-08] MEDS: DILAUDID 1 MG IV (00:57)
== END 2024-03-08 02:13 | disposition home or self-care (01) ==
LOC: EMR 18:07
PROVIDERS: EMERGENCY PHYSICIAN Emergency Medicine; FAMILY PHYSICIAN Internal Medicine
DX: R10.31 Right lower quadrant pain (principal); F90.9 Attention-deficit hyperactivity disorder, unspecified type; F32.A Depression, unspecified; J45.909 Unspecified asthma, uncomplicated; K21.9 Gastro-esophageal reflux disease without esophagitis; I10 Essential (primary) hypertension; K58.9 Irritable bowel syndrome, unspecified; Z79.01 Long term (current) use of anticoagulants; Z86.718 Personal history of other venous thrombosis and embolism; Z87.440 Personal history of urinary (tract) infections; Z90.49 Acquired absence of other specified parts of digestive tract; Z94.0 Kidney transplant status
CPT/HCPCS: 99284; 76776; 76856; 80053; 81003; 83690; 84484; 84703; 85025; 93005

== ENCOUNTER 2024-04-01 00:41 | Emergency (ER) | payer OTHER, SELFPAY ==
--- NOTE | 2024-04-01 01:33 | ED.GENMED ---
History of Present Illness
<NARCISO Liang - Last Filed: 04/01/24 01:51>
General
Chief Complaint: Abdominal Pain
Source: patient
Exam Limitations: none
Time Seen by Provider: 04/01/24 01:03
Nursing documentation reviewed up to this point in time: agreed with
History of Present Illness
History of Present Illness:
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
thoracic-level back pain. She states that the back pain began on Tuesday and was mild but has progressed since then. This evening, she was out with family when the abdominal pain started and she notes it is severe. Pt states the pain is
predominantly in the RLQ and radiates across her R flank and into her back. She states she has taken tylenol to try to help the pain, with her last dose of 1000mg at 20:00pm, without relief. She states she has also has a headache and dizziness,
which she attributes to a decrease in appetite since Tuesday when the back pain began. She notes she is still able to drink water and take her daily medication. Pt also admits to mild dysuria x1 day. She denies fever, n/v/d, hematuria, chest pain,
SOB, changes in bowel habits.
Past History
<NARCISO Liang - Last Filed: 04/01/24 01:51>
Past History
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
PTSD, ) and Other (Neuropathy, Numbness arms and legs. Seizure with , PE/DVT, Colitis, IBS, gastroparesis, Urinary retention, UTI, Anemia)
ED Past Surgical History: Cholecystectomy, Tonsilectomy (and adenoids) and Other (renal transplant 2015; hernia repair; sinus reconstruction; wisdom tooth extraction; )
Social History
Tobacco: Non-smoker
Alcohol: None
Drug: None
Personal: Single
Living: with family
Employment: Employed
Family History
Family History: Other (Grandmother with ovarian cancer mother with retinitis pigmentosa, father with high blood pressure)
Review of Systems
<NARCISO Liang - Last Filed: 04/01/24 01:51>
Review of Systems
Allergies reviewed?: Yes
Constitutional: Denies fever, fatigue, night sweats or chills
EENT: Denies sore throat
Respiratory: Denies cough, hemoptysis or trouble breathing
Cardiac: Denies chest pain or palpitations
ABD/GI: Reports abdominal pain; Denies nausea, vomiting, diarrhea or constipated
: Reports dysuria, flank pain and difficulty voiding; Denies frequency, incontinence or discharge
Neurological: Reports dizzy and headache; Denies weakness or numbness
Endocrine: Denies polyuria or polydipsia
Phy Exam
<NARCISO Liang - Last Filed: 04/01/24 01:51>
General Physical Exam
General Presentation: mild distress
General age: appears stated age
General Skin: warm and dry
General Habitus: normal
General Mental: alert
General Hydration: dry mucous membranes
Cardiovascular Exam
Cardiovascular Exam: regular rate/rhythm and no murmur
Heart Sounds: normal
Pulmonary Exam
Pulmonary Exam: lungs clear and no respiratory distress
Gastrointestinal Exam
Gastrointestinal Exam: soft, non distended, cva tenderness and tender
Palpation: right lower quadrant: Severe tenderness
Abdominal Scars: right lower quadrant
Auscultation of Abdomen: normal
Course
<NARCISO Liang - Last Filed: 04/01/24 01:51>
Orders/Labs/Results
Orders:
Orders
04/01/24 00:44
Electrocardiogram (*1) Urgent
Reason for Study: Chest Pain
EKG- Treatment ONCE
04/01/24 01:18
Test Result ONCE
04/01/24 01:42
Urinalysis Reflex To Culture Urgent
Date Specimen was Collected: 04/01/24
Time Specimen was Collected: 01:32
04/01/24 01:48
0.9% Sodium Chloride 1000 ml [Nss] 1,000 ml IV BOLUS
HYDROmorphone [Dilaudid] 0.5 mg IV NOW STA
04/01/24 02:04
CBC/With Diff [Complete Blood Count/With Diff] Urgent
CRP [C-Reactive Protein] Urgent
Comprehensive Metabolic Panel Urgent
ESR [Erythrocyte Sed Rate] Urgent
HCG, Serum Qualitative Screen Urgent
Lipase Urgent
04/01/24 02:45
HYDROmorphone [Dilaudid] 0.5 mg .ROUTE .STK-MED ONE
04/01/24 03:20
US Pelvis Only (non-obstetric) Urgent
Comment:
Reason For Exam: RLQ pain
US Renal Transplant Urgent
Reason For Exam: R flank pain, RLQ pain-renal transplant RLQ
04/01/24 04:39
Clonidine [Catapres] 0.2 mg PO NOW STA
04/01/24 05:13
Alprazolam [Xanax] 0.5 mg PO NOW STA
Abnormal Lab Results
04/01/24
02:04
RBC 3.24 L 10^6/uL
(4.20-5.40)
Hgb 10.3 L g/dL
(12.0-16.0)
Hct 30.6 L %
(37.0-47.0)
MCH 31.8 H pg
(27.0-31.0)
RDW 16.4 H %
(11.5-14.5)
MPV 13.7 H fL
(7.4-10.4)
Creatinine 1.6 H mg/dL
(0.6-1.0)
04/01/24 02:04
04/01/24 02:04
Vital Signs
Initial and Last Documented VS:
Initial Vital Signs
Temp Pulse Resp Pulse Ox
98.2 F 83 16 100
04/01/24 00:42 04/01/24 00:42 04/01/24 00:42 04/01/24 00:42
Last Documented Vital Signs
Temp Pulse Resp BP Pulse Ox
98.2 F 62 16 113/81 97
04/01/24 00:42 04/01/24 07:15 04/01/24 07:15 04/01/24 07:15 04/01/24 07:15
<Michell Robles, DO - Last Filed: 04/01/24 08:11>
Orders/Labs/Results
Orders:
Orders
04/01/24 00:44
Electrocardiogram (*1) Urgent
Reason for Study: Chest Pain
EKG- Treatment ONCE
04/01/24 01:18
Test Result ONCE
04/01/24 01:42
Urinalysis Reflex To Culture Urgent
Date Specimen was Collected: 04/01/24
Time Specimen was Collected: 01:32
04/01/24 01:48
0.9% Sodium Chloride 1000 ml [Nss] 1,000 ml IV BOLUS
HYDROmorphone [Dilaudid] 0.5 mg IV NOW STA
04/01/24 02:04
CBC/With Diff [Complete Blood Count/With Diff] Urgent
CRP [C-Reactive Protein] Urgent
Comprehensive Metabolic Panel Urgent
ESR [Erythrocyte Sed Rate] Urgent
HCG, Serum Qualitative Screen Urgent
Lipase Urgent
04/01/24 02:45
HYDROmorphone [Dilaudid] 0.5 mg .ROUTE .STK-MED ONE
04/01/24 03:20
US Pelvis Only (non-obstetric) Urgent
Comment:
Reason For Exam: RLQ pain
US Renal Transplant Urgent
Reason For Exam: R flank pain, RLQ pain-renal transplant RLQ
04/01/24 04:39
Clonidine [Catapres] 0.2 mg PO NOW STA
04/01/24 05:13
Alprazolam [Xanax] 0.5 mg PO NOW STA
Abnormal Lab Results
04/01/24
02:04
RBC 3.24 L 10^6/uL
(4.20-5.40)
Hgb 10.3 L g/dL
(12.0-16.0)
Hct 30.6 L %
(37.0-47.0)
MCH 31.8 H pg
(27.0-31.0)
RDW 16.4 H %
(11.5-14.5)
MPV 13.7 H fL
(7.4-10.4)
Creatinine 1.6 H mg/dL
(0.6-1.0)
04/01/24 02:04
04/01/24 02:04
Vital Signs
Initial and Last Documented VS:
Initial Vital Signs
Temp Pulse Resp Pulse Ox
98.2 F 83 16 100
04/01/24 00:42 04/01/24 00:42 04/01/24 00:42 04/01/24 00:42
Last Documented Vital Signs
Temp Pulse Resp BP Pulse Ox
98.2 F 62 16 113/81 97
04/01/24 00:42 04/01/24 07:15 04/01/24 07:15 04/01/24 07:15 04/01/24 07:15
<NARCISO Liang - Last Filed: 04/01/24 01:51>
MDM/Problems Addressed
Differential Diagnosis Includes:
pyelonephritis, acute cystitis, appendicitis, ovarian torsion, kidney stones, abdominal pain sequelae to renal transplant
Chronic conditions affecting care: Previous abdomnial surgery (kidney transplant) and Immunosuppressed
<NARCISO Liang - Last Filed: 04/01/24 01:51>
*Critical Care Note
Total Time (30-74mins, 75-104mins- exclusive of procedures): Not Applicable
<Michell Robles DO - Last Filed: 04/01/24 08:11>
*Radiology
Radiology exam reviewed: radiology read reviewed
*Pulse Oximetry
Patient hypoxic: no
ED Attending Note
<NARCISO Liang - Last Filed: 04/01/24 01:51>
-
Portions of this chart may have been created with voice recognition software.� Occasional wrong word or��sound alike� substitutions may have occurred due to the inherent limitations of voice recognition software.
<Michell Robles DO - Last Filed: 04/01/24 08:11>
ED Attending Note
Patient seen and examined by attending physician: Yes
I performed the substantive portion of visit, reviewed & personally made and approve the management plan that is documented in note by myself or ALLYN.: Yes
I performed a history and physical exam of patient and discussed management with resident, I reviewed resident's note and agree with documented findings and plan of care.: Yes
ED Attending Note:
This is a 29-year-old woman with history of renal transplant 2015 secondary to FSGS, factor V Leyden deficiency chronically maintained on anticoagulants, history of hypertension as well as history of anxiety. She complains of right sided mid to low
back pain that began earlier this week with onset of right lower quadrant pain yesterday, worsening tonight. She admits to intermittent nausea but has not had a fever, no vomiting. She reports decreased oral intake for solids but has been drinking
fluids well. She notes mildly decreased urine output and has had intermittent mild dysuria but no urinary frequency nor urgency nor hematuria. She has been moving her bowels normally. She denies insightful injury but pain is much worse with
movement. She does lift her 3-year-old son on a regular basis.
Records reveal ED visit 1 month ago for very similar complaint of right lower quadrant pain, right back pain. Unremarkable laboratory studies at that time and unremarkable pelvic as well as renal ultrasound. Urinalysis was unremarkable as well.
Previous hospitalization December of this year for acute colitis. Patient had been suffering with bloody diarrhea at that time. Stool cultures were negative and sigmoidoscopy was unremarkable showing normal mucosa.
Since that time his she has had multiple recurrent visits for various abdominal pain complaints with multiple unremarkable CT the abdomen and pelvis.
She denies risk of , normal menstrual period began March 25, normal and on time. Menses are generally monthly.
Patient states she has been taking Tylenol without relief of pain.
GENERAL: 29-year-old female appears her stated age, well-dressed, well-groomed, mildly anxious but easily communicative. Overall appears in no acute distress.
EYE: pupils equal. anicteric
NECK: Supple, nontender, no meningismus, no significant adenopathy.
ENT: posterior pharynx is without injection nor edema, there is mild pearly postnasal drip, oral mucosa is moist. Left TM is minimally retracted without effusion nor redness, right TM is clear. Nares have mildly boggy pale blue turbinates with
scant clear rhinorrhea.
CARDIAC: Regular rate and rhythm. no murmur. Port-A-Cath catheter left upper chest wall.
LUNGS: Clear breath sounds bilaterally, no acute respiratory distress, no wheezes/rales/rhonchi
ABDOMEN: Soft, nondistended, moderate tenderness right lower quadrant, moderate tenderness with light palpation right mid thoracic down to right lower lumbar region. No midline bony tenderness. No r/g, normoactive BS.
NEUROLOGICAL: Alert and oriented x3, no focal neuro deficits. Gait is steady.
SKIN: Warm and dry, normal color, skin intact. No rash.
MUSCULOSKELETAL: No C/C/E. peripheral pulses are full and equal b/l. No palpable tenderness.
PSYCH: Mildly anxious. Cooperative.
Concern for UTI, pyelonephritis, ovarian cyst, musculoskeletal back pain, appendicitis.
Will check labs including inflammatory markers, urinalysis. Depending on results we will plan on imaging.
Since September of this year patient has undergone 6 CT's of the abdomen and pelvis all of which have been unremarkable save for mild colitis noted on CT December which was accompanied with bloody diarrhea.
If labs are unremarkable we will plan for Pelvic ultrasound as well as renal ultrasound. Similarly performed just 1 month ago and were unremarkable for similar right lower quadrant and right back pain.
06:30
Patient continues to appear comfortable.
Pelvic ultrasound unremarkable, showing 3 cm cyst/follicle in the right ovary but no free fluid. Normal flow to the ovary. Ultrasound of renal transplant shows no hydronephrosis, patent transplant vasculature. Normal resistive indices.
I highly suspect back pain is more musculoskeletal in nature and recommend stretching exercises, continue Tylenol as needed, could trial lidocaine patch and prompt follow-up with PCP.
She does have an element of allergic rhinitis, left eustachian tube dysfunction. She is maintained on Singulair at bedtime. Recommend Flonase nasal spray as well as Claritin or Zyrtec in the a.m.
Discharge Plan
Departure
Patient Disposition: Home (Routine Discharge)
Date of Disposition: 04/01/24
Time of Disposition: 06:33
Patient with high blood pressure during this ER visit?: No
Condition: Good
Discharge Problem:
Acute right-sided back pain, Abdominal pain, acute, right lower quadrant
Instructions: Back Pain, Abdominal Pain
Prescriptions:
No Action
prednisone 5 MG tablet
5 mg PO DAILY
alprazolam 1 MG tablet
1 mg PO BID@0800,1500
Patient Comments:
05/23/2023, pt. filled this med. on 04/21/2023 for 30 tablets according to PDMP.
azathioprine [Azasan] 100 MG tablet
100 mg PO DAILY
carvedilol 25 mg Tablet
25 mg PO BIDPRN PRN (Reason: if BP > 140)
spironolactone 25 mg tablet
25 mg PO DAILY
lisinopril 10 mg tablet
10 mg PO HS
montelukast 10 mg tablet
10 mg PO HS
pravastatin 20 mg tablet
20 mg PO HS
zolpidem 10 mg tablet
10 mg PO HSPRN PRN (Reason: insomnia)
Patient Comments:
05/23/2023, pt. filled this med. on 04/21/2023 for 24 tablets according to PDMP.
Eliquis 2.5 mg tablet
2.5 mg PO BID
clonidine HCl 0.1 mg Tablet
0.2 mg PO TID
lidocaine 4 % Cream
1 applic TOPICAL DAILYPRN PRN (Reason: prior to port access)
omeprazole 20 mg Capsule,Delayed Release(Dr/Ec)
20 mg PO BID
belatacept 250 mg Recon Soln
250 mg IV Q28D
Linzess 145 mcg Capsule
145 mcg PO DAILYPRN PRN (Reason: IBS)
ondansetron 8 mg Tablet,Disintegrating
8 mg PO DAILYPRN PRN (Reason: nausea/vomiting) Qty: 0 0RF
acetaminophen 500 mg/15 mL Liquid
1,000 mg PO Q6HPRN PRN (Reason: mild pain) Qty: 0 0RF
alprazolam 1 mg tablet
0.5 mg PO DAILYPRN PRN (Reason: anxiety/insomnia)
albuterol sulfate 90 mcg/actuation Hfa Aerosol Inhaler
2 puff INHALATION R Q6HPRN PRN (Reason: sob/wheezing)
sucralfate [Carafate] 100 mg/mL suspension
5 ml PO TIDPRN PRN (Reason: Gastrointestinal issue)
metoclopramide HCl [Reglan] 10 mg Tablet
10 mg PO BIDPRN PRN (Reason: gerd)
Referrals:
Leoncio Zheng MD [Family Provider] - Call in 1-3 days for appt
Interventions
Interventions:
*Risk Screen - Suicide Last Done: 04/01/24 00:42
*General Assessment Last Done: 04/01/24 00:42
*Neglect/Abuse Screening Last Done: 04/01/24 00:42
ED- Fall Risk Assessment Last Done: 04/01/24 01:34
*ED COVID-19 Vaccine History Last Done: 04/01/24 00:42
*Nursing Disposition Last Done: 04/01/24 07:15
QY-Tylegl-Nvgatgyxxe Assessment Last Done: 04/01/24 01:34
Discharge Date and Time
Discharge Date/Time: 04/01/24 07:15
Print Language: MOZAMBICAN
[2024-04-01 01:39] VITALS: BMI 30.4
[2024-04-01 01:50] LABS: Urine Albumin Negative (Neg - Trace); Urine Bilirubin Negative (Negative); Urine Character Clear (Clear); Urine Color Yellow; Urine Glucose Negative (Negative); Urine Ketone Negative (Negative); Urine Leukocyte Negative (Negative); Urine Nitrite Negative (Negative); Urine Occult Blood Negative (Negative); Urine Urobilinogen Negative (Neg - 1+)
[2024-04-01 02:26] LABS: HCG, Serum Qualitative Screen Negative
[2024-04-01 02:28] LABS: ALT (SGPT) 13 U/L (0-35); AST (SGOT) 21 U/L (14-36); Albumin 4.7 g/dl (3.5-5.0); Alkaline Phosphatase 54 U/L (38-126); Blood Urea Nitrogen 15 mg/dl (7-17); Calcium 9.8 mg/dl (8.4-10.2); Carbon Dioxide 23 mmol/L (22-30); Chloride 103 mmol/L (98-107); Estimated Creatinine Clearance 52 ml/min; Glucose 97 mg/dl (70-99); Lipase 128 U/L (23-300); Potassium 3.9 mmol/L (3.5-5.1); Sodium 137 mmol/L (135-145); Total Bilirubin 0.7 mg/dl (0.2-1.3); Total Protein 6.9 g/dl (6.3-8.2); eGFR 43.95
[2024-04-01 02:32] LABS: C-Reactive Protein < 5.00 mg/L (0.0-10.00)
[2024-04-01] MEDS: NSS 1000 IV (02:38)
[2024-04-01] MEDS: DILAUDID 0.5 MG IV (02:42)
[2024-04-01 02:44] LABS: % Basophils 0.5 % (0-2); % Eosinophils 1.1 % (0-6); % Immature Granulocytes 0.2 % (0-0.5); % Lymphocytes 35.1 % (20.5-51.1); % Monocytes 7.8 % (1.7-9.3); % Neutrophils 55.3 % (42.2-75.2); Absolute Eosinophils 0.1 10^3/uL (0-0.7); Absolute Lymphocytes 2.2 10^3/uL (1.2-3.4); Absolute Monocytes 0.5 10^3/uL (0.1-0.6); Absolute Neutrophils 3.4 10^3/uL (1.4-6.5); Hematocrit 30.6 % (37.0-47.0); Hemoglobin 10.3 g/dL (12.0-16.0); Mean Corp Hgb Conc. 33.7 g/dL (33.0-37.0); Mean Corpuscular Hgb 31.8 pg (27.0-31.0); Mean Corpuscular Volume 94.4 fL (81.0-99.0); Mean Platelet Volume 13.7 fL (7.4-10.4); Nucleated Red Blood Cells % 0 %; Platelet Count 169 10^3/uL (130-400); Red Blood Cell Count 3.24 10^6/uL (4.20-5.40); Red Cell Dist. Width 16.4 % (11.5-14.5); White Blood Cell Count 6.1 10^3/uL (4.8-10.8)
[2024-04-01 02:50] LABS: Erythrocyte Sed Rate 16 mm/hour (0-20)
[2024-04-01 03:00] VITALS: BP 124/88
[2024-04-01 04:00] VITALS: BP 125/74
[2024-04-01] MEDS: CATAPRES 0.2 MG PO (04:44)
[2024-04-01 04:45] VITALS: BP 145/95
[2024-04-01 05:00] VITALS: BP 137/91
[2024-04-01] MEDS: XANAX 0.5 MG PO (05:26)
--- NOTE | 2024-04-01 07:07 | VATNOTE ---
Left SQ port flushed with 500units of heparin and deaccessed.
[2024-04-01 07:13] VITALS: BP 113/81
[2024-04-01 07:15] VITALS: BP 113/81
== END 2024-04-01 07:15 | disposition home or self-care (01) ==
LOC: EMR 00:41
PROVIDERS: EMERGENCY PHYSICIAN Emergency Medicine; FAMILY PHYSICIAN Internal Medicine
DX: R10.31 Right lower quadrant pain (principal); M54.6 Pain in thoracic spine
CPT/HCPCS: 99284; 96374; 96361; 76776; 76856; 80053; 81003; 83690; 84703; 85025; 85652; 86140; 93005

== ENCOUNTER 2024-04-21 21:32 | Emergency (ER) | payer OTHER, SELFPAY ==
[2024-04-21 21:36] VITALS: BP 143/95
[2024-04-22] VITALS (9 sets, daily range): BP systolic 114–145; BP diastolic 73–86; BMI 29.6
[2024-04-22 01:42] LABS: % Basophils 0.5 % (0-2); % Eosinophils 1.3 % (0-6); % Immature Granulocytes 0.3 % (0-0.5); % Lymphocytes 31.8 % (20.5-51.1); % Monocytes 8.5 % (1.7-9.3); % Neutrophils 57.6 % (42.2-75.2); Absolute Eosinophils 0.1 10^3/uL (0-0.7); Absolute Lymphocytes 1.9 10^3/uL (1.2-3.4); Absolute Monocytes 0.5 10^3/uL (0.1-0.6); Absolute Neutrophils 3.5 10^3/uL (1.4-6.5); Hematocrit 28.3 % (37.0-47.0); Hemoglobin 9.9 g/dL (12.0-16.0); Mean Corpuscular Hgb 33.2 pg (27.0-31.0); Mean Platelet Volume 13.4 fL (7.4-10.4); Nucleated Red Blood Cells % 0 %; Platelet Count 163 10^3/uL (130-400); Red Blood Cell Count 2.98 10^6/uL (4.20-5.40); Red Cell Dist. Width 15.9 % (11.5-14.5)
[2024-04-22 01:54] LABS: ALT (SGPT) 22 U/L (0-35); AST (SGOT) 27 U/L (14-36); Albumin 4.3 g/dl (3.5-5.0); Alkaline Phosphatase 44 U/L (38-126); Blood Urea Nitrogen 16 mg/dl (7-17); Calcium 9.2 mg/dl (8.4-10.2); Carbon Dioxide 22 mmol/L (22-30); Chloride 98 mmol/L (98-107); Estimated Creatinine Clearance 55 ml/min; Glucose 93 mg/dl (70-99); Potassium 3.8 mmol/L (3.5-5.1); Sodium 131 mmol/L (135-145); Total Bilirubin 0.6 mg/dl (0.2-1.3); Total Protein 6.4 g/dl (6.3-8.2); eGFR 47.48
[2024-04-22 02:00] LABS: HCG, Serum Qualitative Screen Negative
[2024-04-22] MEDS: NSS 1000 IV (03:22)
[2024-04-22] MEDS: DILAUDID 0.5 MG IV ×2 (03:22→05:21)
--- NOTE | 2024-04-22 04:39 | ED.GENMED ---
History of Present Illness
General
Chief Complaint: Skin Problem
Time Seen by Provider: 04/22/24 02:41
History of Present Illness
History of Present Illness:
Pleasant 29-year-old female presents with a 'lump' on the left side of her neck in the front. She is a kidney transplant patient at [facility] and is on antirejection medications. Patient denies any difficulty breathing or difficulty swallowing.
Past History
Past History
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
PTSD, ) and Other (Neuropathy, Numbness arms and legs. Seizure with , PE/DVT, Colitis, IBS, gastroparesis, Urinary retention, UTI, Anemia)
ED Past Surgical History: Cholecystectomy, Tonsilectomy (and adenoids) and Other (renal transplant 2014; hernia repair; sinus reconstruction; wisdom tooth extraction; )
Social History
Tobacco: Non-smoker
Alcohol: None
Drug: None
Personal: Single
Living: with family
Employment: Employed
Family History
Family History: Other (Grandmother with ovarian cancer mother with retinitis pigmentosa, father with high blood pressure)
Phy Exam
General Physical Exam
General Presentation: well appearing and no apparent distress
General Skin: warm and dry
General Habitus: normal
General Mental: alert
General Hydration: appears well hydrated
ENT Exam
ENT Exam: EOMI, pharynx normal, neck supple and normocephalic
Additional ENT: Small protuberance on the left side of the anterior neck
Eye Exam
Eye Exam: PERRL, cornea clear and conjunctiva normal
Cardiovascular Exam
Cardiovascular Exam: regular rate/rhythm, no edema, no murmur, normal peripheral pulses and other (Port on the chest)
Pulmonary Exam
Pulmonary Exam: lungs clear, no respiratory distress, no rales, no crackles, no rhonchi, no stridor, no wheezing and no cough
Gastrointestinal Exam
Gastrointestinal Exam: normal bowel sounds, non tender, soft, no organomegaly, no pulsatile mass and non distended
Neurological Exam
Neurological Exam: alert, oriented x3, no motor deficits and speech normal
Musculoskeletal Exam
Musculoskeletal Exam: full ROM and no edema
Skin Exam
Skin Exam: normal color, warm/dry, no rash and no petechia
Psychiatric Exam
Psychiatric Exam: normal mood/affect
Course
Orders/Labs/Results
Orders:
Orders
04/21/24 21:43
Complete Blood Count/With Diff Urgent
Comprehensive Metabolic Panel Urgent
HCG, Serum Qualitative Screen Urgent
Test Result ONCE
04/22/24 01:21
TSH Urgent
Comment: ADD ON
04/22/24 03:10
CT Neck With Iv Contrast Urgent
Comment:
Reason For Exam: lump/swelling on left throat
0.9% Sodium Chloride 1000 ml [Nss] 1,000 ml IV BOLUS
04/22/24 03:11
HYDROmorphone [Dilaudid] 0.5 mg IV NOW STA
04/22/24 04:34
Urinalysis Reflex To Culture Urgent
Date Specimen was Collected: 04/22/24
Time Specimen was Collected: 04:33
Urine Microscopic Reflex Cult Urgent
04/22/24 04:41
Add On- LAB Urgent
Tests Added?: TSH
04/22/24 04:56
HYDROmorphone [Dilaudid] 0.5 mg IV NOW STA
Ondansetron Injectable [Zofran] 4 mg IV NOW STA
Abnormal Lab Results
04/22/24 04/22/24
01:21 04:34
RBC 2.98 L 10^6/uL
(4.20-5.40)
Hgb 9.9 L g/dL
(12.0-16.0)
Hct 28.3 L %
(37.0-47.0)
MCH 33.2 H pg
(27.0-31.0)
RDW 15.9 H %
(11.5-14.5)
MPV 13.4 H fL
(7.4-10.4)
Sodium 131 L mmol/L
(135-145)
Creatinine 1.5 H mg/dL
(0.6-1.0)
Ur Occult Blood Reflex 4+ A
(Negative)
Leukocyte Esterase Rfl Trace A
(Negative)
Urine RBC 16-20 A /HPF
(0-2)
Urine Bacteria (Reflex) Few A
(Negative)
04/22/24 01:21
04/22/24 01:21
Vital Signs
Initial and Last Documented VS:
Initial Vital Signs
Temp Pulse Resp BP Pulse Ox
99.8 F 80 18 143/95 100
04/21/24 21:36 04/21/24 21:36 04/21/24 21:36 04/21/24 21:36 04/21/24 21:36
Last Documented Vital Signs
Temp Pulse Resp BP Pulse Ox
97.7 F 58 16 126/78 97
04/22/24 01:06 04/22/24 08:41 04/22/24 08:41 04/22/24 08:00 04/22/24 08:41
*Critical Care Note
Total Time (30-74mins, 75-104mins- exclusive of procedures): Not Applicable
Update Note
Update Note:
CT NECK WITH CONTRAST
COMPARISON: None
IMPRESSION:
There is a skin marker over the left anterior neck at the level of the thyroid. There are multiple intermediate attenuation rounded Asians in the left thyroid the largest measuring 2.7 cm in diameter deep to the skin marker. These likely
correspond to the palpable abnormality. These may represent intrinsic thyroid nodules and further evaluation with ultrasound is recommended on a nonemergent basis. In the context of solid organ transplant, consider the possibility of
posttransplant liver proliferative disorder in the differential diagnosis although that is considered less likely
No mucosal space lesion. No lymphadenopathy.
Submandibular and parotid glands are normal.
Major vessels of the neck are patent. Left internal jugular port catheter
Visualized paranasal sinuses and mastoids are clear.
Limited view of the intracranial compartment is unremarkable.
Visualized lung apices are clear.
No concerning bone lesion.
ED Attending Note
-
Portions of this chart may have been created with voice recognition software.� Occasional wrong word or��sound alike� substitutions may have occurred due to the inherent limitations of voice recognition software.
Discharge Plan
Departure
Patient Disposition: Home (Routine Discharge)
Date of Disposition: 04/22/24
Time of Disposition: 04:39
Patient with high blood pressure during this ER visit?: Yes
Discharge Problem:
Thyroid nodule
Instructions: Thyroid nodules, BLOOD PRESSURE
Prescriptions:
No Action
prednisone 5 MG tablet
5 mg PO DAILY
alprazolam 1 MG tablet
1 mg PO BID@0800,1500
Patient Comments:
05/23/2023, pt. filled this med. on 04/21/2023 for 30 tablets according to PDMP.
azathioprine [Azasan] 100 MG tablet
100 mg PO DAILY
carvedilol 25 mg Tablet
25 mg PO BIDPRN PRN (Reason: if SBP > 140 x 3 readings)
spironolactone 25 mg tablet
25 mg PO DAILY
lisinopril 10 mg tablet
10 mg PO HS
montelukast 10 mg tablet
10 mg PO HS
pravastatin 20 mg tablet
20 mg PO HS
zolpidem 10 mg tablet
10 mg PO HSPRN PRN (Reason: insomnia)
Eliquis 2.5 mg tablet
2.5 mg PO BID
clonidine HCl 0.1 mg Tablet
0.2 mg PO TID
lidocaine 4 % Cream
1 applic TOPICAL DAILYPRN PRN (Reason: prior to port access)
omeprazole 20 mg Capsule,Delayed Release(Dr/Ec)
20 mg PO BID
belatacept 250 mg Recon Soln
250 mg IV Q28D
Linzess 145 mcg Capsule
145 mcg PO DAILYPRN PRN (Reason: IBS)
acetaminophen 500 mg/15 mL Liquid
1,000 mg PO Q6HPRN PRN (Reason: mild pain) Qty: 0 0RF
alprazolam 1 mg tablet
0.5 mg PO HS
albuterol sulfate 90 mcg/actuation Hfa Aerosol Inhaler
2 puff INHALATION R Q6HPRN PRN (Reason: sob/wheezing)
sucralfate [Carafate] 100 mg/mL suspension
5 ml PO TIDPRN PRN (Reason: Gastrointestinal issue)
metoclopramide HCl [Reglan] 10 mg Tablet
10 mg PO BIDPRN PRN (Reason: if zofran does not work)
zolpidem 10 mg Tablet
10 mg PO HS PRN (Reason: insomnia)
Patient Comments:
pt usually uses xanax for sleep
ondansetron [Zofran ODT] 4 mg Tablet,Disintegrating
4 mg PO DAILYPRN PRN (Reason: n/v)
Referrals:
Leoncio Zheng MD [Family Provider] -
Activity Restrictions/Additional Instructions:
Is important that you follow-up with your transplant team at [facility] for repeat testing including neck ultrasound.
It was a pleasure meeting you and taking part in your care. We hope for your continued healing and wellness.
Please read discharge instructions in their entirety. However, they are for general education and may not describe your exact diagnosis at discharge. Information on your ER visit and medical conditions were discussed with you along with appropriate
follow up information...
If indicated, please take your medications as instructed and indicated on discharge paperwork.
Please schedule a follow up appointment as directed. Call to schedule an appointment
Please return to the emergency department with ANY change in, persisting, or worsening of symptoms. If any of your symptoms do not improve, or persist, or become more severe within 6-12 hours, please return to the emergency department for further
care.
Please return to the emergency department if you develop a headache, neck pain/stiffness, fever greater than 100.4F, chest pain, shortness of breath, persistent nausea, vomiting, slurred speech, difficulty walking, numbness/tingling, weakness, signs
of infection or any other symptoms that are worrisome to you.
If you have any questions or concerns please do not hesitate to call the Hospital at or E-mail me directly at [email or web address]
Interventions
Interventions:
*Risk Screen - Suicide Last Done: 04/22/24 01:00
*General Assessment Last Done: 04/22/24 01:00
*Neglect/Abuse Screening Last Done: 04/22/24 01:00
ED- Fall Risk Assessment Last Done: 04/22/24 01:00
*ED COVID-19 Vaccine History Last Done: 04/22/24 01:00
*Nursing Disposition Last Done: 04/22/24 08:41
OU-Ovmdsp-Xhxjwvwdei Assessment Last Done: 04/22/24 01:00
ED-Female Genitourinary Assessment Last Done: 04/22/24 01:00
ED-Skin Assessment Last Done: 04/22/24 03:36
Discharge Date and Time
Discharge Date/Time: 04/22/24 08:43
Print Language: WOLOF
[2024-04-22 04:44] LABS: Urine Albumin Negative (Neg - Trace); Urine Bilirubin Negative (Negative); Urine Character Slightly Cloudy (Clear); Urine Color Yellow; Urine Glucose Negative (Negative); Urine Ketone Negative (Negative); Urine Leukocyte Trace (Negative); Urine Nitrite Negative (Negative); Urine Occult Blood 4+ (Negative); Urine Specific Gravity 1.005 (<1.030); Urine Urobilinogen Negative (Neg - 1+)
[2024-04-22] MEDS: ZOFRAN 4 MG IV (05:18)
[2024-04-22 06:01] LABS: Urine Bacteria Few (Negative); Urine Red Blood Cell 16-20 /HPF (0-2); Urine White Cell 0-2 /HPF (0-5)
[2024-04-22 06:18] LABS: TSH 0.62 uIU/ml (0.47-4.68)
== END 2024-04-22 08:43 | disposition home or self-care (01) ==
LOC: EMR 21:32
PROVIDERS: Emergency Medicine; EMERGENCY PHYSICIAN Student in an Organized Health Care Education/Training Program; FAMILY PHYSICIAN Internal Medicine
DX: E04.2 Nontoxic multinodular goiter (principal); I10 Essential (primary) hypertension; J45.909 Unspecified asthma, uncomplicated; K21.9 Gastro-esophageal reflux disease without esophagitis; Z86.718 Personal history of other venous thrombosis and embolism; Z90.49 Acquired absence of other specified parts of digestive tract; Z94.0 Kidney transplant status
CPT/HCPCS: 96374; 96375; 96361; 99284; 70491; 80053; 81003; 81015; 84443; 84703; 85025; Q9967

== ENCOUNTER 2024-05-10 17:10 | Emergency (ER) | payer OTHER, SELFPAY ==
[2024-05-10 17:11] VITALS: BMI 28.3
[2024-05-10 17:17] VITALS: BP 130/81
[2024-05-10 22:54] LABS: % Basophils 0.6 % (0-2); % Eosinophils 0.6 % (0-6); % Immature Granulocytes 0.4 % (0-0.5); % Lymphocytes 25.4 % (20.5-51.1); % Monocytes 7.7 % (1.7-9.3); % Neutrophils 65.3 % (42.2-75.2); Absolute Basophils 0.1 10^3/uL (0-0.2); Absolute Eosinophils 0.1 10^3/uL (0-0.7); Absolute Monocytes 0.6 10^3/uL (0.1-0.6); Absolute Neutrophils 5.2 10^3/uL (1.4-6.5); Hematocrit 29.9 % (37.0-47.0); Hemoglobin 10.7 g/dL (12.0-16.0); Mean Corp Hgb Conc. 35.8 g/dL (33.0-37.0); Mean Corpuscular Hgb 33.8 pg (27.0-31.0); Mean Corpuscular Volume 94.3 fL (81.0-99.0); Mean Platelet Volume 12.8 fL (7.4-10.4); Nucleated Red Blood Cells % 0 %; Platelet Count 155 10^3/uL (130-400); Red Blood Cell Count 3.17 10^6/uL (4.20-5.40); Red Cell Dist. Width 14.7 % (11.5-14.5); White Blood Cell Count 7.9 10^3/uL (4.8-10.8)
[2024-05-10 22:55] VITALS: BP 123/86
[2024-05-10 23:00] VITALS: BP 128/84
[2024-05-10 23:05] LABS: HCG, Serum Qualitative Screen Negative
[2024-05-10 23:15] LABS: ALT (SGPT) 11 U/L (0-35); AST (SGOT) 20 U/L (14-36); Albumin 4.5 g/dl (3.5-5.0); Alkaline Phosphatase 46 U/L (38-126); Blood Urea Nitrogen 11 mg/dl (7-17); Calcium 9.5 mg/dl (8.4-10.2); Carbon Dioxide 23 mmol/L (22-30); Chloride 98 mmol/L (98-107); Estimated Creatinine Clearance 54 ml/min; Glucose 104 mg/dl (70-99); Lipase 120 U/L (23-300); Sodium 131 mmol/L (135-145); Total Bilirubin 0.7 mg/dl (0.2-1.3); Total Protein 6.7 g/dl (6.3-8.2); eGFR 47.48
[2024-05-11] VITALS: BP 115/67
[2024-05-11 00:39] LABS: Urine Albumin Negative (Neg - Trace); Urine Bilirubin Negative (Negative); Urine Character Clear (Clear); Urine Color Yellow; Urine Glucose Negative (Negative); Urine Ketone Negative (Negative); Urine Leukocyte 1+ (Negative); Urine Nitrite Negative (Negative); Urine Occult Blood Negative (Negative); Urine Urobilinogen Negative (Neg - 1+)
[2024-05-11 01:00] VITALS: BP 105/64
[2024-05-11 01:18] LABS: Urine Squamous Cell >30 /LPF (Few); Urine Urothelial Cell >30 /LPF (FEW)
[2024-05-11 01:19] LABS: Urine Bacteria Few (Negative); Urine Red Blood Cell 0-2 /HPF (0-2)
--- NOTE | 2024-05-11 01:21 | ED.GENMED ---
History of Present Illness
General
Chief Complaint: Abdominal Pain
Source: patient
Exam Limitations: none
Time Seen by Provider: 05/10/24 22:46
History of Present Illness
History of Present Illness:
29-year-old female who presents with right side abdominal pain. Patient states it is burning and a searing like pain rating toward her right back. Patient states that the pain waxes and wanes. No fevers but does states she vomited in the waiting
room. No diarrhea. States she was sent by her doctor to rule out appendicitis. She does have a history of colitis as well as kidney transplant. Denies urinary complaints.
Past History
Past History
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
PTSD, ) and Other (Neuropathy, Numbness arms and legs. Seizure with , PE/DVT, Colitis, IBS, gastroparesis, Urinary retention, UTI, Anemia)
ED Past Surgical History: Cholecystectomy, Tonsilectomy (and adenoids) and Other (renal transplant 2014; hernia repair; sinus reconstruction; wisdom tooth extraction; )
Social History
Tobacco: Non-smoker
Alcohol: None
Drug: None
Personal: Single
Living: with family
Employment: Employed
Family History
Family History: Other (Grandmother with ovarian cancer mother with retinitis pigmentosa, father with high blood pressure)
Phy Exam
Physical Exam
Physical Exam:
CONSTITUTIONAL Patient alert and oriented to person, place and time. Well-appearing. Vital signs reviewed.
HEAD atraumatic, normocephalic.
EYES eyelids normal to inspection, Extraocular muscles intact, Conjunctiva normal, Sclera normal.
NECK normal range of motion, Trachea midline, no jugular venous distention.
RESPIRATORY CHEST No respiratory distress noted, Chest expansion equal, Bilateral breath sounds clear.
CARDIOVASCULAR regular rate and rhythm, Heart sounds normal.
ABDOMEN no rebound, no guarding, McBurney's point nontender, Bowel sounds normal. No distention. Does have tenderness noted in the right pelvic region. Transplant scars noted in that area
BACK normal inspection, no obvious deformities
UPPER EXTREMITY range of motion normal, Motor strength normal, no cyanosis, no edema.
LOWER EXTREMITY range of motion normal, Motor strength normal, no cyanosis, no edema.
NEURO Speech normal, No focal motor deficits, Chris coma scale 15, Memory normal, Cranial Nerves intact to screening exam.
SKIN skin warm, dry, and normal in color.
Course
Orders/Labs/Results
Orders:
Orders
05/10/24 22:23
IV Insert/Care/Rem.- Treatment PRN
05/10/24 22:24
Test Result ONCE
05/10/24 22:45
Complete Blood Count/With Diff Urgent
Comprehensive Metabolic Panel Urgent
HCG, Serum Qualitative Screen Urgent
Comment: Notify provider if positive test present
Lipase Urgent
05/10/24 23:47
Urinalysis Reflex To Culture Urgent
Date Specimen was Collected: 05/11/24
Time Specimen was Collected: 00:04
05/11/24 00:30
Urine Microscopic Reflex Cult Urgent
Urine Culture Urgent
ITZ Source: U
Specimen Description:
Date Specimen was Collected: 05/11/24
Time Specimen was Collected: 00:04
Abnormal Lab Results
05/10/24 05/11/24
22:45 00:30
RBC 3.17 L 10^6/uL
(4.20-5.40)
Hgb 10.7 L g/dL
(12.0-16.0)
Hct 29.9 L %
(37.0-47.0)
MCH 33.8 H pg
(27.0-31.0)
RDW 14.7 H %
(11.5-14.5)
MPV 12.8 H fL
(7.4-10.4)
Sodium 131 L mmol/L
(135-145)
Creatinine 1.5 H mg/dL
(0.6-1.0)
Glucose 104 H mg/dl
(70-99)
Leukocyte Esterase Rfl 1+ A
(Negative)
Urine Bacteria (Reflex) Few A
(Negative)
05/10/24 22:45
05/10/24 22:45
Vital Signs
Initial and Last Documented VS:
Initial Vital Signs
Temp Pulse Resp BP Pulse Ox
98.4 F 80 16 130/81 98
05/10/24 17:17 05/10/24 17:17 05/10/24 17:17 05/10/24 17:17 05/10/24 17:17
Last Documented Vital Signs
Temp Pulse Resp BP Pulse Ox
98.4 F 80 16 115/67 98
05/10/24 17:17 05/10/24 17:17 05/10/24 17:17 05/11/24 00:00 05/11/24 00:45
MDM/Problems Addressed
Differential Diagnosis Includes:
Colitis, appendicitis, rejection, UTI
MDM/Problems Addressed:
Abdominal pain, post kidney transplant, chronic renal insufficiency
*Pulse Oximetry
Patient hypoxic: no
*Critical Care Note
Total Time (30-74mins, 75-104mins- exclusive of procedures): Not Applicable
Data Reviewed
Review of Other/Old Records Reveals: Labs (Prior labs show chronic renal insufficiency) and Radiology Studies (Several previous CT scan reports reviewed most recently March 2024)
Source: patient
Further Testing Considered But Not Given:
Consider repeat CT imaging but patient has had 5 CT scans in 2023. Most recent was January 2024. She did have a pelvic ultrasound also in March
Patient Management
Escalation/DeEscalation of care consider admission/obs:
29-year-old female with several previous abdominal complaint visits. Of note since September 20[address] she has had [address] scans and 2 pelvic ultrasounds. She has had 3 renal ultrasounds. She appears well and her white count is normal. She is on chronic
steroids but her pain description is not consistent with progressive infectious process that is more burning pain that is coming and going. She has no hematuria to suggest nephrolithiasis. Despite her risk I do think it is more prudent to avoid CT
imaging. The patient is well-appearing and her abdomen is benign. Her white count is normal. Counseled on reasons for return and patient agrees
ED Attending Note
-
Portions of this chart may have been created with voice recognition software.� Occasional wrong word or��sound alike� substitutions may have occurred due to the inherent limitations of voice recognition software.
Discharge Plan
Departure
Patient Disposition: Home (Routine Discharge)
Date of Disposition: 05/11/24
Time of Disposition: 01:36
Patient with high blood pressure during this ER visit?: No
Discharge Problem:
Abdominal pain
Instructions: Abdominal Pain
Prescriptions:
No Action
prednisone 5 MG tablet
5 mg PO DAILY
alprazolam 1 MG tablet
1 mg PO BID@0800,1500
Patient Comments:
05/23/2023, pt. filled this med. on 04/21/2023 for 30 tablets according to PDMP.
azathioprine [Azasan] 100 MG tablet
100 mg PO DAILY
carvedilol 25 mg Tablet
25 mg PO BIDPRN PRN (Reason: if SBP > 140 x 3 readings)
spironolactone 25 mg tablet
25 mg PO DAILY
lisinopril 10 mg tablet
10 mg PO HS
montelukast 10 mg tablet
10 mg PO HS
pravastatin 20 mg tablet
20 mg PO HS
zolpidem 10 mg tablet
10 mg PO HSPRN PRN (Reason: insomnia)
Eliquis 2.5 mg tablet
2.5 mg PO BID
clonidine HCl 0.1 mg Tablet
0.2 mg PO TID
lidocaine 4 % Cream
1 applic TOPICAL DAILYPRN PRN (Reason: prior to port access)
omeprazole 20 mg Capsule,Delayed Release(Dr/Ec)
20 mg PO BID
belatacept 250 mg Recon Soln
250 mg IV Q28D
Linzess 145 mcg Capsule
145 mcg PO DAILYPRN PRN (Reason: IBS)
acetaminophen 500 mg/15 mL Liquid
1,000 mg PO Q6HPRN PRN (Reason: mild pain) Qty: 0 0RF
alprazolam 1 mg tablet
0.5 mg PO HS
albuterol sulfate 90 mcg/actuation Hfa Aerosol Inhaler
2 puff INHALATION R Q6HPRN PRN (Reason: sob/wheezing)
sucralfate [Carafate] 100 mg/mL suspension
5 ml PO TIDPRN PRN (Reason: Gastrointestinal issue)
metoclopramide HCl [Reglan] 10 mg Tablet
10 mg PO BIDPRN PRN (Reason: if zofran does not work)
zolpidem 10 mg Tablet
10 mg PO HS PRN (Reason: insomnia)
Patient Comments:
pt usually uses xanax for sleep
ondansetron [Zofran ODT] 4 mg Tablet,Disintegrating
4 mg PO DAILYPRN PRN (Reason: n/v)
Referrals:
Leoncio Zheng MD [Family Provider] -
Activity Restrictions/Additional Instructions:
Please see your doctor in the next 2 days for follow-up and reevaluation and reexamination of your abdomen. Return immediately for worsening pain, vomiting weakness, fevers or any other concerns.
Interventions
Interventions:
*Risk Screen - Suicide Last Done: 05/10/24 17:17
*General Assessment Last Done: 05/10/24 22:58
*Neglect/Abuse Screening Last Done: 05/10/24 17:17
*ED COVID-19 Vaccine History Last Done: 05/10/24 22:58
KF-Clltvm-[id number] Assessment Last Done: 05/10/24 23:15
Discharge Date and Time
Print Language: BELGIAN
== END 2024-05-11 02:05 | disposition home or self-care (01) ==
LOC: EMR 17:10
PROVIDERS: EMERGENCY PHYSICIAN Emergency Medicine; FAMILY PHYSICIAN Internal Medicine
DX: R10.9 Unspecified abdominal pain (principal); I12.9 Hypertensive chronic kidney disease with stage 1 through stage 4 chronic kidney disease, or unspecified chronic kidney disease; N18.9 Chronic kidney disease, unspecified; J45.909 Unspecified asthma, uncomplicated; Z94.0 Kidney transplant status; K21.9 Gastro-esophageal reflux disease without esophagitis; Z86.718 Personal history of other venous thrombosis and embolism
CPT/HCPCS: 99283; 80053; 81003; 81015; 83690; 84703; 85025; 87086

== ENCOUNTER 2024-07-07 18:32 | Emergency (ER) | payer OTHER, SELFPAY ==
[2024-07-07 18:35] VITALS: BP 128/80
[2024-07-07 19:11] VITALS: BP 114/85
--- NOTE | 2024-07-07 19:25 | ED.GENMED ---
History of Present Illness
General
Chief Complaint: Back Pain
Source: patient and records
Exam Limitations: none
Time Seen by Provider: 07/07/24 19:05
Nursing documentation reviewed up to this point in time: agreed with
History of Present Illness
History of Present Illness:
29-year-old female presents with low back pain sharp intermittent radiating to her mid back up to her jaw into her face and into her chest came out of nowhere yesterday, no fevers no hematuria complex past medical history factor V Leiden not on
Eliquis, renal transplant 2014 at [facility] due to glomerulonephritis, she tells me that she cannot have NSAIDs nor morphine she also tells me her menstrual cycle came on early she has now
Past History
Past History
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
PTSD, ) and Other (Neuropathy, Numbness arms and legs. Seizure with , PE/DVT, Colitis, IBS, gastroparesis, Urinary retention, UTI, Anemia)
ED Past Surgical History: Cholecystectomy, Tonsilectomy (and adenoids) and Other (renal transplant 2014; hernia repair; sinus reconstruction; wisdom tooth extraction; )
Social History
Tobacco: Non-smoker
Alcohol: None
Drug: None
Personal: Single
Living: with family
Employment: Employed
Family History
Family History: Other (Grandmother with ovarian cancer mother with retinitis pigmentosa, father with high blood pressure)
Phy Exam
Physical Exam
Physical Exam:
Physical Exam
General: Nontoxic female sitting upright looks pale stable vitals
Neck: No jaundice
Heart: s1/s2 regular rate and rhythm, no murmur. equal radial pulses.
Lungs: no acute respiratory distress. clear bilaterally
Abdomen: Mild right greater than left low back pain no anterior abdominal
Neuro: alert and oriented. no focal neurological deficits
Skin: no rash
Psychiatric: well kept. interactive and cooperative
Extremities: no edema
Course
Orders/Labs/Results
Orders:
Orders
07/07/24 18:40
Electrocardiogram (*1) Urgent
Reason for Study: Chest Pain
EKG- Treatment ONCE
07/07/24 19:19
HCG, Urine Qualitative Screen Urgent
Date Specimen was Collected: 07/07/24
Time Specimen was Collected: 19:17
Comment: ADD ON
Urinalysis Reflex To Culture Urgent
Date Specimen was Collected: 07/07/24
Time Specimen was Collected: 19:17
Urine Microscopic Reflex Cult Urgent
Urine Culture Urgent
ITZ Source: U
Specimen Description:
Date Specimen was Collected: 07/07/24
Time Specimen was Collected: 19:17
07/07/24 19:54
Add On- LAB Urgent
Tests Added?: Serum or urine qualitative hCG
07/07/24 20:24
Acetaminophen Urgent
Aspirin level [Salicylate] Urgent
Complete Blood Count/With Diff Urgent
Comprehensive Metabolic Panel Urgent
Lipase Urgent
Abnormal Lab Results
07/07/24 07/07/24
19:19 20:24
WBC 4.3 L 10^3/uL
(4.8-10.8)
RBC 2.82 L 10^6/uL
(4.20-5.40)
Hgb 9.5 L g/dL
(12.0-16.0)
Hct 26.4 L %
(37.0-47.0)
MCH 33.7 H pg
(27.0-31.0)
MPV 12.6 H fL
(7.4-10.4)
Abs Immat Gran (auto) 0.1 H 10^3/uL
(0-0.05)
Absolute Lymphs (auto) 0.8 L 10^3/uL
(1.2-3.4)
Immature Gran % 1.8 H %
(0-0.5)
Lymphocytes % 17.3 L %
(20.5-51.1)
BUN 5 L mg/dl
(7-17)
Creatinine 1.3 H mg/dL
(0.6-1.0)
Total Protein 5.7 L g/dl
(6.3-8.2)
Ur Occult Blood Reflex 4+ A
(Negative)
Leukocyte Esterase Rfl 3+ A
(Negative)
Urine RBC 80-90 A /HPF
(0-2)
Urine WBC (Reflex) 40-50 A /HPF
(0-5)
Urine Bacteria (Reflex) Few A
(Negative)
Urine Albumin (Reflex) 2+ A
(Neg - Trace)
Salicylates < 1.0 L mg/dl
(2.0-20.0)
Acetaminophen < 10 L ug/ml
(10-30)
07/07/24 20:24
07/07/24 20:24
Vital Signs
Initial and Last Documented VS:
Initial Vital Signs
Temp Pulse Resp BP Pulse Ox
97.7 F 84 18 128/80 96
07/07/24 18:35 07/07/24 18:35 07/07/24 18:35 07/07/24 18:35 07/07/24 18:35
Last Documented Vital Signs
Temp Pulse Resp BP Pulse Ox
97.7 F 50 25 130/90 99
07/07/24 18:35 07/07/24 21:00 07/07/24 21:00 07/07/24 21:00 07/07/24 21:00
MDM/Problems Addressed
Differential Diagnosis Includes:
Strain, UTI, chronic pain, infection, other
MDM/Problems Addressed:
Back pain
Chronic conditions affecting care: Neurological disorder, Immunosuppressed, Psychiatric illness and Kidney disease
Acute Exacerbation and/or Progression of Chronic Illness: Neurological disorder, Immunosuppressed, Psychiatric illness and Kidney disease
*Pulse Oximetry
Patient hypoxic: no
*Critical Care Note
Total Time (30-74mins, 75-104mins- exclusive of procedures): Not Applicable
Update Note
Update Note:
8 PM, urinalysis noted to be contaminated specimen many epi cells's has her menstrual period
9 PM labs noted chronic anemia chronic renal sufficiency older baseline numerous prior CAT scans and ultrasounds
9:45 PM patient resting comfortably stable vital signs no tachycardia patient requesting IV Dilaudid
Long conversation with the patient I was shaina with her that I do not believe there is an indication for IV Dilaudid for this pain, concern for tolerance etc. I did offer her IV Tylenol muscle relaxants etc. she states she prefers to go home
I did explain to her my rationale for no further CAT scans she has 12 or 13 here
ED Attending Note
-
Portions of this chart may have been created with voice recognition software.� Occasional wrong word or��sound alike� substitutions may have occurred due to the inherent limitations of voice recognition software.
Discharge Plan
Departure
Patient Disposition: Home (Routine Discharge)
Date of Disposition: 07/07/24
Time of Disposition: 21:45
Patient with high blood pressure during this ER visit?: No
Condition: Good
Discharge Problem:
Back pain
Instructions: Low Back Pain (DC)
Prescriptions:
No Action
prednisone 5 MG tablet
5 mg PO DAILY
alprazolam 1 MG tablet
1 mg PO BID@0800,1500
Patient Comments:
05/23/2023, pt. filled this med. on 04/21/2023 for 30 tablets according to PDMP.
azathioprine [Azasan] 100 MG tablet
100 mg PO DAILY
carvedilol 25 mg Tablet
25 mg PO BIDPRN PRN (Reason: if SBP > 140 x 3 readings)
spironolactone 25 mg tablet
25 mg PO DAILY
lisinopril 10 mg tablet
10 mg PO HS
montelukast 10 mg tablet
10 mg PO HS
pravastatin 20 mg tablet
20 mg PO HS
zolpidem 10 mg tablet
10 mg PO HSPRN PRN (Reason: insomnia)
Eliquis 2.5 mg tablet
2.5 mg PO BID
clonidine HCl 0.1 mg Tablet
0.2 mg PO TID
lidocaine 4 % Cream
1 applic TOPICAL DAILYPRN PRN (Reason: prior to port access)
omeprazole 20 mg Capsule,Delayed Release(Dr/Ec)
20 mg PO BID
belatacept 250 mg Recon Soln
250 mg IV Q28D
Linzess 145 mcg Capsule
145 mcg PO DAILYPRN PRN (Reason: IBS)
acetaminophen 500 mg/15 mL Liquid
1,000 mg PO Q6HPRN PRN (Reason: mild pain) Qty: 0 0RF
alprazolam 1 mg tablet
0.5 mg PO HS
albuterol sulfate 90 mcg/actuation Hfa Aerosol Inhaler
2 puff INHALATION R Q6HPRN PRN (Reason: sob/wheezing)
sucralfate [Carafate] 100 mg/mL suspension
5 ml PO TIDPRN PRN (Reason: Gastrointestinal issue)
metoclopramide HCl [Reglan] 10 mg Tablet
10 mg PO BIDPRN PRN (Reason: if zofran does not work)
zolpidem 10 mg Tablet
10 mg PO HS PRN (Reason: insomnia)
Patient Comments:
pt usually uses xanax for sleep
ondansetron [Zofran ODT] 4 mg Tablet,Disintegrating
4 mg PO DAILYPRN PRN (Reason: n/v)
Referrals:
UNKNOWN - PT NOT,INTERVIEWE [Family Provider] -
Activity Restrictions/Additional Instructions:
Follow-up with your outpatient physicians
Interventions
Interventions:
*Risk Screen - Suicide Last Done: 07/07/24 18:37
*General Assessment Last Done: 07/07/24 18:37
*Neglect/Abuse Screening Last Done: 07/07/24 18:37
*ED COVID-19 Vaccine History Last Done: 07/07/24 18:37
Discharge Date and Time
Print Language: LAO
[2024-07-07 19:28] LABS: Urine Albumin 2+ (Neg - Trace); Urine Bilirubin Negative (Negative); Urine Character Slightly Cloudy (Clear); Urine Color Yellow; Urine Glucose Negative (Negative); Urine Ketone Negative (Negative); Urine Leukocyte 3+ (Negative); Urine Nitrite Negative (Negative); Urine Occult Blood 4+ (Negative); Urine Specific Gravity 1.005 (<1.030); Urine Urobilinogen Negative (Neg - 1+)
[2024-07-07 19:45] LABS: Urine Squamous Cell >30 /LPF (Few)
[2024-07-07 19:46] LABS: Urine Bacteria Few (Negative); Urine Red Blood Cell 80-90 /HPF (0-2); Urine White Cell 40-50 /HPF (0-5)
[2024-07-07 20:00] VITALS: BP 123/91
[2024-07-07 20:05] LABS: HCG, Urine Qualitative Screen Negative
[2024-07-07 20:41] LABS: % Basophils 0.9 % (0-2); % Eosinophils 3.5 % (0-6); % Immature Granulocytes 1.8 % (0-0.5); % Lymphocytes 17.3 % (20.5-51.1); % Monocytes 8.5 % (1.7-9.3); Absolute Eosinophils 0.2 10^3/uL (0-0.7); Absolute Immature Granulocytes 0.1 10^3/uL (0-0.05); Absolute Lymphocytes 0.8 10^3/uL (1.2-3.4); Absolute Monocytes 0.4 10^3/uL (0.1-0.6); Hematocrit 26.4 % (37.0-47.0); Hemoglobin 9.5 g/dL (12.0-16.0); Mean Corpuscular Hgb 33.7 pg (27.0-31.0); Mean Corpuscular Volume 93.6 fL (81.0-99.0); Mean Platelet Volume 12.6 fL (7.4-10.4); Nucleated Red Blood Cells % 0 %; Platelet Count 192 10^3/uL (130-400); Red Blood Cell Count 2.82 10^6/uL (4.20-5.40); Red Cell Dist. Width 13.9 % (11.5-14.5); White Blood Cell Count 4.3 10^3/uL (4.8-10.8)
[2024-07-07 20:50] LABS: ALT (SGPT) 10 U/L (0-35); AST (SGOT) 21 U/L (14-36); Acetaminophen < 10 ug/ml (10-30); Albumin 3.5 g/dl (3.5-5.0); Alkaline Phosphatase 51 U/L (38-126); Blood Urea Nitrogen 5 mg/dl (7-17); Calcium 9.1 mg/dl (8.4-10.2); Carbon Dioxide 28 mmol/L (22-30); Chloride 103 mmol/L (98-107); Glucose 96 mg/dl (70-99); Lipase 68 U/L (23-300); Potassium 4.1 mmol/L (3.5-5.1); Salicylate < 1.0 mg/dl (2.0-20.0); Sodium 136 mmol/L (135-145); Total Bilirubin 0.4 mg/dl (0.2-1.3); Total Protein 5.7 g/dl (6.3-8.2); eGFR 56.38
[2024-07-07 21:00] VITALS: BP 130/90
== END 2024-07-07 22:12 | disposition home or self-care (01) ==
LOC: EMR 18:32
PROVIDERS: EMERGENCY PHYSICIAN Emergency Medicine
DX: M54.50 Low back pain, unspecified (principal); R68.84 Jaw pain; R07.9 Chest pain, unspecified; D84.81 Immunodeficiency due to conditions classified elsewhere; I10 Essential (primary) hypertension; J45.909 Unspecified asthma, uncomplicated; Z86.718 Personal history of other venous thrombosis and embolism; Z90.49 Acquired absence of other specified parts of digestive tract; Z94.0 Kidney transplant status
CPT/HCPCS: 99284; 80053; 80143; 80179; 81003; 81015; 81025; 83690; 85025; 87086; 93005

== ENCOUNTER 2024-07-24 06:07 | Day surgery (SDC) | payer OTHER, SELFPAY ==
[2024-07-24] VITALS (11 sets, daily range): BP systolic 98–123; BP diastolic 68–79; BMI 25.8
[2024-07-24] MEDS: NORMOSOL-R/PLASMALYTE-A 1000 IV (06:45)
[2024-07-24] MEDS: TYLENOL 1000 MG PO (06:50)
[2024-07-24] MEDS: DILAUDID 0.5 MG IV ×3 (08:28→09:25)
== END 2024-07-24 10:15 | disposition home or self-care (01) ==
LOC: SDS 06:07
PROVIDERS: ATTENDING PHYSICIAN Obstetrics & Gynecology
DX: R87.613 High grade squamous intraepithelial lesion on cytologic smear of cervix (HGSIL) (principal); N87.1 Moderate cervical dysplasia
CPT/HCPCS: 57522; 88305; 88307; 88341; 88342

== ENCOUNTER 2024-07-25 17:00 | Emergency (ER) | payer OTHER, SELFPAY ==
--- NOTE | 2024-07-25 17:50 | ED.GENMED ---
History of Present Illness
General
Chief Complaint: Post Operative Problem(s)
Source: patient
Time Seen by Provider: 07/25/24 17:33
History of Present Illness
History of Present Illness:
This patient is a 29-year-old female who presents emergency department after having a LEEP procedure yesterday morning. Of note, patient is anticoagulated, and she followed her instructions to not take anticoagulation on July 22, July 23, and on
July 24 in the morning of her procedure. She resumed her anticoagulation yesterday evening as instructed. She states that she has a lot of pain which is concerning to her. She states that its always been 'sensitive down there', and states that
she needed IV Dilaudid in the PACU which would not be unusual for her. She states that she is unable to take IV morphine as advised by her kidney doctors. She contacted her [facility] doctor yesterday complaining of pain associated with an elevated heart
rate, and elevated blood pressure, but when her VICE CHANCELLOR recommended p.o. narcotics she states that she is unable to take that because it does not help her. In the evening yesterday she noted mild dysuria which continues today. Her pain is diffuse in
the pelvic area described as lower abdomen, lower back, and vagina. She has slight nausea but denies vomiting. She has mild anorexia. She denies fever, chills, chest pain, shortness of breath, dizziness, or other complaints. She did lift her son
up today, and noted slightly more vaginal bleeding without clots. She wears diapers for vaginal bleeding and changed a total of 2 times a day.
Past History
Past History
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
PTSD, ) and Other ( PE/DVT, IBS, factor V Leiden, early stage cervical cancer)
ED Past Surgical History: Cholecystectomy, Gynecological, Tonsilectomy (and adenoids) and Other (renal transplant 2015; hernia repair; sinus reconstruction; wisdom tooth extraction; )
Social History
Tobacco: Non-smoker
Alcohol: None
Drug: None
Personal: Single
Living: with family
Employment: Employed
Family History
Family History: Other (Grandmother with ovarian cancer mother with retinitis pigmentosa, father with high blood pressure)
Phy Exam
Physical Exam
Physical Exam:
GENERAL: Alert , in no apparent distress
EYE: pupils equal and reactive
NECK: Supple, no significant adenopathy.
ENT: o/p clr, mmm.
CARDIAC: Regular rate and rhythm .
LUNGS: Clear breath sounds bilaterally, no acute respiratory distress, no wheezes/rales/rhonchi
ABDOMEN: Soft, nonspecific mild lower tenderness, no r/g, no cvat
NEUROLOGICAL: Alert and oriented, no focal neuro deficits
SKIN: Warm and dry, skin intact.
MUSCULOSKELETAL: No edema, well perfused.
PSYCH: Normal and appropriate interaction.
Course
Orders/Labs/Results
Orders:
Orders
07/25/24 17:53
Cardiac Monitoring- Treatment ONCE
0.9% Sodium Chloride 1000 ml [Nss] 1,000 ml IV BOLUS
HYDROmorphone [Dilaudid] 0.5 mg IV NOW STA
07/25/24 17:54
US Pelvis Only (non-obstetric) Urgent
Comment:
Reason For Exam: bleeding s/p LEEP
07/25/24 18:17
Urinalysis Reflex To Culture Urgent
Date Specimen was Collected: 07/25/24
Time Specimen was Collected: 18:02
Urine Microscopic Reflex Cult Urgent
Urine Culture Urgent
ITZ Source: U
Specimen Description:
Date Specimen was Collected: 07/25/24
Time Specimen was Collected: 18:02
07/25/24 18:27
Complete Blood Count/No Diff Urgent
Comprehensive Metabolic Panel Urgent
Abnormal Lab Results
07/25/24 07/25/24
18:17 18:27
RBC 2.60 L 10^6/uL
(4.20-5.40)
Hgb 8.9 L g/dL
(12.0-16.0)
Hct 26.1 L %
(37.0-47.0)
MCV 100.4 H fL
(81.0-99.0)
MCH 34.2 H pg
(27.0-31.0)
RDW 15.5 H %
(11.5-14.5)
MPV 12.8 H fL
(7.4-10.4)
Chloride 109 H mmol/L
(98-107)
Creatinine 1.4 H mg/dL
(0.6-1.0)
Glucose 101 H mg/dl
(70-99)
Total Protein 5.8 L g/dl
(6.3-8.2)
Urine WBC (Reflex) 11-15 A /HPF
(0-5)
Urine Bacteria (Reflex) Few A
(Negative)
Urine Albumin (Reflex) 1+ A
(Neg - Trace)
07/25/24 18:27
07/25/24 18:27
Vital Signs
Initial and Last Documented VS:
Initial Vital Signs
Temp Pulse Resp BP Pulse Ox
98.5 F 85 16 149/93 100
07/25/24 17:01 07/25/24 17:01 07/25/24 17:01 07/25/24 17:01 07/25/24 17:01
Last Documented Vital Signs
Temp Pulse Resp BP Pulse Ox
98.5 F 74 18 128/71 99
07/25/24 17:01 07/25/24 20:00 07/25/24 20:00 07/25/24 20:00 07/25/24 20:00
Update Note
Update Note:
Patient presents to the Emergency Department with __abdominal back and vaginal pain with bleeding and dysuria
Number and Complexity of Problems Addressed at the Encounter
� Chronic conditions affecting care:
� Acute Exacerbation and/or Progression of Chronic Illness:
� Differential Diagnosis includes: But not limited to UTI, postoperative pain, etc. etc.
Amount and/or Complexity of Data to be Reviewed and Analyzed
� I performed an independent evaluation of and my interpretation is:
EKG:
CT:
Xrays:
Laboratory Studies: Generally unremarkable, anemia stable, creatinine stable UA not suggestive of UTI
Other:us Unremarkable sonographic appearance of the uterus and ovaries.
� Review of other/old records reveals:
� Clinical information was obtained by an independent historian:
� Prescriptions/Medications Considered but not given:
� Further testing considered but not performed:
Risk of Complications and/or Morbidity or Mortality of Patient Management
� Social determinants of health affecting care:
� Discussion with other providers (PCP, Hospitalists, Consultants, etc):
� Escalation of care including admission/observation vs risk of discharge considered: Case discussed with [facility] CH[facility] Dr. Gutierrez� Aware of history, labs, etc. Assuming ultrasound not consistent with acute or worrisome etiology patient
stable for discharge. Pain not to be unexpected status post procedure. will remedicate at this time. Does not recommend further testing or have other management recommendations at this time. Bp remains stable, bleeding has not increased/pt has
not had to change period diaper. reassessments--pt appears comfortable, vitals nl, no r/g, etc.
ED Attending Note
-
Portions of this chart may have been created with voice recognition software.� Occasional wrong word or��sound alike� substitutions may have occurred due to the inherent limitations of voice recognition software.
Discharge Plan
Departure
Patient Disposition: Home (Routine Discharge)
Date of Disposition: 07/25/24
Time of Disposition: 20:52
Patient with high blood pressure during this ER visit?: Yes
Condition: Good
Discharge Problem:
Post-operative pain
Instructions: Postoperative Pain (DC), BLOOD PRESSURE
Prescriptions:
No Action
alprazolam 1 MG tablet
1 mg PO BID@0800,1500
Patient Comments:
05/23/2023, pt. filled this med. on 04/21/2023 for 30 tablets according to PDMP.
azathioprine [Azasan] 100 MG tablet
100 mg PO DAILY
lisinopril 10 mg tablet
10 mg PO HS
montelukast 10 mg tablet
10 mg PO HS
pravastatin 20 mg tablet
20 mg PO HS
Eliquis 2.5 mg tablet
2.5 mg PO BID
clonidine HCl 0.1 mg Tablet
0.2 mg PO TID
lidocaine 4 % Cream
1 applic TOPICAL DAILYPRN PRN (Reason: prior to port access)
omeprazole 20 mg Capsule,Delayed Release(Dr/Ec)
20 mg PO BID
belatacept 250 mg Recon Soln
250 mg IV Q28D
Patient Comments:
NEXT DOSE 08/01/2024
Linzess 145 mcg Capsule
145 mcg PO DAILYPRN PRN (Reason: IBS)
alprazolam 1 mg tablet
0.5 mg PO HS
albuterol sulfate 90 mcg/actuation Hfa Aerosol Inhaler
2 puff INHALATION R Q6HPRN PRN (Reason: sob/wheezing)
sucralfate [Carafate] 100 mg/mL suspension
5 ml PO TIDPRN PRN (Reason: Gastrointestinal issue)
metoclopramide HCl [Reglan] 10 mg Tablet
10 mg PO BIDPRN PRN (Reason: if zofran does not work)
ondansetron [Zofran ODT] 4 mg Tablet,Disintegrating
4 mg PO DAILYPRN PRN (Reason: n/v)
prednisone 5 mg Tablet
5 mg PO DAILY
spironolactone 25 mg Tablet
25 mg PO DAILY
zolpidem [Ambien] 10 mg Tablet
10 mg PO HS PRN (Reason: SLEEP)
acetaminophen [Tylenol Extra Strength] 500 mg Tablet
1,000 mg PO Q6H PRN (Reason: pain)
Referrals:
Leoncio Zheng MD [Primary Care Provider] -
Sera Gomes MD [Active] - Tomorrow
Activity Restrictions/Additional Instructions:
IF YOU DEVELOP INCREASING/NEW PAIN, FEVER, VOMITING, DIFFICULTY URINATING, INCREASING BLEEDING, OR OTHER WORRISOME SIGNS, GO TO THE ER IMMEDIATELy!
Interventions
Interventions:
*Risk Screen - Suicide Last Done: 07/25/24 17:45
*General Assessment Last Done: 07/25/24 17:45
*Neglect/Abuse Screening Last Done: 07/25/24 17:45
*ED- Fall Risk Assessment Last Done: 07/25/24 17:45
ED-Skin Assessment Last Done: 07/25/24 17:45
Discharge Date and Time
Print Language: [place]
[2024-07-25] MEDS: NSS 1000 IV (18:14)
[2024-07-25] MEDS: DILAUDID 0.5 MG IV ×2 (18:15→21:04)
[2024-07-25 18:32] LABS: Urine Albumin 1+ (Neg - Trace); Urine Bilirubin Negative (Negative); Urine Character Clear (Clear); Urine Color Yellow; Urine Glucose Negative (Negative); Urine Ketone Negative (Negative); Urine Leukocyte Negative (Negative); Urine Nitrite Negative (Negative); Urine Occult Blood Negative (Negative); Urine Specific Gravity 1.015 (<1.030); Urine Urobilinogen Negative (Neg - 1+)
[2024-07-25 18:38] LABS: Hematocrit 26.1 % (37.0-47.0); Hemoglobin 8.9 g/dL (12.0-16.0); Mean Corp Hgb Conc. 34.1 g/dL (33.0-37.0); Mean Corpuscular Hgb 34.2 pg (27.0-31.0); Mean Corpuscular Volume 100.4 fL (81.0-99.0); Mean Platelet Volume 12.8 fL (7.4-10.4); Platelet Count 142 10^3/uL (130-400); Red Cell Dist. Width 15.5 % (11.5-14.5); White Blood Cell Count 7.1 10^3/uL (4.8-10.8)
[2024-07-25 18:41] LABS: Urine Red Blood Cell 0-2 /HPF (0-2)
[2024-07-25 18:42] LABS: Urine Bacteria Few (Negative)
[2024-07-25 19:52] LABS: ALT (SGPT) < 10 U/L (0-35); AST (SGOT) 16 U/L (14-36); Albumin 3.6 g/dl (3.5-5.0); Alkaline Phosphatase 52 U/L (38-126); Blood Urea Nitrogen 17 mg/dl (7-17); Calcium 9.1 mg/dl (8.4-10.2); Carbon Dioxide 26 mmol/L (22-30); Chloride 109 mmol/L (98-107); Glucose 101 mg/dl (70-99); Potassium 4.1 mmol/L (3.5-5.1); Sodium 140 mmol/L (135-145); Total Bilirubin 0.4 mg/dl (0.2-1.3); Total Protein 5.8 g/dl (6.3-8.2); eGFR 51.58
== END 2024-07-25 21:16 | disposition home or self-care (01) ==
LOC: EMR 17:00
PROVIDERS: EMERGENCY PHYSICIAN Emergency Medicine; PRIMARYCARE PHYSICIAN Internal Medicine
DX: G89.18 Other acute postprocedural pain (principal); N93.9 Abnormal uterine and vaginal bleeding, unspecified; J45.909 Unspecified asthma, uncomplicated; K21.9 Gastro-esophageal reflux disease without esophagitis; I10 Essential (primary) hypertension; F90.9 Attention-deficit hyperactivity disorder, unspecified type; F43.10 Post-traumatic stress disorder, unspecified; D68.51 Activated protein C resistance; Z86.718 Personal history of other venous thrombosis and embolism; Z90.49 Acquired absence of other specified parts of digestive tract; Z94.0 Kidney transplant status
CPT/HCPCS: 99284; 96374; 96376; 96361; 76856; 80053; 81003; 81015; 85027; 87086

== ENCOUNTER 2024-08-01 21:23 | Emergency (ER) | payer OTHER, SELFPAY ==
[2024-08-01 21:27] VITALS: BP 146/95
[2024-08-01 21:45] VITALS: BMI 26.7
[2024-08-01 22:00] VITALS: BP 139/95
--- NOTE | 2024-08-01 22:15 | ED.GENMED ---
History of Present Illness
General
Chief Complaint: Gynecological Problem
Source: patient
Exam Limitations: none
Time Seen by Provider: 08/01/24 21:46
Nursing documentation reviewed up to this point in time: agreed with
History of Present Illness
History of Present Illness:
29 yo female w h/o cervical CA undergoing chemotherapy at [facility], kidney transplant, Factor V Leiden, had LEEP procedure by Dr. Crabtree on 07/24. Has had bleeding since. Was at [facility] for chemo yesterday, had heavy vaginal bleeding, had [facility]ICAL REGISTRAR exam and told the
LEEP incision was open, they applied 'Monsel's solution' to stop the bleeding, she has had significant vaginal pain since that exam, they kept her in ED overnight, gave her Dilaudid 1 mg and sent her home 1 p.m. today. She states driving home she
vomited 4 times and once home vomited 4 more times, she is unable to take her meds including her Eliquis due to (reported) vomiting. She is wearing the same pad she left the hospital with and has had no significant bleeding since
She states Dr. Crabtree told her the 'LEEP didn't work and I have MINA 2 & 3 and she wants to do a hysterectomy and keep the ovaries.'
She states she spoke with conveyor weigher operator [employer]R[facility] Dr. Hackett earlier today and she told me to come in for hydration, nausea and pain.'
States vaginal pain is 8/10 and states she cannot tolerate po narcotics due to nausea and vomiting. States due to her 'kidney transplant protocol' she cannot take Morphine, she can only have Dilaudid and is requesting this now for her vaginal pain
she's had since the vaginal speculum exam this a.m. at [facility].
Past History
Past History
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
ADHD, depression, PTSD, ) and Other ( PE/DVT, IBS, factor V Leiden, early stage cervical cancer)
ED Past Surgical History: Cholecystectomy, Gynecological, Tonsilectomy (and adenoids) and Other (renal transplant 2015; hernia repair; sinus reconstruction; wisdom tooth extraction; )
Social History
Tobacco: Non-smoker
Alcohol: None
Drug: None
Personal: Single
Living: with family
Employment: Employed
Family History
Family History: Other (Grandmother with ovarian cancer mother with retinitis pigmentosa, father with high blood pressure)
Review of Systems
Review of Systems
Allergies reviewed?: Yes
All Other Systems: ROS reviewed and negative except as documented in HPI and ROS
Constitutional: Denies fever or chills
Respiratory: Denies trouble breathing
Cardiac: Denies chest pain
ABD/GI: Reports nausea and vomiting; Denies abdominal pain or diarrhea
: Reports other (vaginal pain 8/10 from internal speculum exam at [facility] this morning. Bleeding has slowed significantly); Denies dysuria, frequency or difficulty voiding
Skin: Reports other (Port right chest)
Neurological: Reports no symptoms
Phy Exam
Physical Exam
Physical Exam:
GENERAL: No acute distress. A&Ox3.
CONSTITUTIONAL: Afebrile.
EYES: clear, conjunctivae normal
ENMT: moist mucus membranes, Pharynx nl
RESPIRATORY: Regular respirations, nonlabored, lungs clear.
CARDIOVASCULAR: Regular rate and rhythm, no murmurs, no rubs.
GI: Soft, nontender, normal BS
: Small amount brown discharge on her pad, no significant bleeding
MUSCULOSKELETAL: Moves with ease. Well perfused.
SKIN: Warm, dry, pink
PSYCH: Normal mood and affect. Well kept, interactive and appropriate
NEUROLOGIC: Awake, alert and oriented. No focal neurological deficits
Course
Orders/Labs/Results
Orders:
Orders
08/01/24 22:12
HYDROmorphone [Dilaudid] 0.5 mg IV NOW STA
08/01/24 22:13
0.9% Sodium Chloride 1000 ml [Nss] 1,000 ml IV BOLUS
Ondansetron Injectable [Zofran] 4 mg IV NOW STA
08/01/24 22:21
Complete Blood Count/With Diff Urgent
Comprehensive Metabolic Panel Urgent
Abnormal Lab Results
08/01/24
22:21
RBC 2.75 L 10^6/uL
(4.20-5.40)
Hgb 9.4 L g/dL
(12.0-16.0)
Hct 26.8 L %
(37.0-47.0)
MCH 34.2 H pg
(27.0-31.0)
RDW 14.9 H %
(11.5-14.5)
MPV 12.7 H fL
(7.4-10.4)
Lymphocytes % 17.0 L %
(20.5-51.1)
Creatinine 1.4 H mg/dL
(0.6-1.0)
08/01/24 22:21
08/01/24 22:21
Vital Signs
Initial and Last Documented VS:
Initial Vital Signs
Temp Pulse Resp BP Pulse Ox
97.9 F 92 20 146/95 97
08/01/24 21:27 08/01/24 21:27 08/01/24 21:27 08/01/24 21:27 08/01/24 21:27
Last Documented Vital Signs
Temp Pulse Resp BP Pulse Ox
97.9 F 63 13 122/87 99
08/01/24 21:27 08/01/24 23:43 08/01/24 23:43 08/01/24 23:43 08/01/24 23:43
MDM/Problems Addressed
Differential Diagnosis Includes:
anemia from bleeding, dehydration
MDM/Problems Addressed:
29 yo female w h/o cervical CA undergoing chemotherapy at [facility], kidney transplant, Factor V Leiden, had LEEP procedure by Dr. Crabtree on 07/24. Has had bleeding since. Was at [facility] for chemo yesterday, had heavy vaginal bleeding, had MEDICAL REGISTRAR exam and told the
LEEP incision was open, they applied 'Monsel's solution' to stop the bleeding, she has had significant vaginal pain since that exam, they kept her in ED overnight, gave her Dilaudid 1 mg and sent her home 1 p.m. today. She states driving home she
vomited 4 times and once home vomited 4 more times, she is unable to take her meds including her Eliquis due to (reported) vomiting. She is wearing the same pad she left the hospital with and has had no significant bleeding since
She states Dr. Crabtree told her the 'LEEP didn't work and I have MINA 2 & 3 and she wants to do a hysterectomy and keep the ovaries.'
She states she spoke with conveyor weigher operator [facility] REGISTR[facility] Dr. Hackett earlier today and she told me to come in for hydration, nausea and pain.'
States vaginal pain is 8/10 and states she cannot tolerate po narcotics due to nausea and vomiting. States due to her 'kidney transplant protocol' she cannot take Morphine, she can only have Dilaudid and is requesting this now for her vaginal pain
she's had since the vaginal speculum exam this a.m. at [facility].
11:15 PM:
CBC with no clinically significant abnormality. Hemoglobin 9.4 improved from 4/2 when it was 8.9
CMP with no clinically significant abnormality, creatinine 1.4 which is her baseline
Feeling better after pain medication
ED Attending Note
-
Portions of this chart may have been created with voice recognition software.� Occasional wrong word or��sound alike� substitutions may have occurred due to the inherent limitations of voice recognition software.
Discharge Plan
Departure
Patient Disposition: Home (Routine Discharge)
Date of Disposition: 08/01/24
Time of Disposition: 23:23
Patient with high blood pressure during this ER visit?: No
Condition: Good
Discharge Problem:
Vaginal pain, History of nausea and vomiting
Instructions: Nausea and vomiting in adults, Clear liquid diet
Prescriptions:
No Action
alprazolam 1 MG tablet
1 mg PO BID@0800,1500
Patient Comments:
05/23/2023, pt. filled this med. on 04/21/2023 for 30 tablets according to PDMP.
azathioprine [Azasan] 100 MG tablet
100 mg PO DAILY
lisinopril 10 mg tablet
10 mg PO HS
montelukast 10 mg tablet
10 mg PO HS
pravastatin 20 mg tablet
20 mg PO HS
Eliquis 2.5 mg tablet
2.5 mg PO BID
clonidine HCl 0.1 mg Tablet
0.2 mg PO TID
lidocaine 4 % Cream
1 applic TOPICAL DAILYPRN PRN (Reason: prior to port access)
omeprazole 20 mg Capsule,Delayed Release(Dr/Ec)
20 mg PO BID
belatacept 250 mg Recon Soln
250 mg IV Q28D
Patient Comments:
NEXT DOSE 08/01/2024
Linzess 145 mcg Capsule
145 mcg PO DAILYPRN PRN (Reason: IBS)
alprazolam 1 mg tablet
0.5 mg PO HS
albuterol sulfate 90 mcg/actuation Hfa Aerosol Inhaler
2 puff INHALATION R Q6HPRN PRN (Reason: sob/wheezing)
sucralfate [Carafate] 100 mg/mL suspension
5 ml PO TIDPRN PRN (Reason: Gastrointestinal issue)
metoclopramide HCl [Reglan] 10 mg Tablet
10 mg PO BIDPRN PRN (Reason: if zofran does not work)
ondansetron [Zofran ODT] 4 mg Tablet,Disintegrating
4 mg PO DAILYPRN PRN (Reason: n/v)
prednisone 5 mg Tablet
5 mg PO DAILY
spironolactone 25 mg Tablet
25 mg PO DAILY
zolpidem [Ambien] 10 mg Tablet
10 mg PO HS PRN (Reason: SLEEP)
acetaminophen [Tylenol Extra Strength] 500 mg Tablet
1,000 mg PO Q6H PRN (Reason: pain)
Referrals:
Leoncio Zheng MD [Family Provider] -
Sera Gomes MD [Active] - Call in 1-3 days for appt
Activity Restrictions/Additional Instructions:
As we discussed, your workup here shows nothing worrisome, specifically no dehydration or significant anemia, in fact, your Hemoglobin is improving.
Follow up with Dr. Crabtree
Take your medications when you get home.
Stick with a clear liquid diet until your nausea is improved
Interventions
Interventions:
*Risk Screen - Suicide Last Done: 08/01/24 21:25
*General Assessment Last Done: 08/01/24 21:45
*Neglect/Abuse Screening Last Done: 08/01/24 21:25
*ED- Fall Risk Assessment Last Done: 08/01/24 21:45
*ED COVID-19 Vaccine History Last Done: 08/01/24 21:45
*Nursing Disposition Last Done: 08/01/24 23:47
ED-Female Genitourinary Assessment Last Done: 08/01/24 21:45
Discharge Date and Time
Print Language: [place]
[2024-08-01] MEDS: DILAUDID 0.5 MG IV (22:28)
[2024-08-01] MEDS: ZOFRAN 4 MG IV (22:28)
[2024-08-01] MEDS: NSS 1000 IV (22:29)
[2024-08-01 22:40] LABS: % Basophils 0.6 % (0-2); % Eosinophils 0.7 % (0-6); % Immature Granulocytes 0.4 % (0-0.5); % Monocytes 7.7 % (1.7-9.3); % Neutrophils 73.6 % (42.2-75.2); Absolute Eosinophils 0.1 10^3/uL (0-0.7); Absolute Lymphocytes 1.2 10^3/uL (1.2-3.4); Absolute Monocytes 0.5 10^3/uL (0.1-0.6); Absolute Neutrophils 5.2 10^3/uL (1.4-6.5); Hematocrit 26.8 % (37.0-47.0); Hemoglobin 9.4 g/dL (12.0-16.0); Mean Corp Hgb Conc. 35.1 g/dL (33.0-37.0); Mean Corpuscular Hgb 34.2 pg (27.0-31.0); Mean Corpuscular Volume 97.5 fL (81.0-99.0); Mean Platelet Volume 12.7 fL (7.4-10.4); Nucleated Red Blood Cells % 0 %; Platelet Count 152 10^3/uL (130-400); Red Blood Cell Count 2.75 10^6/uL (4.20-5.40); Red Cell Dist. Width 14.9 % (11.5-14.5)
[2024-08-01 22:54] LABS: ALT (SGPT) 11 U/L (0-35); AST (SGOT) 19 U/L (14-36); Albumin 4.2 g/dl (3.5-5.0); Alkaline Phosphatase 58 U/L (38-126); Blood Urea Nitrogen 16 mg/dl (7-17); Calcium 9.7 mg/dl (8.4-10.2); Carbon Dioxide 25 mmol/L (22-30); Chloride 104 mmol/L (98-107); Estimated Creatinine Clearance 50 ml/min; Glucose 97 mg/dl (70-99); Sodium 138 mmol/L (135-145); Total Bilirubin 1.1 mg/dl (0.2-1.3); Total Protein 6.3 g/dl (6.3-8.2); eGFR 51.58
[2024-08-01 23:00] VITALS: BP 122/76
[2024-08-01 23:43] VITALS: BP 122/87
== END 2024-08-02 00:43 | disposition home or self-care (01) ==
LOC: EMR 21:23
PROVIDERS: EMERGENCY PHYSICIAN Student in an Organized Health Care Education/Training Program; FAMILY PHYSICIAN Internal Medicine; REFERRING PHYSICIAN Obstetrics & Gynecology
DX: R10.2 Pelvic and perineal pain (principal); R11.2 Nausea with vomiting, unspecified; D68.51 Activated protein C resistance; F32.A Depression, unspecified; I10 Essential (primary) hypertension; J45.909 Unspecified asthma, uncomplicated; Z85.41 Personal history of malignant neoplasm of cervix uteri; Z86.718 Personal history of other venous thrombosis and embolism; Z90.49 Acquired absence of other specified parts of digestive tract; Z94.0 Kidney transplant status
CPT/HCPCS: 99283; 96374; 96375; 96361; 80053; 85025

== ENCOUNTER 2024-08-14 18:07 | Emergency (ER) | payer SELFPAY ==
[2024-08-14 18:13] VITALS: BP 148/87
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
[2024-08-14 18:37] VITALS: BMI 25.4
[2024-08-14] MEDS: ZOFRAN 4 MG IV ×2 (18:38→20:46)
[2024-08-14] MEDS: DILAUDID 0.5 MG IV ×3 (18:38→20:46)
[2024-08-14] MEDS: NSS 1000 IV (18:39)
[2024-08-14 18:46] LABS: % Basophils 0.6 % (0-2); % Eosinophils 0.4 % (0-6); % Immature Granulocytes 0.3 % (0-0.5); % Lymphocytes 18.5 % (20.5-51.1); % Monocytes 7.1 % (1.7-9.3); % Neutrophils 73.1 % (42.2-75.2); Absolute Lymphocytes 1.3 10^3/uL (1.2-3.4); Absolute Monocytes 0.5 10^3/uL (0.1-0.6); Absolute Neutrophils 5.1 10^3/uL (1.4-6.5); Hematocrit 31.2 % (37.0-47.0); Hemoglobin 10.8 g/dL (12.0-16.0); Mean Corp Hgb Conc. 34.6 g/dL (33.0-37.0); Mean Corpuscular Hgb 34.2 pg (27.0-31.0); Mean Corpuscular Volume 98.7 fL (81.0-99.0); Mean Platelet Volume 12.8 fL (7.4-10.4); Nucleated Red Blood Cells % 0 %; Platelet Count 226 10^3/uL (130-400); Red Blood Cell Count 3.16 10^6/uL (4.20-5.40); Red Cell Dist. Width 13.8 % (11.5-14.5); White Blood Cell Count 6.9 10^3/uL (4.8-10.8)
[2024-08-14 18:51] LABS: PT 13.5 Sec (11.4-14.6)
[2024-08-14 18:54] LABS: HCG, Serum Qualitative Screen Negative
[2024-08-14 19:00] VITALS: BP 126/74
[2024-08-14 19:00] LABS: ALT (SGPT) 13 U/L (0-35); AST (SGOT) 20 U/L (14-36); Albumin 4.7 g/dl (3.5-5.0); Alkaline Phosphatase 50 U/L (38-126); Blood Urea Nitrogen 12 mg/dl (7-17); Calcium 10.5 mg/dl (8.4-10.2); Carbon Dioxide 24 mmol/L (22-30); Estimated Creatinine Clearance 50 ml/min; Glucose 99 mg/dl (70-99); Lipase 125 U/L (23-300); Total Bilirubin 0.9 mg/dl (0.2-1.3); Total Protein 7.3 g/dl (6.3-8.2); eGFR 51.58
[2024-08-14 19:02] LABS: Alcohol None Detected
[2024-08-14 19:09] VITALS: BP 126/74
[2024-08-14 19:18] LABS: Chloride 104 mmol/L (98-107); Potassium 4.9 mmol/L (3.5-5.1); Sodium 140 mmol/L (135-145)
[2024-08-14 20:00] VITALS: BP 141/78
[2024-08-14] MEDS: TYLENOL 1000 MG PO (20:46)
== END 2024-08-14 21:37 | disposition home or self-care (01) ==
LOC: EMR 18:07
PROVIDERS: EMERGENCY PHYSICIAN Emergency Medicine; FAMILY PHYSICIAN Internal Medicine
DX: S80.11XA Contusion of right lower leg, initial encounter (principal); S80.12XA Contusion of left lower leg, initial encounter; S20.219A Contusion of unspecified front wall of thorax, initial encounter; S16.1XXA Strain of muscle, fascia and tendon at neck level, initial encounter; S39.012A Strain of muscle, fascia and tendon of lower back, initial encounter; V43.52XA Car driver injured in collision with other type car in traffic accident, initial encounter; I12.0 Hypertensive chronic kidney disease with stage 5 chronic kidney disease or end stage renal disease; N18.6 End stage renal disease; Z94.0 Kidney transplant status; E78.5 Hyperlipidemia, unspecified; J45.909 Unspecified asthma, uncomplicated; Z86.718 Personal history of other venous thrombosis and embolism; Z86.711 Personal history of pulmonary embolism; Z79.01 Long term (current) use of anticoagulants; Z85.41 Personal history of malignant neoplasm of cervix uteri
CPT/HCPCS: 99285; 96374; 96375; 96376; 96361; 70450; 71260; 72125; 73590; 74177; 80053; 82077; 83690; 84703; 85025; 85610; 85730; 93005; Q9967

== ENCOUNTER 2024-09-15 18:46 | Emergency (ER) | payer OTHER, SELFPAY ==
[2024-09-15 18:57] VITALS: BP 141/97
[2024-09-15 22:22] VITALS: BP 136/93
[2024-09-15 22:30] VITALS: BMI 28.4
[2024-09-15 22:31] VITALS: BP 136/93
[2024-09-15] MEDS: ZOFRAN 4 MG IV (22:49)
[2024-09-15] MEDS: DILAUDID 0.5 MG IV (22:49)
[2024-09-15] MEDS: NSS 1000 IV (22:50)
[2024-09-15 22:52] LABS: % Basophils 0.5 % (0-2); % Eosinophils 2.1 % (0-6); % Immature Granulocytes 0.3 % (0-0.5); % Lymphocytes 19.1 % (20.5-51.1); % Monocytes 8.5 % (1.7-9.3); % Neutrophils 69.5 % (42.2-75.2); Absolute Eosinophils 0.1 10^3/uL (0-0.7); Absolute Lymphocytes 1.2 10^3/uL (1.2-3.4); Absolute Monocytes 0.5 10^3/uL (0.1-0.6); Absolute Neutrophils 4.2 10^3/uL (1.4-6.5); Hematocrit 25.9 % (37.0-47.0); Mean Corp Hgb Conc. 34.7 g/dL (33.0-37.0); Mean Corpuscular Hgb 33.3 pg (27.0-31.0); Mean Corpuscular Volume 95.9 fL (81.0-99.0); Mean Platelet Volume 13.4 fL (7.4-10.4); Nucleated Red Blood Cells % 0 %; Platelet Count 137 10^3/uL (130-400); Red Cell Dist. Width 13.4 % (11.5-14.5); White Blood Cell Count 6.1 10^3/uL (4.8-10.8)
[2024-09-15 23:01] LABS: ALT (SGPT) 15 U/L (0-35); AST (SGOT) 20 U/L (14-36); Albumin 3.7 g/dl (3.5-5.0); Alkaline Phosphatase 48 U/L (38-126); Blood Urea Nitrogen 18 mg/dl (7-17); Calcium 9.4 mg/dl (8.4-10.2); Carbon Dioxide 29 mmol/L (22-30); Chloride 104 mmol/L (98-107); Estimated Creatinine Clearance 62 ml/min; Glucose 126 mg/dl (70-99); Potassium 4.2 mmol/L (3.5-5.1); Sodium 135 mmol/L (135-145); Total Bilirubin 0.2 mg/dl (0.2-1.3); eGFR 56.38
[2024-09-15 23:04] VITALS: BP 143/88
[2024-09-16] VITALS: BP 161/93
[2024-09-16] MEDS: DILAUDID 0.25 MG IV (00:07)
[2024-09-16 00:13] VITALS: BP 144/110
--- NOTE | 2024-09-16 16:53 | ED.GENMED ---
History of Present Illness
General
Chief Complaint: Post Operative Problem(s)
Source: patient
Exam Limitations: none
Time Seen by Provider: 09/15/24 22:33
Nursing documentation reviewed up to this point in time: agreed with
History of Present Illness
History of Present Illness:
Patient states she had a laproscopic total hysterectomy 2 days ago. SHe was kept overnight and discharged yesterday. SHe reports increased pain and fever at home. SHe states she can not tolerate the oxycodone, it makes her vomit. Brought to ED
by family for eval On arrival to ED she is awake and alert, nontoxic appearing, afebrile.
Past History
Past History
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
ADHD, depression, PTSD, ) and Other ( PE/DVT, IBS, factor V Leiden, early stage cervical cancer)
ED Past Surgical History: Cholecystectomy, Gynecological, Tonsilectomy (and adenoids) and Other (renal transplant 2014; hernia repair; sinus reconstruction; wisdom tooth extraction; )
Social History
Tobacco: Non-smoker
Alcohol: None
Drug: None
Personal: Single
Living: with family
Employment: Employed
Family History
Family History: Other (Grandmother with ovarian cancer mother with retinitis pigmentosa, father with high blood pressure)
Review of Systems
Review of Systems
Allergies reviewed?: Yes
All Other Systems: ROS reviewed and negative except as documented in HPI and ROS
Constitutional: Reports no symptoms
EENT: Reports no symptoms
Respiratory: Reports no symptoms
Cardiac: Reports no symptoms
ABD/GI: Reports other (s/p total hysterectomy x 2 days. complains of generalized abd. pain and fever.)
: Reports no symptoms
Musculoskeletal: Reports no symptoms
Skin: Reports no symptoms
Neurological: Reports no symptoms
Psychiatric: Reports no symptoms
Phy Exam
General Physical Exam
General Presentation: well appearing and mild distress
General age: appears stated age
General Skin: warm and dry
General Habitus: normal
General Mental: alert
General Hydration: appears well hydrated
Cardiovascular Exam
Cardiovascular Exam: regular rate/rhythm and no edema
Pulmonary Exam
Pulmonary Exam: no respiratory distress and chest non tender
Gastrointestinal Exam
Gastrointestinal Exam: normal bowel sounds, soft, non distended and no cva tenderness
Palpation: generalized: Moderate tenderness
Musculoskeletal Exam
Musculoskeletal Exam: full ROM
Skin Exam
Skin Exam: normal color, warm/dry, no rash and other (laproscopic sites on abd with steristrips intact. no redness swelling or drainage.)
Psychiatric Exam
Psychiatric Exam: normal mood/affect
Course
Orders/Labs/Results
Orders:
Orders
09/15/24 22:32
Complete Blood Count/With Diff Urgent
Comprehensive Metabolic Panel Urgent
Lactic Acid Urgent
09/15/24 22:41
0.9% Sodium Chloride 1000 ml [Nss] 1,000 ml IV BOLUS
HYDROmorphone [Dilaudid] 0.5 mg IV NOW STA
Ondansetron Injectable [Zofran] 4 mg IV NOW STA
09/15/24 23:59
HYDROmorphone [Dilaudid] 0.25 mg IV NOW STA
Abnormal Lab Results
09/15/24
22:32
RBC 2.70 L 10^6/uL
(4.20-5.40)
Hgb 9.0 L g/dL
(12.0-16.0)
Hct 25.9 L %
(37.0-47.0)
MCH 33.3 H pg
(27.0-31.0)
MPV 13.4 H fL
(7.4-10.4)
Lymphocytes % 19.1 L %
(20.5-51.1)
BUN 18 H mg/dl
(7-17)
Creatinine 1.3 H mg/dL
(0.6-1.0)
Glucose 126 H mg/dl
(70-99)
Total Protein 6.0 L g/dl
(6.3-8.2)
09/15/24 22:32
09/15/24 22:32
Vital Signs
Initial and Last Documented VS:
Initial Vital Signs
Temp Pulse Resp BP Pulse Ox
98.6 F 73 18 141/97 100
09/15/24 18:57 09/15/24 18:57 09/15/24 18:57 09/15/24 18:57 09/15/24 18:57
Last Documented Vital Signs
Temp Pulse Resp BP Pulse Ox
98.6 F 61 15 144/110 100
09/15/24 18:57 09/15/24 22:31 09/15/24 22:31 09/16/24 00:13 09/16/24 00:10
*Critical Care Note
Total Time (30-74mins, 75-104mins- exclusive of procedures): Not Applicable
Update Note
Update Note:
patient to ED s/p total hysterectomy 2 days ago. Reports generalized abd pain from procedure and states she is unable to take oxycodone because it makes her vomit. SHe reports she can take either tylenol or dilauded. Given 0.5mg in ED with
improvement in her pain. No fever in ED. WBC normal. Abdomen is soft, no distention noted. SUrgical sites with steristrips intact, no evidence of infection. SHe remains awake and alert, nontoxic appearing. I do not feel further imaging is
needed tonight. No concerns on her exam for infectious process. WIll discharge home and she will follow [facility]. Case discussed with Dr. Robles who agrees with findings and plan.
ED Attending Note
-
Portions of this chart may have been created with voice recognition software.� Occasional wrong word or��sound alike� substitutions may have occurred due to the inherent limitations of voice recognition software.
Discharge Plan
Departure
Patient Disposition: Home (Routine Discharge)
Date of Disposition: 09/15/24
Time of Disposition: 23:55
Patient with high blood pressure during this ER visit?: No
Condition: Good
Covid-19: Not Applicable
Discharge Problem:
Post-operative pain
Instructions: Postoperative Pain (DC)
Prescriptions:
No Action
alprazolam 1 MG tablet
1 mg PO BID@0800,1500
Patient Comments:
05/23/2023, pt. filled this med. on 04/21/2023 for 30 tablets according to PDMP.
azathioprine [Azasan] 100 MG tablet
100 mg PO DAILY
lisinopril 10 mg tablet
10 mg PO HS
montelukast 10 mg tablet
10 mg PO HS
pravastatin 20 mg tablet
20 mg PO HS
Eliquis 2.5 mg tablet
2.5 mg PO BID
clonidine HCl 0.1 mg Tablet
0.2 mg PO TID
lidocaine 4 % Cream
1 applic TOPICAL DAILYPRN PRN (Reason: prior to port access)
omeprazole 20 mg Capsule,Delayed Release(Dr/Ec)
20 mg PO BID
belatacept 250 mg Recon Soln
250 mg IV Q28D
Patient Comments:
NEXT DOSE 08/01/2024
Linzess 145 mcg Capsule
145 mcg PO DAILYPRN PRN (Reason: IBS)
alprazolam 1 mg tablet
0.5 mg PO HS
albuterol sulfate 90 mcg/actuation Hfa Aerosol Inhaler
2 puff INHALATION R Q6HPRN PRN (Reason: sob/wheezing)
sucralfate [Carafate] 100 mg/mL suspension
5 ml PO TIDPRN PRN (Reason: Gastrointestinal issue)
metoclopramide HCl [Reglan] 10 mg Tablet
10 mg PO BIDPRN PRN (Reason: if zofran does not work)
ondansetron [Zofran ODT] 4 mg Tablet,Disintegrating
4 mg PO DAILYPRN PRN (Reason: n/v)
prednisone 5 mg Tablet
5 mg PO DAILY
spironolactone 25 mg Tablet
25 mg PO DAILY
zolpidem [Ambien] 10 mg Tablet
10 mg PO HS PRN (Reason: SLEEP)
acetaminophen [Tylenol Extra Strength] 500 mg Tablet
1,000 mg PO Q6H PRN (Reason: pain)
Referrals:
Leoncio Zheng MD [Family Provider] -
Activity Restrictions/Additional Instructions:
FOllow up with your sureon in the AM
Interventions
Interventions:
*Risk Screen - Suicide Last Done: 09/15/24 18:57
*General Assessment Last Done: 09/15/24 18:57
*Neglect/Abuse Screening Last Done: 09/15/24 18:57
*ED- Fall Risk Assessment Last Done: 09/16/24 00:24
*ED COVID-19 Vaccine History Last Done: 09/15/24 18:57
*Nursing Disposition Last Done: 09/16/24 00:24
ED-Skin Assessment Last Done: 09/15/24 23:08
Discharge Date and Time
Discharge Date/Time: 09/16/24 00:40
Print Language: BELARUSIAN
== END 2024-09-16 00:40 | disposition home or self-care (01) ==
LOC: EMR 18:46
PROVIDERS: Emergency Medicine; EMERGENCY PHYSICIAN Emergency Medicine; FAMILY PHYSICIAN Internal Medicine
DX: G89.18 Other acute postprocedural pain (principal); R50.9 Fever, unspecified; J45.909 Unspecified asthma, uncomplicated; I10 Essential (primary) hypertension; K21.9 Gastro-esophageal reflux disease without esophagitis; F90.9 Attention-deficit hyperactivity disorder, unspecified type; F41.8 Other specified anxiety disorders; F43.10 Post-traumatic stress disorder, unspecified; K58.9 Irritable bowel syndrome, unspecified; D68.51 Activated protein C resistance; Z86.718 Personal history of other venous thrombosis and embolism; Z90.49 Acquired absence of other specified parts of digestive tract; Z94.0 Kidney transplant status
CPT/HCPCS: 99283; 96374; 96375; 96376; 96361; 80053; 83605; 85025

== ENCOUNTER 2024-09-26 18:58 | Emergency (ER) | payer OTHER, SELFPAY ==
[2024-09-26 19:11] VITALS: BP 169/99
--- NOTE | 2024-09-26 21:16 | ED.GENMED ---
History of Present Illness
General
Chief Complaint: Generalized Pain
Source: patient
Exam Limitations: none
Time Seen by Provider: 09/26/24 21:08
History of Present Illness
History of Present Illness:
See MDM
Past History
Past History
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
ADHD, depression, PTSD, ) and Other ( PE/DVT, IBS, factor V Leiden, early stage cervical cancer)
ED Past Surgical History: Cholecystectomy, Gynecological, Tonsilectomy (and adenoids) and Other (renal transplant 2014; hernia repair; sinus reconstruction; wisdom tooth extraction; )
Social History
Tobacco: Non-smoker
Alcohol: None
Drug: None
Personal: Single
Living: with family
Employment: Employed
Family History
Family History: Other (Grandmother with ovarian cancer mother with retinitis pigmentosa, father with high blood pressure)
Phy Exam
Physical Exam
Physical Exam:
See MDM
Course
Orders/Labs/Results
Orders:
Orders
09/26/24 21:46
0.9% Sodium Chloride 1000 ml [Nss] 1,000 ml IV BOLUS
HYDROmorphone [Dilaudid] 1 mg IV NOW STA
Ondansetron Injectable [Zofran] 4 mg IV NOW STA
09/26/24 22:10
Complete Blood Count/With Diff Urgent
Comprehensive Metabolic Panel Urgent
Urinalysis Reflex To Culture Urgent
Date Specimen was Collected: 09/26/24
Time Specimen was Collected: 21:48
09/26/24 23:29
Fluconazole [Diflucan] 150 mg PO NOW STA
HYDROmorphone [Dilaudid] 1 mg IV NOW STA
Abnormal Lab Results
09/26/24
22:10
RBC 2.81 L 10^6/uL
(4.20-5.40)
Hgb 9.0 L g/dL
(12.0-16.0)
Hct 25.8 L %
(37.0-47.0)
MCH 32.0 H pg
(27.0-31.0)
MPV 12.7 H fL
(7.4-10.4)
Creatinine 1.3 H mg/dL
(0.6-1.0)
Glucose 103 H mg/dl
(70-99)
Alkaline Phosphatase 35 L U/L
(38-126)
09/26/24 22:10
09/26/24 22:10
Vital Signs
Initial and Last Documented VS:
Initial Vital Signs
Temp Pulse Resp BP Pulse Ox
98.5 F 87 16 169/99 100
09/26/24 19:11 09/26/24 19:11 09/26/24 19:11 09/26/24 19:11 09/26/24 19:11
Last Documented Vital Signs
Temp Pulse Resp BP Pulse Ox
98.5 F 87 16 127/88 95
09/26/24 19:11 09/26/24 19:11 09/26/24 19:11 09/27/24 00:00 09/27/24 00:15
MDM/Problems Addressed
Differential Diagnosis Includes:
HPI and MDM Narrative:
29-year-old female presenting for evaluation of abdominal pain and vaginal discharge. Patient states she had a hysterectomy a few weeks ago at [facility]. She then states she had a follow-up appointment yesterday. When they did the pelvic exam, patient
states it threw her into convulsions where she required evaluation in the emergency department. After several hours of monitoring, she was sent home. She indicates that they noted Ingrid discharge. However, patient states she was not treated for
this. She is unsure why. She then spoke to the on-call staff combat information center officer at [place] indicating ongoing symptoms. Patient states there was a long wait at [facility]. Because of this, she states the on-call staff combat information center officer told her to go to [facility] instead of
[facility] since we are technically a part of [place]. After hearing this, I did question whether or not this was truly said. I explained to the patient that it seems odd that a postsurgical complication would be instructed to go to a different
hospital.
Patient is also requesting another pelvic exam. However, I did question what happened yesterday. I told the patient that it seems that she wants another pelvic exam after telling me that it was so painful yesterday that it actually put her into
convulsions.
After questioning these 2 issues, patient started crying. She states she wants to leave but I assured her that I do not want her to leave. I want to take care of her problems but want to speak it over to her gynecology team first.
I clearly stated from the beginning that I am happy to perform the pelvic exam and provide pain control but wanted to speak to the on-call staff combat information center officer first
Patient states that she cannot keep any food or water down but appears well-hydrated
Patient winces with light touch to her lower abdomen but this also appears distractible. The postsurgical incisions are clean and intact
Physical exam
General: Appears comfortable in bed
HEENT: protecting airway. Moist mucous membranes
Neck: appears supple
CV: No evidence of cyanosis
Resp: No accessory muscle use
Abd: Non-distended. Postsurgical incisions clean intact. Mild tenderness to suprapubic region without distention or skin changes
Extremities: No deformities
Neuro: alert
Psych: Normal affect
Skin: Intact
Problems Addressed including Acute and Chronic Conditions affecting care:
1. Postsurgical pain
Acuity: acute
Prognosis: stable
Details: Given recent hysterectomy and current complaint of vaginal discharge, I explained to patient that I want to speak it over to the surgical gynecology team first before performing any internal exam
Updates
9:38 PM Case discussed with [facility] on-call staff combat information center officer Dr. Troncoso who also finds it hard to believe that she was sent to a different hospital for postsurgical issues. Since she is here, he indicated that the workup would include pelvic to rule out
vaginal cuff dehiscence. I questioned that this would likely have been evaluated yesterday during her postsurgical pelvic exam. He does agree. He states there is no note on record indicating her being redirected to a different hospital.
Although, it is possible and potentially likely that the fellow indicated that she should be seen at the closest hospital for postsurgical pain.
When I went back into the room to discuss care for patient. We discussed treating her pain. Patient states Dilaudid is what works for her. Will give fluids and Zofran as well. I will leave the decision of whether or not to perform a pelvic exam
up to the patient. We discussed the likelihood of dehiscence from yesterday today is low. I also discussed that I will be happy to treat with Diflucan per Dr. Troncoso's recommendation regardless. I discussed with the patient that I do not want to
cause her more distress but by not doing a pelvic exam does leave the possibility of missing a surgical issue. She understands this.
Patient opted for candidal treatment. She tolerated Diflucan. Will write for second dose in 72 hours
Differential Diagnosis (but not limited to): Postsurgical pain, candidal infection
Testing considered: Pelvic exam but this caused her to have convulsions recently. Patient opted for treatment instead
Drug therapy (if applicable): OTC meds, please see d/c instruction regarding Rx drugs
Amount and/or Complexity of Data Reviewed
Clinical info obtained from: Patient
External data reviewed: N/A
Labs I independently reviewed (but not limited to): White blood cell count normal, baseline anemia
Radiology: N/A
Pulse Ox: not hypoxic
EKG independently reviewed: N/A
[employer] Logger: N/A
Critical Care: N/A
Risk of Complication:
Social Determinants of health: Good social support
Discussed with other providers: N/A
Escalation of Care includes Admit/Obs: After being observed in the Emergency Department, pt stable for discharge.
Occasional wrong word or 'sound a like' substitutions may have occurred due to the inherent limitations of voice recognition software. Read the chart carefully and recognize, using context, where substitutions have occurred.
*Critical Care Note
Total Time (30-74mins, 75-104mins- exclusive of procedures): Not Applicable
ED Attending Note
-
Portions of this chart may have been created with voice recognition software.� Occasional wrong word or��sound alike� substitutions may have occurred due to the inherent limitations of voice recognition software.
Discharge Plan
Departure
Patient Disposition: Home (Routine Discharge)
Date of Disposition: 09/27/24
Time of Disposition: 00:40
Patient with high blood pressure during this ER visit?: No
Discharge Problem:
Post-op pain, Candidiasis of vagina
Prescriptions:
New
fluconazole 150 mg tablet
150 mg PO ONCE Qty: 1 0RF
No Action
alprazolam 1 MG tablet
1 mg PO BID@0800,1500
Patient Comments:
05/23/2023, pt. filled this med. on 04/21/2023 for 30 tablets according to PDMP.
azathioprine [Azasan] 100 MG tablet
100 mg PO DAILY
lisinopril 10 mg tablet
10 mg PO HS
montelukast 10 mg tablet
10 mg PO HS
pravastatin 20 mg tablet
20 mg PO HS
Eliquis 2.5 mg tablet
2.5 mg PO BID
clonidine HCl 0.1 mg Tablet
0.2 mg PO TID
lidocaine 4 % Cream
1 applic TOPICAL DAILYPRN PRN (Reason: prior to port access)
omeprazole 20 mg Capsule,Delayed Release(Dr/Ec)
20 mg PO BID
belatacept 250 mg Recon Soln
250 mg IV Q28D
Patient Comments:
NEXT DOSE 08/01/2024
Linzess 145 mcg Capsule
145 mcg PO DAILYPRN PRN (Reason: IBS)
alprazolam 1 mg tablet
0.5 mg PO HS
albuterol sulfate 90 mcg/actuation Hfa Aerosol Inhaler
2 puff INHALATION R Q6HPRN PRN (Reason: sob/wheezing)
sucralfate [Carafate] 100 mg/mL suspension
5 ml PO TIDPRN PRN (Reason: Gastrointestinal issue)
metoclopramide HCl [Reglan] 10 mg Tablet
10 mg PO BIDPRN PRN (Reason: if zofran does not work)
ondansetron [Zofran ODT] 4 mg Tablet,Disintegrating
4 mg PO DAILYPRN PRN (Reason: n/v)
prednisone 5 mg Tablet
5 mg PO DAILY
spironolactone 25 mg Tablet
25 mg PO DAILY
zolpidem [Ambien] 10 mg Tablet
10 mg PO HS PRN (Reason: SLEEP)
acetaminophen [Tylenol Extra Strength] 500 mg Tablet
1,000 mg PO Q6H PRN (Reason: pain)
Referrals:
Leoncio Zheng MD [Family Provider]
Activity Restrictions/Additional Instructions:
Please return for any worsening symptoms.
You may return at any time if you have further concerns.
Please follow up with your ASSISTANT PROFESSOR OF RELIGION doctor at the first available appointment, preferably this week.
Please take the second dose of fluconazole Tuesday morning.
Interventions
Interventions:
*Risk Screen - Suicide Last Done: 09/26/24 19:11
*General Assessment Last Done: 09/26/24 21:57
*Neglect/Abuse Screening Last Done: 09/26/24 21:57
*ED- Fall Risk Assessment Last Done: 09/26/24 21:57
*ED COVID-19 Vaccine History Last Done: 09/26/24 21:57
Discharge Date and Time
Print Language: YORUBA
[2024-09-26 21:56] VITALS: BMI 25.9
[2024-09-26] MEDS: NSS 1000 IV (22:13)
[2024-09-26] MEDS: ZOFRAN 4 MG IV (22:14)
[2024-09-26] MEDS: DILAUDID 1 MG IV ×2 (22:16→23:50)
[2024-09-26 22:19] VITALS: BP 115/82
[2024-09-26 22:19] LABS: Urine Albumin Negative (Neg - Trace); Urine Bilirubin Negative (Negative); Urine Character Clear (Clear); Urine Color Yellow; Urine Glucose Negative (Negative); Urine Ketone Negative (Negative); Urine Leukocyte Negative (Negative); Urine Nitrite Negative (Negative); Urine Occult Blood Negative (Negative); Urine Urobilinogen Negative (Neg - 1+)
[2024-09-26 22:22] LABS: % Basophils 0.6 % (0-2); % Eosinophils 1.2 % (0-6); % Immature Granulocytes 0.4 % (0-0.5); % Lymphocytes 25.6 % (20.5-51.1); % Monocytes 8.2 % (1.7-9.3); Absolute Eosinophils 0.1 10^3/uL (0-0.7); Absolute Lymphocytes 1.7 10^3/uL (1.2-3.4); Absolute Monocytes 0.6 10^3/uL (0.1-0.6); Absolute Neutrophils 4.4 10^3/uL (1.4-6.5); Hematocrit 25.8 % (37.0-47.0); Mean Corp Hgb Conc. 34.9 g/dL (33.0-37.0); Mean Corpuscular Volume 91.8 fL (81.0-99.0); Mean Platelet Volume 12.7 fL (7.4-10.4); Nucleated Red Blood Cells % 0 %; Platelet Count 270 10^3/uL (130-400); Red Blood Cell Count 2.81 10^6/uL (4.20-5.40); Red Cell Dist. Width 13.5 % (11.5-14.5); White Blood Cell Count 6.8 10^3/uL (4.8-10.8)
[2024-09-26 22:51] LABS: ALT (SGPT) 12 U/L (0-35); AST (SGOT) 24 U/L (14-36); Albumin 4.2 g/dl (3.5-5.0); Alkaline Phosphatase 35 U/L (38-126); Blood Urea Nitrogen 11 mg/dl (7-17); Calcium 9.7 mg/dl (8.4-10.2); Carbon Dioxide 26 mmol/L (22-30); Chloride 106 mmol/L (98-107); Estimated Creatinine Clearance 54 ml/min; Glucose 103 mg/dl (70-99); Potassium 4.1 mmol/L (3.5-5.1); Sodium 138 mmol/L (135-145); Total Bilirubin 0.4 mg/dl (0.2-1.3); Total Protein 6.9 g/dl (6.3-8.2); eGFR 56.38
[2024-09-26 23:00] VITALS: BP 123/85
[2024-09-26] MEDS: DIFLUCAN 150 MG PO (23:53)
[2024-09-27] VITALS: BP 127/88
[2024-09-27 01:00] VITALS: BP 114/77
== END 2024-09-27 01:25 | disposition home or self-care (01) ==
LOC: EMR 18:58
PROVIDERS: EMERGENCY PHYSICIAN Student in an Organized Health Care Education/Training Program; FAMILY PHYSICIAN Internal Medicine
DX: G89.18 Other acute postprocedural pain (principal); B37.31 Acute candidiasis of vulva and vagina; J45.909 Unspecified asthma, uncomplicated; K21.9 Gastro-esophageal reflux disease without esophagitis; I10 Essential (primary) hypertension; F41.9 Anxiety disorder, unspecified; F90.9 Attention-deficit hyperactivity disorder, unspecified type; F43.10 Post-traumatic stress disorder, unspecified; K58.9 Irritable bowel syndrome, unspecified; Z86.718 Personal history of other venous thrombosis and embolism; Z90.49 Acquired absence of other specified parts of digestive tract; Z94.0 Kidney transplant status
CPT/HCPCS: 99283; 96374; 96375; 96376; 96361; 80053; 81003; 85025

== ENCOUNTER 2024-09-28 18:07 | Emergency (ER) | payer OTHER, SELFPAY ==
[2024-09-28 18:10] VITALS: BP 153/96
[2024-09-28 18:54] VITALS: BMI 26.6
--- NOTE | 2024-09-28 19:54 | ED.GENMED ---
History of Present Illness
General
Chief Complaint: Vaginal Bleeding
Time Seen by Provider: 09/28/24 19:23
History of Present Illness
History of Present Illness:
29-year-old female history of factor V Leiden, DVT, PE on Eliquis, kidney transplant presenting with vaginal bleeding. Patient states that she had a hysterectomy 2 weeks ago at [place]. Patient states that yesterday she was doing a lot of heavy
lifting because she is a single mother of a 3 year old and then today noticed 'a gush of blood' while going to the bathroom with increased pelvic pain. Patient states that she has tried taking oxycodone and oral Dilaudid at home but has persistent
vomiting. Patient states that she was seen here 2 days ago, diagnosed with yeast infection and started on Diflucan. Patient denies fever or chills.
Past History
Past History
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
ADHD, depression, PTSD, ) and Other ( PE/DVT, IBS, factor V Leiden, early stage cervical cancer)
ED Past Surgical History: Cholecystectomy, Gynecological, Tonsilectomy (and adenoids) and Other (renal transplant 2014; hernia repair; sinus reconstruction; wisdom tooth extraction; )
Social History
Tobacco: Non-smoker
Alcohol: None
Drug: None
Personal: Single
Living: with family
Employment: Employed
Family History
Family History: Other (Grandmother with ovarian cancer mother with retinitis pigmentosa, father with high blood pressure)
Phy Exam
Physical Exam
Physical Exam:
General: Alert, no acute distress
Head: NCAT
Eyes: clear conjunctiva
Neck: supple
Cardiac: regular rate and rhythm, no murmur
Lungs: clear to auscultation bilaterally. No wheezes, rales, or rhonchi. Speaking full unlabored sentences. No respiratory distress.
Abdomen: soft, nondistended. Flinches to superficial touch but distractible, no tenderness while distracted. No rebound or guarding. Well-healing surgical incisions with no overlying erythema or discharge. No CVA tenderness to palpation
MSK: no lower extremity edema bilaterally. No deformity
Skin: warm, dry
Neuro: Alert and oriented x3. no focal deficits
Pelvic: no bleeding, no dehiscence visualized
Nurse at bedside as back roll lathe operator for pelvic exam
Course
Orders/Labs/Results
Orders:
Orders
09/28/24 19:43
HYDROmorphone [Dilaudid] 0.5 mg IV NOW STA
Ondansetron Injectable [Zofran] 4 mg IV NOW STA
09/28/24 19:45
0.9% Sodium Chloride 1000 ml [Nss] 1,000 ml IV BOLUS
09/28/24 20:06
CBC/With Diff [Complete Blood Count/With Diff] Urgent
CMP [Comprehensive Metabolic Panel] Urgent
UA Reflex to Culture [Urinalysis Reflex To Culture] Urgent
Date Specimen was Collected: 09/28/24
Time Specimen was Collected: 19:48
Urine Microscopic Reflex Cult Urgent
Urine Culture Urgent
ITZ Source: U
Specimen Description:
Date Specimen was Collected: 09/28/24
Time Specimen was Collected: 19:48
09/28/24 21:20
Abdomen/Pelvis wo Contrast CT [CT Abd/pelvis Wo Iv Cont] Urgent
Comment:
Reason For Exam: lower abd pain, hx hysterectomy/kidney transplant
09/28/24 21:21
HYDROmorphone [Dilaudid] 0.5 mg IV NOW STA
09/28/24 23:30
Heparin Pf [Heparin Lock Flush] 500 unit IV PER PROTOCOL
Abnormal Lab Results
09/28/24
20:06
RBC 2.70 L 10^6/uL
(4.20-5.40)
Hgb 8.8 L g/dL
(12.0-16.0)
Hct 25.3 L %
(37.0-47.0)
MCH 32.6 H pg
(27.0-31.0)
MPV 12.4 H fL
(7.4-10.4)
Absolute Lymphs (auto) 1.1 L 10^3/uL
(1.2-3.4)
Lymphocytes % 18.0 L %
(20.5-51.1)
Creatinine 1.3 H mg/dL
(0.6-1.0)
Glucose 114 H mg/dl
(70-99)
Ur Occult Blood Reflex 1+ A
(Negative)
Leukocyte Esterase Rfl 2+ A
(Negative)
Urine Yeast Few A
(Negative)
09/28/24 20:06
09/28/24 20:06
Vital Signs
Initial and Last Documented VS:
Initial Vital Signs
Temp Pulse Resp BP Pulse Ox
98.8 F 77 16 153/96 100
09/28/24 18:10 09/28/24 18:10 09/28/24 18:10 09/28/24 18:10 09/28/24 18:10
Last Documented Vital Signs
Temp Pulse Resp BP Pulse Ox
98.8 F 63 18 126/89 97
09/28/24 18:10 09/28/24 22:41 09/28/24 22:41 09/28/24 22:41 09/28/24 22:41
MDM/Problems Addressed
Differential Diagnosis Includes:
Anemia, UTI, postoperative complication. Will obtain CT abdomen/pelvis without contrast due to hx renal transplant
MDM/Problems Addressed:
Labs reviewed, hemoglobin at baseline. WBC within normal limits with no left shift or bandemia. Creatinine at baseline. UA appears contaminated, no concern for UTI. CT abdomen pelvis reviewed, No CT evidence for an acute inflammatory process in
the abdomen or pelvis within the limitations of the lack of intravenous or oral contrast.
Discussed results with patient at bedside. Advised to follow up with surgeon for chronic pain after surgery. Advised no heavy lifting. Stable for discharge with CORRESPONDENCE DICTATOR follow-up
*Critical Care Note
Total Time (30-74mins, 75-104mins- exclusive of procedures): Not Applicable
ED Attending Note
-
Portions of this chart may have been created with voice recognition software.� Occasional wrong word or��sound alike� substitutions may have occurred due to the inherent limitations of voice recognition software.
Discharge Plan
Departure
Patient Disposition: Home (Routine Discharge)
Date of Disposition: 09/28/24
Time of Disposition: 23:14
Patient with high blood pressure during this ER visit?: Yes
Discharge Problem:
Pelvic pain
Instructions: Managing pain after surgery, BLOOD PRESSURE
Prescriptions:
No Action
alprazolam 1 MG tablet
1 mg PO BID@0800,1500
Patient Comments:
05/23/2023, pt. filled this med. on 04/21/2023 for 30 tablets according to PDMP.
azathioprine [Azasan] 100 MG tablet
100 mg PO DAILY
lisinopril 10 mg tablet
10 mg PO HS
montelukast 10 mg tablet
10 mg PO HS
pravastatin 20 mg tablet
20 mg PO HS
Eliquis 2.5 mg tablet
2.5 mg PO BID
clonidine HCl 0.1 mg Tablet
0.2 mg PO TID
lidocaine 4 % Cream
1 applic TOPICAL DAILYPRN PRN (Reason: prior to port access)
omeprazole 20 mg Capsule,Delayed Release(Dr/Ec)
20 mg PO BID
belatacept 250 mg Recon Soln
250 mg IV Q28D
Patient Comments:
NEXT DOSE 08/01/2024
Linzess 145 mcg Capsule
145 mcg PO DAILYPRN PRN (Reason: IBS)
alprazolam 1 mg tablet
0.5 mg PO HS
albuterol sulfate 90 mcg/actuation Hfa Aerosol Inhaler
2 puff INHALATION R Q6HPRN PRN (Reason: sob/wheezing)
sucralfate [Carafate] 100 mg/mL suspension
5 ml PO TIDPRN PRN (Reason: Gastrointestinal issue)
metoclopramide HCl [Reglan] 10 mg Tablet
10 mg PO BIDPRN PRN (Reason: if zofran does not work)
ondansetron [Zofran ODT] 4 mg Tablet,Disintegrating
4 mg PO DAILYPRN PRN (Reason: n/v)
prednisone 5 mg Tablet
5 mg PO DAILY
spironolactone 25 mg Tablet
25 mg PO DAILY
zolpidem [Ambien] 10 mg Tablet
10 mg PO HS PRN (Reason: SLEEP)
acetaminophen [Tylenol Extra Strength] 500 mg Tablet
1,000 mg PO Q6H PRN (Reason: pain)
fluconazole 150 mg tablet
150 mg PO ONCE Qty: 1 0RF
Referrals:
Leoncio Zheng MD [Family Provider]
Activity Restrictions/Additional Instructions:
Continue taking all medications as prescribed
Follow-up with surgeon next week
Return to the emergency department for fever, burning with urination or new/worsening symptoms
Interventions
Interventions:
*Risk Screen - Suicide Last Done: 09/28/24 18:10
*General Assessment Last Done: 09/28/24 18:53
*Neglect/Abuse Screening Last Done: 09/28/24 18:10
*ED- Fall Risk Assessment Last Done: 09/28/24 18:53
*ED COVID-19 Vaccine History Last Done: 09/28/24 18:53
ED-Female Genitourinary Assessment Last Done: 09/28/24 18:55
Discharge Date and Time
Print Language: DIVEHI
[2024-09-28 20:11] VITALS: BP 133/89
[2024-09-28 20:13] LABS: Urine Albumin Negative (Neg - Trace); Urine Bilirubin Negative (Negative); Urine Character Clear (Clear); Urine Color Yellow; Urine Glucose Negative (Negative); Urine Ketone Negative (Negative); Urine Leukocyte 2+ (Negative); Urine Nitrite Negative (Negative); Urine Occult Blood 1+ (Negative); Urine Urobilinogen Negative (Neg - 1+); Urine pH 6.5 (5.0-9.0)
[2024-09-28] MEDS: NSS 1000 IV (20:13)
[2024-09-28 20:14] LABS: % Basophils 0.5 % (0-2); % Immature Granulocytes 0.3 % (0-0.5); % Neutrophils 72.2 % (42.2-75.2); Absolute Eosinophils 0.1 10^3/uL (0-0.7); Absolute Lymphocytes 1.1 10^3/uL (1.2-3.4); Absolute Monocytes 0.5 10^3/uL (0.1-0.6); Absolute Neutrophils 4.5 10^3/uL (1.4-6.5); Hematocrit 25.3 % (37.0-47.0); Hemoglobin 8.8 g/dL (12.0-16.0); Mean Corp Hgb Conc. 34.8 g/dL (33.0-37.0); Mean Corpuscular Hgb 32.6 pg (27.0-31.0); Mean Corpuscular Volume 93.7 fL (81.0-99.0); Mean Platelet Volume 12.4 fL (7.4-10.4); Nucleated Red Blood Cells % 0 %; Platelet Count 258 10^3/uL (130-400); Red Cell Dist. Width 13.5 % (11.5-14.5); White Blood Cell Count 6.2 10^3/uL (4.8-10.8)
[2024-09-28] MEDS: ZOFRAN 4 MG IV (20:15)
[2024-09-28 20:20] LABS: Urine Squamous Cell >30 /LPF (Few)
[2024-09-28] MEDS: DILAUDID 0.5 MG IV ×2 (20:21→21:24)
[2024-09-28 20:22] LABS: Urine Red Blood Cell 0-2 /HPF (0-2); Urine Yeast Few (Negative)
[2024-09-28 20:47] LABS: ALT (SGPT) < 10 U/L (0-35); AST (SGOT) 17 U/L (14-36); Albumin 4.1 g/dl (3.5-5.0); Alkaline Phosphatase 46 U/L (38-126); Blood Urea Nitrogen 11 mg/dl (7-17); Calcium 9.6 mg/dl (8.4-10.2); Carbon Dioxide 26 mmol/L (22-30); Chloride 107 mmol/L (98-107); Estimated Creatinine Clearance 52 ml/min; Glucose 114 mg/dl (70-99); Potassium 4.3 mmol/L (3.5-5.1); Sodium 140 mmol/L (135-145); Total Bilirubin 0.2 mg/dl (0.2-1.3); Total Protein 6.5 g/dl (6.3-8.2); eGFR 56.38
[2024-09-28 21:02] VITALS: BP 136/94
[2024-09-28 21:04] VITALS: BP 136/94
[2024-09-28 22:39] VITALS: BP 126/89
[2024-09-28 22:41] VITALS: BP 126/89
== END 2024-09-28 23:41 | disposition home or self-care (01) ==
LOC: EMR 18:07
PROVIDERS: EMERGENCY PHYSICIAN Emergency Medicine; FAMILY PHYSICIAN Internal Medicine
DX: R10.2 Pelvic and perineal pain (principal); D68.51 Activated protein C resistance; I10 Essential (primary) hypertension; J45.909 Unspecified asthma, uncomplicated; Z79.01 Long term (current) use of anticoagulants; Z86.718 Personal history of other venous thrombosis and embolism; Z90.710 Acquired absence of both cervix and uterus; Z94.0 Kidney transplant status
CPT/HCPCS: 96374; 96375; 96361; 99284; 74176; 80053; 81003; 81015; 85025; 87086

== ENCOUNTER 2024-10-03 21:44 | Emergency (ER) | payer OTHER, SELFPAY ==
[2024-10-03 21:47] VITALS: BP 132/95
[2024-10-03 22:32] VITALS: BMI 25.4
[2024-10-03 22:51] LABS: Urine Albumin Negative (Neg - Trace); Urine Bilirubin Negative (Negative); Urine Character Clear (Clear); Urine Color Yellow; Urine Glucose Negative (Negative); Urine Ketone Negative (Negative); Urine Leukocyte 2+ (Negative); Urine Nitrite Negative (Negative); Urine Occult Blood 2+ (Negative); Urine Urobilinogen Negative (Neg - 1+)
[2024-10-03 22:58] LABS: % Basophils 0.6 % (0-2); % Eosinophils 1.3 % (0-6); % Immature Granulocytes 0.3 % (0-0.5); % Lymphocytes 24.3 % (20.5-51.1); % Monocytes 8.7 % (1.7-9.3); % Neutrophils 64.8 % (42.2-75.2); Absolute Eosinophils 0.1 10^3/uL (0-0.7); Absolute Lymphocytes 1.7 10^3/uL (1.2-3.4); Absolute Monocytes 0.6 10^3/uL (0.1-0.6); Absolute Neutrophils 4.6 10^3/uL (1.4-6.5); Hematocrit 26.1 % (37.0-47.0); Hemoglobin 9.1 g/dL (12.0-16.0); Mean Corp Hgb Conc. 34.9 g/dL (33.0-37.0); Mean Corpuscular Hgb 31.9 pg (27.0-31.0); Mean Corpuscular Volume 91.6 fL (81.0-99.0); Nucleated Red Blood Cells % 0 %; Platelet Count 250 10^3/uL (130-400); Red Blood Cell Count 2.85 10^6/uL (4.20-5.40); Red Cell Dist. Width 13.8 % (11.5-14.5); White Blood Cell Count 7.2 10^3/uL (4.8-10.8)
[2024-10-03 23:09] LABS: Urine Squamous Cell >30 /LPF (Few)
[2024-10-03 23:10] LABS: Urine Red Blood Cell 0-2 /HPF (0-2); Urine White Cell 16-20 /HPF (0-5)
[2024-10-03 23:11] LABS: Urine Bacteria Moderate (Negative)
[2024-10-03 23:46] LABS: ALT (SGPT) < 10 U/L (0-35); AST (SGOT) 17 U/L (14-36); Albumin 4.3 g/dl (3.5-5.0); Alkaline Phosphatase 51 U/L (38-126); Blood Urea Nitrogen 13 mg/dl (7-17); Calcium 9.5 mg/dl (8.4-10.2); Carbon Dioxide 25 mmol/L (22-30); Chloride 107 mmol/L (98-107); Estimated Creatinine Clearance 54 ml/min; Glucose 95 mg/dl (70-99); Lipase 115 U/L (23-300); Potassium 3.7 mmol/L (3.5-5.1); Sodium 137 mmol/L (135-145); Total Bilirubin 0.4 mg/dl (0.2-1.3); Total Protein 6.6 g/dl (6.3-8.2); eGFR 56.38
[2024-10-03] MEDS: ZOFRAN 4 MG IV (23:51)
[2024-10-03] MEDS: DILAUDID 1 MG IV (23:51)
[2024-10-03] MEDS: NSS 1000 IV (23:54)
[2024-10-04 00:20] LABS: Lactic Acid < 0.5 mmol/L (0.7-2.0)
[2024-10-04] MEDS: DILAUDID 1 MG IV (00:38)
--- NOTE | 2024-10-04 01:00 | ED.GENMED ---
History of Present Illness
General
Chief Complaint: Weakness
Source: patient
Exam Limitations: none
Time Seen by Provider: 10/03/24 23:19
Nursing documentation reviewed up to this point in time: agreed with
History of Present Illness
History of Present Illness:
see MDM
Past History
Past History
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
ADHD, depression, PTSD, ) and Other ( PE/DVT, IBS, factor V Leiden, early stage cervical cancer)
ED Past Surgical History: Cholecystectomy, Gynecological, Tonsilectomy (and adenoids) and Other (renal transplant 2014; hernia repair; sinus reconstruction; wisdom tooth extraction; )
Social History
Tobacco: Non-smoker
Alcohol: None
Drug: None
Personal: Single
Living: with family
Employment: Employed
Family History
Family History: Other (Grandmother with ovarian cancer mother with retinitis pigmentosa, father with high blood pressure)
Review of Systems
Review of Systems
Allergies reviewed?: Yes
All Other Systems: Not applicable
Phy Exam
Physical Exam
Physical Exam:
see MDM
Course
Orders/Labs/Results
Orders:
Orders
10/03/24 22:40
Complete Blood Count/With Diff Urgent
Comprehensive Metabolic Panel Urgent
Lipase Urgent
10/03/24 22:43
Urine Microscopic Reflex Cult Urgent
Urine Reflex Culture from [facility] [Urinalysis Reflex To Culture] Urgent
Date Specimen was Collected: 10/03/24
Time Specimen was Collected: 22:41
Urine Culture Urgent
ITZ Source: U
Specimen Description:
Date Specimen was Collected: 10/03/24
Time Specimen was Collected: 22:41
10/03/24 23:44
0.9% Sodium Chloride 1000 ml [Nss] 1,000 ml IV BOLUS
HYDROmorphone [Dilaudid] 1 mg IV NOW STA
Ondansetron Injectable [Zofran] 4 mg IV NOW STA
10/03/24 23:59
Lactic Acid Urgent
10/04/24
CT Abd/pel Without Iv Or Oral Urgent
Reason For Exam: severe abd pain, rectal pain; s/p hyst 3 weeks
10/04/24 00:34
HYDROmorphone [Dilaudid] 1 mg .ROUTE .STK-MED ONE
10/04/24 00:37
HYDROmorphone [Dilaudid] 1 mg IV NOW STA
Abnormal Lab Results
10/03/24 10/03/24 10/03/24
22:40 22:43 23:59
RBC 2.85 L 10^6/uL
(4.20-5.40)
Hgb 9.1 L g/dL
(12.0-16.0)
Hct 26.1 L %
(37.0-47.0)
MCH 31.9 H pg
(27.0-31.0)
MPV 13.0 H fL
(7.4-10.4)
Creatinine 1.3 H mg/dL
(0.6-1.0)
Lactic Acid < 0.5 L mmol/L
(0.7-2.0)
Ur Occult Blood Reflex 2+ A
(Negative)
Leukocyte Esterase Rfl 2+ A
(Negative)
Urine WBC (Reflex) 16-20 A /HPF
(0-5)
Urine Bacteria (Reflex) Moderate A
(Negative)
10/03/24 22:40
10/03/24 22:40
Vital Signs
Initial and Last Documented VS:
Initial Vital Signs
Temp Pulse Resp BP Pulse Ox
36.8 C 86 18 132/95 98
10/03/24 21:47 10/03/24 21:47 10/03/24 21:47 10/03/24 21:47 10/03/24 21:47
Last Documented Vital Signs
Temp Pulse Resp BP Pulse Ox
36.8 C 78 29 132/95 98
10/03/24 21:47 10/04/24 00:15 10/04/24 00:15 10/03/24 21:47 10/03/24 21:47
MDM/Problems Addressed
Differential Diagnosis Includes:
see MDM
MDM/Problems Addressed:
Note:
CHIEF COMPLAINT(S)
Severe abdominal pain, tachycardia, difficulty taking deep breaths, dizziness, and intense rectal pain following a morning infusion.
HISTORY OF PRESENT ILLNESS
The patient is a [id number] female with a history of kidney transplantation, currently on anti-rejection medication. 3 weeks ago had PELON BSO 09/13 for cervical CA at [facility] by dr. jean.
She presented with a severe abdominal pain that began this morning, along with tachycardia and dizziness. The patient describes difficulty in taking deep breaths, attributing it to the abdominal pain. The abdominal pain started around 6:00 AM and
has been persistent. She reports that the pain initiated near her surgical sutures and extended downward. The intensity of the pain led her to come to the hospital, following a consultation with her surgeon who recommended immediate medical
evaluation.
Additionally, the patient experiences rectal cramping and pelvic pain, particularly pronounced when standing, alongside episodes of bloody urination and pain. She was previously hospitalized for a postoperative yeast infection resistant to
Fluconazole, for which she was prescribed Nystatin. The patient reports a history of blood in stools post-bowel movement, with associated hemorrhoidal pain.
She has experienced similar symptoms in the past, was even hospitalized at [facility] 09/30 for observation for pain control but notes that todays severity is significantly greater. She received her chemotherapy today which she gets every 28 days, which she
notes typically lowers her immune response. She reports a history of blood clots, rectal pain post-surgery, and vaginal candidiasis.
ADDITIONAL HISTORY OBTAINED FROM SOURCES OTHER THAN THE PATIENT
The patients surgeon advised attending the ER following an acute wave of abdominal pain. Discussion regarding previous resistance to Fluconazole and the current treatment with Nystatin also occurred.
CHRONIC MEDICAL CONDITIONS SIGNIFICANTLY AFFECTING CARE
1. History of kidney transplantation.
2. History of pulmonary embolism and deep vein thrombosis.
3. 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
4. Current chemotherapy regimen.
SOCIAL DETERMINANTS AFFECTING HEALTH
The patient is managing complex medical issues in the context of ongoing treatment that has financial and logistical implications, including accessing prescriptions and treatment schedules.
ALLERGIES
Allergic to Ciprofloxacin, Amoxicillin, Vicodin, Vancomycin, and intravenous magnesium (causes red welts, requiring pre-medication with IV Benadryl).
REVIEW OF SYSTEMS
- Cardiovascular: Tachycardia noted.
- Respiratory: Reports shortness of breath tied to abdominal pain, no cough.
- Gastrointestinal: Severe abdominal pain, post-surgical incision site pain, nausea, and diarrhea present.
- Genitourinary: Episodes of bloody urination associated with burning, indicative of potential yeast infection spreading to urinary tract.
- Musculoskeletal: Reports of rectal and pelvic pain.
- Neurological: Dizziness without syncope.
PHYSICAL EXAM
- Nursing notes reviewed and vital signs reviewed.
PROBLEM LIST
Acute:
1. Severe abdominal pain.
2. Tachycardia.
3. Dizziness.
4. Rectal pain and cramping.
5. Diarrhea.
6. Vaginal and potential urinary yeast infection.
Chronic:
1. History of kidney transplantation.
2. History of blood clots (pulmonary embolism, deep vein thrombosis).
3. Genetic predisposition to thrombotic events.
4. Current chemotherapy regimen.
PLAN
1. Administration of intravenous fluids, Zofran for nausea, and Dilaudid for pain relief.
2. Perform a detailed physical examination post-pain management.
3. Consider imaging to rule out potential complications relating to abdominal pain.
4. Evaluate for possible infection in the urinary tract and assess for yeast dissemination.
5. 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
6. Consider avoiding IV contrast due to kidney history unless absolutely necessary, or opt for enteral contrast if needed.
7. Continue supportive measures for symptoms caused by current chemotherapy regimen.
DIFFERENTIAL DIAGNOSIS
The Differential Diagnosis includes, in no particular order and is not limited to:
1. Postoperative complications.
2. Gastrointestinal obstruction or ileus.
3. Hemorrhoidal exacerbation.
4. Urinary tract infection.
5. Gastroenteritis.
6. Acute gastritis or peptic ulcer disease.
7. Medication side effects.
8. Immune compromise secondary to chemotherapy.
9. Yeast infection involving urinary tract.
10. Abdominal vascular events.
CARE-UPDATE
10/04/24 - 00:45
Reviewed lab results indicate a normal white count, a hemoglobin level of 9.1, and a stable creatinine of 1.3, consistent with baseline. Urinalysis shows blood, leukocytes, white cells, and bacteria, but contamination is likely due to more than 30
squamous cells present. Pelvic exam reveals sutures intact, with a cratf-colored thin fluid leaking from the vagina; fluid is not foul-smelling, and there is no obvious cuff leak noted.
CARE-UPDATE
10/04/24 - 02:10
CT scan review shows no acute pathology. Slightly underdescended bladder noted, likely incidental. Urinalysis contaminated. Minimal fluid in vaginal vault, not significant. Discussed with Dr. Gilmore, oncologist from [place]; recent hospitalization (09/30)
consistent with current symptoms and resistant yeast infection diagnosis. Patient has not yet obtained nystatin suppositories, advised of importance, agrees to berry picker. Pain managed with two doses of Dilaudid. Previous visits (09/16, 09/26, 09/27) for
similar pain descriptions and workups, all discharged post-IV Dilaudid.
Note:
Disposition:
SUMMARY OF ENCOUNTER
The patient, a [id number] female with a history of kidney transplantation and chemotherapy, presented to the emergency department with severe abdominal pain, tachycardia, dizziness, difficulty breathing, and intense rectal pain following a morning
infusion. She experienced these symptoms alongside post-surgical incision site pain, rectal cramping, bloody urination, and pelvic pain. There was a concern for postoperative complications, potential urinary tract infection, and yeast infection
exacerbation. After being evaluated, the patient received intravenous fluids and pain management, and underwent testing which showed no acute pathology.
DISPOSITION
The patient will be discharged home in stable condition after her pain was controlled.
ASSESSMENT
The patients symptoms are likely due to a resistant vaginal yeast infection, contributing to her abdominal and pelvic pain.
MANAGEMENT OF THE PATIENTS CARE WAS DISCUSSED WITH
The patients care and symptoms were reviewed with Dr. Gilmore, the oncologist from [place], regarding the recent hospitalization and resistant yeast infection diagnosis.
PLAN
The patient is advised to berry picker the prescription for nystatin suppositories to address the resistant yeast infection. Supportive measures for managing symptoms related to chemotherapy will continue.
INDEPENDENT INTERPRETATION OF TESTS
My independent interpretation of the urinalysis shows contamination with more than 30 squamous cells, potentially masking the presence of blood, leukocytes, white cells, and bacteria.
My independent interpretation of the CT scan is no acute pathology found, with a slightly underdescended bladder noted as incidental.
MEDICATION RECONCILIATION
1. Nystatin suppositories - prescription given for yeast infection.
2. Intravenous fluids and Dilaudid were administered for pain management.
MEDICAL DECISION MAKING
Number and Complexity of Problems Addressed: The presentation included acute and chronic symptoms, suggesting potential postoperative complications, resistant yeast infection, and chemotherapy-related side effects.
Data: Reviewed relevant tests, including CT scan and urinalysis, which informed the diagnosis and treatment plan.
Risk: The patients social determinants potentially impact healthcare access, while resistant yeast infections and chemotherapy exacerbate underlying health conditions. Decision for discharge was made after ensuring symptom control and stable
condition.
*Pulse Oximetry
Patient hypoxic: no
*Critical Care Note
Total Time (30-74mins, 75-104mins- exclusive of procedures): Not Applicable
ED Attending Note
-
Portions of this chart may have been created with voice recognition software.� Occasional wrong word or��sound alike� substitutions may have occurred due to the inherent limitations of voice recognition software.
Discharge Plan
Departure
Patient Disposition: Home (Routine Discharge)
Date of Disposition: 10/04/24
Time of Disposition: 02:13
Patient with high blood pressure during this ER visit?: No
Condition: Fair
Covid-19: Not Applicable
Discharge Problem:
Post-operative pain, Candidiasis of vagina
Instructions: Managing pain after surgery
Prescriptions:
No Action
alprazolam 1 MG tablet
1 mg PO BID@0800,1500
Patient Comments:
05/23/2023, pt. filled this med. on 04/21/2023 for 30 tablets according to PDMP.
azathioprine [Azasan] 100 MG tablet
100 mg PO DAILY
lisinopril 10 mg tablet
10 mg PO HS
montelukast 10 mg tablet
10 mg PO HS
pravastatin 20 mg tablet
20 mg PO HS
Eliquis 2.5 mg tablet
2.5 mg PO BID
clonidine HCl 0.1 mg Tablet
0.2 mg PO TID
lidocaine 4 % Cream
1 applic TOPICAL DAILYPRN PRN (Reason: prior to port access)
omeprazole 20 mg Capsule,Delayed Release(Dr/Ec)
20 mg PO BID
belatacept 250 mg Recon Soln
250 mg IV Q28D
Patient Comments:
NEXT DOSE 08/01/2024
Linzess 145 mcg Capsule
145 mcg PO DAILYPRN PRN (Reason: IBS)
alprazolam 1 mg tablet
0.5 mg PO HS
albuterol sulfate 90 mcg/actuation Hfa Aerosol Inhaler
2 puff INHALATION R Q6HPRN PRN (Reason: sob/wheezing)
sucralfate [Carafate] 100 mg/mL suspension
5 ml PO TIDPRN PRN (Reason: Gastrointestinal issue)
metoclopramide HCl [Reglan] 10 mg Tablet
10 mg PO BIDPRN PRN (Reason: if zofran does not work)
ondansetron [Zofran ODT] 4 mg Tablet,Disintegrating
4 mg PO DAILYPRN PRN (Reason: n/v)
prednisone 5 mg Tablet
5 mg PO DAILY
spironolactone 25 mg Tablet
25 mg PO DAILY
zolpidem [Ambien] 10 mg Tablet
10 mg PO HS PRN (Reason: SLEEP)
acetaminophen [Tylenol Extra Strength] 500 mg Tablet
1,000 mg PO Q6H PRN (Reason: pain)
fluconazole 150 mg tablet
150 mg PO ONCE Qty: 1 0RF
Referrals:
Leoncio Zheng MD [Family Provider]
Activity Restrictions/Additional Instructions:
Follow-up with your home specialist as planned. You do need to berry picker the prescription for your infection and use as directed. Return for any concerns
Interventions
Interventions:
*Risk Screen - Suicide Last Done: 10/03/24 22:00
*Neglect/Abuse Screening Last Done: 10/03/24 22:00
*ED- Fall Risk Assessment Last Done: 10/04/24 00:25
*ED COVID-19 Vaccine History Last Done: 10/03/24 22:07
ED- Cardiac Assessment Last Done: 10/04/24 00:22
ED- Neurological Assessment Last Done: 10/04/24 00:22
ED- Pulmonary Assessment Last Done: 10/04/24 00:22
Discharge Date and Time
Print Language: ICELANDIC
== END 2024-10-04 02:30 | disposition home or self-care (01) ==
LOC: EMR 21:44
PROVIDERS: Emergency Medicine; Physician Assistant; EMERGENCY PHYSICIAN Emergency Medicine; FAMILY PHYSICIAN Internal Medicine
DX: G89.18 Other acute postprocedural pain (principal); R10.9 Unspecified abdominal pain; B37.31 Acute candidiasis of vulva and vagina; I10 Essential (primary) hypertension; K62.89 Other specified diseases of anus and rectum; J45.909 Unspecified asthma, uncomplicated; Z86.711 Personal history of pulmonary embolism; Z86.718 Personal history of other venous thrombosis and embolism; Z87.19 Personal history of other diseases of the digestive system; Z94.0 Kidney transplant status; C53.9 Malignant neoplasm of cervix uteri, unspecified; Z79.60 Long term (current) use of unspecified immunomodulators and immunosuppressants; Z88.0 Allergy status to penicillin; Z88.1 Allergy status to other antibiotic agents; Z88.5 Allergy status to narcotic agent
CPT/HCPCS: 96374; 96375; 96376; 96361; 99284; 74176; 80053; 81003; 81015; 83605; 83690; 85025; 87086

== ENCOUNTER 2024-10-04 22:17 | Emergency (ER) | payer OTHER, SELFPAY ==
[2024-10-04 22:20] VITALS: BP 132/91
[2024-10-05] VITALS (7 sets, daily range): BP systolic 101–129; BP diastolic 67–86
--- NOTE | 2024-10-05 00:45 | ED.GENMED ---
History of Present Illness
General
Chief Complaint: Vaginal Bleeding
Source: patient
Exam Limitations: none
Time Seen by Provider: 10/05/24 00:21
History of Present Illness
History of Present Illness:
Note:
CHIEF COMPLAINT(S)
Abdominal pain, back pain, diarrhea, and vaginal bleeding.
HISTORY OF PRESENT ILLNESS
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 The symptoms
began after being treated with fluconazole for a yeast infection, which was diagnosed at an emergency department visit approximately one week ago. The patient states that the fluconazole did not alleviate the symptoms, prompting a switch to
ketoconazole at the [facility], including the use of vaginal suppositories.
The abdominal pain, described as excruciating and worsening, started in conjunction with diarrhea and intensified last night with severe middle to lower back pain. The patient also noticed blood upon urination, which initiated the vaginal bleeding.
The patient is uncertain if the bleeding persists but has used one pad so far.
The patient received chemotherapy the previous day for anti-rejection treatment related to the kidney transplant and experienced a reaction, leading to increased illness symptoms.
The patient has a documented history of thrombophilia and is homozygous for Factor V Leiden. Accompanying the abdominal and pelvic pain are significant back spasms and cramping. She underwent a hysterectomy with salpingo-oophorectomy on December [address] Sanchez, and there were recent communications with Dr. Grewal regarding the vaginal bleeding.
The patient was advised to present to the hospital due to bleeding concerns and logistical challenges with traveling to the hospital where the transplant team is based. It was recommended to start with laboratory testing and to determine blood work
results before possible imaging, following renal consultation directives.
SOCIAL DETERMINANTS AFFECTING HEALTH
The patient expressed concerns about the long travel distance and significant wait times impacting accessibility to her usual post-transplant care team.
CHRONIC MEDICAL CONDITIONS SIGNIFICANTLY AFFECTING CARE
- Nephrotic syndrome secondary to focal segmental glomerulosclerosis (FSGS)
- History of kidney transplant
- Thrombophilia, homozygous for Factor V Leiden
REVIEW OF SYSTEMS
- Gastrointestinal: Diarrhea, abdominal pain
- Genitourinary: Vaginal bleeding, pelvic pain
- Musculoskeletal: Severe middle to low back pain
- Neurological: N/A
- Other systems: N/A
PHYSICAL EXAM
- Nursing notes reviewed and vital signs reviewed.
PROBLEM LIST
Acute:
- Abdominal pain
- Back pain
- Diarrhea
- Vaginal bleeding
- Chemotherapy reaction
Chronic:
- Nephrotic syndrome secondary to focal segmental glomerulosclerosis (FSGS)
- History of kidney transplant
- Thrombophilia, homozygous for Factor V Leiden
PLAN
- Obtain laboratory blood tests to guide further renal team decision-making.
- Contact renal transplant team to discuss imaging options, specifically regarding potential use of iodine-based contrast.
- Begin with ultrasound imaging, refrain from urination prior to imaging.
- Manage patient symptoms in coordination with transplant and renal specialists, as accessible locally.
DIFFERENTIAL DIAGNOSIS
The Differential Diagnosis includes, in no particular order and is not limited to:
1. Urinary tract infection
2. Pelvic inflammatory disease
3. Nephrolithiasis
4. Gastroenteritis
5. Vaginal candidiasis exacerbation
6. Malignancy related to recent transplant medications
7. Gastroduodenal ulcers
8. Drug-induced adverse effect (due to recent chemotherapy)
9. Post-surgical complications from recent hysterectomy
10. Acute rejection episode related to kidney transplant
CARE-UPDATE
10/05/24 - 02:49
The patient reported experiencing bleeding during urination and described the ultrasound as incredibly painful. Despite initially hesitating to increase medication, a small dose of Dilaudid was eventually administered at the patients request. The
patient declined Tylenol, believing it to be ineffective for her current pain. Monitoring will continue to assess her response and manage symptoms appropriately.
CARE-UPDATE
10/05/24 - 03:31
The patient is experiencing ongoing symptoms that suggest a urinary tract infection (UTI) and reports that the symptoms, including burning, are accompanied by bleeding, which appears to be vaginal rather than urinary in origin. The patients lab
results indicate a UTI was present based on initial evaluation; however, there is uncertainty about whether a culture was conducted, though it typically is done automatically with the diagnosis. The current plan is to wait for an ultrasound to
determine if there are any significant findings and avoid a CAT scan if possible. Depending on the ultrasound results, further follow-up may be necessary to fully address the bleeding issue. Exploration into whether a culture was performed is
pending.
CARE-UPDATE
10/05/24 - 03:58
Ultrasound indicates no acute pelvic findings post-hysterectomy. Bilateral ovaries are normal with adequate Doppler flow. No adnexal mass or pelvic-free fluid is observed. Right lower quadrant shows renal transplant placement without complications.
CARE-UPDATE
10/05/24 - 04:04
Ultrasound results show normal ovarian blood flow, ruling out torsion. Despite previous concerns, current urine analysis appears non-infected. Labs are stable. Considering options, patient favors pelvic exam over additional CT scans due to previous
exposure. Scheduled for a brief pelvic exam to assess symptoms further, distinct from prior pap smears.
Disposition:
DIAGNOSIS
- Vaginal bleeding (ICD-10: N93.9)
- Lower abdominal pain (ICD-10: R10.2)
SUMMARY OF ENCOUNTER
A 29-year-old female presented with complaints of vaginal bleeding and lower abdominal pain. Her pain has significantly improved by the time of evaluation in the emergency department. An abdominal ultrasound was negative, and a pelvic exam was
normal, including no evidence of active bleeding. The patient has a history of multiple CT scans and is cautious due to her renal transplant, thus she refused a CT scan at this visit.
DISPOSITION
The patient is being discharged in an improved condition.
ASSESSMENT
Based on the clinical findings and the patients current medical history, the symptoms initially suggest a possible urinary tract infection or post-surgical complications, but further imaging and active gynecological bleeding have been ruled out.
PLAN
The patient will follow up with her doctors at the [facility] for further management and monitoring of her condition, given her history and current health needs.
INDEPENDENT INTERPRETATION OF TESTS
- My independent ultrasound interpretation is negative for any acute pelvic findings.
MEDICAL DECISION MAKING
The patient presented with acute concerns of vaginal bleeding and lower abdominal pain, with both a recent surgical history and renal considerations adding complexity to the case. After assessment, it was determined that emergency imaging beyond the
ultrasound was not required, given the absence of acute findings and improvement in symptoms. The patients decision to refuse a CT scan aligns with her health history, emphasizing the essential balance between necessary diagnostic workups and
minimally-invasive evaluations, especially considering her renal transplant status. The patients care plan and disposition were influenced by her social determinants of health, including accessibility to follow-up care with her specialists.
Past History
Past History
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
ADHD, depression, PTSD, ) and Other ( PE/DVT, IBS, factor V Leiden, early stage cervical cancer)
ED Past Surgical History: Cholecystectomy, Gynecological, Tonsilectomy (and adenoids) and Other (renal transplant 2014; hernia repair; sinus reconstruction; wisdom tooth extraction; )
Social History
Tobacco: Non-smoker
Alcohol: None
Drug: None
Personal: Single
Living: with family
Employment: Employed
Family History
Family History: Other (Grandmother with ovarian cancer mother with retinitis pigmentosa, father with high blood pressure)
Phy Exam
General Physical Exam
General Presentation: well appearing and no apparent distress
General Skin: warm and dry
General Habitus: normal
General Mental: alert
General Hydration: appears well hydrated
General Chronic Disability: other (Port in the left chest wall.)
ENT Exam
ENT Exam: EOMI, pharynx normal, neck supple and normocephalic
Eye Exam
Eye Exam: PERRL, cornea clear and conjunctiva normal
Cardiovascular Exam
Cardiovascular Exam: regular rate/rhythm, no edema, no murmur and normal peripheral pulses
Pulmonary Exam
Pulmonary Exam: lungs clear, no respiratory distress, no rales, no crackles, no rhonchi, no stridor, no wheezing and no cough
Gastrointestinal Exam
Gastrointestinal Exam: normal bowel sounds, non tender, soft, no organomegaly, no pulsatile mass and non distended
Neurological Exam
Neurological Exam: alert, oriented x3, no motor deficits and speech normal
Musculoskeletal Exam
Musculoskeletal Exam: full ROM and no edema
Skin Exam
Skin Exam: normal color, warm/dry, no rash and no petechia
Psychiatric Exam
Psychiatric Exam: normal mood/affect
Course
Orders/Labs/Results
Orders:
Orders
10/05/24 00:46
US Pelvis Only (non-obstetric) Urgent
Comment:
Reason For Exam: Vaginal bleeding and pelvic pain
10/05/24 00:48
HYDROmorphone [Dilaudid] 1 mg IV NOW STA
Ondansetron Injectable [Zofran] 4 mg IV NOW STA
10/05/24 00:51
ABO [Blood Group&Type] Urgent
Complete Blood Count/With Diff Urgent
Comprehensive Metabolic Panel Urgent
10/05/24 02:46
HYDROmorphone [Dilaudid] 0.5 mg IV NOW STA
10/05/24 02:48
Urinalysis Reflex To Culture Urgent
Date Specimen was Collected: 10/05/24
Time Specimen was Collected: 02:46
Urine Microscopic Reflex Cult Urgent
Urine Culture Urgent
ITZ Source: U
Specimen Description:
Date Specimen was Collected: 10/05/24
Time Specimen was Collected: 02:46
Abnormal Lab Results
10/05/24 10/05/24
00:51 02:48
RBC 2.74 L 10^6/uL
(4.20-5.40)
Hgb 8.8 L g/dL
(12.0-16.0)
Hct 25.2 L %
(37.0-47.0)
MCH 32.1 H pg
(27.0-31.0)
MPV 12.9 H fL
(7.4-10.4)
Chloride 108 H mmol/L
(98-107)
Creatinine 1.3 H mg/dL
(0.6-1.0)
Ur Occult Blood Reflex 1+ A
(Negative)
Leukocyte Esterase Rfl 1+ A
(Negative)
Urine Bacteria (Reflex) Few A
(Negative)
10/05/24 00:51
10/05/24 00:51
Vital Signs
Initial and Last Documented VS:
Initial Vital Signs
Temp Pulse Resp BP Pulse Ox
98.8 F 74 18 132/91 100
10/04/24 22:20 10/04/24 22:20 10/04/24 22:20 10/04/24 22:20 10/04/24 22:20
Last Documented Vital Signs
Temp Pulse Resp BP Pulse Ox
98.8 F 68 17 125/78 100
10/04/24 22:20 10/05/24 04:02 10/05/24 04:02 10/05/24 04:02 10/05/24 04:02
*Pulse Oximetry
Patient hypoxic: no (100)
*Critical Care Note
Total Time (30-74mins, 75-104mins- exclusive of procedures): Not Applicable
ED Attending Note
-
Portions of this chart may have been created with voice recognition software.� Occasional wrong word or��sound alike� substitutions may have occurred due to the inherent limitations of voice recognition software.
Discharge Plan
Departure
Patient Disposition: Home (Routine Discharge)
Date of Disposition: 10/05/24
Time of Disposition: 04:39
Patient with high blood pressure during this ER visit?: Yes
Condition: Good
Discharge Problem:
Abnormal vaginal bleeding
Instructions: Heavy periods - ED discharge instructions, BLOOD PRESSURE
Prescriptions:
No Action
alprazolam 1 MG tablet
1 mg PO BID@0800,1500
Patient Comments:
05/23/2023, pt. filled this med. on 04/21/2023 for 30 tablets according to PDMP.
azathioprine [Azasan] 100 MG tablet
100 mg PO DAILY
lisinopril 10 mg tablet
10 mg PO HS
montelukast 10 mg tablet
10 mg PO HS
pravastatin 20 mg tablet
20 mg PO HS
Eliquis 2.5 mg tablet
2.5 mg PO BID
clonidine HCl 0.1 mg Tablet
0.2 mg PO TID
lidocaine 4 % Cream
1 applic TOPICAL DAILYPRN PRN (Reason: prior to port access)
omeprazole 20 mg Capsule,Delayed Release(Dr/Ec)
20 mg PO BID
belatacept 250 mg Recon Soln
250 mg IV Q28D
Patient Comments:
NEXT DOSE 08/01/2024
Linzess 145 mcg Capsule
145 mcg PO DAILYPRN PRN (Reason: IBS)
alprazolam 1 mg tablet
0.5 mg PO HS
albuterol sulfate 90 mcg/actuation Hfa Aerosol Inhaler
2 puff INHALATION R Q6HPRN PRN (Reason: sob/wheezing)
sucralfate [Carafate] 100 mg/mL suspension
5 ml PO TIDPRN PRN (Reason: Gastrointestinal issue)
metoclopramide HCl [Reglan] 10 mg Tablet
10 mg PO BIDPRN PRN (Reason: if zofran does not work)
ondansetron [Zofran ODT] 4 mg Tablet,Disintegrating
4 mg PO DAILYPRN PRN (Reason: n/v)
prednisone 5 mg Tablet
5 mg PO DAILY
spironolactone 25 mg Tablet
25 mg PO DAILY
zolpidem [Ambien] 10 mg Tablet
10 mg PO HS PRN (Reason: SLEEP)
acetaminophen [Tylenol Extra Strength] 500 mg Tablet
1,000 mg PO Q6H PRN (Reason: pain)
fluconazole 150 mg tablet
150 mg PO ONCE Qty: 1 0RF
Referrals:
Suzy Gonzáles MD [Active, Gynecology] - As needed
Leoncio Zheng MD [Family Provider]
Interventions
Interventions:
*Risk Screen - Suicide Last Done: 10/04/24 22:20
*General Assessment Last Done: 10/05/24 00:51
*Neglect/Abuse Screening Last Done: 10/04/24 22:20
*ED- Fall Risk Assessment Last Done: 10/05/24 00:51
*ED COVID-19 Vaccine History Last Done: 10/05/24 00:51
ED-Female Genitourinary Assessment Last Done: 10/05/24 00:51
Discharge Date and Time
Print Language: THAI
--- NOTE | 2024-10-05 00:58 | EDRN ---
pt also had a kidney transplant. Pt had a chemo infusion for that transplant yesterday. Pt using son's diaper for the bleeding. Pt is 3 weeks post op and was told to expect spotting on the first week. Pt states that this is not the time when she
would get menstrual cycle. Pt c/o nausea and pain.
[2024-10-05 01:02] LABS: % Basophils 0.4 % (0-2); % Eosinophils 1.3 % (0-6); % Immature Granulocytes 0.3 % (0-0.5); % Lymphocytes 25.8 % (20.5-51.1); % Monocytes 8.4 % (1.7-9.3); % Neutrophils 63.8 % (42.2-75.2); Absolute Eosinophils 0.1 10^3/uL (0-0.7); Absolute Lymphocytes 1.8 10^3/uL (1.2-3.4); Absolute Monocytes 0.6 10^3/uL (0.1-0.6); Absolute Neutrophils 4.3 10^3/uL (1.4-6.5); Hematocrit 25.2 % (37.0-47.0); Hemoglobin 8.8 g/dL (12.0-16.0); Mean Corp Hgb Conc. 34.9 g/dL (33.0-37.0); Mean Corpuscular Hgb 32.1 pg (27.0-31.0); Mean Platelet Volume 12.9 fL (7.4-10.4); Nucleated Red Blood Cells % 0 %; Platelet Count 231 10^3/uL (130-400); Red Blood Cell Count 2.74 10^6/uL (4.20-5.40); Red Cell Dist. Width 13.8 % (11.5-14.5); White Blood Cell Count 6.8 10^3/uL (4.8-10.8)
[2024-10-05] MEDS: ZOFRAN 4 MG IV (01:04)
[2024-10-05] MEDS: DILAUDID 1 MG IV (01:08)
[2024-10-05 01:28] LABS: ALT (SGPT) < 10 U/L (0-35); AST (SGOT) 15 U/L (14-36); Albumin 4.1 g/dl (3.5-5.0); Alkaline Phosphatase 46 U/L (38-126); Blood Urea Nitrogen 9 mg/dl (7-17); Calcium 9.7 mg/dl (8.4-10.2); Carbon Dioxide 24 mmol/L (22-30); Chloride 108 mmol/L (98-107); Glucose 94 mg/dl (70-99); Potassium 3.9 mmol/L (3.5-5.1); Sodium 140 mmol/L (135-145); Total Bilirubin 0.5 mg/dl (0.2-1.3); Total Protein 6.5 g/dl (6.3-8.2); eGFR 56.38
[2024-10-05] MEDS: DILAUDID 0.5 MG IV (02:54)
[2024-10-05 03:03] LABS: Urine Albumin Negative (Neg - Trace); Urine Bilirubin Negative (Negative); Urine Character Clear (Clear); Urine Color Yellow; Urine Glucose Negative (Negative); Urine Ketone Negative (Negative); Urine Leukocyte 1+ (Negative); Urine Nitrite Negative (Negative); Urine Occult Blood 1+ (Negative); Urine Urobilinogen Negative (Neg - 1+)
[2024-10-05 03:33] LABS: Urine Squamous Cell >30 /LPF (Few); Urine Urothelial Cell >30 /LPF (FEW)
[2024-10-05 03:34] LABS: Urine Bacteria Few (Negative); Urine Red Blood Cell 0-2 /HPF (0-2)
== END 2024-10-05 05:35 | disposition home or self-care (01) ==
LOC: EMR 22:17
PROVIDERS: EMERGENCY PHYSICIAN Student in an Organized Health Care Education/Training Program; FAMILY PHYSICIAN Internal Medicine
DX: N93.9 Abnormal uterine and vaginal bleeding, unspecified (principal); N04.1 Nephrotic syndrome with focal and segmental glomerular lesions; Z94.0 Kidney transplant status; J45.909 Unspecified asthma, uncomplicated; D68.51 Activated protein C resistance; I10 Essential (primary) hypertension; Z86.718 Personal history of other venous thrombosis and embolism; Z90.710 Acquired absence of both cervix and uterus
CPT/HCPCS: 96374; 96375; 99284; 76856; 80053; 81003; 81015; 85025; 86900; 86901; 87086

== ENCOUNTER 2024-10-08 16:37 | Emergency (ER) | payer OTHER, SELFPAY ==
[2024-10-08 16:40] VITALS: BP 140/101
--- NOTE | 2024-10-08 17:24 | ED.GENMED ---
History of Present Illness
<Colleen Payne NP - Last Filed: 10/08/24 21:41>
General
Chief Complaint: Post Operative Problem(s)
Source: patient
Exam Limitations: none
Time Seen by Provider: 10/08/24 16:45
Nursing documentation reviewed up to this point in time: agreed with
History of Present Illness
History of Present Illness:
Patient to ED wtih complaint of pain and bruising to RUQ. States she bent forward and felt a pop. She is s/p hysterectomy in August and has had many ED visits since. Currently being treated for a vaginal yeast infection. She was seen at [facility] on
Tuesday for abdominal pain and had a CT at that time. CT without concerning findings. Denies fever/chills. Reports nausea, no vomiting. Brought self to ED for eval.
Past History
<Colleen Payne NP - Last Filed: 10/08/24 21:41>
Past History
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
ADHD, depression, PTSD, ) and Other ( PE/DVT, IBS, factor V Leiden, early stage cervical cancer)
ED Past Surgical History: Cholecystectomy, Gynecological, Tonsilectomy (and adenoids) and Other (renal transplant 2014; hernia repair; sinus reconstruction; wisdom tooth extraction; )
Social History
Tobacco: Non-smoker
Alcohol: None
Drug: None
Personal: Single
Living: with family
Employment: Employed
Family History
Family History: Other (Grandmother with ovarian cancer mother with retinitis pigmentosa, father with high blood pressure)
Review of Systems
<Colleen Payne NP - Last Filed: 10/08/24 21:41>
Review of Systems
Allergies reviewed?: Yes
All Other Systems: ROS reviewed and negative except as documented in HPI and ROS
Constitutional: Reports no symptoms
EENT: Reports no symptoms
Respiratory: Reports no symptoms
Cardiac: Reports no symptoms
ABD/GI: Reports nausea
: Reports dysuria
Musculoskeletal: Reports no symptoms
Skin: Reports other (Bruising RUQ)
Neurological: Reports no symptoms
Psychiatric: Reports no symptoms
Phy Exam
<Colleen Payne [employer] - Last Filed: 10/08/24 21:41>
General Physical Exam
General Presentation: moderate distress
General age: appears stated age
General Skin: warm and dry
General Habitus: normal
General Mental: alert
General Hydration: appears well hydrated
Gastrointestinal Exam
Gastrointestinal Exam: normal bowel sounds, soft, no organomegaly, no pulsatile mass and non distended
Palpation: left upper quadrant: No tenderness, left lower quadrant: No tenderness, right upper quadrant: Moderate tenderness and right lower quadrant: No tenderness
Genitourinary Exam Female
Exam Female: no bleeding, no lesions and no mass
Vaginal Exam: normal
Vaginal Bleeding: none
Vaginal Discharge: creamy
Course
<Colleen Payne, [employer] - Last Filed: 10/08/24 21:41>
Orders/Labs/Results
Orders:
Orders
10/08/24 17:13
US Abdomen Complete/Upper Urgent
Comment:
Reason For Exam: right upper quad pain and bruising.
10/08/24 17:20
HYDROmorphone [Dilaudid] 0.5 mg IV NOW STA
Ondansetron Injectable [Zofran] 4 mg IV NOW STA
10/08/24 17:28
Complete Blood Count/With Diff Urgent
Comprehensive Metabolic Panel Urgent
Urinalysis Reflex To Culture Urgent
Date Specimen was Collected: 10/08/24
Time Specimen was Collected: 17:27
Urine Microscopic Reflex Cult Urgent
Urine Culture Urgent
ITZ Source: U
Specimen Description:
Date Specimen was Collected: 10/08/24
Time Specimen was Collected: 17:27
10/08/24 20:16
HYDROmorphone [Dilaudid] 1 mg IV NOW STA
10/08/24 20:32
Genital Culture Urgent
ITZ Source: Vagina
Specimen Description:
Date Specimen was Collected: 10/08/24
Time Specimen was Collected: 20:30
Abnormal Lab Results
10/08/24
17:28
RBC 3.32 L 10^6/uL
(4.20-5.40)
Hgb 10.3 L g/dL
(12.0-16.0)
Hct 30.8 L %
(37.0-47.0)
MPV 13.5 H fL
(7.4-10.4)
Absolute Neuts (auto) 7.9 H 10^3/uL
(1.4-6.5)
Absolute Lymphs (auto) 0.8 L 10^3/uL
(1.2-3.4)
Neutrophils % 85.9 H %
(42.2-75.2)
Lymphocytes % 8.9 L %
(20.5-51.1)
Creatinine 1.4 H mg/dL
(0.6-1.0)
Glucose 115 H mg/dl
(70-99)
Calcium 10.4 H mg/dl
(8.4-10.2)
Ur Occult Blood Reflex 1+ A
(Negative)
Leukocyte Esterase Rfl 2+ A
(Negative)
Urine WBC (Reflex) 11-15 A /HPF
(0-5)
Urine Bacteria (Reflex) Few A
(Negative)
10/08/24 17:28
10/08/24 17:28
Vital Signs
Initial and Last Documented VS:
Initial Vital Signs
Temp Pulse Resp BP Pulse Ox
97.8 F 93 16 140/101 98
10/08/24 16:40 10/08/24 16:40 10/08/24 16:40 10/08/24 16:40 10/08/24 16:40
Last Documented Vital Signs
Temp Pulse Resp BP Pulse Ox
97.8 F 93 18 136/88 100
10/08/24 16:40 10/08/24 16:40 10/08/24 20:26 10/08/24 20:26 10/08/24 20:26
<Deirdre Robin DO - Last Filed: 10/08/24 20:09>
Orders/Labs/Results
Orders:
Orders
10/08/24 17:13
US Abdomen Complete/Upper Urgent
Comment:
Reason For Exam: right upper quad pain and bruising.
10/08/24 17:20
HYDROmorphone [Dilaudid] 0.5 mg IV NOW STA
Ondansetron Injectable [Zofran] 4 mg IV NOW STA
10/08/24 17:28
Complete Blood Count/With Diff Urgent
Comprehensive Metabolic Panel Urgent
Urinalysis Reflex To Culture Urgent
Date Specimen was Collected: 10/08/24
Time Specimen was Collected: 17:27
Urine Microscopic Reflex Cult Urgent
Urine Culture Urgent
ITZ Source: U
Specimen Description:
Date Specimen was Collected: 10/08/24
Time Specimen was Collected: 17:27
10/08/24 20:16
HYDROmorphone [Dilaudid] 1 mg IV NOW STA
10/08/24 20:32
Genital Culture Urgent
ITZ Source: Vagina
Specimen Description:
Date Specimen was Collected: 10/08/24
Time Specimen was Collected: 20:30
Abnormal Lab Results
10/08/24
17:28
RBC 3.32 L 10^6/uL
(4.20-5.40)
Hgb 10.3 L g/dL
(12.0-16.0)
Hct 30.8 L %
(37.0-47.0)
MPV 13.5 H fL
(7.4-10.4)
Absolute Neuts (auto) 7.9 H 10^3/uL
(1.4-6.5)
Absolute Lymphs (auto) 0.8 L 10^3/uL
(1.2-3.4)
Neutrophils % 85.9 H %
(42.2-75.2)
Lymphocytes % 8.9 L %
(20.5-51.1)
Creatinine 1.4 H mg/dL
(0.6-1.0)
Glucose 115 H mg/dl
(70-99)
Calcium 10.4 H mg/dl
(8.4-10.2)
Ur Occult Blood Reflex 1+ A
(Negative)
Leukocyte Esterase Rfl 2+ A
(Negative)
Urine WBC (Reflex) 11-15 A /HPF
(0-5)
Urine Bacteria (Reflex) Few A
(Negative)
10/08/24 17:28
10/08/24 17:28
Vital Signs
Initial and Last Documented VS:
Initial Vital Signs
Temp Pulse Resp BP Pulse Ox
97.8 F 93 16 140/101 98
10/08/24 16:40 10/08/24 16:40 10/08/24 16:40 10/08/24 16:40 10/08/24 16:40
Last Documented Vital Signs
Temp Pulse Resp BP Pulse Ox
97.8 F 93 18 136/88 100
10/08/24 16:40 10/08/24 16:40 10/08/24 20:26 10/08/24 20:26 10/08/24 20:26
<Colleen Payne NP - Last Filed: 10/08/24 21:41>
*Radiology
Radiology exam reviewed: radiology read reviewed
*Pulse Oximetry
Patient hypoxic: no
*Critical Care Note
Total Time (30-74mins, 75-104mins- exclusive of procedures): Not Applicable
<Colleen Payne NP - Last Filed: 10/08/24 21:41>
Update Note
Update Note:
Patient to ED with complain to right upper abd. pain and bruising. States she bent forward and felt a pop. Bruising is noted to RUQ. She jumps and complains of excrutiang pain with the slightest touch to her RUQ. She has been seen multiple times
since her hysterectomy at [place] [facility] in august. She has had multiple exams and Ct's without any acute findings. She initially states that her surgeon sent her to the ED here for evaluation. I explained to her what work-up/testing that i was ordering today
and then I told her I would be calling her surgeon to update him on her pain today. After I left the room, the RN asked that I return as the pateint wanted to speak to me. She now states that she did not speak with her surgeon, that her pain was
too bad for her to drive to [place] so she came here. She added that she is trying to contact her surgeon now to let him know that she is here. SHe is requesting dilaudid and repeats that she is unable to take NSAIDS or morphine. She states she can
not tolerate oral pain medication and that she has been vomiting due to taking oral pain medications.
Spoke with STUDENT ACTIVITIES DIRECTOR resident who has since spoken with patient. Report of presentation discussed with him. Discussed plan of labs and RUQ US and he is in agreement. He does not feel that she is narcotic seeking, does not feel that she is taking her
prescribed narcotics at home. SHe has said that she is not taking pain meds at home as they cause n/v. Will follow in office in 2 weeks unless there are findings on exam today.
Patient requesting to speak with physician. Dr. Robin in to see patient. Patient concerned that she needs a pelvic exam due to vaginal discharge. Also requesting narcotic prior to exam
SHe is currently using a fungal vaginal suppository every night for yeast infection. SHe now states she has a large amt of foul smelling discharge all day. Speculum vaginal exam performed. Small amt of creamy discharge noted, culuture obtained.
No vaginal bleeding. No lesions, swelling.
Reporting ongoing rectal pain. She states she noticed a lump protruding from rectum. No swelling, erythema, hemorrhoids noted. CT on tuesday at [place] [facility] without findings to explain her rectal pain as per STUDENT ACTIVITIES DIRECTOR resident.
ED Attending Note
<Colleen Payne [employer] - Last Filed: 10/08/24 21:41>
-
Portions of this chart may have been created with voice recognition software.� Occasional wrong word or��sound alike� substitutions may have occurred due to the inherent limitations of voice recognition software.
<Deirdre Robin DO - Last Filed: 10/08/24 20:09>
ED Attending Note
Patient seen and examined by attending physician: Yes
I performed the substantive portion of visit, reviewed & personally made and approve the management plan that is documented in note by myself or ALLYN.: Yes
I performed a history and physical exam of patient and discussed management with resident, I reviewed resident's note and agree with documented findings and plan of care.: Yes
ED Attending Note:
29-year-old female with multiple chronic medical conditions including renal transplant, factor V Leiden on anticoagulation, hypertension, presenting to the emergency department for concern of postoperative pain. Patient status post hysterectomy on
09/13 at [facility]. Patient has been seen on multiple occasions for differing issues since surgery. Patient mainly has been having pelvic issues, urinary complaints, rectal discomfort. Patient has been coming to this hospital
rather than following with her physician at [facility], notes that she has been calling the office, and they have been telling her to go to the closest hospital. Patient has been coming to this hospital every few days with different complaints,
requesting Dilaudid for pain, ultimately with provider concerns for pain seeking behavior. Patient notes that she cannot tolerate any oral pain medications due to nausea and cannot take ibuprofen containing products due to her kidney transplant.
Calls have been placed to [facility] with differing information and stories. Today, patient is ultimately complaining of right upper abdominal pain, notes bruising after she lifted her disabled son earlier today, because she did not
have her day nurse. Notes persistent vaginal discharge and rectal pain.
Vital signs on arrival are significant for mild hypertension. On exam patient is resting comfortably, no acute distress, nontoxic. Patient does have some mild bruising at the right upper quadrant region where her prior incisions are. Appears
superficial. Generalized tenderness to palpation, however difficult exam. Abdomen is soft and nondistended. Patient initially seen by nurse practitioner with laboratory analysis obtained as well as right upper quadrant ultrasound. No
abnormalities on right upper quadrant ultrasound, mainly no fluid or concerning features. Patient recently had a CT scan of her abdomen and pelvis on Tuesday. For this reason do not feel that patient requires repeat CT imaging, particularly given
her transplant history. Do not feel that is clinically indicated, without any present concern for postoperative complication. Labs show improved anemia. No signs of UTI. Patient was given 1 dose of Dilaudid at 0.5 mg, is requesting an additional
dose. Call was placed to gynecology at [facility] regarding patient's frequency of visits,expressed concern for pain seeking behavior, and they explained that they told patient to come to [facility], however patient did not
want to go there because she did not feel that she could make the ride there due to her pain. Patient would like to go home to take care of her disabled son, however is requesting another dose of Dilaudid. Had shaina conversation with patient,
explaining that this is not a viable solution to her pain, with ER visit every 3 to 4 days for IV Dilaudid due to inability to tolerate other oral narcotic medications. Patient agrees, notes that she is going to call her surgeon tomorrow. Will
give 1 additional dose of pain medication here, however again communicated that this will not fix her underlying issue. Patient verbalized understanding. Patient continues to report vaginal discharge. Will perform pelvic exam if patient
agreeable. Patient otherwise hemodynamically stable. Feel stable for discharge with outpatient appropriate follow-up
Discharge Plan
Departure
Patient Disposition: Home (Routine Discharge)
Date of Disposition: 10/08/24
Time of Disposition: 21:29
Patient with high blood pressure during this ER visit?: No
Condition: Good
Covid-19: Not Applicable
Discharge Problem:
Abdominal pain, Abdominal wall contusion
Instructions: Taking care of bruises, Abdominal Pain
Prescriptions:
No Action
alprazolam 1 MG tablet
1 mg PO BID@0800,1500
Patient Comments:
05/23/2023, pt. filled this med. on 04/21/2023 for 30 tablets according to PDMP.
azathioprine [Azasan] 100 MG tablet
100 mg PO DAILY
lisinopril 10 mg tablet
10 mg PO HS
montelukast 10 mg tablet
10 mg PO HS
pravastatin 20 mg tablet
20 mg PO HS
Eliquis 2.5 mg tablet
2.5 mg PO BID
clonidine HCl 0.1 mg Tablet
0.2 mg PO TID
lidocaine 4 % Cream
1 applic TOPICAL DAILYPRN PRN (Reason: prior to port access)
omeprazole 20 mg Capsule,Delayed Release(Dr/Ec)
20 mg PO BID
belatacept 250 mg Recon Soln
250 mg IV Q28D
Patient Comments:
NEXT DOSE 08/01/2024
Linzess 145 mcg Capsule
145 mcg PO DAILYPRN PRN (Reason: IBS)
alprazolam 1 mg tablet
0.5 mg PO HS
albuterol sulfate 90 mcg/actuation Hfa Aerosol Inhaler
2 puff INHALATION R Q6HPRN PRN (Reason: sob/wheezing)
sucralfate [Carafate] 100 mg/mL suspension
5 ml PO TIDPRN PRN (Reason: Gastrointestinal issue)
metoclopramide HCl [Reglan] 10 mg Tablet
10 mg PO BIDPRN PRN (Reason: if zofran does not work)
ondansetron [Zofran ODT] 4 mg Tablet,Disintegrating
4 mg PO DAILYPRN PRN (Reason: n/v)
prednisone 5 mg Tablet
5 mg PO DAILY
spironolactone 25 mg Tablet
25 mg PO DAILY
zolpidem [Ambien] 10 mg Tablet
10 mg PO HS PRN (Reason: SLEEP)
acetaminophen [Tylenol Extra Strength] 500 mg Tablet
1,000 mg PO Q6H PRN (Reason: pain)
fluconazole 150 mg tablet
150 mg PO ONCE Qty: 1 0RF
Referrals:
Leoncio Zheng MD [Family Provider]
Activity Restrictions/Additional Instructions:
Return to the emergency department for any changes in/worsening of your symptoms
Interventions
Interventions:
*Risk Screen - Suicide Last Done: 10/08/24 16:40
*General Assessment Last Done: 10/08/24 18:56
*Neglect/Abuse Screening Last Done: 10/08/24 16:40
ED-Skin Assessment Last Done: 10/08/24 18:25
Discharge Date and Time
Print Language: GREEK
[2024-10-08] MEDS: DILAUDID 0.5 MG IV (17:32)
[2024-10-08] MEDS: ZOFRAN 4 MG IV (17:32)
[2024-10-08 17:38] LABS: Urine Albumin Negative (Neg - Trace); Urine Bilirubin Negative (Negative); Urine Character Clear (Clear); Urine Color Yellow; Urine Glucose Negative (Negative); Urine Ketone Negative (Negative); Urine Leukocyte 2+ (Negative); Urine Nitrite Negative (Negative); Urine Occult Blood 1+ (Negative); Urine Urobilinogen Negative (Neg - 1+); Urine pH 6.5 (5.0-9.0)
[2024-10-08 17:48] LABS: % Basophils 0.4 % (0-2); % Eosinophils 0.3 % (0-6); % Immature Granulocytes 0.2 % (0-0.5); % Lymphocytes 8.9 % (20.5-51.1); % Monocytes 4.3 % (1.7-9.3); % Neutrophils 85.9 % (42.2-75.2); Absolute Lymphocytes 0.8 10^3/uL (1.2-3.4); Absolute Monocytes 0.4 10^3/uL (0.1-0.6); Absolute Neutrophils 7.9 10^3/uL (1.4-6.5); Hematocrit 30.8 % (37.0-47.0); Hemoglobin 10.3 g/dL (12.0-16.0); Mean Corp Hgb Conc. 33.4 g/dL (33.0-37.0); Mean Corpuscular Volume 92.8 fL (81.0-99.0); Mean Platelet Volume 13.5 fL (7.4-10.4); Nucleated Red Blood Cells % 0 %; Platelet Count 212 10^3/uL (130-400); Red Blood Cell Count 3.32 10^6/uL (4.20-5.40); Red Cell Dist. Width 13.7 % (11.5-14.5); White Blood Cell Count 9.2 10^3/uL (4.8-10.8)
[2024-10-08 17:54] LABS: Urine Red Blood Cell 0-2 /HPF (0-2); Urine Squamous Cell >30 /LPF (Few)
[2024-10-08 17:55] LABS: Urine Bacteria Few (Negative)
[2024-10-08 18:11] LABS: ALT (SGPT) 10 U/L (0-35); AST (SGOT) 16 U/L (14-36); Albumin 4.7 g/dl (3.5-5.0); Alkaline Phosphatase 51 U/L (38-126); Blood Urea Nitrogen 16 mg/dl (7-17); Calcium 10.4 mg/dl (8.4-10.2); Carbon Dioxide 25 mmol/L (22-30); Chloride 105 mmol/L (98-107); Glucose 115 mg/dl (70-99); Potassium 4.7 mmol/L (3.5-5.1); Sodium 140 mmol/L (135-145); Total Bilirubin 0.5 mg/dl (0.2-1.3); Total Protein 7.1 g/dl (6.3-8.2); eGFR 51.58
[2024-10-08] MEDS: DILAUDID 1 MG IV (20:23)
[2024-10-08 20:26] VITALS: BP 136/88
[2024-10-08 21:43] VITALS: BP 135/78
== END 2024-10-08 21:44 | disposition home or self-care (01) ==
LOC: EMR 16:37
PROVIDERS: Nurse Practitioner; EMERGENCY PHYSICIAN Student in an Organized Health Care Education/Training Program; FAMILY PHYSICIAN Internal Medicine
DX: R10.11 Right upper quadrant pain (principal); S30.1XXA Contusion of abdominal wall, initial encounter; X50.1XXA Overexertion from prolonged static or awkward postures, initial encounter
CPT/HCPCS: 99285; 96374; 96375; 96376; 76700; 80053; 81003; 81015; 85025; 87070; 87086

== ENCOUNTER 2024-10-18 18:03 | Emergency (ER) | payer OTHER, SELFPAY ==
[2024-10-18 18:09] VITALS: BP 144/100
--- NOTE | 2024-10-18 19:28 | ED.GENMED ---
History of Present Illness
General
Chief Complaint: Fall
Source: patient and records
Exam Limitations: none
Time Seen by Provider: 10/18/24 19:03
History of Present Illness
History of Present Illness:
29yoF with a history of prior PE and factor V leiden on Eliquis, renal transplant, and seizures presenting for evaluation after a fall about 1.5 hours ago. Patient was walking backwards into her home while carrying her toddler. She lost her
footing and fell backwards striking the back of her head against the concrete steps. She then fell on her side after the initial impact. She states she 'blacked out for a second.' No vomiting. Her son fell on her stomach and now she is having
worsening abdominal pain and recently had a hysterectomy about 5 weeks ago. She had a bloody nose after the fall. She is presenting with multiple complaints including a headache, neck pain, nasal pain, low back pain, and lower abdominal pain.
Past History
Past History
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
ADHD, depression, PTSD, ) and Other ( PE/DVT, IBS, factor V Leiden, early stage cervical cancer)
ED Past Surgical History: Cholecystectomy, Gynecological, Tonsilectomy (and adenoids) and Other (renal transplant 2014; hernia repair; sinus reconstruction; wisdom tooth extraction; )
Social History
Tobacco: Non-smoker
Alcohol: None
Drug: None
Personal: Single
Living: with family
Employment: Employed
Family History
Family History: Other (Grandmother with ovarian cancer mother with retinitis pigmentosa, father with high blood pressure)
Phy Exam
General Physical Exam
General Presentation: well appearing and no apparent distress
General Skin: warm and dry
General Habitus: normal
General Mental: alert
ENT Exam
ENT Exam: normocephalic and other (No external signs of head trauma)
Additional ENT: +Cervical spine tenderness. No active epistaxis or septal hematoma.
Eye Exam
Eye Exam: PERRL and conjunctiva normal
Pulmonary Exam
Pulmonary Exam: lungs clear, no respiratory distress, no rales, no crackles, no rhonchi and no wheezing
Gastrointestinal Exam
Gastrointestinal Exam: non tender, soft, non distended and other (+Lower abdominal tenderness. Abdomen soft, non-distended. No rebound or guarding. Surgical incisions well healed.)
Neurological Exam
Neurological Exam: alert
Chris Coma Scale
Eye Opening: Spontaneous
Verbal Response: Oriented
Motor Response: Obeys Commands
GCS Total Score: 15
Musculoskeletal Exam
Musculoskeletal Exam: other (+Lumbar spine tenderness)
Skin Exam
Skin Exam: normal color and warm/dry
Psychiatric Exam
Psychiatric Exam: normal mood/affect
Course
Orders/Labs/Results
Orders:
Orders
10/18/24 18:17
CT Head W/o Iv Contrast Urgent
Comment:
Reason For Exam: Fall, hit head on Eliquis
10/18/24 19:27
CT Cervical Spine W/o Iv Contr Urgent
Comment:
Reason For Exam: fall, neck pain
CT Facial Bones W/o Iv Contras Urgent
Comment:
Reason For Exam: nasal injury, fall
Acetaminophen [Tylenol] 1,000 mg PO NOW STA
Vital Signs
Initial and Last Documented VS:
Initial Vital Signs
Temp Pulse Resp BP Pulse Ox
98.7 F 112 18 144/100 99
10/18/24 18:09 10/18/24 18:09 10/18/24 18:09 10/18/24 18:09 10/18/24 18:09
Last Documented Vital Signs
Temp Pulse Resp BP Pulse Ox
98.7 F 112 18 144/100 99
10/18/24 18:09 10/18/24 18:09 10/18/24 18:09 10/18/24 18:09 10/18/24 19:31
MDM/Problems Addressed
Differential Diagnosis Includes:
29yoF here after a mechanical fall. Tripped and fell backwards striking head on concrete steps. Patient's child subsequently fell on her abd. Hx of recent hysterectomy 5 weeks ago. Multiple complaints including BRAN, neck pain, abd pain, low back
pain. On Eliquis. She is awake, alert, with a GCS of 15. Dried blood noted to left nare without active bleeding or septal hematoma. There is tenderness to both cervical and lumbar spine. Differential diagnosis includes but is not limited to:
Closed head injury, sprain, fracture
Initial ED plan: Check basic labs, CXR, CT head, CT cervical spine, CT facial bones, and CT abdomen. Will obtain non-contrast CT given history of renal transplant. Patient requesting IV Dilaudid for pain. Discussed that we are not placing an IV
at this time so will order Tylenol.
*Pulse Oximetry
SaO2: 99
Oxygen Mode of Delivery: Room air
Patient hypoxic: no (99%)
*Critical Care Note
Total Time (30-74mins, 75-104mins- exclusive of procedures): Not Applicable
Update Note
Update Note:
Shortly after initial evaluation, I was informed by nursing staff that patient is requesting to leave. 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 She agrees to obtain CT head
and cervical spine before she leaves but does not feel that CT abdomen/CXR is necessary. I reviewed CT head which is negative for intracranial hemorrhage per my interpretation. Patient left AGAINST MEDICAL ADVICE.
ED Attending Note
-
Portions of this chart may have been created with voice recognition software.� Occasional wrong word or��sound alike� substitutions may have occurred due to the inherent limitations of voice recognition software.
Discharge Plan
Departure
Patient Disposition: Against Medical Advice
Date of Disposition: 10/18/24
Time of Disposition: 19:49
Discharge Problem:
Ground-level fall, Closed head injury, Epistaxis
Prescriptions:
No Action
alprazolam 1 MG tablet
1 mg PO BID@0800,1500
Patient Comments:
05/23/2023, pt. filled this med. on 04/21/2023 for 30 tablets according to PDMP.
azathioprine [Azasan] 100 MG tablet
100 mg PO DAILY
lisinopril 10 mg tablet
10 mg PO HS
montelukast 10 mg tablet
10 mg PO HS
pravastatin 20 mg tablet
20 mg PO HS
Eliquis 2.5 mg tablet
2.5 mg PO BID
clonidine HCl 0.1 mg Tablet
0.2 mg PO TID
lidocaine 4 % Cream
1 applic TOPICAL DAILYPRN PRN (Reason: prior to port access)
omeprazole 20 mg Capsule,Delayed Release(Dr/Ec)
20 mg PO BID
belatacept 250 mg Recon Soln
250 mg IV Q28D
Patient Comments:
NEXT DOSE 08/01/2024
Linzess 145 mcg Capsule
145 mcg PO DAILYPRN PRN (Reason: IBS)
alprazolam 1 mg tablet
0.5 mg PO HS
albuterol sulfate 90 mcg/actuation Hfa Aerosol Inhaler
2 puff INHALATION R Q6HPRN PRN (Reason: sob/wheezing)
sucralfate [Carafate] 100 mg/mL suspension
5 ml PO TIDPRN PRN (Reason: Gastrointestinal issue)
metoclopramide HCl [Reglan] 10 mg Tablet
10 mg PO BIDPRN PRN (Reason: if zofran does not work)
ondansetron [Zofran ODT] 4 mg Tablet,Disintegrating
4 mg PO DAILYPRN PRN (Reason: n/v)
prednisone 5 mg Tablet
5 mg PO DAILY
spironolactone 25 mg Tablet
25 mg PO DAILY
zolpidem [Ambien] 10 mg Tablet
10 mg PO HS PRN (Reason: SLEEP)
acetaminophen [Tylenol Extra Strength] 500 mg Tablet
1,000 mg PO Q6H PRN (Reason: pain)
fluconazole 150 mg tablet
150 mg PO ONCE Qty: 1 0RF
Referrals:
Leoncio Zheng MD [Family Provider]
Activity Restrictions/Additional Instructions:
You are leaving the emergency room AGAINST MEDICAL ADVICE. Return to the ER immediately with any new or worsening symptoms.
Interventions
Interventions:
*Risk Screen - Suicide Last Done: 10/18/24 18:12
*Neglect/Abuse Screening Last Done: 10/18/24 18:12
*Nursing Disposition Last Done: 10/18/24 20:14
ED-Musculoskeletal Assessment Last Done: 10/18/24 18:54
ED- Neurological Assessment Last Done: 10/18/24 18:54
ED-Skin Assessment Last Done: 10/18/24 18:54
Discharge Date and Time
Discharge Date/Time: 10/18/24 20:14
Print Language: SLOVAK
[2024-10-18] MEDS: TYLENOL 1000 MG PO (19:33)
== END 2024-10-18 20:14 | disposition left against medical advice (07) ==
LOC: EMR 18:03
PROVIDERS: EMERGENCY PHYSICIAN Student in an Organized Health Care Education/Training Program; FAMILY PHYSICIAN Internal Medicine
DX: S09.90XA Unspecified injury of head, initial encounter (principal); W01.0XXA Fall on same level from slipping, tripping and stumbling without subsequent striking against object, initial encounter; Y93.01 Activity, walking, marching and hiking; D68.51 Activated protein C resistance; J45.909 Unspecified asthma, uncomplicated; K21.9 Gastro-esophageal reflux disease without esophagitis; F41.8 Other specified anxiety disorders; I10 Essential (primary) hypertension; K58.9 Irritable bowel syndrome, unspecified; Z79.01 Long term (current) use of anticoagulants; Z86.711 Personal history of pulmonary embolism; Z86.718 Personal history of other venous thrombosis and embolism; Z90.49 Acquired absence of other specified parts of digestive tract; Z94.0 Kidney transplant status; R04.0 Epistaxis
CPT/HCPCS: 99284; 70450; 70486; 72125

== ENCOUNTER 2024-10-25 23:26 | Emergency (ER) | payer OTHER, SELFPAY ==
[2024-10-25 23:35] VITALS: BP 107/77
[2024-10-26 00:30] VITALS: BMI 25.0
--- NOTE | 2024-10-26 00:45 | EDRN ---
Patient came back to the room and asked to change into a gown however would not,call simons in reach, will continue to monitor
--- NOTE | 2024-10-26 01:15 | EDRN ---
Dr. Leslie in to see patient and assess and go over plan with patient on getting some blood work done, he is going to contact GI about her case, after Dr. Leslie left the room, patient states she would like a new provider as the doctor that
came into the room was rude, Dr. leslie was calm with her and told her the plan, Dr. Leslie is our overnight provider and who is here to care for her, IV team paged at this time to access port. Will update patient
--- NOTE | 2024-10-26 01:53 | EDRN ---
IV team at bedside, patient upset about Dr. Leslie, apologized on how she feels and the situation, patient asking to speak with the charge nurse and for another provider, informed her again that Dr. Leslie is the provider on for the evening
and our other providers are working on leaving. Dr. leslie and ELYSIA Chacko (charge) in at bedside speaking with patient about the plan, patient telling Dr. Leslie that he is being rude and told her 'she is a frequent user' Dr. Leslie informed
patient, in a very calm respectful manor, that he didn't say she was a frequent user, more that we are a narcotic safe hospital and that she is here often and he has concerns. Patient seems to mainly be upset about the pain medication situation.
Patient was informed that we will be giving her a dose and a CT scan per GI doctors request. Will continue to monitor patient, ELYSIA Chacko continues to stay at bedside to apologize for patient's concerns and how she is feeling. This RN to send blood
work and medicate per order.
[2024-10-26] MEDS: DILAUDID 0.5 MG IV ×2 (02:02→04:07)
--- NOTE | 2024-10-26 02:11 | EDRN ---
In to medicate patient, patient is texting on her phone while this RN is in at bedside, after being medicated for pain, patient to go to CT, patient texting on her phone the entire way to CT, will continue to monitor patient's pain level.
[2024-10-26 02:35] LABS: Hematocrit 26.2 % (37.0-47.0); Hemoglobin 9.0 g/dL (12.0-16.0); Mean Corp Hgb Conc. 34.4 g/dL (33.0-37.0); Mean Corpuscular Volume 90.3 fL (81.0-99.0); Nucleated Red Blood Cells % 0 %; Platelet Count 172 10^3/uL (130-400); Red Cell Dist. Width 14.8 % (11.5-14.5)
[2024-10-26 02:36] LABS: HCG, Serum Qualitative Screen Negative; INR 1.22; PT 15.9 Sec (11.4-14.6)
--- NOTE | 2024-10-26 02:36 | EDRN ---
Dr. Batista in to re-assess the patient, he will be ordering nausea meds, patient sexton helper simons right after he left stating 'pain is making her feel tachycardic' placed patient on monitoring specialist, hear rate is normal sinus and a rate of 75,
Lester aware.
[2024-10-26 02:37] LABS: APTT 33.8 Sec (23.4-35.0)
[2024-10-26 02:41] LABS: ALT (SGPT) < 10 U/L (0-35); AST (SGOT) 15 U/L (14-36); Albumin 4.2 g/dl (3.5-5.0); Alkaline Phosphatase 38 U/L (38-126); Blood Urea Nitrogen 14 mg/dl (7-17); Calcium 9.4 mg/dl (8.4-10.2); Carbon Dioxide 25 mmol/L (22-30); Chloride 108 mmol/L (98-107); Estimated Creatinine Clearance 54 ml/min; Glucose 80 mg/dl (70-99); Lipase 131 U/L (23-300); Potassium 3.8 mmol/L (3.5-5.1); Sodium 138 mmol/L (135-145); Total Protein 6.4 g/dl (6.3-8.2); eGFR 56.38
[2024-10-26] MEDS: ZOFRAN 4 MG IV (02:43)
--- NOTE | 2024-10-26 03:25 | EDRN ---
Patient asking for an ice pack and emesis bag, provided with both, call simons in reach.
--- NOTE | 2024-10-26 03:34 | ED.GENMED ---
History of Present Illness
General
Chief Complaint: Abdominal Pain
Source: patient
Time Seen by Provider: 10/26/24 01:11
Nursing documentation reviewed up to this point in time: agreed with
History of Present Illness
History of Present Illness:
Note:
CHIEF COMPLAINT(S)
Tachycardia, abdominal pain, diarrhea with blood clots, and weakness.
HISTORY OF PRESENT ILLNESS
The patient is a 29-year-old female presenting with a recent onset of tachycardia, severe abdominal pain, sweating, and episodes of feeling lightheaded, starting approximately three days ago. These symptoms have persisted and worsened over the past
few days. Initially, the patient experienced these symptoms while in a grocery store, reporting excessive sweating and feeling as though she might pass out. The patient initially attributed these symptoms to irritable bowel syndrome (IBS).
The following day, the symptoms recurred with episodes of sweating, abdominal pain, and a sensation of imminent syncope while outside. On the third day, while at a store, the patient reported severe abdominal pain, sweating, and an urgent need to
leave. Upon returning home, the patient experienced a bowel movement that began normally but progressed to diarrhea with blood clots. The patient noted ongoing weakness, dizziness, and persistent tachycardia. Oral intake has been minimal due to
difficulty eating or maintaining hydration.
The patient contacted her woodworking machine offbearer, who advised her to seek emergency care for symptom control and blood work evaluation. Although the woodworking machine offbearer left a note in their system, our system lacks access.
The patient has attempted to alleviate symptoms with Tylenol and medication previously prescribed by her woodworking machine offbearer, but without significant relief.
ADDITIONAL HISTORY OBTAINED FROM SOURCES OTHER THAN THE PATIENT
None of the sections were discussed.
PLAN
Initiate blood work to evaluate the patient�s condition as advised by the patient�s woodworking machine offbearer. Assess for potential underlying issues causing tachycardia and abdominal symptoms. Consultation with the gastroenterology service for management
of the patients symptoms.
DIFFERENTIAL DIAGNOSIS
The Differential Diagnosis includes, in no particular order and is not limited to:
. Inflammatory bowel disease (e.g., Crohns disease, Ulcerative Colitis)
. Infectious colitis
. Ischemic colitis
. Gastroenteritis (viral, bacterial, parasitic)
. Diverticulitis with potential complications
. Irritable bowel syndrome exacerbation
10. Anxiety or panic disorder with gastrointestinal manifestations
CARE-UPDATE
10/26/24 - :19
The patient exhibited tenderness upon abdominal auscultation, indicating exacerbation of pain. Request for Dilaudid noted following Tylenol administration without significant relief. Consultation with Dr. Harper , on-call woodworking machine offbearer,
initiated for further advice on medication and treatment strategy. Decision to defer additional imaging until gastroenterology consult is complete.
CARE-UPDATE
10/26/24:[address] Harper, the GI Fellow refrigeration engineering teacher at the [facility]. She advised obtaining a CBC, routine lab work, and imaging, specifically recommending a CT abdomen. Acknowledged the patients recent imaging history and will discuss
further imaging with Dr. Harper. Pain management is also recommended; however, the patient has allergies to morphine, hydrocodone, and incense. She has taken Tylenol before arriving and requests Dilaudid for pain relief.
CARE-UPDATE
10/26/24:52
Patient expressed dissatisfaction and requested a different physician. Following consultation with the GI Fellow, a small dose of Dilaudid will be administered. Patient was informed about the necessity of a CT scan, despite having multiple recent
scans, and she agreed to undergo an abdominal and pelvic CT scan. Currently discussing her request for a change in physician with the charge nurse.
CARE-UPDATE
10/26/24 - :35
CT scan results reveal no acute processes or identifiable cause for the patients bloody stool or abdominal pain.
CARE-UPDATE
10/26/24 - :[address] scan results with the patient. She asked for additional pain medication and understands the requirement to remain at the facility for four hours post-administration of narcotic pain meds before driving. Patient currently unable to
provide a stool sample.
Disposition:
SUMMARY OF ENCOUNTER
A 29-year-old female presented to the emergency department with complaints of tachycardia, severe abdominal pain, diarrhea with blood clots, and weakness that started approximately three days ago. Symptoms included excessive sweating and episodes of
dizziness, initially suspected to be irritable bowel syndrome exacerbation. The patients symptoms persisted and worsened, with notable episodes of imminent syncope and severe abdominal pain. She reached out to her woodworking machine offbearer, who advised
urgent care evaluation. A CT abdomen was performed, revealing no acute processes causing her symptoms. Despite the administration of pain medication, including small doses of Dilaudid, the patients symptoms necessitated close observation.
DISPOSITION
Discharge.
ASSESSMENT
Differential diagnoses considered include inflammatory bowel disease, infectious colitis, ischemic colitis, peptic ulcer disease with bleeding, gastroenteritis, diverticulitis, and hyperthyroidism.
EMERGENCY TREATMENTS ADMINISTERED
Dilaudid was administered for pain relief following the patients request due to allergies to other analgesic options.
MANAGEMENT OF THE PATIENTS CARE WAS DISCUSSED WITH
Gastroenterology fellow, Dr. Harper, from the [facility], regarding medication management and treatment strategy. A CT abdomen and routine lab work were recommended.
PLAN
Continue close monitoring; follow-up with the patients woodworking machine offbearer and other specialists as needed for further evaluation and management.
INDEPENDENT REVIEW OF LABS AND INTERPRETATION OF TESTS
My independent review of CT abdomen indicates no acute processes or identifiable cause for the patients bloody stool or abdominal pain.
PATIENT EDUCATION AND COUNSELING
Discussed the nature of current findings with the patient, including the lack of acute findings on CT and the continued need for cautious pain management given her allergies. Explained the significance of remaining in the facility for four hours
following narcotic pain medication administration and discussed the procedure for a safe discharge.
FOLLOW-UP INSTRUCTIONS
Advised to follow up with gastroenterology and primary care provider to review ongoing symptoms and discuss potential further management strategies.
MEDICATION RECONCILIATION
Dilaudid was administered for pain management during the visit due to allergies to other narcotics such as morphine and hydrocodone.
MEDICAL DECISION MAKING
- Number and Complexity of Problems Addressed: Chronic conditions affecting care, including exacerbation of irritable bowel syndrome. Differential Diagnoses considered: inflammatory bowel disease, infectious colitis, ischemic colitis, peptic ulcer
disease with bleeding, gastroenteritis, diverticulitis, hyperthyroidism, gastric ulcer with bleeding, anxiety or panic disorder with gastrointestinal manifestations.
- Data:
Category 1: CT abdomen was ordered and independently interpreted showing no acute processes.
Category 3: Management of the patients care was discussed with the on-call woodworking machine offbearer, Dr. Harper, which facilitated the decision-making regarding lab and imaging studies as well as medication management.
- Risk: Consideration of Admission/Observation: Escalation of care, including admission/observation, was considered given the complexity and risk of the patients presenting complaints but ultimately determined safe for outpatient management with
close follow-up. Reasoning: Work-up reassuring, does not reveal any acute life/or organ-threatening processes, patients symptoms well controlled upon reevaluation, reexamination is reassuring, vitals are stable, patient agreeable with discharge,
reliable for follow-up.
DIAGNOSIS
- R10.9 Abdominal pain, unspecified
- K92.1 Melena (Blood in stool)
- R00.0 Tachycardia, unspecified
- Z86.69 Personal history of other diseases of the digestive system
Past History
Past History
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
ADHD, depression, PTSD, ) and Other ( PE/DVT, IBS, factor V Leiden, early stage cervical cancer)
ED Past Surgical History: Cholecystectomy, Gynecological, Tonsilectomy (and adenoids) and Other (renal transplant 2014; hernia repair; sinus reconstruction; wisdom tooth extraction; )
Social History
Tobacco: Non-smoker
Alcohol: None
Drug: None
Personal: Single
Living: with family
Employment: Employed
Family History
Family History: Other (Grandmother with ovarian cancer mother with retinitis pigmentosa, father with high blood pressure)
Phy Exam
Physical Exam
Physical Exam:
Physical Exam
Vital signs and allergy list reviewed and agreed with.
GENERAL: Alert , in minimal to moderate apparent distress
EYE: pupils equal, EOMI, anicteric
NECK: Supple, no significant adenopathy. No masses. Trachea midline
ENT: mmm.
CARDIAC: Regular rate and rhythm . No M/R/G
LUNGS: Clear breath sounds bilaterally, no acute respiratory distress, no wheezes/rales/rhonchi
ABDOMEN: Soft, without diffuse tenderness to palpation. Without obvious rigidity or guarding.
NEUROLOGICAL: Alert and oriented, no focal neuro deficits
SKIN: Warm and dry, skin intact.
MUSCULOSKELETAL: No edema, well perfused. Moves all 4 extremities
PSYCH: Normal and appropriate interaction. Patient tearful,anxious and angry. Refuses to make eye contact
Sepsis
Sepsis Screening
Sepsis Assessment: Sepsis Ruled Out
Sepsis Screen
Sepsis Screen: Sepsis Ruled Out
Date: 10/26/24
Time: 06:32
Course
Orders/Labs/Results
Orders:
Orders
10/26/24 01:17
Test Result ONCE
10/26/24 01:23
Stool Culture Urgent
ITZ Source: Feces/Stool
Specimen Description:
Date Specimen was Collected: 10/26/24
Time Specimen was Collected: 02:24
10/26/24 01:46
HYDROmorphone [Dilaudid] 0.5 mg IV NOW STA
10/26/24 01:47
CT Abd/pel Without Iv Or Oral Urgent
Comment: change to non contrast per DR due to med history
Reason For Exam: abd pain
10/26/24 02:01
Complete Blood Count/With Diff Urgent
Comprehensive Metabolic Panel Urgent
HCG, Serum Qualitative Screen Urgent
Lactic Acid Urgent
Lipase Urgent
PTT Urgent
Prothrombin Time Urgent
10/26/24 02:37
Electrocardiogram (*1) Urgent
Reason for Study: QTc Monitoring
EKG- Treatment ONCE
Ondansetron Injectable [Zofran] 4 mg IV NOW STA
10/26/24 03:39
HYDROmorphone [Dilaudid] 0.5 mg IV NOW STA
Metoclopramide [Reglan] 5 mg IV NOW STA
10/26/24 04:10
Urinalysis Reflex To Culture Urgent
Date Specimen was Collected: 10/26/24
Time Specimen was Collected: 02:24
Urine Microscopic Reflex Cult Urgent
Urine Culture Urgent
ITZ Source: U
Specimen Description:
Date Specimen was Collected: 10/26/24
Time Specimen was Collected: 02:24
Abnormal Lab Results
10/26/24 10/26/24
02:01 04:10
RBC 2.90 L 10^6/uL
(4.20-5.40)
Hgb 9.0 L g/dL
(12.0-16.0)
Hct 26.2 L %
(37.0-47.0)
RDW 14.8 H %
(11.5-14.5)
MPV 13.6 H fL
(7.4-10.4)
PT 15.9 H Sec
(11.4-14.6)
Chloride 108 H mmol/L
(98-107)
Creatinine 1.3 H mg/dL
(0.6-1.0)
Lactic Acid 0.6 L mmol/L
(0.7-2.0)
Leukocyte Esterase Rfl 2+ A
(Negative)
Urine RBC 3-6 A /HPF
(0-2)
Urine WBC (Reflex) 16-20 A /HPF
(0-5)
Urine Bacteria (Reflex) Few A
(Negative)
10/26/24 02:01
10/26/24 02:01
Vital Signs
Initial and Last Documented VS:
Initial Vital Signs
Temp Pulse Resp BP
97.8 F 85 16 107/77
10/25/24 23:35 10/25/24 23:35 10/25/24 23:35 10/25/24 23:35
Last Documented Vital Signs
Temp Pulse Resp BP
97.8 F 76 14 135/86
10/25/24 23:35 10/26/24 04:03 10/26/24 04:03 10/26/24 04:11
*Pulse Oximetry
Nasal Cannula flow liters per minute: 100
Oxygen Mode of Delivery: Room air
Patient hypoxic: no
*Critical Care Note
Total Time (30-74mins, 75-104mins- exclusive of procedures): 33 (Critical care statement: A total of 33 minutes of critical care time was provided for this patient. This time is separate from time utilized to perform the aforementioned documented
procedures. Aggregate critical care time includes only time during which I was engaged in work directl)
Update Note
Update Note:
NAME: SUMAN KASHIF Evonne
DATE OF EXAM: 10/26/2024
Patient No: [id number]
Physician: TYRONE^John
Date of : 1995
Past Medical History (entered by Technologist):
Reason For Exam (entered by Technologist):
Other Notes (entered by Technologist): abd pain, blood clots in stool, unable to inject h/o kid txp
priors
Additional Information (per Vision Radiologist):
NONCONTRAST CT ABDOMEN AND PELVIS
IMPRESSION
No specific findings to account for patient's bloody stools. If symptoms persist or progress consider further workup by nuclear medicine bleeding scan and/or endoscopy. No evidence of inflammation or free air. Occasional diverticula without
evidence of diverticulitis.
Mild bladder wall thickening, likely due to its decompressed state, assuming no symptoms of cystitis.Transplant kidney in the right lower quadrant with small calcification versus hemorrhagic cyst.
[place] kidneys are severely atrophic. Hysterectomy. Cholecystectomy.
Normal appendix
Lack of intravenous contrast diminishes evaluation of the visceral organs.
Case faxed/finalized at 3:29 AM eastern time . If there are any questions please contact me at [phone].
EKG shows normal sinus rhythm rate of 74 normal intervals, normal axis. No evidence of acute ischemia present. When compared with previous EKG dated August 14, 2024, similar morphology noted.
ED Attending Note
-
Portions of this chart may have been created with voice recognition software.� Occasional wrong word or��sound alike� substitutions may have occurred due to the inherent limitations of voice recognition software.
Discharge Plan
Departure
Patient Disposition: Home (Routine Discharge)
Date of Disposition: 10/26/24
Time of Disposition: 06:00
Patient with high blood pressure during this ER visit?: Yes
Discharge Problem:
Hematochezia, Abdominal pain
Instructions: Bloody Stools, Adult ED, Abdominal Pain, BLOOD PRESSURE
Prescriptions:
No Action
alprazolam 1 MG tablet
1 mg PO BID@0800,1500
Patient Comments:
05/23/2023, pt. filled this med. on 04/21/2023 for 30 tablets according to PDMP.
azathioprine [Azasan] 100 MG tablet
100 mg PO DAILY
lisinopril 10 mg tablet
10 mg PO HS
montelukast 10 mg tablet
10 mg PO HS
pravastatin 20 mg tablet
20 mg PO HS
Eliquis 2.5 mg tablet
2.5 mg PO BID
clonidine HCl 0.1 mg Tablet
0.2 mg PO TID
lidocaine 4 % Cream
1 applic TOPICAL DAILYPRN PRN (Reason: prior to port access)
omeprazole 20 mg Capsule,Delayed Release(Dr/Ec)
20 mg PO BID
belatacept 250 mg Recon Soln
250 mg IV Q28D
Patient Comments:
NEXT DOSE 08/01/2024
Linzess 145 mcg Capsule
145 mcg PO DAILYPRN PRN (Reason: IBS)
alprazolam 1 mg tablet
0.5 mg PO HS
albuterol sulfate 90 mcg/actuation Hfa Aerosol Inhaler
2 puff INHALATION R Q6HPRN PRN (Reason: sob/wheezing)
sucralfate [Carafate] 100 mg/mL suspension
5 ml PO TIDPRN PRN (Reason: Gastrointestinal issue)
metoclopramide HCl [Reglan] 10 mg Tablet
10 mg PO BIDPRN PRN (Reason: if zofran does not work)
ondansetron [Zofran ODT] 4 mg Tablet,Disintegrating
4 mg PO DAILYPRN PRN (Reason: n/v)
prednisone 5 mg Tablet
5 mg PO DAILY
spironolactone 25 mg Tablet
25 mg PO DAILY
zolpidem [Ambien] 10 mg Tablet
10 mg PO HS PRN (Reason: SLEEP)
acetaminophen [Tylenol Extra Strength] 500 mg Tablet
1,000 mg PO Q6H PRN (Reason: pain)
fluconazole 150 mg tablet
150 mg PO ONCE Qty: 1 0RF
Referrals:
Leoncio Zheng MD [Family Provider]
Activity Restrictions/Additional Instructions:
Thank You for choosing [facility].
It was a pleasure meeting you and taking part in your care. We hope for your continued healing and wellness.
Please read discharge instructions in their entirety. However, they are for general education and may not describe your exact diagnosis at discharge. Information on your ER visit and medical conditions were discussed with you along with appropriate
follow up information...
If indicated, please take your medications as instructed and indicated on discharge paperwork.
Please schedule a follow up appointment as directed. Call to schedule an appointment
Please return to the emergency department with ANY change in, persisting, or worsening of symptoms. If any of your symptoms do not improve, or persist, or become more severe within 6-12 hours, please return to the emergency department for further
care.
Please return to the emergency department if you develop a headache, neck pain/stiffness, fever greater than 100.4F, chest pain, shortness of breath, persistent nausea, vomiting, slurred speech, difficulty walking, numbness/tingling, weakness, signs
of infection or any other symptoms that are worrisome to you.
If you have any questions or concerns please do not hesitate to call the Hospital at
Interventions
Interventions:
*Risk Screen - Suicide Last Done: 10/25/24 23:35
*General Assessment Last Done: 10/25/24 23:35
*Neglect/Abuse Screening Last Done: 10/25/24 23:35
*ED- Fall Risk Assessment Last Done: 10/25/24 23:35
*ED COVID-19 Vaccine History Last Done: 10/25/24 23:35
TA-Xnpsct-Sgsusjwjdb Assessment Last Done: 10/26/24 00:30
Discharge Date and Time
Print Language: JAPANESE
--- NOTE | 2024-10-26 03:46 | EDRN ---
Dr. Batista in to update patient on Ct results and plan
[2024-10-26 04:11] VITALS: BP 135/86
[2024-10-26 04:27] LABS: Urine Character Clear (Clear)
[2024-10-26 04:58] LABS: Urine Squamous Cell 16-20 /LPF (Few)
[2024-10-26 05:00] LABS: Urine White Cell 16-20 /HPF (0-5)
[2024-10-26 08:02] VITALS: BP 133/84
== END 2024-10-26 08:09 | disposition home or self-care (01) ==
LOC: EMR 23:26
PROVIDERS: EMERGENCY PHYSICIAN Student in an Organized Health Care Education/Training Program; FAMILY PHYSICIAN Internal Medicine
DX: R10.9 Unspecified abdominal pain (principal); R00.0 Tachycardia, unspecified; R19.7 Diarrhea, unspecified; R53.1 Weakness; I10 Essential (primary) hypertension; J45.909 Unspecified asthma, uncomplicated; K58.0 Irritable bowel syndrome with diarrhea; F32.A Depression, unspecified; F90.9 Attention-deficit hyperactivity disorder, unspecified type; F43.10 Post-traumatic stress disorder, unspecified; D68.51 Activated protein C resistance; Z86.718 Personal history of other venous thrombosis and embolism; Z90.49 Acquired absence of other specified parts of digestive tract; Z90.710 Acquired absence of both cervix and uterus; Z94.0 Kidney transplant status
CPT/HCPCS: 99284; 96374; 96375; 96376; 74176; 80053; 81003; 81015; 83605; 83690; 84703; 85025; 85610; 85730; 87086; 93005

== ENCOUNTER 2024-12-14 21:37 | Emergency (ER) | payer OTHER, SELFPAY ==
[2024-12-14 21:39] VITALS: BP 115/78
--- NOTE | 2024-12-15 00:36 | ED.GENMED ---
History of Present Illness
General
Chief Complaint: DVT/Possible Blood Clot
Time Seen by Provider: 12/15/24 00:34
History of Present Illness
History of Present Illness:
PAST MEDICAL HISTORY AND REVIEW OF OLD RECORDS
- The patient has history of factor V Leiden and has had DVT PE in the past
Note:
CHIEF COMPLAINT(S)
Left leg pain with swelling and bruising.
HISTORY OF PRESENT ILLNESS
The patient is a 29-year-old female with a history of Factor V Leiden mutation, homozygous, who presents with severe cramping pain in the left leg. The pain originated from the knee down to the foot yesterday and progressed overnight to involve the
thigh. The patient noted increasing swelling and bruising of the left leg, with an intensification of the pain. She described the pain as excruciating, which worsened to the point where she could barely walk after returning from a family event. The
patient also experienced numbness over her toes and described the pain as a 'horrible cramping, searing' sensation. There were concerns about a potential blood clot, given her past medical history and ongoing anticoagulation therapy. However, an
ultrasound examination conducted tonight revealed no evidence of a blood clot in the veins. The patient reported compliance with her prescribed anticoagulation medication, Apixaban, taken twice daily. She also mentioned taking Tylenol for pain
relief, which she initiated last night when symptoms became prominent.
CHRONIC MEDICAL CONDITIONS SIGNIFICANTLY AFFECTING CARE
- Factor V Leiden mutation, homozygous, requiring anticoagulation therapy.
MEDICATIONS
- Apixaban (Eliquis), twice daily.
PHYSICAL EXAM
General: Alert, appears somewhat uncomfortable related to pain in the left leg
Skin: Increased bruising on the left leg; minimal if any warmth present but no clear evidence of cellulitis, no erythema
Cardiovascular: Easily palpable left DP pulse
Musculoskeletal: There is tenderness to the medial proximal musculature of the left leg just distal to the knee
PLAN
- Discharge the patient with instructions for continued leg elevation and monitoring of symptoms.
- Advise continuation of current anticoagulation therapy.
- Educate the patient on monitoring for any signs of thrombosis or increased bleeding.
- Offered prescription for short-term narcotic pain relief, which the patient declined due to concerns about potential effects while driving.
DIFFERENTIAL DIAGNOSIS
The Differential Diagnosis includes, in no particular order and is not limited to:
- Hematoma due to anticoagulation.
- Muscle strain.
- Compartment syndrome.
- Deep vein thrombosis (ruled out by ultrasound).
- Superficial thrombophlebitis.
- Cellulitis.
- Peripheral neuropathy.
- Venous insufficiency.
- Bakers cyst rupture.
- Lymphatic obstruction.
RADIOLOGY
- Ultrasound imaging shows no DVT
SUMMARY OF ENCOUNTER
The patient, a 29-year-old female with a history of Factor V Leiden mutation, presented to the emergency department with severe cramping pain, swelling, and bruising in the left leg, extending from the knee to the foot and thigh. Ultrasound findings
indicated no evidence of a blood clot in the veins; however, the possibility of a small hematoma outside a blood vessel was discussed. The patient was compliant with her anticoagulation medication, Apixaban. The pain was described as a 'horrible
cramping, searing' sensation, significantly affecting her ability to walk. Due to the lack of deep vein thrombosis and the suspicion of a hematoma, the patient was advised to continue current anticoagulation and Tylenol for pain relief, and was
offered but declined narcotic pain relief due to driving concerns.
DISPOSITION
Discharge.
PLAN
- Discharge with instructions for continued leg elevation and monitoring of symptoms.
- Continue current anticoagulation therapy with Apixaban.
- Educate on monitoring for signs of thrombosis or increased bleeding.
- Declined prescription for short-term narcotic pain relief.
INDEPENDENT REVIEW OF LABS AND INTERPRETATION OF TESTS
My independent interpretation of the ultrasound shows no evidence of deep vein thrombosis but suggests the possibility of a small hematoma outside of a blood vessel.
PATIENT EDUCATION AND COUNSELING
The patient was educated on signs of thrombosis, increased bleeding, and advised on the importance of continuing anticoagulation treatment. Instructions were provided on leg elevation and monitoring for recurrence or worsening symptoms.
MEDICATION RECONCILIATION
- Apixaban, twice daily.
- Tylenol as needed for pain relief.
MEDICAL DECISION MAKING
-Complexity of Data Reviewed: Chronic conditions affecting care include Factor V Leiden mutation, homozygous requiring anticoagulation therapy. Differential diagnoses considered include hematoma due to anticoagulation, muscle strain, and compartment
syndrome among others.
-Data:
Category 1
My independent interpretation of the ultrasound revealed a potential small hematoma outside of the blood vessel.
Category 3
Discussion of management was held with the patient regarding pain management alternatives and her concerns with narcotic use while driving.
-Risk:
Prescription medication management involved decision-making surrounding continued anticoagulation with Apixaban and the offer of narcotic medication for short-term pain relief, which was declined by the patient.
DIAGNOSIS
- Left leg pain
- Chronic anticoagulation therapy due to Factor V Leiden mutation (ICD-10: D68.61).
Past History
Past History
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
ADHD, depression, PTSD, ) and Other ( PE/DVT, IBS, factor V Leiden, early stage cervical cancer)
ED Past Surgical History: Cholecystectomy, Gynecological, Tonsilectomy (and adenoids) and Other (renal transplant 2014; hernia repair; sinus reconstruction; wisdom tooth extraction; )
Social History
Tobacco: Non-smoker
Alcohol: None
Drug: None
Personal: Single
Living: with family
Employment: Employed
Family History
Family History: Other (Grandmother with ovarian cancer mother with retinitis pigmentosa, father with high blood pressure)
Phy Exam
Physical Exam
Physical Exam:
See HPI
Course
Orders/Labs/Results
Orders:
Orders
12/14/24 21:44
US Legs, Left [US Periph Venous LOWER Ext LT] Urgent
Comment:
Reason For Exam: pain/swelling, r/o DVT
Vital Signs
Initial and Last Documented VS:
Initial Vital Signs
Temp Pulse Resp BP Pulse Ox
36.8 C 84 18 115/78 100
12/14/24 21:39 12/14/24 21:39 12/14/24 21:39 12/14/24 21:39 12/14/24 21:39
Last Documented Vital Signs
Temp Pulse Resp BP Pulse Ox
36.8 C 84 18 115/78 100
12/14/24 21:39 12/14/24 21:39 12/14/24 21:39 12/14/24 21:39 12/15/24 00:37
*Pulse Oximetry
SaO2: 100
Oxygen Mode of Delivery: Room air
Patient hypoxic: no
*Critical Care Note
Total Time (30-74mins, 75-104mins- exclusive of procedures): Not Applicable
ED Attending Note
-
Portions of this chart may have been created with voice recognition software.� Occasional wrong word or��sound alike� substitutions may have occurred due to the inherent limitations of voice recognition software.
Discharge Plan
Departure
Patient Disposition: Home (Routine Discharge)
Date of Disposition: 12/15/24
Time of Disposition: 00:46
Patient with high blood pressure during this ER visit?: No
Discharge Problem:
Acute leg pain
Prescriptions:
No Action
alprazolam 1 MG tablet
1 mg PO BID@0800,1500
Patient Comments:
05/23/2023, pt. filled this med. on 04/21/2023 for 30 tablets according to PDMP.
azathioprine [Azasan] 100 MG tablet
100 mg PO DAILY
lisinopril 10 mg tablet
10 mg PO HS
montelukast 10 mg tablet
10 mg PO HS
pravastatin 20 mg tablet
20 mg PO HS
Eliquis 2.5 mg tablet
2.5 mg PO BID
clonidine HCl 0.1 mg Tablet
0.2 mg PO TID
lidocaine 4 % Cream
1 applic TOPICAL DAILYPRN PRN (Reason: prior to port access)
omeprazole 20 mg Capsule,Delayed Release(Dr/Ec)
20 mg PO BID
belatacept 250 mg Recon Soln
250 mg IV Q28D
Patient Comments:
NEXT DOSE 08/01/2024
Linzess 145 mcg Capsule
145 mcg PO DAILYPRN PRN (Reason: IBS)
alprazolam 1 mg tablet
0.5 mg PO HS
albuterol sulfate 90 mcg/actuation Hfa Aerosol Inhaler
2 puff INHALATION R Q6HPRN PRN (Reason: sob/wheezing)
sucralfate [Carafate] 100 mg/mL suspension
5 ml PO TIDPRN PRN (Reason: Gastrointestinal issue)
metoclopramide HCl [Reglan] 10 mg Tablet
10 mg PO BIDPRN PRN (Reason: if zofran does not work)
ondansetron [Zofran ODT] 4 mg Tablet,Disintegrating
4 mg PO DAILYPRN PRN (Reason: n/v)
prednisone 5 mg Tablet
5 mg PO DAILY
spironolactone 25 mg Tablet
25 mg PO DAILY
zolpidem [Ambien] 10 mg Tablet
10 mg PO HS PRN (Reason: SLEEP)
acetaminophen [Tylenol Extra Strength] 500 mg Tablet
1,000 mg PO Q6H PRN (Reason: pain)
fluconazole 150 mg tablet
150 mg PO ONCE Qty: 1 0RF
Activity Restrictions/Additional Instructions:
The cause of your symptoms is unclear. An ultrasound was obtained tonight which shows no deep vein thrombosis. Continue Tylenol. Return here if worse or other concerns.
Interventions
Interventions:
*Risk Screen - Suicide Last Done: 12/14/24 21:42
*General Assessment Last Done: 12/14/24 21:42
*Neglect/Abuse Screening Last Done: 12/14/24 21:42
*ED COVID-19 Vaccine History Last Done: 12/14/24 21:42
Discharge Date and Time
Print Language: ROMANSH
--- NOTE | 2024-12-15 02:17 | EDRN ---
Patient seen and assessed by MD Castro. MD gave verbal order to hold pain medicine and for patient to be discharged. Discharge instructions reviewed with patient. Patient left ED.
== END 2024-12-15 01:15 | disposition home or self-care (01) ==
LOC: EMR 21:37
PROVIDERS: EMERGENCY PHYSICIAN Emergency Medicine; FAMILY PHYSICIAN Internal Medicine
DX: M79.605 Pain in left leg (principal); R22.42 Localized swelling, mass and lump, left lower limb; D68.51 Activated protein C resistance; Z79.01 Long term (current) use of anticoagulants; I10 Essential (primary) hypertension; J45.909 Unspecified asthma, uncomplicated; Z86.711 Personal history of pulmonary embolism; Z86.718 Personal history of other venous thrombosis and embolism; Z94.0 Kidney transplant status
CPT/HCPCS: 99284; 93971